=== PATIENT | female | born 1955 | race Caucasian/White ===

== ENCOUNTER 2021-01-28 14:37 | Outpatient (REF) | payer MEDICARE, MEDICAID, SELFPAY ==
--- NOTE | ~2021-01-28 | MM_ITS ---
EXAMINATION: MM SCREENING DIGITAL BREAST TOMOSYNTHESIS, BILATERAL CLINICAL INFORMATION: Screening. Asymptomatic. The lifetime risk of breast cancer based on the Tyrer-Cuzick Model is 4%. COMPARISON: Mammography: 10/20/2019, 09/02/2018, 08/24/2018, 07/07/2017 TECHNIQUE: Digital breast tomosynthesis is performed in both the craniocaudal and mediolateral oblique views along with computer-aided detection (CAD). Synthesized 2D images are generated from the tomosynthesis. FINDINGS: There are scattered areas of fibroglandular density (ACR BI-RADS breast composition Category b). There are no significant masses, abnormal calcifications, or other abnormalities. Parenchymal pattern is similar to prior studies. No developing density. No significant changes. MM/MM tomosynthesis screening BI IMPRESSION: No mammographic evidence of malignancy. ASSESSMENT: BI-RADS 1: Negative RECOMMENDATION: Routine annual mammography screening. This patient's information was entered into a reminder system with a target due date for their next mammogram.
== END 2021-01-28 14:38 | disposition home or self-care (01) ==
LOC: HO.MAMMO 14:37
PROVIDERS: Visit Provider Internal Medicine
DX: Z12.31 Encounter for screening mammogram for malignant neoplasm of breast (principal)
CPT/HCPCS: 77063; 77067

== ENCOUNTER 2021-04-30 11:24 | Outpatient (REF) | payer MEDICARE, MEDICAID, SELFPAY ==
[2021-04-30 10:55] LABS: MANUAL DIFF FLAG NO
[2021-04-30 10:59] LABS: Basophils Percent Auto 0.4 % (0-2); Eosinophils Absolute Auto 0.1 X10*3/uL (0.0-0.4); Eosinophils Percent Auto 0.9 % (0-4); Hematocrit 43.1 % (37.0-47.0); Hemoglobin 14.1 g/dl (12.0-16.0); Imm Gran Abs Auto 0.01 X10*3/uL (0.00-0.03); Imm Gran Pct Auto 0.1 % (0.0-0.4); Lymphocytes Absolute Auto 2.3 X10*3/uL (1.2-4.9); Lymphocytes Percent Auto 34.3 % (20-40); Mean Corpuscular HGB Conc 32.7 g/dl (31.0-35.0); Mean Corpuscular Hemoglobin 31.9 pg (27.0-33.0); Mean Corpuscular Volume 97.5 fL (80.0-98.0); Mean Platelet Volume 9.7 fL (9.4-12.3); Monocytes Absolute Auto 0.5 X10*3/uL (0.1-1.2); Monocytes Percent Auto 7.8 % (2-11); Neutrophils Absolute Auto 3.8 x10*3/uL (2.0-8.3); Neutrophils Percent Auto 56.5 % (45-73); Platelet Count 327 X10*3/uL (160-400); Red Blood Count 4.42 X10*6/uL (4.20-5.50); Red Cell Distribution Width 13.5 % (11.0-16.0); White Blood Count 6.7 X10*3/uL (4.8-10.8)
[2021-04-30 11:07] LABS: Estimated Average Glucose 97 mg/dL
[2021-04-30 11:24] LABS: Alanine Aminotransferase 12 U/L (0-31); Albumin Level 3.9 g/dL (3.5-5.0); Alkaline Phosphatase 58 U/L (39-117); Anion Gap 13 (12-20); Aspartate Amino Transferase 11 U/L (5-31); Bilirubin Total 0.2 mg/dL (0.0-1.0); Blood Urea Nitrogen 9 mg/dL (9-16); Calcium 9.6 mg/dL (8.4-10.2); Carbon Dioxide 30 mmol/L (22-29); Chloride 96 mmol/L (96-108); Cholesterol 210 mg/dL; Estimated Glomerular Filt Rate > 60; Glucose Random 111 mg/dL (60-115); HDL Cholesterol 45 mg/dL; LDL Cholesterol Calculated 129 mg/dl; Lipase 19 U/L (8-78); Potassium 4.1 mmol/L (3.3-5.1); Sodium 135 mmol/L (135-145); Total Protein 6.3 g/dL (6.5-8.0); Triglycerides 184 mg/dL
[2021-04-30 11:46] LABS: Free T4 (Free Thyroxine) 0.99 ng/dL (0.71-1.85); Thyroid Stimulating Hormone 1.06 uIU/mL (0.32-4.0)
[2021-04-30 11:55] LABS: Creatinine Urine 41.27 mg/dL; Microalbum/Creatinine Ratio Ur 72.6 ug/mg cr
== END 2021-04-30 11:25 | disposition home or self-care (01) ==
LOC: HO.LHD 11:24
PROVIDERS: Visit Provider Internal Medicine
DX: R10.84 Generalized abdominal pain (principal); E11.9 Type 2 diabetes mellitus without complications; R53.81 Other malaise; R53.83 Other fatigue; E78.5 Hyperlipidemia, unspecified; F32.A Depression, unspecified
CPT/HCPCS: 36415; 80053; 80061; 82043; 83036; 83690; 84439; 84443; 85025

== ENCOUNTER 2021-05-23 14:26 | Outpatient (REF) | payer MEDICARE, MEDICAID, SELFPAY ==
--- NOTE | ~2021-05-23 | CT_ITS ---
EXAMINATION: CT ABDOMEN AND PELVIS WITH CONTRAST CLINICAL INFORMATION: Abdominal pain. COMPARISON: CT abdomen/pelvis 04/12/2018 TECHNIQUE: Multidetector volumetric images were obtained from the superior aspect of the liver through the pubic symphysis following administration 85 mL of Omnipaque 350 intravenous contrast. Sagittal and coronal reformatted images were obtained on the technologist's workstation. Oral contrast: No. This CT examination was performed using dose optimization techniques as appropriate, variously including the following: *Automated exposure control *Adjustment of mA and/or kV according to patient size (this includes techniques or standardized protocols for targeted exams where dose is matched to indication/reason for exam; i.e. extremities or head) *Use of iterative reconstruction technique DLP: 372 mGy-cm FINDINGS: LUNG BASES: There is a large hiatal hernia. There is plate-like atelectasis at the left lung base. LIVER, GALLBLADDER, AND BILIARY TREE: The liver is normal in size, shape, and attenuation. No focal hepatic lesion or biliary ductal dilatation is present. The gallbladder has been surgically removed. PANCREAS: Unremarkable. SPLEEN: Unremarkable. ADRENAL GLANDS: Unremarkable. KIDNEYS AND URETERS: The kidneys are normal in size, shape, and attenuation. No hydronephrosis, hydroureter, or calculi seen. No perinephric stranding. BLADDER: There is a Mora's catheter in the bladder with no bladder wall thickening or radiopaque calculi. GASTROINTESTINAL TRACT: There is oral contrast opacifying the small bowel loops which are normal caliber. There is scattered stool seen throughout the entire colon without distention. The appendix is normal caliber. ABDOMINAL WALL: There is a large abdominal wall hernia repair with mesh in place. No recurrent herniation seen. LYMPH NODES: Normal. VASCULAR: There are atherosclerotic changes of abdominal aorta without aneurysmal dilatation. PELVIC VISCERA: There is a large thick-walled high-density lesion in the midline and to left pelvis measuring 6.8 cm in craniocaudad, 8.0 cm in AP, and 7.8 cm wide with wall thickening measuring 6 mm on axial image 62/3. There is no free fluid in the pelvis. OSSEOUS STRUCTURES: There is levoscoliosis with degenerative disc changes at every disc level. There is disc prosthesis at L3-L4 with bilateral pedicular screws at L4 and L5 vertebrae with interconnecting prateek. There is loss of disc height virtually at every disc level. There is moderate right spondylosis L1-L2 and L2-L3 disc levels. CT/CT abdomen pelvis w con IMPRESSION: Large hiatal hernia. Large solid intrapelvic mass. It is consistent with a fibroid as was noted previously with some heterogeneity with thick enhancing capsule. Previously it measured 7 cm.
[2021-05-23] MEDS: iohexoL 350 MG/ML 100 ML INFUS..BTL 85 ML IV (15:17)
== END 2021-05-23 14:27 | disposition home or self-care (01) ==
LOC: HO.CT 14:26
PROVIDERS: PCP Internal Medicine; Visit Provider Internal Medicine
DX: R10.84 Generalized abdominal pain (principal)
CPT/HCPCS: 74177; Q9967

== ENCOUNTER 2021-08-20 14:44 | Outpatient (REF) | payer MEDICARE, MEDICAID, SELFPAY ==
--- NOTE | ~2021-08-20 | CT_ITS ---
EXAMINATION: CT CHEST WITH CONTRAST CLINICAL INFORMATION: Weight loss and chronic cough. COMPARISON: None TECHNIQUE: Multidetector volumetric CT imaging of the chest was obtained after the administration of 65 mL of Omnipaque 350 intravenous contrast without immediate adverse reactions. Axial MIP volume rendering provided. Sagittal and coronal reformatted images were obtained. This CT examination was performed using dose optimization techniques as appropriate, variously including the following: *Automated exposure control *Adjustment of mA and/or kV according to patient size (this includes techniques or standardized protocols for targeted exams where dose is matched to indication/reason for exam; i.e. extremities or head) *Use of iterative reconstruction technique DLP: 79 mGy-cm FINDINGS: INCENDIARIES SUPERVISOR: The lungs are well expanded. LUNGS: There are clusters of small nodules in the left upper lobe axial image 76 through 79/9. The largest nodule measures 4 mm in left upper lobe. There are several additional nodules seen in the lingula measuring the range of 2-3 mm on axial image 27/4, 28/4, 30/4. There is plate-like atelectasis left lower lobe posterior basal segment and lingula. MEDIASTINUM: The thyroid lobes are symmetric and normal. The central trachea and the bronchi are widely patent. There are small calcified lymph nodes in the right paratracheal region. Heart size and the great vessels are normal caliber. No pericardial effusion seen. There is a moderate-sized hiatal hernia. PLEURA: There is trace left posterior pleural thickening measuring 3.4 x 1.4 cm. There is no pleural effusion. AXILLA: Small shotty lymph nodes are seen in the axilla. The chest wall is unremarkable. UPPER ABDOMEN: Visualized liver is diffusely attenuated. No focal lesion or intrahepatic ductal dilatation seen. The spleen, bilateral adrenal glands are unremarkable. OSSEOUS STRUCTURES: There is mild dextroscoliosis dorsal spine. No lytic process seen. CT/CT chest w con IMPRESSION: Multiple small nodules in the left upper lobe and the lingular region. There are focal atelectatic changes in left lower lobe with mild thickening of the left major fissure. A moderate-sized hiatal hernia is noted. There is focal left posterior pleural thickening. Diffuse fatty liver. Recommend chest CT followup in 6 months to one year. Fleischner guidelines were followed.
[2021-08-20] MEDS: iohexoL 350 MG/ML 100 ML INFUS..BTL IV (16:06)
== END 2021-08-20 14:45 | disposition home or self-care (01) ==
LOC: HO.CT 14:44
PROVIDERS: Visit Provider Internal Medicine
DX: R63.4 Abnormal weight loss (principal); R05.3 Chronic cough
CPT/HCPCS: 71260; Q9967

== ENCOUNTER 2021-08-22 10:17 | Outpatient (REF) | payer MEDICARE, MEDICAID, SELFPAY ==
[2021-08-22 10:30] LABS: Blood Urea Nitrogen 5 mg/dL (9-16); Estimated Glomerular Filt Rate > 60
== END 2021-08-22 10:18 | disposition home or self-care (01) ==
LOC: HO.LHD 10:17
PROVIDERS: Visit Provider Internal Medicine
DX: E11.9 Type 2 diabetes mellitus without complications (principal); R60.0 Localized edema
CPT/HCPCS: 36415; 82565; 84520

== ENCOUNTER 2021-12-05 15:02 | Outpatient (REF) | payer MEDICARE, MEDICAID, SELFPAY ==
--- NOTE | ~2021-12-05 | XR_ITS ---
EXAMINATION: XR CHEST CLINICAL INFORMATION: Cough. COMPARISON: 08/21/2016 chest radiograph. TECHNIQUE: Frontal view of the chest was obtained. FINDINGS: Rotated and kyphotic positioning is suboptimal. The lungs are clear. There is a moderate hiatal hernia. The heart and mediastinal structures are unremarkable. XR/XR chest 1V IMPRESSION: 1. Limited study without overt CHF or pneumonia. 2. Moderate hiatal hernia.
== END 2021-12-05 15:03 | disposition home or self-care (01) ==
LOC: HO.HMGCLDS 15:02
PROVIDERS: PCP Internal Medicine
DX: R05.9 Cough, unspecified (principal)
CPT/HCPCS: 71045

== ENCOUNTER 2021-12-10 16:51 | Inpatient (IN) | payer MEDICARE, MEDICAID, SELFPAY ==
--- NOTE | ~2021-12-10 | CT_ITS ---
EXAMINATION: CT ABDOMEN AND PELVIS WITH CONTRAST CLINICAL INFORMATION: Posterior lower back wound with question of osteomyelitis COMPARISON: CT abdomen pelvis 05/23/2021 TECHNIQUE: Multidetector volumetric images were obtained from the superior aspect of the liver through the pubic symphysis following administration 85 mL of Omnipaque 350 intravenous contrast. Sagittal and coronal reformatted images were obtained on the technologist's workstation. Oral contrast: No This CT examination was performed using dose optimization techniques as appropriate, variously including the following: *Automated exposure control *Adjustment of mA and/or kV according to patient size (this includes techniques or standardized protocols for targeted exams where dose is matched to indication/reason for exam; i.e. extremities or head) *Use of iterative reconstruction technique DLP: 445 mGy-cm FINDINGS: LUNG BASES: The left hemidiaphragm markedly elevated and there is a moderate-sized hiatal hernia with large portion of the stomach in the chest. LIVER, GALLBLADDER, AND BILIARY TREE: The liver is normal in size, shape, and attenuation. No focal hepatic lesion or biliary ductal dilatation is present. Status post cholecystectomy. PANCREAS: Unremarkable. SPLEEN: Unremarkable. ADRENAL GLANDS: Unremarkable. KIDNEYS AND URETERS: The kidneys are normal in size, shape, and attenuation. No hydronephrosis, hydroureter, or calculi seen. No perinephric stranding. BLADDER: Mora catheter is present in the bladder. GASTROINTESTINAL TRACT: There is a moderate stool burden is seen in the colon, slightly increased since prior but no evidence of obstruction. The small and large bowel are otherwise unremarkable. The appendix is unremarkable. ABDOMINAL WALL: There is been prior abdominal wall surgery with presumed hernia repair. There is some mild diastases of the rectus muscles with forward bulging. In the left buttock, there is a break in the skin (3:52) with some associated increased soft tissue density and stranding consistent with the patient's known wound. The underlying bone appears normal without destructive changes to suggest osteomyelitis. LYMPH NODES: No retroperitoneal lymphadenopathy. VASCULAR: Calcific atherosclerotic plaque without aneurysm. PELVIC VISCERA: Large uterine fibroid measuring 7.5 x 7.2 x 6.2 cm similar to prior. No free pelvic fluid is seen. OSSEOUS STRUCTURES: Marked degenerative changes are present in the spine with pedicular screws at L4 and L5 and interbody disc device at L3-L4. CT/CT abdomen pelvis w IV con IMPRESSION: 1. Left buttock wound without evidence of osteomyelitis. 2. Other incidental findings as described above including elevated left hemidiaphragm, hiatal hernia, cholecystectomy, large uterine fibroid and degenerative changes in the spine. Fleischner guidelines were followed.
[2021-12-10 17:13] VITALS: BP 130/82; BP 143/68; PULSE 68; PULSE 71; RESP 16; TEMP 37; O2SAT 96; BMI 21.0
--- NOTE | 2021-12-10 18:49 | PC.NURSE ---
allevyn life wound pad placed on sacral area and large left posterior hip wound iv access gained.
[2021-12-10 19:00] LABS: MANUAL DIFF FLAG NO
[2021-12-10 19:01] LABS: Basophils Percent Auto 0.4 % (0-2); Eosinophils Percent Auto 0.4 % (0-4); Hematocrit 39.1 % (37.0-47.0); Imm Gran Abs Auto 0.04 X10*3/uL (0.00-0.03); Imm Gran Pct Auto 0.4 % (0.0-0.4); Lymphocytes Percent Auto 17.8 % (20-40); Mean Corpuscular HGB Conc 33.2 g/dl (31.0-35.0); Mean Corpuscular Hemoglobin 31.7 pg (27.0-33.0); Mean Corpuscular Volume 95.4 fL (80.0-98.0); Mean Platelet Volume 9.4 fL (9.4-12.3); Monocytes Percent Auto 8.4 % (2-11); Neutrophils Absolute Auto 8.3 x10*3/uL (2.0-8.3); Neutrophils Percent Auto 72.6 % (45-73); Platelet Count 416 X10*3/uL (160-400); Red Cell Distribution Width 13.3 % (11.0-16.0); White Blood Count 11.4 X10*3/uL (4.8-10.8)
[2021-12-10 19:45] LABS: Lactic Acid 0.9 mmol/L (0.5-2.0)
--- NOTE | 2021-12-10 19:46 | ED_ITS ---
HPI - Wound/Laceration General Chief Complaint: Wound/Laceration Stated Complaint: BEDSORES Time Seen by Provider: 12/10/21 17:23 Source: patient and EMS Mode of arrival: EMS Limitations: no limitations History of Present Illness HPI narrative: Patient comes to the emergency room complaining of pressure ulcer to the upper buttocks on the left side. Patient states that her PCP has been taking care of it. Patient was seen by her primary care physician and suggested to come to the emergency room for further evaluation as patient may need debridement. Patient denies any fever chills. Patient complaining of localized pain. Related Data Home Medications Medication Instructions Recorded Confirmed albuterol sulfate 90 mcg/actuation 2 puff inhalation Q4H PRN wheezing 12/05/21 12/10/21 aerosol inhaler amlodipine 10 mg tablet 10 mg PO DAILY 12/05/21 12/10/21 atenolol 50 mg tablet 50 mg PO DAILY 12/05/21 12/10/21 buspirone 10 mg tablet 10 mg PO BID 12/05/21 12/10/21 clonazepam 1 mg tablet 1 mg PO TID PRN Anxiety 12/05/21 12/10/21 dicyclomine 10 mg capsule 10 mg PO TID 12/05/21 12/10/21 docusate sodium 100 mg capsule 100 mg PO BID PRN constipation 12/05/21 12/10/21 fluoxetine 40 mg capsule 80 mg PO DAILY 12/05/21 12/10/21 furosemide 40 mg tablet 40 mg PO BID 12/05/21 12/10/21 gabapentin 400 mg capsule 400 mg PO TID 12/05/21 12/10/21 ketoconazole 2 % shampoo 1 appl topical DAILY 12/05/21 12/10/21 lisinopril 40 mg tablet 40 mg PO DAILY 12/05/21 12/10/21 metformin 500 mg tablet,extended 500 mg PO BID 12/05/21 12/10/21 release 24 hr methenamine hippurate 1 gram tablet 1 g PO BID 12/05/21 12/10/21 methotrexate sodium 2.5 mg tablet 12.5 mg PO QWEEK 12/05/21 12/10/21 metoclopramide HCl 10 mg tablet 10 mg PO TID 12/05/21 12/10/21 mirabegron 25 mg tablet,extended 25 mg PO DAILY 12/05/21 12/10/21 release 24 hr (Myrbetriq) omeprazole 20 mg capsule,delayed 20 mg PO BID 12/05/21 12/10/21 release ondansetron HCl 4 mg tablet 4 mg PO TID 12/05/21 12/10/21 oxycodone-acetaminophen 10 mg-325 1 tab PO BEDTIME pain 12/05/21 12/10/21 mg tablet riboflavin (vitamin B2) 100 mg 100 mg PO BID 12/05/21 12/10/21 tablet (Vitamin B-2) trazodone 50 mg tablet 100 mg PO BEDTIME PRN Insomnia 12/05/21 12/10/21 ascorbic acid (vitamin C) 500 mg 500 mg PO DAILY 12/10/21 12/10/21 tablet (Vitamin C) aspirin 81 mg chewable tablet 81 mg PO DAILY 12/10/21 12/10/21 baclofen 20 mg tablet 1 tab PO TID 12/10/21 12/10/21 cholecalciferol (vitamin D3) 25 25 mcg PO DAILY 12/10/21 12/10/21 mcg (1,000 unit) tablet ferrous sulfate 325 mg (65 mg 325 mg PO DAILY 12/10/21 12/10/21 iron) tablet sucralfate 1 gram tablet 1 tab PO TID 12/10/21 12/10/21 tiotropium bromide 18 mcg capsule 1 cap inhalation DAILY 12/10/21 12/10/21 with inhalation device (Spiriva with HandiHaler) topiramate 25 mg sprinkle capsule 1 cap PO BEDTIME 12/10/21 12/10/21 zafirlukast 20 mg tablet 1 tab PO BID 12/10/21 12/10/21 Allergies Allergy/AdvReac Type Severity Reaction Status Date / Time morphine [Morphine] Allergy Intermediate INCREASED Verified 12/05/21 14:47 HEART RATE/HALLUCINATIONS, hallucinations Review of Systems Review of Systems: Constitutional : No Weight loss, No Fever, No Chills, No Night Sweats, No Fatigue, No Malaise ENT/Mouth : No Hearing loss, No Ear Pain, No Nasal Congestion, No Sinus Pain, No Hoarseness, No sore throat, No Rhinorrhea, No Swallowing Difficulty Eyes: No Eye Pain, No Swelling, No Redness, No Foreign Body, No Discharge, No Vision Changes Cardiovascular : No Chest Pain, No SOB, No Dyspnea on Exertion, No Orthopnea, No Edema, No Palpitations Respiratory : No Cough, No Sputum, No Wheezing, No Smoke Exposure, No Dyspnea Gastrointestinal : No Nausea, No Vomiting, No Diarrhea, No Constipation, No abdominal Pain, No Hematochezia, No Melena Genitourinary : no irregular bleeding, No Dysuria, No Urinary Frequency, No Hematuria, No Urinary Incontinence, No Urgency, No Flank Pain, No Urinary Flow Changes, No Hesitancy Musculoskeletal : No joint pain, No Myalgias, No Joint Swelling Skin : Decubitus ulcer in the left Neuro : No Weakness, No Numbness, No Paresthesias, No Loss of Consciousness, No Dizziness, No Headache Psych : No Anxiety/Panic, No Depression, No SI/HI/AH/VH, No Social Issues, Heme/Lymph: No Bruising, No Bleeding,No Lymphadenopathy Endocrine : No Polyuria, No Polydipsia, No Temperature Intolerance PMFSH Past Medical History Medical History Anemia Asthma Decubitus ulcer Social History Social History Advance Directives: Yes Advance Directives Information Provided: No Advance Directives on File: No Physical Exam Vital Signs: Vital Signs: Last Vital Signs Temp 98.6 F 12/10/21 17:13 Pulse 68 12/10/21 17:13 Resp 16 12/10/21 17:13 BP 143/68 H 12/10/21 17:13 Pulse Ox 96 12/10/21 17:13 O2 Del Method 12/10/21 17:13 BMI result Body Mass Index 21.0 Const: Other: Appearance: Alert. Oriented X3. No acute distress. Eyes: Pupils equal, round and reactive to light. ENT: Pharynx normal. Neck: Normal inspection. Neck supple. No lymph nodes noted. No crepitus CVS: Normal heart rate and rhythm. Pulses normal. Normal S1 and S2 Respiratory: No respiratory distress. Breath sounds normal. No Wheezing. No rales Abdomen: Soft and nontender. No rigidity. No distention. Skin: Skin warm and dry. Unstageable decubitus ulcer above the left buttocks, see picture below Extremities: No lower extremity edema. No Lacerations. No Rash Neuro: Oriented X 3. No motor deficit. No sensory deficit. Moving all extremities. No slurred speech. CN 2 through 12 grossly intact Psych: calm, cooperative, normal affect Course Course Course Narrative: White blood cell count slightly elevated, lactic acid within normal limits, normal blood pressure, no fever, sepsis not suspected. The patient was started on Zosyn. CT scan does not show osteomyelitis. Patient will likely need debridement. I discussed the patient with Dr. Mcconnell, pt being admitted MDM - Wound/Laceration Lab Data Result diagrams: 12/10/21 18:51 12/10/21 19:23 Labs: Lab Results 12/10/21 12/10/21 12/10/21 Range/Units 18:51 19:23 19:23 WBC 11.4 H (4.8-10.8) X10*3/uL RBC 4.10 L (4.20-5.50) X10*6/uL Hgb 13.0 (12.0-16.0) g/dl Hct 39.1 (37.0-47.0) % MCV 95.4 (80.0-98.0) fL MCH 31.7 (27.0-33.0) pg MCHC 33.2 (31.0-35.0) g/dl RDW 13.3 (11.0-16.0) % Plt Count 416 H D (160-400) X10*3/uL MPV 9.4 (9.4-12.3) fL Immature Gran % (Auto) 0.4 (0.0-0.4) % Neut % (Auto) 72.6 (45-73) % Lymph % (Auto) 17.8 L (20-40) % Frontier % (Auto) 8.4 (2-11) % Eos % (Auto) 0.4 (0-4) % Baso % (Auto) 0.4 (0-2) % Lymph # (Auto) 2.0 (1.2-4.9) X10*3/uL Frontier # (Auto) 1.0 (0.1-1.2) X10*3/uL Eos # (Auto) 0.0 (0.0-0.4) X10*3/uL Baso # (Auto) 0.0 (0.0-0.2) X10*3/uL Abs Immat Gran (auto) 0.04 H (0.00-0.03) X10*3/uL Absolute Neuts (auto) 8.3 (2.0-8.3) x10*3/uL Absolute Nucleated RBC 0.000 (0.0-0.012) X10*3/uL Nucleated RBC % (auto) 0.0 (0.0-0.2) /100WBC Sodium 139 (135-145) mmol/L Potassium 3.5 (3.3-5.1) mmol/L Chloride 98 (96-108) mmol/L Carbon Dioxide 30 H (22-29) mmol/L Anion Gap 15 (12-20) BUN 6 L (9-16) mg/dL Creatinine 0.58 (0.5-1.4) mg/dL Estim Creat Clear Calc 76.4 Estimated GFR > 60 Random Glucose 120 H (60-115) mg/dL Lactic Acid 0.9 (0.5-2.0) mmol/L Calcium 9.1 (8.4-10.2) mg/dL Total Bilirubin 0.2 (0.0-1.0) mg/dL Direct Bilirubin < 0.2 (0.0-0.5) mg/dL AST 14 (5-31) U/L ALT 12 (0-31) U/L Alkaline Phosphatase 65 (39-117) U/L Total Protein 5.7 L (6.5-8.0) g/dL Albumin 3.3 L (3.5-5.0) g/dL COVID-19 (PETE) (Negative) COVID-19 Clin Com 12/10/21 Range/Units 19:23 WBC (4.8-10.8) X10*3/uL RBC (4.20-5.50) X10*6/uL Hgb (12.0-16.0) g/dl Hct (37.0-47.0) % MCV (80.0-98.0) fL MCH (27.0-33.0) pg MCHC (31.0-35.0) g/dl RDW (11.0-16.0) % Plt Count (160-400) X10*3/uL MPV (9.4-12.3) fL Immature Gran % (Auto) (0.0-0.4) % Neut % (Auto) (45-73) % Lymph % (Auto) (20-40) % Frontier % (Auto) (2-11) % Eos % (Auto) (0-4) % Baso % (Auto) (0-2) % Lymph # (Auto) (1.2-4.9) X10*3/uL Frontier # (Auto) (0.1-1.2) X10*3/uL Eos # (Auto) (0.0-0.4) X10*3/uL Baso # (Auto) (0.0-0.2) X10*3/uL Abs Immat Gran (auto) (0.00-0.03) X10*3/uL Absolute Neuts (auto) (2.0-8.3) x10*3/uL Absolute Nucleated RBC (0.0-0.012) X10*3/uL Nucleated RBC % (auto) (0.0-0.2) /100WBC Sodium (135-145) mmol/L Potassium (3.3-5.1) mmol/L Chloride (96-108) mmol/L Carbon Dioxide (22-29) mmol/L Anion Gap (12-20) BUN (9-16) mg/dL Creatinine (0.5-1.4) mg/dL Estim Creat Clear Calc Estimated GFR Random Glucose (60-115) mg/dL Lactic Acid (0.5-2.0) mmol/L Calcium (8.4-10.2) mg/dL Total Bilirubin (0.0-1.0) mg/dL Direct Bilirubin (0.0-0.5) mg/dL AST (5-31) U/L ALT (0-31) U/L Alkaline Phosphatase (39-117) U/L Total Protein (6.5-8.0) g/dL Albumin (3.5-5.0) g/dL COVID-19 (PETE) Negative (Negative) COVID-19 Clin Com See Note Imaging Data CT scan - abdomen: Radiologist's impression: INDINGS: LUNG BASES: The left hemidiaphragm markedly elevated and there is a moderate-sized hiatal hernia with large portion of the stomach in the chest.? LIVER, GALLBLADDER, AND BILIARY TREE: The liver is normal in size, shape, and attenuation. No focal hepatic lesion or biliary ductal dilatation is present. Status post cholecystectomy. PANCREAS: Unremarkable.? SPLEEN: Unremarkable.? ADRENAL GLANDS: Unremarkable.? KIDNEYS AND URETERS: The kidneys are normal in size, shape, and attenuation. No hydronephrosis, hydroureter, or calculi seen. No perinephric stranding. ? BLADDER: Mora catheter is present in the bladder.? GASTROINTESTINAL TRACT: There is a moderate stool burden is seen in the colon, slightly increased since prior but no evidence of obstruction. The small and large bowel are otherwise unremarkable. The appendix is unremarkable.? ABDOMINAL WALL: There is been prior abdominal wall surgery with presumed hernia repair. There is some mild diastases of the rectus muscles with forward bulging. In the left buttock, there is a break in the skin (3:52) with some associated increased soft tissue density and stranding consistent with the patient's known wound. The underlying bone appears normal without destructive changes to suggest osteomyelitis. LYMPH NODES: No retroperitoneal lymphadenopathy. VASCULAR: Calcific atherosclerotic plaque without aneurysm. PELVIC VISCERA: Large uterine fibroid measuring 7.5 x 7.2 x 6.2 cm similar to prior. No free pelvic fluid is seen.? OSSEOUS STRUCTURES: Marked degenerative changes are present in the spine with pedicular screws at L4 and L5 and interbody disc device at L3-L4.? CT/CT abdomen pelvis w IV con IMPRESSION: 1.? Left buttock wound without evidence of osteomyelitis. 2.? Other incidental findings as described above including elevated left hemidiaphragm, hiatal hernia, cholecystectomy, large uterine fibroid and degenerative changes in the spine. ? Fleischner guidelines were followed. Discharge Plan Discharge Clinical Impression: Decubitus ulcer of buttock, unstageable Patient Disposition: Admitted As Inpatient Prescriptions: No Action sucralfate 1 gram tablet 1 tab PO TID baclofen 20 mg tablet 1 tab PO TID ascorbic acid (vitamin C) [Vitamin C] 500 mg Tablet 500 mg PO DAILY topiramate 25 mg capsule, sprinkle 1 cap PO BEDTIME ferrous sulfate 325 mg (65 mg iron) Tablet 325 mg PO DAILY zafirlukast 20 mg tablet 1 tab PO BID aspirin 81 mg Tablet,Chewable 81 mg PO DAILY Spiriva with HandiHaler 18 mcg capsule, w/inhalation device 1 cap inhalation DAILY cholecalciferol (vitamin D3) 25 mcg (1,000 unit) Tablet 25 mcg PO DAILY ondansetron HCl 4 mg tablet 4 mg PO TID fluoxetine 40 mg capsule 80 mg PO DAILY docusate sodium 100 mg capsule 100 mg PO BID PRN (Reason: constipation) Myrbetriq 25 mg tablet extended release 24 hr 25 mg PO DAILY methenamine hippurate 1 gram tablet 1 g PO BID furosemide 40 mg tablet 40 mg PO BID metoclopramide HCl 10 mg tablet 10 mg PO TID oxycodone-acetaminophen 10-325 mg tablet 1 tab PO BEDTIME riboflavin (vitamin B2) [Vitamin B-2] 100 mg tablet 100 mg PO BID ketoconazole 2 % shampoo 1 appl topical DAILY albuterol sulfate 90 mcg/actuation HFA aerosol inhaler 2 puff inhalation Q4H PRN (Reason: wheezing) metformin 500 mg tablet extended release 24 hr 500 mg PO BID methotrexate sodium 2.5 mg tablet 12.5 mg PO QWEEK clonazepam 1 mg tablet 1 mg PO TID PRN (Reason: Anxiety) gabapentin 400 mg capsule 400 mg PO TID lisinopril 40 mg tablet 40 mg PO DAILY dicyclomine 10 mg capsule 10 mg PO TID buspirone 10 mg tablet 10 mg PO BID trazodone 50 mg tablet 100 mg PO BEDTIME PRN (Reason: Insomnia) atenolol 50 mg tablet 50 mg PO DAILY amlodipine 10 mg tablet 10 mg PO DAILY omeprazole 20 mg capsule,delayed release(DR/EC) 20 mg PO BID
[2021-12-10 19:48] LABS: COVID-19 Test Negative (Negative)
[2021-12-10 19:50] LABS: Alanine Aminotransferase 12 U/L (0-31); Albumin Level 3.3 g/dL (3.5-5.0); Alkaline Phosphatase 65 U/L (39-117); Anion Gap 15 (12-20); Aspartate Amino Transferase 14 U/L (5-31); Bilirubin Direct < 0.2 mg/dL (0.0-0.5); Bilirubin Total 0.2 mg/dL (0.0-1.0); Blood Urea Nitrogen 6 mg/dL (9-16); Calcium 9.1 mg/dL (8.4-10.2); Carbon Dioxide 30 mmol/L (22-29); Chloride 98 mmol/L (96-108); Creatinine Clr Calc Pharmacy 76.4; Estimated Glomerular Filt Rate > 60; Glucose Random 120 mg/dL (60-115); Potassium 3.5 mmol/L (3.3-5.1); Sodium 139 mmol/L (135-145); Total Protein 5.7 g/dL (6.5-8.0)
[2021-12-10] MEDS: Piperacillin Sodium/Tazobactam 3.375 GM in 0.9 % Sodium Chloride 50 ML IV (19:50)
[2021-12-10] MEDS: iohexoL 350 MG/ML 100 ML INFUS..BTL IV (20:20)
--- NOTE | 2021-12-10 21:03 | PHA.MEDREC ---
Pharmacy Consult ? Medication Reconciliation Pharmacy has completed the medication reconciliation.
--- NOTE | 2021-12-10 22:28 | PM.IMHP ---
History of Present Illness Date of Service: 12/10/21 Chief Complaint: Sacral wound This is a 66-year-old female with pertinent history of multiple sclerosis with resultant rigidity and neuropathy, bed bound for the last 18 years and uses a wheelchair to ambulate, essential hypertension, non insulin dependent diabetes, gastroparesis with gastroesophageal reflux disease, chronic opioid use, urinary incontinence, mood disorder with insomnia who was sent to the emergency department by her PCP for evaluation of sacral decubitus ulcer. Patient states she has been bed-bound for the last 18 years. Sacral decubitus ulcer was 1st noticed about 3 months ago and is being managed by PCP. She has [employer] at home could do wound care twice daily. Patient denies fever, chills or purulent discharge from the sacral decubitus. She denies nausea, vomiting, chest discomfort, palpitations, abdominal pain, changes in urinary or bowel habits. In the emergency department, unstageable sacral decubitus ulcer was noted. General surgery was consulted who recommended admission to Medicine and who will see in a.m.. Review of Systems Review of Systems: All 13 review of systems are negative except as noted in HPI [facility] Medical History Anemia Asthma Decubitus ulcer Diabetes Gastroparesis GERD (gastroesophageal reflux disease) Hypertension Insomnia Mood disorder Multiple sclerosis Peripheral neuropathy Functional capacity: wheelchair bound Social History Advance Directives: Yes Advance Directives Information Provided: No Advance Directives on File: No Meds Allergies Allergy/AdvReac Type Severity Reaction Status Date / Time morphine [Morphine] Allergy Intermediate INCREASED Verified 12/05/21 14:47 HEART RATE/HALLUCINATIONS, hallucinations Active Medications: Current Medications Acetaminophen (Acetaminophen 325 Mg Tablet) 650 mg PO Q6H PRN PRN Reason: Pain, Mild (Pain Scale 1-3) Albuterol Sulfate (Albuterol Sulfate 90 Mcg 8 Gm Inhaler) 2 puff INHALE Q4H PRN PRN Reason: wheezing Amlodipine Besylate (Amlodipine Besylate 10 Mg Tablet) 10 mg PO DAILY [facility]; Protocol Ascorbic Acid (Ascorbic Acid 500 Mg Tablet) 500 mg PO DAILY [facility] Aspirin (Aspirin 81 Mg Tab.Chew) 81 mg PO DAILY [facility] Atenolol (Atenolol 50 Mg Tablet) 50 mg PO DAILY [facility]; Protocol Baclofen (Baclofen 20 Mg Tablet) 20 mg PO TID [facility] Buspirone HCl (Buspirone Hcl 10 Mg Tablet) 10 mg PO BID [facility] Clonazepam (Clonazepam 1 Mg Tablet) 1 mg PO TID PRN PRN Reason: Anxiety Dicyclomine HCl (Dicyclomine Hcl 10 Mg Capsule) 10 mg PO TID [facility] Docusate Sodium (Docusate Sodium 100 Mg Capsule) 100 mg PO BID PRN PRN Reason: constipation Fluoxetine HCl (Fluoxetine Hcl 20 Mg Capsule) 80 mg PO DAILY [facility] Furosemide (Furosemide 40 Mg Tablet) 40 mg PO BID [facility]; Protocol Gabapentin (Gabapentin 400 Mg Capsule) 400 mg PO TID [facility] Ketoconazole (Ketoconazole 2 % Shampoo 120 Ml Btl) 1 appl TOPICAL DAILY [facility]; Protocol Lisinopril (Lisinopril 40 Mg Tablet) 40 mg PO DAILY [facility]; Protocol Melatonin (Melatonin 3 Mg Tablet) 6 mg PO BEDTIME PRN PRN Reason: Insomnia Metformin HCl (Metformin Hcl Er 500 Mg Tab.Er.24h) 500 mg PO BID [facility] Methotrexate (Methotrexate Sodium 2.5 Mg Tablet) 12.5 mg PO QWEEK [facility] Metoclopramide HCl (Metoclopramide Hcl 10 Mg Tablet) 10 mg PO TID [facility] Mirabegron (Mirabegron 25 Mg Tab.Er.24h) 25 mg PO DAILY [facility] Non-Formulary Medication (Ferrous Sulfate) 325 mg PO DAILY [facility] Non-Formulary Medication (Methenamine Hippurate) 1 gm PO BID [facility] Non-Formulary Medication (Oxycodone-Acetaminophen) 1 tab PO BEDTIME [facility] Non-Formulary Medication (Riboflavin (Vitamin B2) [Vitamin B-2]) 100 mg PO BID [facility] Non-Formulary Medication (Zafirlukast) 1 tab PO BID [facility] Omeprazole (Omeprazole 20 Mg Capsule.Dr) 20 mg PO BID [facility] Ondansetron HCl (Ondansetron Hcl 4 Mg/2 Ml Vial) 4 mg IVPUSH Q8H PRN PRN Reason: Nausea and Vomiting Ondansetron HCl (Ondansetron Odt 4 Mg Tab.Rapdis) 4 mg TRANSLINGU TID [facility] Pharmacy Consult (Consult Rx Perform Med Rec) 1 each MISCELLANE ONCE PRN PRN Reason: Consult order Sodium Chloride (0.9 % Sodium Chloride Flush 3 Ml Syringe) 3 ml IVFLUSH QSHIFT [facility] Sucralfate (Sucralfate 1 Gm Tablet) gm PO TID [facility] Tiotropium [place] (Tiotropium [place] 18 Mcg Cap.W.Dev) puff INHALE DAILY [facility] Topiramate (Topiramate 25 Mg Tablet) 25 mg PO BEDTIME [facility] Trazodone HCl (Trazodone Hcl 100 Mg Tablet) 100 mg PO BEDTIME PRN PRN Reason: Insomnia Vitamin D (Cholecalciferol (Vitamin D3) 25 Mcg Tablet) 25 mcg PO DAILY [facility] Home Medications Medication Instructions Recorded Confirmed Last Taken Type albuterol sulfate 90 mcg/actuation 2 puff inhalation Q4H PRN wheezing 12/05/21 12/10/21 Unknown History aerosol inhaler amlodipine 10 mg tablet 10 mg PO DAILY 12/05/21 12/10/21 Unknown History atenolol 50 mg tablet 50 mg PO DAILY 12/05/21 12/10/21 Unknown History buspirone 10 mg tablet 10 mg PO BID 12/05/21 12/10/21 Unknown History clonazepam 1 mg tablet 1 mg PO TID PRN Anxiety 12/05/21 12/10/21 Unknown History dicyclomine 10 mg capsule 10 mg PO TID 12/05/21 12/10/21 Unknown History docusate sodium 100 mg capsule 100 mg PO BID PRN constipation 12/05/21 12/10/21 Unknown History fluoxetine 40 mg capsule 80 mg PO DAILY 12/05/21 12/10/21 Unknown History furosemide 40 mg tablet 40 mg PO BID 12/05/21 12/10/21 Unknown History gabapentin 400 mg capsule 400 mg PO TID 12/05/21 12/10/21 Unknown History ketoconazole 2 % shampoo 1 appl topical DAILY 12/05/21 12/10/21 Unknown History lisinopril 40 mg tablet 40 mg PO DAILY 12/05/21 12/10/21 Unknown History metformin 500 mg tablet,extended 500 mg PO BID 12/05/21 12/10/21 Unknown History release 24 hr methenamine hippurate 1 gram tablet 1 g PO BID 12/05/21 12/10/21 Unknown History methotrexate sodium 2.5 mg tablet 12.5 mg PO QWEEK 12/05/21 12/10/21 Unknown History metoclopramide HCl 10 mg tablet 10 mg PO TID 12/05/21 12/10/21 Unknown History mirabegron 25 mg tablet,extended 25 mg PO DAILY 12/05/21 12/10/21 Unknown History release 24 hr (Myrbetriq) omeprazole 20 mg capsule,delayed 20 mg PO BID 12/05/21 12/10/21 Unknown History release ondansetron HCl 4 mg tablet 4 mg PO TID 12/05/21 12/10/21 Unknown History oxycodone-acetaminophen 10 mg-325 1 tab PO BEDTIME pain 12/05/21 12/10/21 Unknown History mg tablet riboflavin (vitamin B2) 100 mg 100 mg PO BID 12/05/21 12/10/21 Unknown History tablet (Vitamin B-2) trazodone 50 mg tablet 100 mg PO BEDTIME PRN Insomnia 12/05/21 12/10/21 Unknown History ascorbic acid (vitamin C) 500 mg 500 mg PO DAILY 12/10/21 12/10/21 Unknown History tablet (Vitamin C) aspirin 81 mg chewable tablet 81 mg PO DAILY 12/10/21 12/10/21 Unknown History baclofen 20 mg tablet 1 tab PO TID 12/10/21 12/10/21 Unknown History cholecalciferol (vitamin D3) 25 25 mcg PO DAILY 12/10/21 12/10/21 Unknown History mcg (1,000 unit) tablet ferrous sulfate 325 mg (65 mg 325 mg PO DAILY 12/10/21 12/10/21 Unknown History iron) tablet sucralfate 1 gram tablet 1 tab PO TID 12/10/21 12/10/21 Unknown History tiotropium bromide 18 mcg capsule 1 cap inhalation DAILY 12/10/21 12/10/21 Unknown History with inhalation device (Spiriva with HandiHaler) topiramate 25 mg sprinkle capsule 1 cap PO BEDTIME 12/10/21 12/10/21 Unknown History zafirlukast 20 mg tablet 1 tab PO BID 12/10/21 12/10/21 Unknown History Physical Exam Vital Signs and Narrative: Vital Signs: Last Vital Signs Temp 98.6 F 12/10/21 17:13 Pulse 68 12/10/21 17:13 Resp 16 12/10/21 17:13 BP 143/68 H 12/10/21 17:13 Pulse Ox 96 12/10/21 17:13 O2 Del Method 10/25/22 17:13 BMI result Body Mass Index 21.0 Middle-aged female lying in bed in no distress Neck supple, no JVD Regular rate and rhythm, S1-S2 heard Regular breath sounds bilaterally, no wheezing or crackles appreciated Abdomen soft nontender, no guarding, no rigidity Patient is awake, alert and oriented to self, place, time and person ; extremities with rigidity and decreased strength Skin: See image below of sacral decubitus ulcer Psych: Normal mood No pedal edema Const: Other: Results Labs CBC and Chem 7: 12/10/21 18:51 12/10/21 19:23 Labs: Laboratory Results - last 24 hr 12/10/21 12/10/21 12/10/21 18:51 19:23 19:23 MCV 95.4 MCH 31.7 MCHC 33.2 RDW 13.3 Plt Count 416 H D MPV 9.4 Immature Gran % (Auto) 0.4 Neut % (Auto) 72.6 Lymph % (Auto) 17.8 L Gonzales % (Auto) 8.4 Eos % (Auto) 0.4 Baso % (Auto) 0.4 Lymph # (Auto) 2.0 Gonzales # (Auto) 1.0 Eos # (Auto) 0.0 Baso # (Auto) 0.0 Abs Immat Gran (auto) 0.04 H Absolute Neuts (auto) 8.3 Absolute Nucleated RBC 0.000 Nucleated RBC % (auto) 0.0 Anion Gap 15 Estim Creat Clear Calc 76.4 Estimated GFR > 60 Random Glucose 120 H Lactic Acid 0.9 Calcium 9.1 Total Bilirubin 0.2 Direct Bilirubin < 0.2 AST 14 ALT 12 Alkaline Phosphatase 65 Total Protein 5.7 L Albumin 3.3 L COVID-19 (PETE) COVID-19 Clin Com 12/10/21 19:23 MCV MCH MCHC RDW Plt Count MPV Immature Gran % (Auto) Neut % (Auto) Lymph % (Auto) Gonzales % (Auto) Eos % (Auto) Baso % (Auto) Lymph # (Auto) Gonzales # (Auto) Eos # (Auto) Baso # (Auto) Abs Immat Gran (auto) Absolute Neuts (auto) Absolute Nucleated RBC Nucleated RBC % (auto) Anion Gap Estim Creat Clear Calc Estimated GFR Random Glucose Lactic Acid Calcium Total Bilirubin Direct Bilirubin AST ALT Alkaline Phosphatase Total Protein Albumin COVID-19 (PETE) Negative COVID-19 Clin Com See Note Imaging Radiologist's Impressions: Impressions Abdomen/Pelvis CT 12/10/21 20:34 IMPRESSION: 1. Left buttock wound without evidence of osteomyelitis. 2. Other incidental findings as described above including elevated left hemidiaphragm, hiatal hernia, cholecystectomy, large uterine fibroid and degenerative changes in the spine. Fleischner guidelines were followed. Assessment and Plan (1) Decubitus ulcer of buttock, unstageable: Status: Acute (2) Mood disorder: Status: Acute (3) Insomnia: Status: Acute (4) Hypertension: Status: Acute (5) Diabetes: Status: Acute (6) Multiple sclerosis: Status: Acute (7) Gastroparesis: Status: Acute (8) GERD (gastroesophageal reflux disease): Status: Acute (9) Peripheral neuropathy: Status: Acute (10) Bedbound: Status: Acute Plan This is a 66-year-old female with pertinent history of multiple sclerosis with resultant rigidity and neuropathy, bed bound for the last 18 years and uses a wheelchair to ambulate, essential hypertension, non insulin dependent diabetes, gastroparesis with gastroesophageal reflux disease, chronic opioid use, urinary incontinence, mood disorder with insomnia who was sent to the emergency department by her PCP for evaluation of sacral decubitus ulcer #. Unstageable sacral decubitus ulcer -consulted Wound Care and General surgery. Will need possible debridement. No concern for secondary bacterial infection, defer antibiotics. #. Multiple sclerosis with muscle rigidity and paraparesis #. Mood disorder with insomnia #. Essential hypertension #. Iap-nvkzlnt-bbsrvufoi diabetes mellitus #. Gastroparesis with gastroesophageal reflux disease #. Urinary incontinence #. Chronic opioid use -continue home p.o. medications. DVT prophylaxis: None. Holding Lovenox until surgical evaluation Diet: Cardiac diet Full code Quality Stroke Does the patient have a stroke diagnosis?: No VTE Prior VTE?: No VTE Risk Level:: Medical - moderate - high VTE Device Contraindication: Treatment Not Indicated VTE Drug Contraindication: Treatment Not Indicated
[2021-12-10] MEDS: Topiramate 25 MG TABLET PO (22:47)
[2021-12-10] MEDS: Melatonin 3 MG TABLET 6 MG PO (22:47)
[2021-12-10] MEDS: Gabapentin 400 MG CAPSULE PO (22:47)
[2021-12-10] MEDS: Omeprazole 20 MG CAPSULE.DR PO (22:47)
[2021-12-10] MEDS: Sucralfate 1 GM TABLET PO (22:48)
[2021-12-10] MEDS: clonazePAM 1 MG TABLET PO (22:48)
[2021-12-10] MEDS: Metoclopramide HCl 10 MG TABLET PO (22:48)
[2021-12-10] MEDS: Dicyclomine HCl 10 MG CAPSULE PO (22:48)
[2021-12-10] MEDS: metFORMIN HCl ER 500 MG TAB.ER.24H PO (22:48)
[2021-12-10] MEDS: busPIRone HCl 10 MG TABLET PO (22:48)
[2021-12-10] MEDS: Baclofen 20 MG TABLET PO (22:50)
[2021-12-11] VITALS (8 sets, daily range): BP systolic 73–165; BP diastolic 45–123; PULSE 54–82; RESP 12–20; TEMP 36.3–37.1; O2SAT 91–98
[2021-12-11] MEDS: traZODone HCL 100 MG TABLET PO (03:32)
[2021-12-11 06:28] LABS: MANUAL DIFF FLAG NO
[2021-12-11 06:29] LABS: Basophils Percent Auto 0.5 % (0-2); Eosinophils Absolute Auto 0.1 X10*3/uL (0.0-0.4); Eosinophils Percent Auto 1.3 % (0-4); Hematocrit 34.7 % (37.0-47.0); Hemoglobin 11.8 g/dl (12.0-16.0); Imm Gran Abs Auto 0.01 X10*3/uL (0.00-0.03); Imm Gran Pct Auto 0.1 % (0.0-0.4); Lymphocytes Percent Auto 27.2 % (20-40); Mean Corpuscular Hemoglobin 32.9 pg (27.0-33.0); Mean Corpuscular Volume 96.7 fL (80.0-98.0); Mean Platelet Volume 9.2 fL (9.4-12.3); Monocytes Absolute Auto 0.7 X10*3/uL (0.1-1.2); Monocytes Percent Auto 9.7 % (2-11); Neutrophils Absolute Auto 4.6 x10*3/uL (2.0-8.3); Neutrophils Percent Auto 61.2 % (45-73); Platelet Count 321 X10*3/uL (160-400); Red Blood Count 3.59 X10*6/uL (4.20-5.50); Red Cell Distribution Width 13.4 % (11.0-16.0); White Blood Count 7.5 X10*3/uL (4.8-10.8)
[2021-12-11 07:03] LABS: Anion Gap 14 (12-20); Blood Urea Nitrogen 4 mg/dL (9-16); Calcium 8.8 mg/dL (8.4-10.2); Carbon Dioxide 26 mmol/L (22-29); Chloride 102 mmol/L (96-108); Creatinine Clr Calc Pharmacy 88.7; Estimated Glomerular Filt Rate > 60; Glucose Random 97 mg/dL (60-115); Potassium 3.4 mmol/L (3.3-5.1); Sodium 139 mmol/L (135-145)
--- NOTE | 2021-12-11 08:00 | PM.CNGS ---
History of Present Illness Consult details Consult date: 12/11/21 Narrative: 66-year-old female with multiple medical problems including multiple sclerosis, gastroparesis, diabetes, and hypertension, referred because of decubitus ulcer. She has been bed-bound for almost 20 years. She was noted to have a decubitus ulcer about 3 months ago and was being followed by her primary care physician for this. She was sent to the ER yesterday by her primary care physician because of worsening of this ulcer. She otherwise does not present with history of fever or chills. Review of Systems Constitutional: Constitutional: Denies chills and Denies fever(s) Cardiovascular: Cardiovascular: Denies chest pain and Denies dyspnea Respiratory: Respiratory: Denies cough and Denies dyspnea Gastrointestinal: Gastrointestinal: Denies abdominal pain and Denies diarrhea Genitourinary: Genitourinary: Denies difficulty voiding Musculoskeletal: Comments: Bed-bound Neurologic: Comments: bed-bound to multiple sclerosis [facility] Past Medical History Medical History Anemia Asthma Decubitus ulcer Diabetes Gastroparesis GERD (gastroesophageal reflux disease) Hypertension Insomnia Mood disorder Multiple sclerosis Peripheral neuropathy Functional capacity: wheelchair bound Social History Social History Household Members: Spouse Housing: House Do you presently have visiting nurse or other home services: Yes (NURSE [employer]SULT[employer] services daily) Alcohol intake: never Patient Tobacco Use Status: Never used Tobacco Substance Use Type: Marijuana Advance Directives Date on File: 12/11/21 service: No Current occupational status: disabled Meds Allergies Allergy/AdvReac Type Severity Reaction Status Date / Time morphine [Morphine] Allergy Intermediate INCREASED Verified 12/05/21 14:47 HEART RATE/HALLUCINATIONS, hallucinations Active Medications: Current Medications Acetaminophen (Acetaminophen 325 Mg Tablet) 650 mg PO Q6H PRN PRN Reason: Pain, Mild (Pain Scale 1-3) Albuterol Sulfate (Albuterol Sulfate 90 Mcg 8 Gm Inhaler) 2 puff INHALE RQ4H PRN PRN Reason: wheezing Amlodipine Besylate (Amlodipine Besylate 10 Mg Tablet) 10 mg PO DAILY [facility]; Protocol Ascorbic Acid (Ascorbic Acid 500 Mg Tablet) 500 mg PO DAILY [facility] Aspirin (Aspirin 81 Mg Tab.Chew) 81 mg PO DAILY [facility] Atenolol (Atenolol 50 Mg Tablet) 50 mg PO DAILY [facility]; Protocol Baclofen (Baclofen 20 Mg Tablet) 20 mg PO TID [facility] Last Admin: 12/10/21 22:50 Dose: 20 mg Buspirone HCl (Buspirone Hcl 10 Mg Tablet) 10 mg PO BID [facility] Last Admin: 12/10/21 22:48 Dose: 10 mg Clonazepam (Clonazepam 1 Mg Tablet) 1 mg PO TID PRN PRN Reason: Anxiety Last Admin: 12/10/21 22:48 Dose: 1 mg Dicyclomine HCl (Dicyclomine Hcl 10 Mg Capsule) 10 mg PO TID [facility] Last Admin: 12/10/21 22:48 Dose: 10 mg Docusate Sodium (Docusate Sodium 100 Mg Capsule) 100 mg PO BID PRN PRN Reason: constipation Ferrous Sulfate (Ferrous Sulfate 324 Mg Tablet.) 324 mg PO DAILY [facility] Fluoxetine HCl (Fluoxetine Hcl 20 Mg Capsule) 80 mg PO DAILY [facility] Furosemide (Furosemide 40 Mg Tablet) 40 mg PO BID [facility]; Protocol Gabapentin (Gabapentin 400 Mg Capsule) 400 mg PO TID [facility] Last Admin: 12/10/21 22:47 Dose: 400 mg Ketoconazole (Ketoconazole 2 % Shampoo 120 Ml Btl) 1 appl TOPICAL DAILY [facility]; Protocol Lisinopril (Lisinopril 40 Mg Tablet) 40 mg PO DAILY [facility]; Protocol Melatonin (Melatonin 3 Mg Tablet) 6 mg PO BEDTIME PRN PRN Reason: Insomnia Last Admin: 12/10/21 22:47 Dose: 6 mg Metformin HCl (Metformin Hcl Er 500 Mg Tab.Er.24h) 500 mg PO BID [facility] Last Admin: 12/10/21 22:48 Dose: 500 mg Methotrexate (Methotrexate Sodium 2.5 Mg Tablet) 12.5 mg PO Q7D [facility] Metoclopramide HCl (Metoclopramide Hcl 10 Mg Tablet) 10 mg PO TID [facility] Last Admin: 12/10/21 22:48 Dose: 10 mg Mirabegron (Mirabegron 25 Mg Tab.Er.24h) 25 mg PO DAILY [facility] Montelukast Sodium (Montelukast Sodium 10 Mg Tablet) 10 mg PO BEDTIME [facility] Non-Formulary Medication (Methenamine Hippurate) 1 gm PO BID [facility] Omeprazole (Omeprazole 20 Mg Capsule.) 20 mg PO BID [facility] Last Admin: 12/10/21 22:47 Dose: 20 mg Ondansetron HCl (Ondansetron Hcl 4 Mg/2 Ml Vial) 4 mg IVPUSH Q8H PRN PRN Reason: Nausea and Vomiting Ondansetron HCl (Ondansetron Odt 4 Mg Tab.Rapdis) 4 mg TRANSLINGU TID [facility] Oxycodone HCl (Oxycodone Hcl Immed Release 5 Mg Tablet) 10 mg PO BEDTIME [facility] Pharmacy Consult (Consult Rx Perform Med Rec) 1 each MISCELLANE ONCE PRN PRN Reason: Consult order Sodium Chloride (0.9 % Sodium Chloride Flush 3 Ml Syringe) 3 ml IVFLUSH QSHIFT [facility] Last Admin: 12/11/21 00:11 Dose: Not Given Sucralfate (Sucralfate 1 Gm Tablet) 1 gm PO TID [facility] Last Admin: 12/10/21 22:48 Dose: 1 gm Tiotropium Hendrix (Tiotropium Hendrix 18 Mcg Cap.W.Dev) 1 puff INHALE DAILY [facility] Last Admin: 12/11/21 07:48 Dose: Not Given Topiramate (Topiramate 25 Mg Tablet) 25 mg PO BEDTIME [facility] Last Admin: 12/10/21 22:47 Dose: 25 mg Trazodone HCl (Trazodone Hcl 100 Mg Tablet) 100 mg PO BEDTIME PRN PRN Reason: Insomnia Last Admin: 12/11/21 03:32 Dose: 100 mg Vitamin D (Cholecalciferol (Vitamin D3) 25 Mcg Tablet) 25 mcg PO DAILY [facility] Home Medications Medication Instructions Recorded Confirmed Last Taken Type albuterol sulfate 90 mcg/actuation 2 puff inhalation Q4H PRN wheezing 12/05/21 12/10/21 Unknown History aerosol inhaler amlodipine 10 mg tablet 10 mg PO DAILY 12/05/21 12/10/21 Unknown History atenolol 50 mg tablet 50 mg PO DAILY 12/05/21 12/10/21 Unknown History buspirone 10 mg tablet 10 mg PO BID 12/05/21 12/10/21 Unknown History clonazepam 1 mg tablet 1 mg PO TID PRN Anxiety 12/05/21 12/10/21 Unknown History dicyclomine 10 mg capsule 10 mg PO TID 12/05/21 12/10/21 Unknown History docusate sodium 100 mg capsule 100 mg PO BID PRN constipation 12/05/21 12/10/21 Unknown History fluoxetine 40 mg capsule 80 mg PO DAILY 12/05/21 12/10/21 Unknown History furosemide 40 mg tablet 40 mg PO BID 12/05/21 12/10/21 Unknown History gabapentin 400 mg capsule 400 mg PO TID 12/05/21 12/10/21 Unknown History ketoconazole 2 % shampoo 1 appl topical DAILY 12/05/21 12/10/21 Unknown History lisinopril 40 mg tablet 40 mg PO DAILY 12/05/21 12/10/21 Unknown History metformin 500 mg tablet,extended 500 mg PO BID 12/05/21 12/10/21 Unknown History release 24 hr methenamine hippurate 1 gram tablet 1 g PO BID 12/05/21 12/10/21 Unknown History methotrexate sodium 2.5 mg tablet 12.5 mg PO QWEEK 12/05/21 12/10/21 Unknown History metoclopramide HCl 10 mg tablet 10 mg PO TID 12/05/21 12/10/21 Unknown History mirabegron 25 mg tablet,extended 25 mg PO DAILY 12/05/21 12/10/21 Unknown History release 24 hr (Myrbetriq) omeprazole 20 mg capsule,delayed 20 mg PO BID 12/05/21 12/10/21 Unknown History release ondansetron HCl 4 mg tablet 4 mg PO TID 12/05/21 12/10/21 Unknown History oxycodone-acetaminophen 10 mg-325 1 tab PO BEDTIME pain 12/05/21 12/10/21 Unknown History mg tablet riboflavin (vitamin B2) 100 mg 100 mg PO BID 12/05/21 12/10/21 Unknown History tablet (Vitamin B-2) trazodone 50 mg tablet 100 mg PO BEDTIME PRN Insomnia 12/05/21 12/10/21 Unknown History ascorbic acid (vitamin C) 500 mg 500 mg PO DAILY 12/10/21 12/10/21 Unknown History tablet (Vitamin C) aspirin 81 mg chewable tablet 81 mg PO DAILY 12/10/21 12/10/21 Unknown History baclofen 20 mg tablet 1 tab PO TID 12/10/21 12/10/21 Unknown History cholecalciferol (vitamin D3) 25 25 mcg PO DAILY 12/10/21 12/10/21 Unknown History mcg (1,000 unit) tablet ferrous sulfate 325 mg (65 mg 325 mg PO DAILY 12/10/21 12/10/21 Unknown History iron) tablet sucralfate 1 gram tablet 1 tab PO TID 12/10/21 12/10/21 Unknown History tiotropium bromide 18 mcg capsule 1 cap inhalation DAILY 12/10/21 12/10/21 Unknown History with inhalation device (Spiriva with HandiHaler) topiramate 25 mg sprinkle capsule 1 cap PO BEDTIME 12/10/21 12/10/21 Unknown History zafirlukast 20 mg tablet 1 tab PO BID 12/10/21 12/10/21 Unknown History Physical Exam Vital Signs: Vital Signs: Last Vital Signs Temp 98.2 F 12/11/21 07:28 Pulse 54 12/11/21 07:36 Resp 12 12/11/21 07:36 BP 93/52 L 12/11/21 07:36 Pulse Ox 97 12/11/21 07:36 O2 Del Method 12/11/21 07:36 BMI result Body Mass Index 21.0 Const: Other: communicative although with some speech difficulty General: comfortable and no acute distress Resp: Effort & Inspection: normal respiratory effort Cardio: Rhythm: regular rhythm GI: Palpation (GI): Soft to palpation and nontender Back/Spine/Pelvis: Other: decubitus ulcer, left sacral area, with thick dark eschar, unstageable, about 6 by 4 cm in area, no cellulitis Neuro: Other: motor deficit due to MS Results Labs Result diagrams: 12/12/21 05:34 12/12/21 05:39 Labs: Abnormal lab results 12/10/21 12/10/21 12/11/21 Range/Units 18:51 19:23 06:19 WBC 11.4 H (4.8-10.8) X10*3/uL RBC 4.10 L 3.59 L (4.20-5.50) X10*6/uL Hgb 11.8 L (12.0-16.0) g/dl Hct 34.7 L (37.0-47.0) % Plt Count 416 H D (160-400) X10*3/uL MPV 9.2 L (9.4-12.3) fL Lymph % (Auto) 17.8 L (20-40) % Abs Immat Gran (auto) 0.04 H (0.00-0.03) X10*3/uL Carbon Dioxide 30 H (22-29) mmol/L BUN 6 L (9-16) mg/dL Random Glucose 120 H (60-115) mg/dL Total Protein 5.7 L (6.5-8.0) g/dL Albumin 3.3 L (3.5-5.0) g/dL 12/11/21 Range/Units 06:19 WBC (4.8-10.8) X10*3/uL RBC (4.20-5.50) X10*6/uL Hgb (12.0-16.0) g/dl Hct (37.0-47.0) % Plt Count (160-400) X10*3/uL MPV (9.4-12.3) fL Lymph % (Auto) (20-40) % Abs Immat Gran (auto) (0.00-0.03) X10*3/uL Carbon Dioxide (22-29) mmol/L BUN 4 L (9-16) mg/dL Random Glucose (60-115) mg/dL Total Protein (6.5-8.0) g/dL Albumin (3.5-5.0) g/dL Short CBC 12/10/21 12/11/21 Range/Units 18:51 06:19 WBC 11.4 H 7.5 (4.8-10.8) X10*3/uL Hgb 13.0 11.8 L (12.0-16.0) g/dl Hct 39.1 34.7 L (37.0-47.0) % Plt Count 416 H D 321 (160-400) X10*3/uL BMP 12/10/21 12/11/21 19:23 06:19 Sodium 139 139 Potassium 3.5 3.4 Chloride 98 102 Carbon Dioxide 30 H 26 BUN 6 L 4 L Creatinine 0.58 0.50 Calcium 9.1 8.8 Liver Function 12/10/21 Range/Units 19:23 Total Bilirubin 0.2 (0.0-1.0) mg/dL Direct Bilirubin < 0.2 (0.0-0.5) mg/dL AST 14 (5-31) U/L ALT 12 (0-31) U/L Alkaline Phosphatase 65 (39-117) U/L Albumin 3.3 L (3.5-5.0) g/dL All other labs normal. Assessment and Plan (1) Sacral decubitus ulcer: Status: Acute She has a 6 x 4 cm under with a thick eschar as described above. I explained to her the we needed to proceed with excision all debridement. I explained to her the technique of this procedure and she had given verbal consent. She was positioned in right lateral decubitus position. The area of the ulcer was prepped. I proceeded to use the scissors to excise the thick eschar. I excised the full-thickness of the skin and deep subcutaneous tissue down to appeared to be viable fat. I proceeded to then apply dressings to the area. She was propped up so as avoid pressure on this side. [id number] position changes should be for decubitus ulcer precautions. I will doing wound checks on her while she is in the hospital. Procedures Date of Service Date of Service: 12/11/21
--- NOTE | 2021-12-11 08:07 | PM.OP ---
Brief Operative Note Date of Service: 12/11/21 Pre-op diagnosis: sacral decubitus ulcer with eschar Post-op diagnosis: same ( involving full-thickness of skin and deep subcutaneous layer) Procedure: excisional debridement of the thick eschar sacral decubitus ulcer, moving full-thickness of skin and deep subcutaneous layer done at bedside excised area was 6 x 4 cm procedure described as well on consult note Surgeon: Poncho Zamora MD Anesthesia: none Was an Sales Operations Director used for this Procedure?: No Estimated blood loss (mL): 5 Pathology: none sent Condition: stable
--- NOTE | 2021-12-11 08:58 | PC.NURSE ---
patient wash and complete bed change , position on left side
--- NOTE | 2021-12-11 09:23 | PC.NURSE ---
dr. kaur at bedside, pt aware of plan of care.
[2021-12-11] MEDS: Mirabegron 25 MG TAB.ER.24H PO (10:25)
[2021-12-11] MEDS: busPIRone HCl 10 MG TABLET PO ×2 (10:26→20:20)
[2021-12-11] MEDS: Omeprazole 20 MG CAPSULE.DR PO ×2 (10:26→20:19)
[2021-12-11] MEDS: FLUoxetine HCl 20 MG CAPSULE 80 MG PO (10:26)
[2021-12-11] MEDS: Metoclopramide HCl 10 MG TABLET PO ×3 (10:26→20:18)
[2021-12-11] MEDS: Sucralfate 1 GM TABLET PO ×3 (10:27→20:19)
[2021-12-11] MEDS: atenoloL 50 MG TABLET PO (10:27)
[2021-12-11] MEDS: metFORMIN HCl ER 500 MG TAB.ER.24H PO ×2 (10:27→20:20)
[2021-12-11] MEDS: Ascorbic Acid 500 MG TABLET PO (10:27)
[2021-12-11] MEDS: Furosemide 40 MG TABLET PO ×2 (10:27→20:19)
[2021-12-11] MEDS: amLODIPine Besylate 10 MG TABLET PO (10:27)
[2021-12-11] MEDS: Dicyclomine HCl 10 MG CAPSULE PO ×3 (10:27→20:19)
[2021-12-11] MEDS: lisinopriL 40 MG TABLET PO (10:28)
[2021-12-11] MEDS: Ferrous Sulfate 324 MG TABLET.DR PO (10:28)
[2021-12-11] MEDS: Ondansetron ODT 4 MG TAB.RAPDIS TRANSLINGU ×3 (10:28→20:19)
[2021-12-11] MEDS: Aspirin 81 MG TAB.CHEW PO (10:28)
[2021-12-11] MEDS: Baclofen 20 MG TABLET PO ×3 (10:28→20:48)
[2021-12-11] MEDS: Cholecalciferol (Vitamin D3) 25 MCG TABLET PO (10:28)
[2021-12-11] MEDS: Gabapentin 400 MG CAPSULE PO ×3 (10:29→20:18)
[2021-12-11] MEDS: 0.9 % Sodium Chloride Flush 3 ML SYRINGE IVFLUSH ×2 (10:29→18:02)
--- NOTE | 2021-12-11 10:29 | MHC.CM.PN ---
Attempted to meet with patient in regards to discharge planning. Nursing care being provided. Will attempt to meet again. Continue to monitor for d/c needs.
[2021-12-11] MEDS: Docusate Sodium 100 MG CAPSULE PO (10:54)
--- NOTE | 2021-12-11 10:56 | PC.NURSE ---
pt is a/o x 4 no sob/lennox noted. lungs - r side (slight exp wheezing), l side diminished. skin pink warm dry. wound to buttocks covered with dressing by dr. grubbs earlier. no edema noted pt states no bm x 9 days. bs + x 4 quads. pt aware of plan of care.
--- NOTE | 2021-12-11 11:02 | PC.NURSE ---
pt x 1 with colace 100mg po.
--- NOTE | 2021-12-11 11:19 | PC.NURSE ---
rn to rn report given to fay, pt to be transferred to overflow unit.
[2021-12-11 12:28] LABS: Glucose, Whole Blood 101 mg/dL (60-115)
--- NOTE | 2021-12-11 13:04 | PM.EVENT ---
Event Note Date of Service: 12/11/21 Event Note: Evaluated for heavy oozing on the debridement site According to staff, she had so multiple dressings I changed her dressings again -applied thick packing into the wound surface Over the area with wide tape Continue wound care Change positions [id number]
[2021-12-11] MEDS: Albumin Human 25 % 100 ML IV ×2 (13:21→14:49)
[2021-12-11 13:32] LABS: Hematocrit 37.5 % (37.0-47.0); Hemoglobin 12.3 g/dl (12.0-16.0); Mean Corpuscular HGB Conc 32.8 g/dl (31.0-35.0); Mean Corpuscular Hemoglobin 31.3 pg (27.0-33.0); Mean Corpuscular Volume 95.4 fL (80.0-98.0); Mean Platelet Volume 9.4 fL (9.4-12.3); Platelet Count 451 X10*3/uL (160-400); Red Blood Count 3.93 X10*6/uL (4.20-5.50); Red Cell Distribution Width 13.2 % (11.0-16.0); White Blood Count 12.3 X10*3/uL (4.8-10.8)
[2021-12-11] MEDS: Lactated Ringers 500 ML 999 ML IVCONT (14:39)
--- NOTE | 2021-12-11 15:08 | PC.NURSE ---
REMAINS ON 02 OOB TO COMMODE, OOB TO CHAIR. STATES HAVING GENERALIZED PAIN. RESP TREATMENTS AND STEROIDS FOR WHEEZING. TOLERATING PO NEEDS BEING MET
--- NOTE | 2021-12-11 15:12 | PC.NURSE ---
PT ARRIVED TO OVERFLOW FROM MAIN ED PT HAD SURGICAL PROCEDURE ON HIP WOUND THIS MORNING, WHEN ARRIVED TO UNIT NOTED THAT PATIENT HAS EXCESSIVE BLEEDING FROM WOUND. NEEDED TO APPLY FIRM PRESSURE HOSPITALIST AND SURGEON MADE AWARE, PRESSURE DRESSING APPLIED.
--- NOTE | 2021-12-11 15:30 | MHC.CM.PN ---
12/11/21 15:23 - Case Mgmt Progress [id number] : 04/17/1934 Patient Age: 87 CM met with Patient and her at bedside and addressed IMM with them, providing them with the original and placing a copy on the chart. Patient lives in a house with her and she has been bedbound X 18 years r/t MS. 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 PCP is Dr. Neel Spencer and Patient has received [employer] vax x3. Initialized on 12/11/21 15:23 - END OF NOTE
--- NOTE | 2021-12-11 16:41 | PC.NURSE ---
assumed care of pt at 1500 ,vs taken pt just leave ,pt bring her [place] elisa-suey that what she had for supper ,pt was reposition with 2 asst ,pt on phone talking to gisele .
--- NOTE | 2021-12-11 16:52 | HO.PM.IMPN ---
Subjective Subjective Date of Service: 12/11/21 Interval History: Doing well status post debridement. Noted to have some bleeding after debridement dressing change by Dr. Zamora Review of Systems Denies chest pain Denies nausea vomiting diarrhea Denies shortness of breath Denies fever chills Physical Exam Vital Signs: Vital Signs: Last Vital Signs Temp 97.4 F 12/11/21 16:00 Pulse 82 12/11/21 16:00 Resp 16 12/11/21 16:00 BP 93/45 L 12/11/21 16:00 Pulse Ox 98 12/11/21 16:00 O2 Del Method 12/11/21 16:00 BMI result Body Mass Index 21.0 Const: Other: No acute issues Resp: Other: Clear to auscultation bilaterally no rales rhonchi or wheezes Cardio: Other: No S4; positive S1-S2; no S3 murmurs of gallops GI: Other: Soft nontender nondistended normoactive bowel sounds Skin: Other: Sacral decubitus as outlined by Dr. Duran [place] Extrem: Other: No edema bilaterally Objective Data Active Medications Acetaminophen (Acetaminophen 325 Mg Tablet) 650 mg PO Q6H PRN PRN Reason: Pain, Mild (Pain Scale 1-3) Albuterol Sulfate (Albuterol Sulfate 90 Mcg 8 Gm Inhaler) 2 puff INHALE RQ4H PRN PRN Reason: wheezing Amlodipine Besylate (Amlodipine Besylate 10 Mg Tablet) 10 mg PO DAILY [facility]; Protocol Last Admin: 12/11/21 10:27 Dose: 10 mg Documented By: SIDNEY Ascorbic Acid (Ascorbic Acid 500 Mg Tablet) 500 mg PO DAILY [facility] Last Admin: 12/11/21 10:27 Dose: 500 mg Documented By: SIDNEY Aspirin (Aspirin 81 Mg Tab.Chew) 81 mg PO DAILY [facility] Last Admin: 12/11/21 10:28 Dose: 81 mg Documented By: SIDNEY Atenolol (Atenolol 50 Mg Tablet) 50 mg PO DAILY [facility]; Protocol Last Admin: 12/11/21 10:27 Dose: 50 mg Documented By: SIDNEY Baclofen (Baclofen 20 Mg Tablet) 20 mg PO TID [facility] Last Admin: 12/11/21 10:28 Dose: 20 mg Documented By: SIDNEY Buspirone HCl (Buspirone Hcl 10 Mg Tablet) 10 mg PO BID [facility] Last Admin: 12/11/21 10:26 Dose: 10 mg Documented By: SIDNEY Clonazepam (Clonazepam 1 Mg Tablet) 1 mg PO TID PRN PRN Reason: Anxiety Last Admin: 12/10/21 22:48 Dose: 1 mg Documented By: YESI Dicyclomine HCl (Dicyclomine Hcl 10 Mg Capsule) 10 mg PO TID [facility] Last Admin: 12/11/21 10:27 Dose: 10 mg Documented By: TANOOC Docusate Sodium (Docusate Sodium 100 Mg Capsule) 100 mg PO BID PRN PRN Reason: constipation Last Admin: 12/11/21 10:54 Dose: 100 mg Documented By: SIDNEY Ferrous Sulfate (Ferrous Sulfate 324 Mg Tablet.Dr) 324 mg PO DAILY [facility] Last Admin: 12/11/21 10:28 Dose: 324 mg Documented By: SIDNEY Fluoxetine HCl (Fluoxetine Hcl 20 Mg Capsule) 80 mg PO DAILY [facility] Last Admin: 12/11/21 10:26 Dose: 80 mg Documented By: SIDNEY Furosemide (Furosemide 40 Mg Tablet) 40 mg PO BID [facility]; Protocol Last Admin: 12/11/21 10:27 Dose: 40 mg Documented By: SIDNEY Gabapentin (Gabapentin 400 Mg Capsule) 400 mg PO TID [facility] Last Admin: 12/11/21 10:29 Dose: 400 mg Documented By: SIDNEY Ketoconazole (Ketoconazole 2 % Shampoo 120 Ml Btl) 1 appl TOPICAL DAILY [facility]; Protocol Last Admin: 12/11/21 10:28 Dose: Not Given Documented By: SIDNEY Non-Admin Reason: Patient Refused Lisinopril (Lisinopril 40 Mg Tablet) 40 mg PO DAILY [facility]; Protocol Last Admin: 12/11/21 10:28 Dose: 40 mg Documented By: SIDNEY Melatonin (Melatonin 3 Mg Tablet) 6 mg PO BEDTIME PRN PRN Reason: Insomnia Last Admin: 12/10/21 22:47 Dose: 6 mg Documented By: YESI Metformin HCl (Metformin Hcl Er 500 Mg Tab.Er.24h) 500 mg PO BID [facility] Last Admin: 12/11/21 10:27 Dose: 500 mg Documented By: TANOOC Methotrexate (Methotrexate Sodium 2.5 Mg Tablet) 12.5 mg PO Q7D [facility] Metoclopramide HCl (Metoclopramide Hcl 10 Mg Tablet) 10 mg PO TID [facility] Last Admin: 12/11/21 10:26 Dose: 10 mg Documented By: SIDNEY Mirabegron (Mirabegron 25 Mg Tab.Er.24h) 25 mg PO DAILY [facility] Last Admin: 12/11/21 10:25 Dose: 25 mg Documented By: SIDNEY Montelukast Sodium (Montelukast Sodium 10 Mg Tablet) 10 mg PO BEDTIME [facility] Non-Formulary Medication (Methenamine Hippurate) 1 gm PO BID [facility] Omeprazole (Omeprazole 20 Mg Capsule.Dr) 20 mg PO BID [facility] Last Admin: 12/11/21 10:26 Dose: 20 mg Documented By: SIDNEY Ondansetron HCl (Ondansetron Hcl 4 Mg/2 Ml Vial) 4 mg IVPUSH Q8H PRN PRN Reason: Nausea and Vomiting Ondansetron HCl (Ondansetron Odt 4 Mg Tab.Rapdis) 4 mg TRANSLINGU TID [facility] Last Admin: 12/11/21 10:28 Dose: 4 mg Documented By: SIDNEY Oxycodone HCl (Oxycodone Hcl Immed Release 5 Mg Tablet) 10 mg PO BEDTIME [facility] Pharmacy Consult (Consult Rx Perform Med Rec) 1 each MISCELLANE ONCE PRN PRN Reason: Consult order Sodium Chloride (0.9 % Sodium Chloride Flush 3 Ml Syringe) 3 ml IVFLUSH QSHIFT [facility] Last Admin: 12/11/21 10:29 Dose: 3 ml Documented By: SINDEY Sucralfate (Sucralfate 1 Gm Tablet) 1 gm PO TID [facility] Last Admin: 12/11/21 10:27 Dose: 1 gm Documented By: SIDNEY Tiotropium [place] (Tiotropium [place] 18 Mcg Cap.W.Dev) 1 puff INHALE DAILY [facility] Last Admin: 12/11/21 07:48 Dose: Not Given Documented By: ANNALISA Non-Admin Reason: Med Not Available Topiramate (Topiramate 25 Mg Tablet) 25 mg PO BEDTIME [facility] Last Admin: 12/10/21 22:47 Dose: 25 mg Documented By: MAKENZIE-SHELB Trazodone HCl (Trazodone Hcl 100 Mg Tablet) 100 mg PO BEDTIME PRN PRN Reason: Insomnia Last Admin: 12/11/21 03:32 Dose: 100 mg Documented By: MAKENZIE-CLAUDIAB Vitamin D (Cholecalciferol (Vitamin D3) 25 Mcg Tablet) 25 mcg PO DAILY [facility] Last Admin: 12/11/21 10:28 Dose: 25 mcg Documented By: SCOC Labs CBC & Chem 7: 12/11/21 13:17 12/11/21 06:19 Labs: Laboratory Results - last 24 hr 12/10/21 12/10/21 12/10/21 18:51 19:23 19:23 MCV 95.4 MCH 31.7 MCHC 33.2 RDW 13.3 Plt Count 416 H D MPV 9.4 Immature Gran % (Auto) 0.4 Neut % (Auto) 72.6 Lymph % (Auto) 17.8 L [place] % (Auto) 8.4 Eos % (Auto) 0.4 Baso % (Auto) 0.4 Lymph # (Auto) 2.0 [place] # (Auto) 1.0 Eos # (Auto) 0.0 Baso # (Auto) 0.0 Abs Immat Gran (auto) 0.04 H Absolute Neuts (auto) 8.3 Absolute Nucleated RBC 0.000 Nucleated RBC % (auto) 0.0 Anion Gap 15 Estim Creat Clear Calc 76.4 Estimated GFR > 60 POC Glucose Random Glucose 120 H Lactic Acid 0.9 Calcium 9.1 Total Bilirubin 0.2 Direct Bilirubin < 0.2 AST 14 ALT 12 Alkaline Phosphatase 65 Total Protein 5.7 L Albumin 3.3 L COVID-19 (PETE) COVID-19 Clin Com 12/10/21 12/11/21 12/11/21 19:23 06:19 06:19 MCV 96.7 MCH 32.9 MCHC 34.0 RDW 13.4 Plt Count 321 MPV 9.2 L Immature Gran % (Auto) 0.1 Neut % (Auto) 61.2 Lymph % (Auto) 27.2 [place] % (Auto) 9.7 Eos % (Auto) 1.3 Baso % (Auto) 0.5 Lymph # (Auto) 2.0 [place] # (Auto) 0.7 Eos # (Auto) 0.1 Baso # (Auto) 0.0 Abs Immat Gran (auto) 0.01 Absolute Neuts (auto) 4.6 Absolute Nucleated RBC 0.000 Nucleated RBC % (auto) 0.0 Anion Gap 14 Estim Creat Clear Calc 88.7 Estimated GFR > 60 POC Glucose Random Glucose 97 Lactic Acid Calcium 8.8 Total Bilirubin Direct Bilirubin AST ALT Alkaline Phosphatase Total Protein Albumin COVID-19 (PETE) Negative COVID-19 Clin Com See Note 12/11/21 12/11/21 12:25 13:17 MCV 95.4 MCH 31.3 MCHC 32.8 RDW 13.2 Plt Count 451 H D MPV 9.4 Immature Gran % (Auto) Neut % (Auto) Lymph % (Auto) [place] % (Auto) Eos % (Auto) Baso % (Auto) Lymph # (Auto) [place] # (Auto) Eos # (Auto) Baso # (Auto) Abs Immat Gran (auto) Absolute Neuts (auto) Absolute Nucleated RBC 0.000 Nucleated RBC % (auto) 0.0 Anion Gap Estim Creat Clear Calc Estimated GFR POC Glucose 101 Random Glucose Lactic Acid Calcium Total Bilirubin Direct Bilirubin AST ALT Alkaline Phosphatase Total Protein Albumin COVID-19 (PETE) COVID-19 Clin Com Assessment and Plan (1) Sacral decubitus ulcer: Status: Acute (2) Multiple sclerosis: Status: Acute (3) Diabetes: Status: Acute Plan This is a 66-year-old female with pertinent history of multiple sclerosis with resultant rigidity and neuropathy, bed bound for the last 18 years and uses a wheelchair to ambulate, essential hypertension, non insulin dependent diabetes, gastroparesis with gastroesophageal reflux disease, chronic opioid use, urinary incontinence, mood disorder with insomnia who was sent to the emergency department by her PCP for evaluation of sacral decubitus ulcer 1.Sacral decubitus ulcer -debrided by Dr. 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 Essential hypertension -will hold therapies as patient relatively hypotensive -volume repletion -add back therapies as appropriate 4. [id number] diabetes mellitus -acceptable control on metformin -lispro correctional scale DVT prophylaxis: None. Holding Lovenox until surgical evaluation Full code Requires ongoing hospitalization for volume repletion to normalize blood pressure as well as ongoing surgical care for decubiti I Quality Stroke Does the patient have a stroke diagnosis?: No VTE Prior VTE?: No VTE Risk Level:: Medical - moderate - high VTE Device Contraindication: Treatment Not Indicated VTE Drug Contraindication: Treatment Not Indicated
[2021-12-11] MEDS: Lactated Ringers 1,000 ML 125 ML IVCONT (19:33)
--- NOTE | 2021-12-11 19:33 | PC.NURSE ---
nurse to nurse report called to floor RN. IVF running. patient currently eating dinner. call mckinley within reach
[2021-12-11] MEDS: oxyCODONE HCl Immed Release 5 MG TABLET 10 MG PO (20:19)
[2021-12-11] MEDS: Montelukast Sodium 10 MG TABLET PO (20:19)
[2021-12-12] VITALS (7 sets, daily range): BP systolic 117–143; BP diastolic 58–85; PULSE 69–100; RESP 16–18; TEMP 36.6–37.3; O2SAT 90–94; BMI 21.0
[2021-12-12] MEDS: clonazePAM 1 MG TABLET PO ×2 (02:38→23:44)
[2021-12-12] MEDS: traZODone HCL 100 MG TABLET PO ×2 (02:38→23:45)
[2021-12-12] MEDS: Lactated Ringers 1,000 ML 125 ML IVCONT ×3 (02:44→17:15)
[2021-12-12 07:16] LABS: MANUAL DIFF FLAG NO
[2021-12-12 07:20] LABS: Basophils Percent Auto 0.4 % (0-2); Eosinophils Absolute Auto 0.1 X10*3/uL (0.0-0.4); Eosinophils Percent Auto 1.5 % (0-4); Hematocrit 30.7 % (37.0-47.0); Hemoglobin 10.1 g/dl (12.0-16.0); Imm Gran Abs Auto 0.02 X10*3/uL (0.00-0.03); Imm Gran Pct Auto 0.2 % (0.0-0.4); Lymphocytes Absolute Auto 2.2 X10*3/uL (1.2-4.9); Lymphocytes Percent Auto 26.8 % (20-40); Mean Corpuscular HGB Conc 32.9 g/dl (31.0-35.0); Mean Corpuscular Hemoglobin 31.7 pg (27.0-33.0); Mean Corpuscular Volume 96.2 fL (80.0-98.0); Mean Platelet Volume 9.7 fL (9.4-12.3); Monocytes Absolute Auto 0.8 X10*3/uL (0.1-1.2); Monocytes Percent Auto 9.4 % (2-11); Neutrophils Absolute Auto 5.1 x10*3/uL (2.0-8.3); Neutrophils Percent Auto 61.7 % (45-73); Platelet Count 352 X10*3/uL (160-400); Red Blood Count 3.19 X10*6/uL (4.20-5.50); Red Cell Distribution Width 13.4 % (11.0-16.0); White Blood Count 8.3 X10*3/uL (4.8-10.8)
[2021-12-12 07:40] LABS: Alanine Aminotransferase < 6 U/L (0-31); Albumin Level 3.5 g/dL (3.5-5.0); Alkaline Phosphatase 47 U/L (39-117); Anion Gap 14 (12-20); Aspartate Amino Transferase 9 U/L (5-31); Bilirubin Total 0.2 mg/dL (0.0-1.0); Blood Urea Nitrogen 4 mg/dL (9-16); Calcium 9.1 mg/dL (8.4-10.2); Carbon Dioxide 31 mmol/L (22-29); Chloride 100 mmol/L (96-108); Creatinine Clr Calc Pharmacy 82.1; Estimated Glomerular Filt Rate > 60; Glucose Fasting 76 mg/dL (60-99); Potassium 3.2 mmol/L (3.3-5.1); Sodium 142 mmol/L (135-145); Total Protein 5.2 g/dL (6.5-8.0)
--- NOTE | 2021-12-12 08:17 | P.PNGS_ITS ---
Subjective Subjective Date of Service: 12/12/21 Interval history: Patient denies complaints No events reported by staff Physical Exam Vital Signs: Vital Signs: Last Vital Signs Temp 97.8 F 12/12/21 07:25 Pulse 73 12/12/21 07:25 Resp 18 12/12/21 07:25 BP 143/73 H 12/12/21 07:25 Pulse Ox 92 12/12/21 07:25 O2 Del Method 12/12/21 07:25 BMI result Body Mass Index 21.0 Const: General: comfortable and no acute distress Resp: Effort & Inspection: normal respiratory effort Cardio: Rate: regular rate Back/Spine/Pelvis: Other: Ulcer on the left sacral area with good blood, no further oozing, no pus, no gangrenous tissue Objective Data Active Medications Acetaminophen (Acetaminophen 325 Mg Tablet) 650 mg PO Q6H PRN PRN Reason: Pain, Mild (Pain Scale 1-3) Albuterol Sulfate (Albuterol Sulfate 90 Mcg 8 Gm Inhaler) 2 puff INHALE RQ4H PRN PRN Reason: wheezing Ascorbic Acid (Ascorbic Acid 500 Mg Tablet) 500 mg PO DAILY [facility] Last Admin: 12/11/21 10:27 Dose: 500 mg Documented By: SIDNEY Aspirin (Aspirin 81 Mg Tab.Chew) 81 mg PO DAILY [facility] Last Admin: 12/11/21 10:28 Dose: 81 mg Documented By: SIDNEY Baclofen (Baclofen 20 Mg Tablet) 20 mg PO TID [facility] Last Admin: 12/11/21 20:48 Dose: 20 mg Documented By: DAOY Buspirone HCl (Buspirone Hcl 10 Mg Tablet) 10 mg PO BID [facility] Last Admin: 12/11/21 20:20 Dose: 10 mg Documented By: DAYO Clonazepam (Clonazepam 1 Mg Tablet) 1 mg PO TID PRN PRN Reason: Anxiety Last Admin: 12/12/21 02:38 Dose: 1 mg Documented By: DAYO Dicyclomine HCl (Dicyclomine Hcl 10 Mg Capsule) 10 mg PO TID [facility] Last Admin: 12/11/21 20:19 Dose: 10 mg Documented By: DAYO Docusate Sodium (Docusate Sodium 100 Mg Capsule) 100 mg PO BID PRN PRN Reason: constipation Last Admin: 12/11/21 10:54 Dose: 100 mg Documented By: SIDNEY Ferrous Sulfate (Ferrous Sulfate 324 Mg Tablet.Dr) 324 mg PO DAILY [facility] Last Admin: 12/11/21 10:28 Dose: 324 mg Documented By: SIDNEY Fluoxetine HCl (Fluoxetine Hcl 20 Mg Capsule) 80 mg PO DAILY [facility] Last Admin: 12/11/21 10:26 Dose: 80 mg Documented By: SIDNEY Furosemide (Furosemide 40 Mg Tablet) 40 mg PO BID [facility]; Protocol Last Admin: 12/11/21 20:19 Dose: 40 mg Documented By: DAYO Gabapentin (Gabapentin 400 Mg Capsule) 400 mg PO TID [facility] Last Admin: 12/11/21 20:18 Dose: 400 mg Documented By: DAYO Lactated Ringer's (Lr) 1,000 mls @ 125 mls/hr IVCONT .Q8H [facility] Last Admin: 12/12/21 02:44 Dose: 125 mls/hr Documented By: DAYO Ketoconazole (Ketoconazole 2 % Shampoo 120 Ml Btl) 1 appl TOPICAL DAILY [facility]; Protocol Last Admin: 12/11/21 10:28 Dose: Not Given Documented By: SIDNEY Non-Admin Reason: Patient Refused Melatonin (Melatonin 3 Mg Tablet) 6 mg PO BEDTIME PRN PRN Reason: Insomnia Last Admin: 12/10/21 22:47 Dose: 6 mg Documented By: YESI Metformin HCl (Metformin Hcl Er 500 Mg Tab.Er.24h) 500 mg PO BID [facility] Last Admin: 12/11/21 20:20 Dose: 500 mg Documented By: DAYO Methotrexate (Methotrexate Sodium 2.5 Mg Tablet) 12.5 mg PO Q7D [facility] Metoclopramide HCl (Metoclopramide Hcl 10 Mg Tablet) 10 mg PO TID [facility] Last Admin: 12/11/21 20:18 Dose: 10 mg Documented By: DAYO Mirabegron (Mirabegron 25 Mg Tab.Er.24h) 25 mg PO DAILY [facility] Last Admin: 12/11/21 10:25 Dose: 25 mg Documented By: SIDNEY Montelukast Sodium (Montelukast Sodium 10 Mg Tablet) 10 mg PO BEDTIME [facility] Last Admin: 12/11/21 20:19 Dose: 10 mg Documented By: DAYO Non-Formulary Medication (Methenamine Hippurate) 1 gm PO BID [facility] Omeprazole (Omeprazole 20 Mg Capsule.Dr) 20 mg PO BID [facility] Last Admin: 12/11/21 20:19 Dose: 20 mg Documented By: DAYO Ondansetron HCl (Ondansetron Hcl 4 Mg/2 Ml Vial) 4 mg IVPUSH Q8H PRN PRN Reason: Nausea and Vomiting Ondansetron HCl (Ondansetron Odt 4 Mg Tab.Rapdis) 4 mg TRANSLINGU TID [facility] Last Admin: 12/11/21 20:19 Dose: 4 mg Documented By: DAYO Oxycodone HCl (Oxycodone Hcl Immed Release 5 Mg Tablet) 10 mg PO BEDTIME [facility] Last Admin: 12/11/21 20:19 Dose: 10 mg Documented By: DAYO Pharmacy Consult (Consult Rx Perform Med Rec) 1 each MISCELLANE ONCE PRN PRN Reason: Consult order Sodium Chloride (0.9 % Sodium Chloride Flush 3 Ml Syringe) 3 ml IVFLUSH QSHIFT [facility] Last Admin: 12/12/21 01:14 Dose: Not Given Documented By: DAYO Non-Admin Reason: IV Running Sucralfate (Sucralfate 1 Gm Tablet) 1 gm PO TID [facility] Last Admin: 12/11/21 20:19 Dose: 1 gm Documented By: DAYO Tiotropium [place] (Tiotropium [place] 18 Mcg Cap.W.Dev) 1 puff INHALE DAILY [facility] Last Admin: 12/12/21 07:40 Dose: Not Given Documented By: LYLE Non-Admin Reason: Med Not Available Topiramate (Topiramate 25 Mg Tablet) 25 mg PO BEDTIME [facility] Last Admin: 12/11/21 21:21 Dose: Not Given Documented By: DAYO Non-Admin Reason: Med Not Available Trazodone HCl (Trazodone Hcl 100 Mg Tablet) 100 mg PO BEDTIME PRN PRN Reason: Insomnia Last Admin: 12/12/21 02:38 Dose: 100 mg Documented By: DAYO Vitamin D (Cholecalciferol (Vitamin D3) 25 Mcg Tablet) 25 mcg PO DAILY [facility] Last Admin: 12/11/21 10:28 Dose: 25 mcg Documented By: SIDNEY Labs CBC & Chem 7: 12/12/21 05:34 12/12/21 05:39 Labs: Laboratory Results - last 24 hr 12/11/21 12/11/21 12/12/21 12:25 13:17 05:34 MCV 95.4 96.2 MCH 31.3 31.7 MCHC 32.8 32.9 RDW 13.2 13.4 Plt Count 451 H D 352 MPV 9.4 9.7 Immature Gran % (Auto) 0.2 Neut % (Auto) 61.7 Lymph % (Auto) 26.8 [place] % (Auto) 9.4 Eos % (Auto) 1.5 Baso % (Auto) 0.4 Lymph # (Auto) 2.2 [place] # (Auto) 0.8 Eos # (Auto) 0.1 Baso # (Auto) 0.0 Abs Immat Gran (auto) 0.02 Absolute Neuts (auto) 5.1 Absolute Nucleated RBC 0.000 0.000 Nucleated RBC % (auto) 0.0 0.0 Anion Gap Estim Creat Clear Calc Estimated GFR POC Glucose 101 Fasting Glucose Calcium Total Bilirubin AST ALT Alkaline Phosphatase Total Protein Albumin 12/12/21 05:39 MCV MCH MCHC RDW Plt Count MPV Immature Gran % (Auto) Neut % (Auto) Lymph % (Auto) [place] % (Auto) Eos % (Auto) Baso % (Auto) Lymph # (Auto) [place] # (Auto) Eos # (Auto) Baso # (Auto) Abs Immat Gran (auto) Absolute Neuts (auto) Absolute Nucleated RBC Nucleated RBC % (auto) Anion Gap 14 Estim Creat Clear Calc 82.1 Estimated GFR > 60 POC Glucose Fasting Glucose 76 Calcium 9.1 Total Bilirubin 0.2 AST 9 ALT < 6 Alkaline Phosphatase 47 D Total Protein 5.2 L Albumin 3.5 Microbiology Microbiology Results: Microbiology 12/10/21 19:23 Blood Culture - Preliminary Blood - Venous No growth after 24 hours. 12/10/21 18:51 Blood Culture - Preliminary Blood - Venous No growth after 24 hours. Procedures Date of Service Date of Service: 12/12/21 Progress Note: A&P Assessment and plan (1) Sacral decubitus ulcer: Status: Acute Assessment and Plan: I have changed her dressings Applied wet to dry dressings for now Plan to switch to silver alginate dressings Continue wound care Change position [id number] - patient is bed-bound Time Spent With Patient Time: Total time spent is greater than 50% in coordination of care (as documented) at patient's floor/unit and/or counseling patient: Quality Stroke Does the patient have a stroke diagnosis?: No VTE Prior VTE?: No VTE Risk Level:: Medical - moderate - high VTE Device Contraindication: Treatment Not Indicated VTE Drug Contraindication: Treatment Not Indicated
--- NOTE | 2021-12-12 08:39 | P.CDIC_ITS ---
CDI Concurrent Query Documentation Clarification: PHYSICIAN'S DOCUMENTATION REQUEST Date of Query: 12/12/21 0839 Patient Name: Breana Morfin Admit Date: 12/10/21 Dear Doctor, A review of the medical record indicates additional documentation may be indicated. Please review below and update the documentation accordingly. Clinical Indicators: Risk Factors/Clinical Indicators/Treatments Decubitus ulcer sacral region Surgery - Excisional debridement, eschar, full thickness of skin and deep subcutaneous layer. Based on the above, could you please provide, in the Progress Notes, further information regarding the ulcer/wound: * Decubitus ulcer sacral region: * Stage 1 - Skin intact, non-blanchable redness * Stage 2 - Partial thickness loss of dermis, includes intact or open blister * Stage 3 - Full thickness tissue not including bone, tendon, or muscle * Stage 4 - Full thickness tissue loss, including exposed bones, tendon, or muscle * Unstageable - Full thickness tissue loss in which the base of the ulcer is covered by slough (yellow, dorantes, reagan, green or brown) and/or eschar (dorantes, brown, or black) in the wound bed. * Suspected deep tissue injury - Purple or maroon localized area of discolored intact skin or blood-filled blister due to damage of underlying soft tissues from pressure and/or shear. The area may be preceded by tissue that is painful, firm, mushy, boggy, warmer, or cooler as compare to adjacent tissue. * Unable to determine *Source: National Pressure Ulcer Advisory Panel (NPUAP) Use of terms such as suspected, likely, concern for, or probable (associated with a specific diagnosis that is being evaluated, monitored, or treated as if it exists) are acceptable and can be coded in the inpatient setting, when documented at the time of discharge. Thank you, Bela Torre [insert CDI's credentials] Extension: [4-digit phone extension] Please use your independent medical judgment in providing your response. THIS QUERY IS PART OF THE PERMANENT MEDICAL RECORD Provider Response: Other Other Diagnosis: Unable to determine
[2021-12-12] MEDS: Furosemide 40 MG TABLET PO ×2 (08:56→21:09)
[2021-12-12] MEDS: Ascorbic Acid 500 MG TABLET PO (08:56)
[2021-12-12] MEDS: Metoclopramide HCl 10 MG TABLET PO ×3 (08:57→21:10)
[2021-12-12] MEDS: Mirabegron 25 MG TAB.ER.24H PO (08:57)
[2021-12-12] MEDS: Aspirin 81 MG TAB.CHEW PO (08:57)
[2021-12-12] MEDS: Ferrous Sulfate 324 MG TABLET.DR PO (08:58)
[2021-12-12] MEDS: Ondansetron ODT 4 MG TAB.RAPDIS TRANSLINGU ×3 (08:58→21:09)
[2021-12-12] MEDS: Cholecalciferol (Vitamin D3) 25 MCG TABLET PO (08:58)
[2021-12-12] MEDS: FLUoxetine HCl 20 MG CAPSULE 80 MG PO (08:58)
[2021-12-12] MEDS: Sucralfate 1 GM TABLET PO ×3 (08:58→21:09)
[2021-12-12] MEDS: Gabapentin 400 MG CAPSULE PO ×3 (08:58→21:09)
[2021-12-12] MEDS: Dicyclomine HCl 10 MG CAPSULE PO ×3 (08:58→21:08)
[2021-12-12] MEDS: Omeprazole 20 MG CAPSULE.DR PO ×2 (08:58→21:10)
[2021-12-12] MEDS: busPIRone HCl 10 MG TABLET PO ×2 (08:58→21:09)
[2021-12-12] MEDS: Baclofen 20 MG TABLET PO ×3 (09:02→21:10)
--- NOTE | 2021-12-12 10:03 | PC.NURSE ---
Assumed care of patient at this time.
--- NOTE | 2021-12-12 12:09 | P.PNIM_ITS ---
Subjective Subjective Date of Service: 12/12/21 Interval History: Doing well status post debridement. Complains of constipation Review of Systems Denies chest pain Denies nausea vomiting diarrhea Denies shortness of breath Denies fever chills Physical Exam Vital Signs: Vital Signs: Last Vital Signs Temp 97.8 F 12/12/21 12:00 Pulse 86 12/12/21 12:00 Resp 16 12/12/21 12:00 BP 142/85 H 12/12/21 12:00 Pulse Ox 92 12/12/21 12:00 O2 Del Method 12/12/21 12:00 BMI result Body Mass Index 21.0 Const: Other: No acute issues Resp: Other: Clear to auscultation bilaterally no rales rhonchi or wheezes Cardio: Other: No S4; positive S1-S2; no S3 murmurs of gallops GI: Other: Soft nontender nondistended normoactive bowel sounds Skin: Other: Sacral decubitus as outlined by Dr. Duran [place] Extrem: Other: No edema bilaterally Objective Data Active Medications Acetaminophen (Acetaminophen 325 Mg Tablet) 650 mg PO Q6H PRN PRN Reason: Pain, Mild (Pain Scale 1-3) Albuterol Sulfate (Albuterol Sulfate 90 Mcg 8 Gm Inhaler) 2 puff INHALE RQ4H PRN PRN Reason: wheezing Ascorbic Acid (Ascorbic Acid 500 Mg Tablet) 500 mg PO DAILY [facility] Last Admin: 12/12/21 08:56 Dose: 500 mg Documented By: DONALD Aspirin (Aspirin 81 Mg Tab.Chew) 81 mg PO DAILY [facility] Last Admin: 12/12/21 08:57 Dose: 81 mg Documented By: DONALD Baclofen (Baclofen 20 Mg Tablet) 20 mg PO TID [facility] Last Admin: 12/12/21 09:02 Dose: 20 mg Documented By: DONALD Buspirone HCl (Buspirone Hcl 10 Mg Tablet) 10 mg PO BID [facility] Last Admin: 12/12/21 08:58 Dose: 10 mg Documented By: DONALD Clonazepam (Clonazepam 1 Mg Tablet) 1 mg PO TID PRN PRN Reason: Anxiety Last Admin: 12/12/21 02:38 Dose: 1 mg Documented By: DAYO Dicyclomine HCl (Dicyclomine Hcl 10 Mg Capsule) 10 mg PO TID [facility] Last Admin: 12/12/21 08:58 Dose: 10 mg Documented By: DONALD Docusate Sodium (Docusate Sodium 100 Mg Capsule) 100 mg PO BID PRN PRN Reason: constipation Last Admin: 12/11/21 10:54 Dose: 100 mg Documented By: SIDNEY Ferrous Sulfate (Ferrous Sulfate 324 Mg Tablet.) 324 mg PO DAILY [facility] Last Admin: 12/12/21 08:58 Dose: 324 mg Documented By: DONALD Fluoxetine HCl (Fluoxetine Hcl 20 Mg Capsule) 80 mg PO DAILY [facility] Last Admin: 12/12/21 08:58 Dose: 80 mg Documented By: DONALD Furosemide (Furosemide 40 Mg Tablet) 40 mg PO BID [facility]; Protocol Last Admin: 12/12/21 08:56 Dose: 40 mg Documented By: DONALD Gabapentin (Gabapentin 400 Mg Capsule) 400 mg PO TID [facility] Last Admin: 12/12/21 08:58 Dose: 400 mg Documented By: DONALD Lactated Ringer's (Lr) 1,000 mls @ 125 mls/hr IVCONT .Q8H [facility] Last Admin: 12/12/21 11:28 Dose: 125 mls/hr Documented By: STEVEN Ketoconazole (Ketoconazole 2 % Shampoo 120 Ml Btl) 1 appl TOPICAL DAILY [facility]; Protocol Last Admin: 12/12/21 08:59 Dose: Not Given Documented By: DONALD Non-Admin Reason: Patient Refused Lactulose (Lactulose 20 Gm/30 Ml Solution) 30 gm PO Q24H [facility] Melatonin (Melatonin 3 Mg Tablet) 6 mg PO BEDTIME PRN PRN Reason: Insomnia Last Admin: 12/10/21 22:47 Dose: 6 mg Documented By: YESI Metformin HCl (Metformin Hcl Er 500 Mg Tab.Er.24h) 500 mg PO BID [facility] Last Admin: 12/12/21 08:57 Dose: Not Given Documented By: DONALD Non-Admin Reason: Patient Refused Methotrexate (Methotrexate Sodium 2.5 Mg Tablet) 12.5 mg PO Q7D [facility] Metoclopramide HCl (Metoclopramide Hcl 10 Mg Tablet) 10 mg PO TID [facility] Last Admin: 12/12/21 08:57 Dose: 10 mg Documented By: DONALD Mirabegron (Mirabegron 25 Mg Tab.Er.24h) 25 mg PO DAILY [facility] Last Admin: 12/12/21 08:57 Dose: 25 mg Documented By: DONALD Montelukast Sodium (Montelukast Sodium 10 Mg Tablet) 10 mg PO BEDTIME [facility] Last Admin: 12/11/21 20:19 Dose: 10 mg Documented By: DAYO Non-Formulary Medication (Methenamine Hippurate) 1 gm PO BID [facility] Omeprazole (Omeprazole 20 Mg Capsule.Dr) 20 mg PO BID [facility] Last Admin: 12/12/21 08:58 Dose: 20 mg Documented By: DONALD Ondansetron HCl (Ondansetron Hcl 4 Mg/2 Ml Vial) 4 mg IVPUSH Q8H PRN PRN Reason: Nausea and Vomiting Ondansetron HCl (Ondansetron Odt 4 Mg Tab.Rapdis) 4 mg TRANSLINGU TID [facility] Last Admin: 12/12/21 08:58 Dose: 4 mg Documented By: DONALD Oxycodone HCl (Oxycodone Hcl Immed Release 5 Mg Tablet) 10 mg PO BEDTIME [facility] Last Admin: 12/11/21 20:19 Dose: 10 mg Documented By: DAYO Pharmacy Consult (Consult Rx Perform Med Rec) 1 each MISCELLANE ONCE PRN PRN Reason: Consult order Polyethylene Glycol (Polyethylene Glycol 3350 17 Gm Powd.Pack) 17 gm PO DAILY [facility] Sodium Chloride (0.9 % Sodium Chloride Flush 3 Ml Syringe) 3 ml IVFLUSH QSHIFT [facility] Last Admin: 12/12/21 08:59 Dose: Not Given Documented By: DONALD Non-Admin Reason: IV Running Sucralfate (Sucralfate 1 Gm Tablet) 1 gm PO TID [facility] Last Admin: 12/12/21 08:58 Dose: 1 gm Documented By: DONALD Tiotropium [place] (Tiotropium [place] 18 Mcg Cap.W.Dev) 1 puff INHALE DAILY [facility] Last Admin: 12/12/21 07:40 Dose: Not Given Documented By: LYLE Non-Admin Reason: Med Not Available Topiramate (Topiramate 25 Mg Tablet) 25 mg PO BEDTIME [facility] Last Admin: 12/11/21 21:21 Dose: Not Given Documented By: DAYO Non-Admin Reason: Med Not Available Trazodone HCl (Trazodone Hcl 100 Mg Tablet) 100 mg PO BEDTIME PRN PRN Reason: Insomnia Last Admin: 12/12/21 02:38 Dose: 100 mg Documented By: DAYO Vitamin D (Cholecalciferol (Vitamin D3) 25 Mcg Tablet) 25 mcg PO DAILY [facility] Last Admin: 12/12/21 08:58 Dose: 25 mcg Documented By: DONALD Labs CBC & Chem 7: 12/12/21 05:34 12/12/21 05:39 Labs: Laboratory Results - last 24 hr 12/11/21 12/11/21 12/12/21 12:25 13:17 05:34 MCV 95.4 96.2 MCH 31.3 31.7 MCHC 32.8 32.9 RDW 13.2 13.4 Plt Count 451 H D 352 MPV 9.4 9.7 Immature Gran % (Auto) 0.2 Neut % (Auto) 61.7 Lymph % (Auto) 26.8 [place] % (Auto) 9.4 Eos % (Auto) 1.5 Baso % (Auto) 0.4 Lymph # (Auto) 2.2 [place] # (Auto) 0.8 Eos # (Auto) 0.1 Baso # (Auto) 0.0 Abs Immat Gran (auto) 0.02 Absolute Neuts (auto) 5.1 Absolute Nucleated RBC 0.000 0.000 Nucleated RBC % (auto) 0.0 0.0 Anion Gap Estim Creat Clear Calc Estimated GFR POC Glucose 101 Fasting Glucose Calcium Total Bilirubin AST ALT Alkaline Phosphatase Total Protein Albumin 12/12/21 05:39 MCV MCH MCHC RDW Plt Count MPV Immature Gran % (Auto) Neut % (Auto) Lymph % (Auto) [place] % (Auto) Eos % (Auto) Baso % (Auto) Lymph # (Auto) [place] # (Auto) Eos # (Auto) Baso # (Auto) Abs Immat Gran (auto) Absolute Neuts (auto) Absolute Nucleated RBC Nucleated RBC % (auto) Anion Gap 14 Estim Creat Clear Calc 82.1 Estimated GFR > 60 POC Glucose Fasting Glucose 76 Calcium 9.1 Total Bilirubin 0.2 AST 9 ALT < 6 Alkaline Phosphatase 47 D Total Protein 5.2 L Albumin 3.5 Microbiology Microbiology Results: Microbiology 12/10/21 19:23 Blood Culture - Preliminary Blood - Venous No growth after 24 hours. 12/10/21 18:51 Blood Culture - Preliminary Blood - Venous No growth after 24 hours. 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 Essential hypertension -acceptable control -add back therapies as indicated 4. [id number]-tmnkoxpbw diabetes mellitus -acceptable control on metformin -lispro correctional scale DVT prophylaxis: None. Holding Lovenox until surgical evaluation Full code Requires ongoing hospitalization for ongoing surgical care for decubiti I Quality Stroke Does the patient have a stroke diagnosis?: No VTE Prior VTE?: No VTE Risk Level:: Medical - moderate - high VTE Device Contraindication: Treatment Not Indicated VTE Drug Contraindication: Treatment Not Indicated
[2021-12-12] MEDS: Lactulose 20 GM/30 ML SOLUTION 30 GM PO (14:06)
[2021-12-12] MEDS: polyethylene glycoL 3350 17 GM POWD.PACK PO (14:06)
--- NOTE | 2021-12-12 14:49 | MHC.CLN ---
RE: CONSULT PT WITH INCREASED NUTRITION RISK R/T PRESSURE INJURY PO 50% X 3 MEALS DIET RX: 2000DM-APPROPRIATE RECOMMEND ADDING ENSURE MAX BID TO INCREASE KCALS AND PROMOTE WOUND HEALING SUPP PROVIDES 300KCALS, 60G PROTEIN MONITOR PO INTAKE CLOSELY SEE ALSO FULL CLINICAL NUTRITION ASSESSMENT
[2021-12-12] MEDS: 0.9 % Sodium Chloride Flush 3 ML SYRINGE IVFLUSH (17:16)
--- NOTE | 2021-12-12 18:45 | PC.NURSE ---
Report given to MARGO Mota assuming care of patient at this time.
[2021-12-12] MEDS: oxyCODONE HCl Immed Release 5 MG TABLET 10 MG PO (21:08)
[2021-12-12] MEDS: Montelukast Sodium 10 MG TABLET PO (21:09)
[2021-12-12] MEDS: Topiramate 25 MG TABLET PO (21:10)
[2021-12-12] MEDS: metFORMIN HCl ER 500 MG TAB.ER.24H PO (21:10)
[2021-12-12] MEDS: Albuterol Sulfate 90 MCG 8 GM INHALER 2 PUFF INHALE (21:46)
[2021-12-13] VITALS: BP 130/62; PULSE 87; RESP 16; TEMP 35.7; O2SAT 94
[2021-12-13] MEDS: Lactated Ringers 1,000 ML 125 ML IVCONT (01:16)
[2021-12-13 03:54] VITALS: BP 126/65; PULSE 73; RESP 14; TEMP 35.7; O2SAT 95
[2021-12-13 05:45] LABS: MANUAL DIFF FLAG NO
[2021-12-13 05:50] LABS: Basophils Percent Auto 0.4 % (0-2); Eosinophils Absolute Auto 0.1 X10*3/uL (0.0-0.4); Eosinophils Percent Auto 1.3 % (0-4); Hematocrit 29.2 % (37.0-47.0); Hemoglobin 9.4 g/dl (12.0-16.0); Imm Gran Abs Auto 0.03 X10*3/uL (0.00-0.03); Imm Gran Pct Auto 0.4 % (0.0-0.4); Lymphocytes Absolute Auto 2.3 X10*3/uL (1.2-4.9); Lymphocytes Percent Auto 30.3 % (20-40); Mean Corpuscular HGB Conc 32.2 g/dl (31.0-35.0); Mean Corpuscular Hemoglobin 31.5 pg (27.0-33.0); Mean Platelet Volume 9.8 fL (9.4-12.3); Monocytes Absolute Auto 0.8 X10*3/uL (0.1-1.2); Neutrophils Absolute Auto 4.5 x10*3/uL (2.0-8.3); Neutrophils Percent Auto 57.6 % (45-73); Platelet Count 302 X10*3/uL (160-400); Red Blood Count 2.98 X10*6/uL (4.20-5.50); Red Cell Distribution Width 13.4 % (11.0-16.0); White Blood Count 7.7 X10*3/uL (4.8-10.8)
[2021-12-13 06:11] LABS: Alanine Aminotransferase 6 U/L (0-31); Alkaline Phosphatase 42 U/L (39-117); Anion Gap 16 (12-20); Aspartate Amino Transferase 15 U/L (5-31); Bilirubin Total < 0.2 mg/dL (0.0-1.0); Blood Urea Nitrogen 6 mg/dL (9-16); Calcium 8.7 mg/dL (8.4-10.2); Carbon Dioxide 27 mmol/L (22-29); Chloride 103 mmol/L (96-108); Creatinine Clr Calc Pharmacy 92.4; Estimated Glomerular Filt Rate > 60; Glucose Fasting 72 mg/dL (60-99); Potassium 3.7 mmol/L (3.3-5.1); Sodium 142 mmol/L (135-145); Total Protein 4.9 g/dL (6.5-8.0)
[2021-12-13 07:33] VITALS: BP 172/81; PULSE 71; RESP 18; TEMP 36; O2SAT 93
--- NOTE | 2021-12-13 07:42 | P.PNIM_ITS ---
Subjective Subjective Date of Service: 12/13/21 Interval History: Seen in f/u for sacral decub ulcer interval hisotry: s/p debridment with no new issues Review of Systems no fever Physical Exam Vital Signs: Vital Signs: Last Vital Signs Temp 96.8 F 12/13/21 07:33 Pulse 71 12/13/21 07:33 Resp 18 12/13/21 07:33 BP 172/81 H 12/13/21 07:33 Pulse Ox 93 12/13/21 07:33 O2 Del Method 12/13/21 07:33 BMI result Body Mass Index 21.0 Const: General: comfortable and no acute distress Resp: Effort & Inspection: normal respiratory effort Cardio: Rate: regular rate Back/Spine/Pelvis: Other: Ulcer on the left sacral area with good blood, no further oozing, no pus, no gangrenous tissue Objective Data Active Medications Acetaminophen (Acetaminophen 325 Mg Tablet) 650 mg PO Q6H PRN PRN Reason: Pain, Mild (Pain Scale 1-3) Albuterol Sulfate (Albuterol Sulfate 90 Mcg 8 Gm Inhaler) 2 puff INHALE RQ4H PRN PRN Reason: wheezing Last Admin: 12/12/21 21:46 Dose: 2 puff Documented By: HANNAH Ascorbic Acid (Ascorbic Acid 500 Mg Tablet) 500 mg PO DAILY [facility] Last Admin: 12/12/21 08:56 Dose: 500 mg Documented By: DONALD Aspirin (Aspirin 81 Mg Tab.Chew) 81 mg PO DAILY [facility] [place] Last Admin: 12/12/21 08:57 Dose: 81 mg Documented By: DONALD Baclofen (Baclofen 20 Mg Tablet) 20 mg PO TID [facility] [place] Last Admin: 12/12/21 21:10 Dose: 20 mg Documented By: SUN Buspirone HCl (Buspirone Hcl 10 Mg Tablet) 10 mg PO BID [facility] [place] Last Admin: 12/12/21 21:09 Dose: 10 mg Documented By: SUN Clonazepam (Clonazepam 1 Mg Tablet) 1 mg PO TID PRN PRN Reason: Anxiety Last Admin: 12/12/21 23:44 Dose: 1 mg Documented By: SUN Dicyclomine HCl (Dicyclomine Hcl 10 Mg Capsule) 10 mg PO TID [facility] [place] Last Admin: 12/12/21 21:08 Dose: 10 mg Documented By: SUN Docusate Sodium (Docusate Sodium 100 Mg Capsule) 100 mg PO BID PRN PRN Reason: constipation Last Admin: 12/11/21 10:54 Dose: 100 mg Documented By: SIDNEY Ferrous Sulfate (Ferrous Sulfate 324 Mg Tablet.Dr) 324 mg PO DAILY [facility] [place] Last Admin: 12/12/21 08:58 Dose: 324 mg Documented By: DONALD Fluoxetine HCl (Fluoxetine Hcl 20 Mg Capsule) 80 mg PO DAILY [facility] [place] Last Admin: 12/12/21 08:58 Dose: 80 mg Documented By: DONALD Furosemide (Furosemide 40 Mg Tablet) 40 mg PO BID [facility] [place]; Protocol Last Admin: 12/12/21 21:09 Dose: 40 mg Documented By: SUN Gabapentin (Gabapentin 400 Mg Capsule) 400 mg PO TID [facility] Last Admin: 12/12/21 21:09 Dose: 400 mg Documented By: SUN Lactated Ringer's (Lr) 1,000 mls @ 125 mls/hr IVCONT .Q8H [facility] Last Admin: 12/13/21 01:16 Dose: 125 mls/hr Documented By: SUN Ketoconazole (Ketoconazole 2 % Shampoo 120 Ml Btl) 1 appl TOPICAL DAILY [facility]; Protocol Last Admin: 12/12/21 08:59 Dose: Not Given Documented By: DONALD Non-Admin Reason: Patient Refused Lactulose (Lactulose 20 Gm/30 Ml Solution) 30 gm PO Q24H [facility] Last Admin: 12/12/21 14:06 Dose: 30 gm Documented By: STEVEN Melatonin (Melatonin 3 Mg Tablet) 6 mg PO BEDTIME PRN PRN Reason: Insomnia Last Admin: 12/10/21 22:47 Dose: 6 mg Documented By: YESI Metformin HCl (Metformin Hcl Er 500 Mg Tab.Er.24h) 500 mg PO BID [facility] [place] [place] Last Admin: 12/12/21 21:10 Dose: 500 mg Documented By: SUN Methotrexate (Methotrexate Sodium 2.5 Mg Tablet) 12.5 mg PO Q7D [facility] Metoclopramide HCl (Metoclopramide Hcl 10 Mg Tablet) 10 mg PO TID [facility] [place] Last Admin: 12/12/21 21:10 Dose: 10 mg Documented By: SUN Mirabegron (Mirabegron 25 Mg Tab.Er.24h) 25 mg PO DAILY [facility] [place] Last Admin: 12/12/21 08:57 Dose: 25 mg Documented By: DONALD Montelukast Sodium (Montelukast Sodium 10 Mg Tablet) 10 mg PO BEDTIME [facility] [place] Last Admin: 12/12/21 21:09 Dose: 10 mg Documented By: SUN Non-Formulary Medication (Methenamine Hippurate) 1 gm PO BID [facility] [place] Omeprazole (Omeprazole 20 Mg Capsule.Dr) 20 mg PO BID [facility] [place] Last Admin: 12/12/21 21:10 Dose: 20 mg Documented By: SUN Ondansetron HCl (Ondansetron Hcl 4 Mg/2 Ml Vial) 4 mg IVPUSH Q8H PRN PRN Reason: Nausea and Vomiting Ondansetron HCl (Ondansetron Odt 4 Mg Tab.Rapdis) 4 mg TRANSLINGU TID [facility] [place] Last Admin: 12/12/21 21:09 Dose: 4 mg Documented By: SUN Oxycodone HCl (Oxycodone Hcl Immed Release 5 Mg Tablet) 10 mg PO BEDTIME [facility] [place] Last Admin: 12/12/21 21:08 Dose: 10 mg Documented By: SUN Pharmacy Consult (Consult Rx Perform Med Rec) 1 each MISCELLANE ONCE PRN PRN Reason: Consult order Polyethylene Glycol (Polyethylene Glycol 3350 17 Gm Powd.Pack) 17 gm PO DAILY [facility] [place] Last Admin: 12/12/21 14:06 Dose: 17 gm Documented By: N-RIVLA Sodium Chloride (0.9 % Sodium Chloride Flush 3 Ml Syringe) 3 ml IVFLUSH QSHIFT [facility] [place] Last Admin: 12/12/21 23:45 Dose: Not Given Documented By: SUN Non-Admin Reason: IV Running Sucralfate (Sucralfate 1 Gm Tablet) 1 gm PO TID [facility] [place] Last Admin: 12/12/21 21:09 Dose: 1 gm Documented By: USN Tiotropium [place] (Tiotropium [place] 18 Mcg Cap.W.Dev) 1 puff INHALE DAILY [facility] [place] Last Admin: 12/12/21 07:40 Dose: Not Given Documented By: ULRICC Non-Admin Reason: Med Not Available Topiramate (Topiramate 25 Mg Tablet) 25 mg PO BEDTIME [facility] [place] Last Admin: 12/12/21 21:10 Dose: 25 mg Documented By: SUN Trazodone HCl (Trazodone Hcl 100 Mg Tablet) 100 mg PO BEDTIME PRN PRN Reason: Insomnia Last Admin: 12/12/21 23:45 Dose: 100 mg Documented By: SUN Vitamin D (Cholecalciferol (Vitamin D3) 25 Mcg Tablet) 25 mcg PO DAILY [facility] [place] Last Admin: 12/12/21 08:58 Dose: 25 mcg Documented By: DONALD Labs CBC & Chem 7: 12/13/21 05:40 12/13/21 05:40 Labs: Laboratory Results - last 24 hr 12/13/21 12/13/21 05:40 05:40 MCV 98.0 MCH 31.5 MCHC 32.2 RDW 13.4 Plt Count 302 MPV 9.8 Immature Gran % (Auto) 0.4 Neut % (Auto) 57.6 Lymph % (Auto) 30.3 [place] % (Auto) 10.0 Eos % (Auto) 1.3 Baso % (Auto) 0.4 Lymph # (Auto) 2.3 [place] # (Auto) 0.8 Eos # (Auto) 0.1 Baso # (Auto) 0.0 Abs Immat Gran (auto) 0.03 Absolute Neuts (auto) 4.5 Absolute Nucleated RBC 0.000 Nucleated RBC % (auto) 0.0 Anion Gap 16 Estim Creat Clear Calc 92.4 Estimated GFR > 60 Fasting Glucose 72 Calcium 8.7 Total Bilirubin < 0.2 AST 15 D ALT 6 Alkaline Phosphatase 42 Total Protein 4.9 L Albumin 3.0 L Microbiology Microbiology Results: Microbiology 12/10/21 19:23 Blood Culture - Preliminary Blood - Venous No growth after 48 hours. 12/10/21 18:51 Blood Culture - Preliminary Blood - Venous No growth after 48 hours. 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, bed bound for the last 18 years and uses a wheelchair to ambulate, essential hypertension, non insulin dependent diabetes, gastroparesis with gastroesophageal reflux disease, chronic opioid use, urinary incontinence, mood disorder with insomnia who was sent to the emergency department by her PCP for evaluation of sacral decubitus ulcer 1.Sacral decubitus ulcer--doesn't appear to be acutely infected and has been debrided by surgery and local wound care with silver alginate dressing and frequent turning 2.Multiple sclerosis with muscle rigidity and paraparesis--No change in manag ement while in hospital, resume outpatient care upon discharge 3. Essential hypertension--continue home meds (lisinopril 40 daily) 4. Hzd-psovyxs-vwghebliy diabetes mellitus--continue home regimen, SSI DVT prophylaxis: heparin if remains in hospital today Requires ongoing hospitalization for ongoing surgical care for decubiti I Quality Stroke Does the patient have a stroke diagnosis?: No VTE Prior VTE?: No VTE Risk Level:: Medical - moderate - high VTE Device Contraindication: Treatment Not Indicated VTE Drug Contraindication: Treatment Not Indicated
[2021-12-13] MEDS: lisinopriL 40 MG TABLET PO (08:31)
[2021-12-13] MEDS: metFORMIN HCl ER 500 MG TAB.ER.24H PO (08:31)
[2021-12-13] MEDS: FLUoxetine HCl 20 MG CAPSULE 80 MG PO (08:31)
[2021-12-13] MEDS: Mirabegron 25 MG TAB.ER.24H PO (08:31)
[2021-12-13] MEDS: Sucralfate 1 GM TABLET PO (08:31)
[2021-12-13] MEDS: Cholecalciferol (Vitamin D3) 25 MCG TABLET PO (08:31)
[2021-12-13] MEDS: 0.9 % Sodium Chloride Flush 3 ML SYRINGE IVFLUSH (08:31)
[2021-12-13] MEDS: Metoclopramide HCl 10 MG TABLET PO (08:31)
[2021-12-13] MEDS: Aspirin 81 MG TAB.CHEW PO (08:31)
[2021-12-13] MEDS: Omeprazole 20 MG CAPSULE.DR PO (08:31)
[2021-12-13] MEDS: busPIRone HCl 10 MG TABLET PO (08:32)
[2021-12-13] MEDS: Ferrous Sulfate 324 MG TABLET.DR PO (08:32)
[2021-12-13] MEDS: Gabapentin 400 MG CAPSULE PO (08:32)
[2021-12-13] MEDS: Dicyclomine HCl 10 MG CAPSULE PO (08:32)
[2021-12-13] MEDS: Ondansetron ODT 4 MG TAB.RAPDIS TRANSLINGU (08:32)
[2021-12-13] MEDS: polyethylene glycoL 3350 17 GM POWD.PACK PO (08:33)
[2021-12-13] MEDS: Baclofen 20 MG TABLET PO (08:33)
[2021-12-13] MEDS: Furosemide 40 MG TABLET PO (08:36)
[2021-12-13] MEDS: Ascorbic Acid 500 MG TABLET PO (08:36)
--- NOTE | 2021-12-13 09:53 | P.DS_ITS ---
DS: Providers Provider Date of Service: 12/13/21 Date of admission: 12/12/21 13:10 Primary care physician: Neel Spencer MD Consults: 12/10/21 22:27 Consult to General Surgery Routine Consulting Provider: Dalton Mueller Reason for consultation: sacral wound debridement 12/10/21 22:34 Consult to Wound Care Routine Consulting Provider: [facility] [place] Wound Care Management Reason for consultation: sacral decubitus DS: Diagnosis Discharge Diagnosis (1) Sacral decubitus ulcer: Status: Acute (2) Multiple sclerosis: Status: Acute DS: Summary Hospital Course Hospital Course: admission hpi: Chief Complaint: Sacral wound This is a 66-year-old female with pertinent history of 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 Patient states she has been bed-bound for the last 18 years.? Sacral decubitus ulcer was 1st noticed about 3 months ago and is being managed by PCP.? She has [employer] at home could do wound care twice daily.? Patient denies fever, chills or purulent discharge from the sacral decubitus.? She denies nausea, vomiting, chest discomfort, palpitations, abdominal pain, changes in urinary or bowel habits. In the emergency department, unstageable sacral decubitus ulcer was noted.? General surgery was consulted who recommended admission to Medicine and who will see in a.m.. Hospital course 1.Sacral decubitus ulcer--doesn't appear to be acutely infected and has been de brided by surgery and local wound care with silver alginate dressing and frequent turning 2.Multiple sclerosis with muscle rigidity and paraparesis--No change in management while in hospital, resume outpatient care upon discharge 3. Essential hypertension--continue home meds (lisinopril 40 daily) 4. Aeb-cuagpmv-feapsrsxg diabetes mellitus--continue home regimen, SSI Time Spent with Patient Time attestation: Total time spent providing and/or coordinating discharge services: Discharge coordination time: Greater than 30 minutes Quality: Safe Use of Opioids Does Pt have an Active Cancer Diagnosis on the Problem List?: No Quality: Stroke Does the patient have a stroke diagnosis?: No Physical Exam Vital Signs: Vital Signs: Last Vital Signs Temp 96.8 F 12/13/21 07:33 Pulse 71 12/13/21 07:33 Resp 18 12/13/21 07:33 BP 172/81 H 12/13/21 07:33 Pulse Ox 93 12/13/21 07:33 O2 Del Method 12/13/21 07:33 BMI result Body Mass Index 21.0 Const: Other: See progress note from today DS: Data Data Completed and Pending Labs on day of discharge: Laboratory Results - last 24 hr 12/13/21 12/13/21 05:40 05:40 WBC 7.7 RBC 2.98 L Hgb 9.4 L Hct 29.2 L MCV 98.0 MCH 31.5 MCHC 32.2 RDW 13.4 Plt Count 302 MPV 9.8 Immature Gran % (Auto) 0.4 Neut % (Auto) 57.6 Lymph % (Auto) 30.3 [place] % (Auto) 10.0 Eos % (Auto) 1.3 Baso % (Auto) 0.4 Lymph # (Auto) 2.3 [place] # (Auto) 0.8 Eos # (Auto) 0.1 Baso # (Auto) 0.0 Abs Immat Gran (auto) 0.03 Absolute Neuts (auto) 4.5 Absolute Nucleated RBC 0.000 Nucleated RBC % (auto) 0.0 Sodium 142 Potassium 3.7 Chloride 103 Carbon Dioxide 27 Anion Gap 16 BUN 6 L Creatinine 0.48 L Estim Creat Clear Calc 92.4 Estimated GFR > 60 Fasting Glucose 72 Calcium 8.7 Total Bilirubin < 0.2 AST 15 D ALT 6 Alkaline Phosphatase 42 Total Protein 4.9 L Albumin 3.0 L Preliminary micro results at discharge 12/10/21 19:23 Blood Culture - Preliminary Blood - Venous No growth after 48 hours. 12/10/21 18:51 Blood Culture - Preliminary Blood - Venous No growth after 48 hours. Discharge Plan Discharge Anticipated Discharge Date/Time: 12/13/21 09:48 Patient Disposition: Home Health Service Discharge Diagnosis: Decubiti ulcers Referrals: Neel Spencer MD [Primary Care Provider] - 1 Week Discharge Medications: Continued sucralfate 1 gram tablet 1 tab PO TID baclofen 20 mg tablet 1 tab PO TID ascorbic acid (vitamin C) [Vitamin C] 500 mg Tablet 500 mg PO DAILY topiramate 25 mg capsule, sprinkle 1 cap PO BEDTIME ferrous sulfate 325 mg (65 mg iron) Tablet 325 mg PO DAILY zafirlukast 20 mg tablet 1 tab PO BID aspirin 81 mg Tablet,Chewable 81 mg PO DAILY Spiriva with HandiHaler 18 mcg capsule, w/inhalation device 1 cap inhalation DAILY cholecalciferol (vitamin D3) 25 mcg (1,000 unit) Tablet 25 mcg PO DAILY ondansetron HCl 4 mg tablet 4 mg PO TID fluoxetine 40 mg capsule 80 mg PO DAILY docusate sodium 100 mg capsule 100 mg PO BID PRN (Reason: constipation) Myrbetriq 25 mg tablet extended release 24 hr 25 mg PO DAILY methenamine hippurate 1 gram tablet 1 g PO BID furosemide 40 mg tablet 40 mg PO BID metoclopramide HCl 10 mg tablet 10 mg PO TID oxycodone-acetaminophen 10-325 mg tablet 1 tab PO BEDTIME riboflavin (vitamin B2) [Vitamin B-2] 100 mg tablet 100 mg PO BID ketoconazole 2 % shampoo 1 appl topical DAILY albuterol sulfate 90 mcg/actuation HFA aerosol inhaler 2 puff inhalation Q4H PRN (Reason: wheezing) metformin 500 mg tablet extended release 24 hr 500 mg PO BID methotrexate sodium 2.5 mg tablet 12.5 mg PO QWEEK clonazepam 1 mg tablet 1 mg PO TID PRN (Reason: Anxiety) gabapentin 400 mg capsule 400 mg PO TID lisinopril 40 mg tablet 40 mg PO DAILY dicyclomine 10 mg capsule 10 mg PO TID buspirone 10 mg tablet 10 mg PO BID trazodone 50 mg tablet 100 mg PO BEDTIME PRN (Reason: Insomnia) atenolol 50 mg tablet 50 mg PO DAILY amlodipine 10 mg tablet 10 mg PO DAILY omeprazole 20 mg capsule,delayed release(DR/EC) 20 mg PO BID Discharge Orders: Discharge Order (Routine); Ordered 12/13/21 Ordered By: Porfirio Saul Diet: Advance to usual diet Activity on Discharge: As tolerated Stand Alone Forms: Patient Portal Discharge page Care Plan Goals: management of decubuti ulcers Health Concerns: Decubiti ulcers, bed bound, history of MS Plan of Treatment: Local wound care with silver alginate dressings Change position [id number] - patient is bed-bound May follow up with surgery in the office Assessment: as above
[2021-12-13] MEDS: Albuterol Sulfate 90 MCG 8 GM INHALER 2 PUFF INHALE (10:02)
[2021-12-13 11:35] VITALS: BP 161/71; PULSE 90; RESP 20; TEMP 36.4; O2SAT 94
--- NOTE | 2021-12-13 11:37 | W.MHC.F2F ---
Service Date Service Date: 12/13/21 Encounter Date of encounter: 12/13/21 Reasons for Services Signs and symptoms assessed: Bedboud from multiple sclerosis, decub ulcers Reason for intermediate: wound care Homebound: Leaving the home is medically contraindicated at this time without the asist of a device and/or another person due th the listed conditions above and below. Reason homebound: bedbound/chairbound Homebound supporting statement: Bedbound from MS, complicated by Debub ulcers and needs the assistance of another person Certification: Based on the above findings, I certify that this patient is confined to the home and needs intermittent intermediate care, physical therapy and/or speech therapy, or continues to need occupational therapy. The patient is under my care, and I have initiated the establishment of the plan of care. The patient will be followed by a physician who will periodically review the plan of care.
--- NOTE | 2021-12-13 11:46 | PM.PNGS ---
Subjective Subjective Date of Service: 12/13/21 Interval history: no new complaints says she might be discharged today Physical Exam Vital Signs: Vital Signs: Last Vital Signs Temp 97.6 F 12/13/21 11:35 Pulse 90 12/13/21 11:35 Resp 20 12/13/21 11:35 BP 161/71 H 12/13/21 11:35 Pulse Ox 94 12/13/21 11:35 O2 Del Method 12/13/21 11:35 BMI result Body Mass Index 21.0 Const: Other: bedbound General: comfortable and no acute distress Resp: Effort & Inspection: normal respiratory effort Cardio: Rate: regular rate GI: Palpation (GI): Soft to palpation Back/Spine/Pelvis: Other: decub ulcer - clean, no gangrene, involves deep subcutaneous layer Objective Data Active Medications Acetaminophen (Acetaminophen 325 Mg Tablet) 650 mg PO Q6H PRN PRN Reason: Pain, Mild (Pain Scale 1-3) Albuterol Sulfate (Albuterol Sulfate 90 Mcg 8 Gm Inhaler) 2 puff INHALE RQ4H PRN PRN Reason: wheezing Last Admin: 12/13/21 10:02 Dose: 2 puff Documented By: MARVIN Ascorbic Acid (Ascorbic Acid 500 Mg Tablet) 500 mg PO DAILY [facility] Last Admin: 12/13/21 08:36 Dose: 500 mg Documented By: MARVIN Aspirin (Aspirin 81 Mg Tab.Chew) 81 mg PO DAILY [facility] Last Admin: 12/13/21 08:31 Dose: 81 mg Documented By: MARVIN Baclofen (Baclofen 20 Mg Tablet) 20 mg PO TID [facility] Last Admin: 12/13/21 08:33 Dose: 20 mg Documented By: MARVIN Buspirone HCl (Buspirone Hcl 10 Mg Tablet) 10 mg PO BID [facility] Last Admin: 12/13/21 08:32 Dose: 10 mg Documented By: MARVIN Clonazepam (Clonazepam 1 Mg Tablet) 1 mg PO TID PRN PRN Reason: Anxiety Last Admin: 12/12/21 23:44 Dose: 1 mg Documented By: SUN Dicyclomine HCl (Dicyclomine Hcl 10 Mg Capsule) 10 mg PO TID [facility] Last Admin: 12/13/21 08:32 Dose: 10 mg Documented By: MARVIN Docusate Sodium (Docusate Sodium 100 Mg Capsule) 100 mg PO BID PRN PRN Reason: constipation Last Admin: 12/11/21 10:54 Dose: 100 mg Documented By: SIDNEY Ferrous Sulfate (Ferrous Sulfate 324 Mg Tablet.) 324 mg PO DAILY [facility] Last Admin: 12/13/21 08:32 Dose: 324 mg Documented By: MARVIN Fluoxetine HCl (Fluoxetine Hcl 20 Mg Capsule) 80 mg PO DAILY [facility] Last Admin: 12/13/21 08:31 Dose: 80 mg Documented By: MARVIN Furosemide (Furosemide 40 Mg Tablet) 40 mg PO BID [facility]; Protocol Last Admin: 12/13/21 08:36 Dose: 40 mg Documented By: MARVIN Gabapentin (Gabapentin 400 Mg Capsule) 400 mg PO TID [facility] Last Admin: 12/13/21 08:32 Dose: 400 mg Documented By: MARVIN Ketoconazole (Ketoconazole 2 % Shampoo 120 Ml Btl) 1 appl TOPICAL DAILY [facility]; Protocol Last Admin: 12/13/21 08:36 Dose: Not Given Documented By: MARVIN Non-Admin Reason: will adm later Lactulose (Lactulose 20 Gm/30 Ml Solution) 30 gm PO Q24H [facility] Last Admin: 12/12/21 14:06 Dose: 30 gm Documented By: STEVEN Lisinopril (Lisinopril 40 Mg Tablet) 40 mg PO DAILY [facility]; Protocol Last Admin: 12/13/21 08:31 Dose: 40 mg Documented By: MARVIN Melatonin (Melatonin 3 Mg Tablet) 6 mg PO BEDTIME PRN PRN Reason: Insomnia Last Admin: 12/10/21 22:47 Dose: 6 mg Documented By: YESI Metformin HCl (Metformin Hcl Er 500 Mg Tab.Er.24h) 500 mg PO BID [facility] Last Admin: 12/13/21 08:31 Dose: 500 mg Documented By: MARVIN Methotrexate (Methotrexate Sodium 2.5 Mg Tablet) 12.5 mg PO Q7D [facility] Metoclopramide HCl (Metoclopramide Hcl 10 Mg Tablet) 10 mg PO TID [facility] Last Admin: 12/13/21 08:31 Dose: 10 mg Documented By: MARVIN Mirabegron (Mirabegron 25 Mg Tab.Er.24h) 25 mg PO DAILY [facility] Last Admin: 12/13/21 08:31 Dose: 25 mg Documented By: MARVIN Montelukast Sodium (Montelukast Sodium 10 Mg Tablet) 10 mg PO BEDTIME [facility] Last Admin: 12/12/21 21:09 Dose: 10 mg Documented By: SUN Non-Formulary Medication (Methenamine Hippurate) 1 gm PO BID [facility] Omeprazole (Omeprazole 20 Mg Capsule.Dr) 20 mg PO BID [facility] Last Admin: 12/13/21 08:31 Dose: 20 mg Documented By: MARVIN Ondansetron HCl (Ondansetron Hcl 4 Mg/2 Ml Vial) 4 mg IVPUSH Q8H PRN PRN Reason: Nausea and Vomiting Ondansetron HCl (Ondansetron Odt 4 Mg Tab.Rapdis) 4 mg TRANSLINGU TID [facility] Last Admin: 12/13/21 08:32 Dose: 4 mg Documented By: MARVIN Oxycodone HCl (Oxycodone Hcl Immed Release 5 Mg Tablet) 10 mg PO BEDTIME [facility] Last Admin: 12/12/21 21:08 Dose: 10 mg Documented By: SUN Pharmacy Consult (Consult Rx Perform Med Rec) 1 each MISCELLANE ONCE PRN PRN Reason: Consult order Polyethylene Glycol (Polyethylene Glycol 3350 17 Gm Powd.Pack) 17 gm PO DAILY [facility] Last Admin: 12/13/21 08:33 Dose: 17 gm Documented By: MARVIN Sodium Chloride (0.9 % Sodium Chloride Flush 3 Ml Syringe) 3 ml IVFLUSH QSHIFT [facility] Last Admin: 12/13/21 08:31 Dose: 3 ml Documented By: MARVIN Sucralfate (Sucralfate 1 Gm Tablet) 1 gm PO TID [facility] Last Admin: 12/13/21 08:31 Dose: 1 gm Documented By: MARVIN Tiotropium [place] (Tiotropium [place] 18 Mcg Cap.W.Dev) 1 puff INHALE DAILY [facility] Last Admin: 12/13/21 08:12 Dose: Not Given Documented By: EVELINE Non-Admin Reason: See Note Topiramate (Topiramate 25 Mg Tablet) 25 mg PO BEDTIME [facility] Last Admin: 12/12/21 21:10 Dose: 25 mg Documented By: SUN Trazodone HCl (Trazodone Hcl 100 Mg Tablet) 100 mg PO BEDTIME PRN PRN Reason: Insomnia Last Admin: 12/12/21 23:45 Dose: 100 mg Documented By: SUN Vitamin D (Cholecalciferol (Vitamin D3) 25 Mcg Tablet) 25 mcg PO DAILY [facility] Last Admin: 12/13/21 08:31 Dose: 25 mcg Documented By: MARVIN Labs CBC & Chem 7: 12/13/21 05:40 12/13/21 05:40 Labs: Laboratory Results - last 24 hr 12/13/21 12/13/21 05:40 05:40 MCV 98.0 MCH 31.5 MCHC 32.2 RDW 13.4 Plt Count 302 MPV 9.8 Immature Gran % (Auto) 0.4 Neut % (Auto) 57.6 Lymph % (Auto) 30.3 [place] % (Auto) 10.0 Eos % (Auto) 1.3 Baso % (Auto) 0.4 Lymph # (Auto) 2.3 [place] # (Auto) 0.8 Eos # (Auto) 0.1 Baso # (Auto) 0.0 Abs Immat Gran (auto) 0.03 Absolute Neuts (auto) 4.5 Absolute Nucleated RBC 0.000 Nucleated RBC % (auto) 0.0 Anion Gap 16 Estim Creat Clear Calc 92.4 Estimated GFR > 60 Fasting Glucose 72 Calcium 8.7 Total Bilirubin < 0.2 AST 15 D ALT 6 Alkaline Phosphatase 42 Total Protein 4.9 L Albumin 3.0 L Microbiology Microbiology Results: Microbiology 12/10/21 19:23 Blood Culture - Preliminary Blood - Venous No growth after 48 hours. 12/10/21 18:51 Blood Culture - Preliminary Blood - Venous No growth after 48 hours. Procedures Date of Service Date of Service: 12/13/21 Progress Note: A&P Assessment and plan (1) Sacral decubitus ulcer: Status: Acute Assessment and Plan: I changed her dressings applied sliver alginate dressings continue daily wound care with silver alginate turn pt side to side for bedsore precautions Time Spent With Patient Time: Total time spent is greater than 50% in coordination of care (as documented) at patient's floor/unit and/or counseling patient: Quality Stroke Does the patient have a stroke diagnosis?: No VTE Prior VTE?: No VTE Risk Level:: Medical - moderate - high VTE Device Contraindication: Treatment Not Indicated VTE Drug Contraindication: Treatment Not Indicated
== END 2021-12-13 13:51 | disposition home health service (06) | DRG 571 ==
LOC: HO.ED 21:09 → HO.EDOVER 23:20 → HO.S3 12-11 19:06
PROVIDERS: Hospitalist; Admitting Provider Student in an Organized Health Care Education/Training Program; Emergency Provider Emergency Medicine; PCP Internal Medicine; Visit Provider Internal Medicine
DX: L89.150 Pressure ulcer of sacral region, unstageable (principal); G82.20 Paraplegia, unspecified; J45.909 Unspecified asthma, uncomplicated; K21.9 Gastro-esophageal reflux disease without esophagitis; G35 Multiple sclerosis; E11.43 Type 2 diabetes mellitus with diabetic autonomic (poly)neuropathy; K31.84 Gastroparesis; E11.42 Type 2 diabetes mellitus with diabetic polyneuropathy; I10 Essential (primary) hypertension; Z20.822 Contact with and (suspected) exposure to COVID-19; Z74.01 Bed confinement status; Z88.5 Allergy status to narcotic agent; Z79.82 Long term (current) use of aspirin; Z79.84 Long term (current) use of oral hypoglycemic drugs; Z79.899 Other long term (current) drug therapy
CPT/HCPCS: 36415; 74177; 80048; 80053; 80076; 82947; 83605; 85025; 85027; 87040; 87635; 94640; 99218; 99285; J2543; P9047; Q9967

== ENCOUNTER 2022-01-06 14:11 | Outpatient (RCR) | payer MEDICARE, MEDICAID, SELFPAY | END 2022-03-13 13:00 | disposition home or self-care (01) | LOC: HO.WCC 14:11 | PROVIDERS: PCP Internal Medicine; Visit Provider Physician Assistant | DX: E11.622 Type 2 diabetes mellitus with other skin ulcer (principal); L89.324 Pressure ulcer of left buttock, stage 4; L89.319 Pressure ulcer of right buttock, unspecified stage; L89.159 Pressure ulcer of sacral region, unspecified stage; L89.229 Pressure ulcer of left hip, unspecified stage; L89.219 Pressure ulcer of right hip, unspecified stage; L89.890 Pressure ulcer of other site, unstageable; S70.22 Blister (nonthermal) of hip; S81.002D Unspecified open wound, left knee, subsequent encounter; G35 Multiple sclerosis | CPT/HCPCS: 11042; 11043; 11045; 97602; 99213; 99215 ==

== ENCOUNTER 2022-03-05 16:58 | Inpatient (IN) | payer MEDICARE, MEDICAID, SELFPAY ==
[2022-03-05] VITALS (8 sets, daily range): BP systolic 100–147; BP diastolic 56–92; PULSE 80–97; RESP 12–18; TEMP 36.6–36.9; O2SAT 86–100; BMI 20.1
--- NOTE | ~2022-03-05 | CT_ITS ---
EXAMINATION: CT BRAIN WITHOUT CONTRAST. CT ABDOMEN PELVIS WITH IV CONTRAST. CLINICAL INFORMATION: Ulcers COMPARISON: None TECHNIQUE: 5 mm thin axial and reformatted 2 mm thin sagittal and coronal images of brain were obtained without contrast. Subsequently axial 5 minutes thin and reformatted 3 mm thin sagittal coronal images of chest abdomen pelvis were obtained without contrast. DLP 1430. This CT examination was performed using dose optimization technique as appropriate, variously including the following: Automated exposure control Adjustment of MA and/or KV according to patient size(this includes techniques or standardized protocols for targeted exams where dose is matched to indication/reason for exam; extremities or head. Use of iterative reconstruction techniques. FINDINGS: Brain: There is no acute intra-axial, extra-axial bleed, masses, edema or midline shift. There is no acute infarction in evolution. The reagan to white matter difference is maintained. Diffuse periventricular hypodensity is seen in both cerebral hemispheres The lateral ventricles are symmetrical in size and configuration without enlargement. Bone windows reveal no scalp hematoma. There is no calvarial fracture. Bilateral paranasal sinuses and mastoid air cells are well-aerated. Abdomen and pelvis: The lung bases are clear. The heart size is normal. The liver is normal size, contour and density. No focal lesion or intrahepatic ductal dilatation seen. The gallbladder has been surgically removed. Visualized spleen, pancreas and bilateral adrenal glands are unremarkable. Both kidneys are normal size, shape and position. No radiopaque renal calculi or hydronephrosis seen. Abdominal aorta is normal caliber with atherosclerotic calcification. No aneurysmal dilatation seen. There is moderate scattered stool seen in colon without significant distention. The small bowel loops are normal caliber. Appendix is not seen. There is no free air or free fluid. Imaging through the pelvis reveals enlarged fundal uterus from scattered heterogeneous mass likely fibroid disease. No adnexal mass or free fluid. There is a Mora's catheter in the bladder. There is mild thickening of the rectum in the region likely stercoral colitis. No visible perianal abscess or fluid collection. There is diffuse abdominal wall edema. Right gluteal lytic decubitus ulcer is noted with soft tissue abscess or osteomyelitis of the right iliac bone. Osseous structures reveal disc prosthesis at L4 3-4 disc level for disc fusion. There is posterior hardware at L4-L5 vertebra for posterior fusion. No aggressive lytic or sclerotic process seen. There is a large L2-L3 bridging osteophyte. CT/CT abdomen pelvis w IV con IMPRESSION: No acute intracranial process seen. Age-related cerebral volume loss with chronic small vessel ischemic disease. Right gluteal decubitus ulcer without any underlying abscess. There is no periosteal thickening involving the right iliac bone to suspect any osteomyelitis. There is mild thickening of the intergluteal skin line posterior to the sacrum question induration from chronic infection.. Posterior Moderate to severe constipation without obstruction. Suspect stercoral colitis. Enlarged fundus likely fibroid disease.
--- NOTE | 2022-03-05 17:26 | ED.GENADULT ---
HPI - General Adult General Chief complaint: Wound/Laceration Stated complaint: Poss bed sores on buttocks, ?n/v/d per EMS Time Seen by Provider: 03/05/22 17:01 Source: patient and EMS Mode of arrival: EMS History of Present Illness HPI narrative: 66-year-old female with a past medical history of 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 Per EMS patient more forgetful. Patient reports mild drainage from wounds. Denies known fever, chills, CP/SOB, abdominal pain, nausea/vomiting Onset (ago): month(s) Related Data Home Medications Medication Instructions Recorded Confirmed albuterol sulfate 90 mcg/actuation 2 puff inhalation Q4H PRN wheezing 12/05/21 03/05/22 aerosol inhaler amlodipine 10 mg tablet 10 mg PO DAILY 12/05/21 03/05/22 atenolol 50 mg tablet 50 mg PO DAILY 12/05/21 03/05/22 buspirone 10 mg tablet 10 mg PO BID 12/05/21 03/05/22 clonazepam 1 mg tablet 1 mg PO TID PRN Anxiety 12/05/21 03/05/22 dicyclomine 10 mg capsule 10 mg PO TID 12/05/21 03/05/22 docusate sodium 100 mg capsule 100 mg PO BID PRN constipation 12/05/21 03/05/22 fluoxetine 40 mg capsule 80 mg PO DAILY 12/05/21 03/05/22 furosemide 40 mg tablet 40 mg PO BID 12/05/21 03/05/22 gabapentin 400 mg capsule 400 mg PO TID 12/05/21 03/05/22 lisinopril 40 mg tablet 40 mg PO DAILY 12/05/21 03/05/22 metformin 500 mg tablet,extended 1,000 mg PO BEDTIME 12/05/21 03/05/22 release 24 hr methenamine hippurate 1 gram tablet 1 g PO BID 12/05/21 03/05/22 metoclopramide HCl 10 mg tablet 10 mg PO TID 12/05/21 03/05/22 mirabegron 25 mg tablet,extended 25 mg PO DAILY 12/05/21 03/05/22 release 24 hr (Myrbetriq) omeprazole 20 mg capsule,delayed 20 mg PO BID@0630,1630 12/05/21 03/05/22 release ondansetron HCl 4 mg tablet 4 mg PO TID 12/05/21 03/05/22 oxycodone-acetaminophen 10 mg-325 1 tab PO BEDTIME pain 12/05/21 03/05/22 mg tablet riboflavin (vitamin B2) 100 mg 100 mg PO BID 12/05/21 03/05/22 tablet (Vitamin B-2) trazodone 50 mg tablet 100 mg PO BEDTIME PRN Insomnia 12/05/21 03/05/22 ascorbic acid (vitamin C) 500 mg 500 mg PO DAILY 12/10/21 03/05/22 tablet (Vitamin C) aspirin 81 mg chewable tablet 81 mg PO DAILY 12/10/21 03/05/22 baclofen 20 mg tablet 1 tab PO TID 12/10/21 03/05/22 cholecalciferol (vitamin D3) 25 25 mcg PO DAILY 12/10/21 03/05/22 mcg (1,000 unit) tablet sucralfate 1 gram tablet 1 tab PO TID 12/10/21 03/05/22 tiotropium bromide 18 mcg capsule 1 cap inhalation DAILY 12/10/21 03/05/22 with inhalation device (Spiriva with HandiHaler) zafirlukast 20 mg tablet 1 tab PO BID 12/10/21 03/05/22 albuterol sulfate 2.5 mg/3 mL 3 ml inhalation Q4H PRN wheezing 03/05/22 03/05/22 (0.083 %) solution for nebulization lactulose 10 gram/15 mL oral 15 ml PO DAILY PRN Constipation 03/05/22 03/05/22 solution melatonin 5 mg tablet 5 mg PO BEDTIME PRN Sleep 03/05/22 03/05/22 multivitamin 1 tab PO DAILY 03/05/22 03/05/22 sennosides 8.6 mg tablet (senna) 1 tab PO BID 03/05/22 03/05/22 Allergies Allergy/AdvReac Type Severity Reaction Status Date / Time morphine [Morphine] Allergy Intermediate INCREASED Verified 03/05/22 17:07 HEART RATE/HALLUCINATIONS, hallucinations Review of Systems Review of Systems: Constitutional: No Fever, No Chills, No Fatigue, No Malaise Cardiovascular: No Chest Pain, No SOB Respiratory: No Cough, No Sputum, No Dyspnea Gastrointestinal: No Nausea, No Vomiting, No Diarrhea, No Constipation, No Abdominal pain Genitourinary: No Dysuria, No Urinary Frequency, No Urinary Incontinence/retention Musculoskeletal: No joint pain, No Myalgias Skin: +Skin Lesions, No rash Neuro: No Weakness Yes all other systems are reviewed and are negative Constitutional: Constitutional: Reports as per [facility] [place] Past Medical History Attestation statement: The following information was validated with the patient. Medical History Anemia Asthma Bedbound Decubitus ulcer Decubitus ulcer of buttock, unstageable Diabetes Gastroparesis GERD (gastroesophageal reflux disease) Hypertension Insomnia Mood disorder Multiple sclerosis Peripheral neuropathy Sacral decubitus ulcer Social History Social History Household Members: Spouse Housing: House Do you presently have visiting nurse or other home services: Yes ([employer] services daily) Alcohol intake: never Patient Tobacco Use Status: Never used Tobacco Substance Use Type: Marijuana Advance Directives: Yes Advance Directives on File: Yes Advance Directives Date on File: 12/11/21 service: No Current occupational status: disabled Physical Exam ED Vital Signs: Vital Signs - 24 hr 03/05/22 17:13 03/05/22 18:13 03/05/22 18:56 Temperature 98.2 F Pulse Rate 96 96 96 Respiratory Rate 16 16 12 Blood Pressure 124/70 124/70 Pulse Oximetry 86 L 96 100 Oxygen Delivery Method Room Air Nasal Cannula Nasal Cannula Oxygen Flow Rate 4 2 03/05/22 19:18 03/05/22 19:03 Temperature Pulse Rate 96 97 Respiratory Rate 15 18 Blood Pressure 141/57 H 120/92 H Pulse Oximetry 96 100 Oxygen Delivery Method Room Air Room Air Oxygen Flow Rate BMI result Body Mass Index 20.1 Const General: cooperative and no acute distress Orientation/consciousness: patient oriented x3 Limitations: no limitations HENMT Head: Yes normal to inspection and Yes atraumatic Ears: hearing grossly normal bilaterally General nose exam: Normal external nose present Face and sinus: Yes normal facial exam Eyes General: appearance normal, both eyes and all related structures EOM: EOMs intact bilaterally Neck Neck: Yes normal visual inspection and Yes no meningeal signs Resp Effort & Inspection: normal respiratory effort and no respiratory distress Cardio Rate: regular rate Heart sounds: S1 normal heart sound present and S2 normal heart sound present GI Inspection: Yes normal to inspection Palpation (GI): Soft to palpation, nontender, no guarding and not rigid Skin Other: Please refer to images above of in multiple pressure ulcers/sores with malodor, no active drainage. No appreciable fluctuance/induration Rashes: no rashes Neuro General: patient oriented x3, tone normal and no meningeal signs Extrem General: Yes normal to inspection Course Course Course Narrative: -1856-- leukocytosis of 18.2. H&H stable. Lactic acid of 2.4 - ESR elevated to 89, CRP 9.47 - UA infected 2052--CT head/brain wo IV con/CT abdomen pelvis w IV con IMPRESSION: No acute intracranial process seen. Age-related cerebral volume loss with chronic small vessel ischemic disease. ? Right gluteal decubitus ulcer without any underlying abscess. There is no periosteal thickening involving the right iliac bone to suspect any osteomyelitis. There is mild thickening of the intergluteal skin line posterior to the sacrum question induration from chronic infection.. ? Posterior Moderate to severe constipation without obstruction. Suspect stercoral colitis. ? Enlarged fundus likely fibroid disease. >> plan to admit patient for further management Medications Administered Discontinued Medications Generic Name Dose Route Start Last Admin Trade Name Freq PRN Reason Stop Dose Admin Piperacillin Sod/Tazobactam 100 mls @ 200 mls/hr 03/05/22 17:30 03/05/22 19:02 Sod 4.5 gm/ Sodium Chloride IV 03/05/22 17:59 Infused ONCE ONE Infusion Vancomycin HCl 1,250 mg/ 250 mls @ 166.667 mls/hr 03/05/22 17:31 03/05/22 19:17 Sodium Chloride IV 03/05/22 19:00 166.67 mls/hr ONCE ONE Administration Sodium Chloride 500 mls @ 999 mls/hr 03/05/22 18:00 03/05/22 19:02 Ns IV 03/05/22 18:30 Infused .Q31M HARIS Infusion Iohexol 100 ml 03/05/22 20:14 03/05/22 20:14 Iohexol 350 Mg/Ml 100 Ml Infus..Btl IV 03/05/22 20:15 85 ml ONCE ONE Administration Medical Decision Making Medical Decision Making [facility] Narrative: 66-year-old female with a past medical history of 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 On exam hypoxic however cannot get good pleth, lungs CTA, multiple pressure ulcers noted as above. Concern for necrosis vs cellulitis vs UTI or PNA. No evidence of Solange's gangrene. R/o osteomyelitis. Low suspicion for PE Plan: EKG, labs, UA, CXR, head CT, CTA abdomen/pelvis, lactic/blood cultures, IV Zosyn/Vancomycin. Low suspicion for severe sepsis at this time Please refer to course for remaining clinical decision making, interpretation of labs/imaging results, and discussions with consultants and/or family members. Differential Diagnosis Differential Diagnoses: The differential diagnosis associated with the presentation includes As above Admission/Observation Consideration of admission/observation: Escalation of care including admission/observation considered Consult Healthcare Provider Management of the patient was discussed with: Hospitalist Lab Data [facility] Lab Attestation statement: I reviewed the patient's lab results. 03/05/22 18:16 03/05/22 18:16 Labs: Lab Results 03/05/22 03/05/22 03/05/22 Range/Units 18:16 18:16 18:16 WBC 18.2 H (4.8-10.8) X10*3/uL RBC 3.73 L D (4.20-5.50) X10*6/uL Hgb 10.6 L (12.0-16.0) g/dl Hct 33.8 L (37.0-47.0) % MCV 90.6 (80.0-98.0) fL MCH 28.4 (27.0-33.0) pg MCHC 31.4 (31.0-35.0) g/dl RDW 15.6 (11.0-16.0) % Plt Count 818 H D (160-400) X10*3/uL MPV 8.1 L (9.4-12.3) fL Immature Gran % (Auto) 0.5 H (0.0-0.4) % Neut % (Auto) 82.4 H (45-73) % Lymph % (Auto) 9.3 L (20-40) % [place] % (Auto) 7.5 (2-11) % Eos % (Auto) 0.1 (0-4) % Baso % (Auto) 0.2 (0-2) % Lymph # (Auto) 1.7 (1.2-4.9) X10*3/uL [place] # (Auto) 1.4 H (0.1-1.2) X10*3/uL Eos # (Auto) 0.0 (0.0-0.4) X10*3/uL Baso # (Auto) 0.0 (0.0-0.2) X10*3/uL Abs Immat Gran (auto) 0.09 H (0.00-0.03) X10*3/uL Absolute Neuts (auto) 15.0 H (2.0-8.3) x10*3/uL Absolute Nucleated RBC 0.000 (0.0-0.012) X10*3/uL Nucleated RBC % (auto) 0.0 (0.0-0.2) /100WBC ESR 89 H (0-20) MM/HR PT 13.3 H (10.0-13.1) SEC INR 1.2 H (0.9-1.1) Sodium (135-145) mmol/L Potassium (3.3-5.1) mmol/L Chloride (96-108) mmol/L Carbon Dioxide (22-29) mmol/L Anion Gap (12-20) BUN (9-16) mg/dL Creatinine (0.5-1.4) mg/dL Estim Creat Clear Calc Estimated GFR Random Glucose (60-115) mg/dL Lactic Acid (0.5-2.0) mmol/L Calcium (8.4-10.2) mg/dL Magnesium (1.6-2.6) mg/dL Total Bilirubin (0.0-1.0) mg/dL Direct Bilirubin (0.0-0.5) mg/dL AST (5-31) U/L ALT (0-31) U/L Alkaline Phosphatase (39-117) U/L Ammonia (13-55) umol/L Total Creatine Kinase (26-140) U/L C-Reactive Protein (< or = 0.50) mg/dL B-Natriuretic Peptide (<100) pg/mL Total Protein (6.5-8.0) g/dL Albumin (3.5-5.0) g/dL Lipase (8-78) U/L Urine Color Urine Appearance Urine pH (5.0-9.0) Ur Specific [place] (1.005-1.025) Urine Protein (Neg-Trace) mg/dL Urine Glucose (UA) (Negative) mg/dL Urine Ketones (Negative) mg/dL Urine Blood (Negative) Urine Nitrite (Negative) Ur Leukocyte Esterase (Negative) Urine RBC (0-2) /HPF Urine WBC (0-5) /HPF Ur Squamous Epith Cells (0-2) /HPF Urine Bacteria (None Seen) Hyaline Casts (0-2) /LPF Influenza Type A (PCR) (Negative) Influenza Type B (PCR) (Negative) RSV RNA Qual (PCR) (Negative) SARS-CoV-2 RNA (RT-PCR) (Negative) 03/05/22 03/05/22 03/05/22 Range/Units 18:16 18:16 18:16 WBC (4.8-10.8) X10*3/uL RBC (4.20-5.50) X10*6/uL Hgb (12.0-16.0) g/dl Hct (37.0-47.0) % MCV (80.0-98.0) fL MCH (27.0-33.0) pg MCHC (31.0-35.0) g/dl RDW (11.0-16.0) % Plt Count (160-400) X10*3/uL MPV (9.4-12.3) fL Immature Gran % (Auto) (0.0-0.4) % Neut % (Auto) (45-73) % Lymph % (Auto) (20-40) % [place] % (Auto) (2-11) % Eos % (Auto) (0-4) % Baso % (Auto) (0-2) % Lymph # (Auto) (1.2-4.9) X10*3/uL [place] # (Auto) (0.1-1.2) X10*3/uL Eos # (Auto) (0.0-0.4) X10*3/uL Baso # (Auto) (0.0-0.2) X10*3/uL Abs Immat Gran (auto) (0.00-0.03) X10*3/uL Absolute Neuts (auto) (2.0-8.3) x10*3/uL Absolute Nucleated RBC (0.0-0.012) X10*3/uL Nucleated RBC % (auto) (0.0-0.2) /100WBC ESR (0-20) MM/HR PT (10.0-13.1) SEC INR (0.9-1.1) Sodium (135-145) mmol/L Potassium (3.3-5.1) mmol/L Chloride (96-108) mmol/L Carbon Dioxide (22-29) mmol/L Anion Gap (12-20) BUN (9-16) mg/dL Creatinine (0.5-1.4) mg/dL Estim Creat Clear Calc Estimated GFR Random Glucose (60-115) mg/dL Lactic Acid 2.4 H* (0.5-2.0) mmol/L Calcium (8.4-10.2) mg/dL Magnesium (1.6-2.6) mg/dL Total Bilirubin (0.0-1.0) mg/dL Direct Bilirubin (0.0-0.5) mg/dL AST (5-31) U/L ALT (0-31) U/L Alkaline Phosphatase (39-117) U/L Ammonia (13-55) umol/L Total Creatine Kinase (26-140) U/L C-Reactive Protein (< or = 0.50) mg/dL B-Natriuretic Peptide 58 (<100) pg/mL Total Protein (6.5-8.0) g/dL Albumin (3.5-5.0) g/dL Lipase (8-78) U/L Urine Color Urine Appearance Urine pH (5.0-9.0) Ur Specific [place] (1.005-1.025) Urine Protein (Neg-Trace) mg/dL Urine Glucose (UA) (Negative) mg/dL Urine Ketones (Negative) mg/dL Urine Blood (Negative) Urine Nitrite (Negative) Ur Leukocyte Esterase (Negative) Urine RBC (0-2) /HPF Urine WBC (0-5) /HPF Ur Squamous Epith Cells (0-2) /HPF Urine Bacteria (None Seen) Hyaline Casts (0-2) /LPF Influenza Type A (PCR) NEGATIVE (Negative) Influenza Type B (PCR) NEGATIVE (Negative) RSV RNA Qual (PCR) NEGATIVE (Negative) SARS-CoV-2 RNA (RT-PCR) NEGATIVE (Negative) 03/05/22 03/05/22 03/05/22 Range/Units 18:16 18:50 19:14 WBC (4.8-10.8) X10*3/uL RBC (4.20-5.50) X10*6/uL Hgb (12.0-16.0) g/dl Hct (37.0-47.0) % MCV (80.0-98.0) fL MCH (27.0-33.0) pg MCHC (31.0-35.0) g/dl RDW (11.0-16.0) % Plt Count (160-400) X10*3/uL MPV (9.4-12.3) fL Immature Gran % (Auto) (0.0-0.4) % Neut % (Auto) (45-73) % Lymph % (Auto) (20-40) % [place] % (Auto) (2-11) % Eos % (Auto) (0-4) % Baso % (Auto) (0-2) % Lymph # (Auto) (1.2-4.9) X10*3/uL [place] # (Auto) (0.1-1.2) X10*3/uL Eos # (Auto) (0.0-0.4) X10*3/uL Baso # (Auto) (0.0-0.2) X10*3/uL Abs Immat Gran (auto) (0.00-0.03) X10*3/uL Absolute Neuts (auto) (2.0-8.3) x10*3/uL Absolute Nucleated RBC (0.0-0.012) X10*3/uL Nucleated RBC % (auto) (0.0-0.2) /100WBC ESR (0-20) MM/HR PT (10.0-13.1) SEC INR (0.9-1.1) Sodium 134 L (135-145) mmol/L Potassium 4.2 (3.3-5.1) mmol/L Chloride 98 (96-108) mmol/L Carbon Dioxide 25 (22-29) mmol/L Anion Gap 15 (12-20) BUN 16 (9-16) mg/dL Creatinine 0.55 (0.5-1.4) mg/dL Estim Creat Clear Calc 80.2 Estimated GFR > 60 Random Glucose 128 H (60-115) mg/dL Lactic Acid (0.5-2.0) mmol/L Calcium 8.6 (8.4-10.2) mg/dL Magnesium 1.6 (1.6-2.6) mg/dL Total Bilirubin 0.2 (0.0-1.0) mg/dL Direct Bilirubin < 0.2 (0.0-0.5) mg/dL AST 15 (5-31) U/L ALT 12 (0-31) U/L Alkaline Phosphatase 62 (39-117) U/L Ammonia 40 (13-55) umol/L Total Creatine Kinase 171 H (26-140) U/L C-Reactive Protein 9.47 H (< or = 0.50) mg/dL B-Natriuretic Peptide (<100) pg/mL Total Protein 5.7 L (6.5-8.0) g/dL Albumin 2.5 L (3.5-5.0) g/dL Lipase 27 (8-78) U/L Urine Color Dark Yellow Urine Appearance Cloudy Urine pH 5.5 (5.0-9.0) Ur Specific [place] 1.020 (1.005-1.025) Urine Protein Trace (Neg-Trace) mg/dL Urine Glucose (UA) Negative (Negative) mg/dL Urine Ketones Negative (Negative) mg/dL Urine Blood Negative (Negative) Urine Nitrite Negative (Negative) Ur Leukocyte Esterase Moderate (2+) H (Negative) Urine RBC 6-10 H (0-2) /HPF Urine WBC 21-50 H (0-5) /HPF Ur Squamous Epith Cells 3-5 (0-2) /HPF Urine Bacteria None Seen (None Seen) Hyaline Casts 0-2 (0-2) /LPF Influenza Type A (PCR) (Negative) Influenza Type B (PCR) (Negative) RSV RNA Qual (PCR) (Negative) SARS-CoV-2 RNA (RT-PCR) (Negative) Independent Interpretation I performed an independent interpretation of an: EKG Radiology Impression Discussion of test interpretation with radiology: I have reviewed the radiologist's reading. External Record Review External record reviewed: Inpatient record, Outpatient record and Prior outpatient labs Prescription Management I considered prescription management with: Pain Medication Chronic Conditions Patient?s care impacted by: Diabetes and Other (MS) Critical Care Time Critical Care Time Critical Care Time: Yes Total Critical Care Time: 50 Attestation: I have personally provided critical care time exclusive of time spent on separately billable procedures. Time includes review of lab data, radiology results, discussion with consultants, and monitoring for potential decompensation. Intervention performed as documented. Discharge Plan Discharge Clinical Impression: Pressure ulcers of skin of multiple topographic sites Patient Disposition: Admitted As Inpatient
--- NOTE | 2022-03-05 17:28 | ECG_ITS ---
Test Reason : CLEARANCE Blood Pressure : / mmHG Vent. Rate : 094 BPM Atrial Rate : 094 BPM P-R Int : 130 ms QRS Dur : 106 ms QT Int : 388 ms P-R-T Axes : 077 078 068 degrees QTc Int : 485 ms Normal sinus rhythm Low voltage QRS Incomplete right bundle branch block Cannot rule out Anterior infarct , age undetermined Abnormal ECG When compared with ECG of 12-APR-2018 17:53, Minimal criteria for Anterior infarct are now Present T wave inversion more evident in Anterior leads Referred By: Suyapa Becerra Electronically Signed By:NAV STACK MD
[2022-03-05 18:25] LABS: MANUAL DIFF FLAG NO
[2022-03-05 18:28] LABS: Basophils Percent Auto 0.2 % (0-2); Eosinophils Percent Auto 0.1 % (0-4); Hematocrit 33.8 % (37.0-47.0); Hemoglobin 10.6 g/dl (12.0-16.0); Imm Gran Abs Auto 0.09 X10*3/uL (0.00-0.03); Imm Gran Pct Auto 0.5 % (0.0-0.4); Lymphocytes Absolute Auto 1.7 X10*3/uL (1.2-4.9); Lymphocytes Percent Auto 9.3 % (20-40); Mean Corpuscular HGB Conc 31.4 g/dl (31.0-35.0); Mean Corpuscular Hemoglobin 28.4 pg (27.0-33.0); Mean Corpuscular Volume 90.6 fL (80.0-98.0); Mean Platelet Volume 8.1 fL (9.4-12.3); Monocytes Absolute Auto 1.4 X10*3/uL (0.1-1.2); Monocytes Percent Auto 7.5 % (2-11); Neutrophils Percent Auto 82.4 % (45-73); Red Blood Count 3.73 X10*6/uL (4.20-5.50); Red Cell Distribution Width 15.6 % (11.0-16.0); White Blood Count 18.2 X10*3/uL (4.8-10.8)
[2022-03-05] MEDS: 0.9 % Sodium Chloride 500 ML 999 ML IV (18:31)
[2022-03-05] MEDS: Piperacillin Sodium/Tazobactam 4.5 GM in 0.9 % Sodium Chloride 100 ML IV ×2 (18:31→23:36)
[2022-03-05 18:35] LABS: Platelet Count 818 X10*3/uL (160-400)
[2022-03-05 18:37] LABS: INTERNATIONAL NORM RATIO 1.2 (0.9-1.1); Prothrombin Time 13.3 SEC (10.0-13.1)
--- NOTE | 2022-03-05 18:43 | PC.NURSE ---
pt has multiple pressure wounds on body, please see [facility] ED report for images of wounds. Wounds have been re-dressed. There are two larger wounds on sacrum, two smaller 1.5 inch wounds on left sacrum and back. Pt has quarter size wounds on both heels and on the inner side of the right knee. Pts catheter bag has been replaced from her leg bag to regular bag on the side of the bed to prevent further skin breakdown
[2022-03-05 18:47] LABS: Ammonia 40 umol/L (13-55)
[2022-03-05 18:53] LABS: B Type Natriuretic Peptide 58 pg/mL (<100)
--- NOTE | 2022-03-05 18:53 | PHA.MEDREC ---
Pharmacy Consult ? Medication Reconciliation Pharmacy has completed the medication reconciliation. Spoke to patient's CLERK OPERATOR Danae ([phone]) who went over med list with me
[2022-03-05 18:56] LABS: Lactic Acid 2.4 mmol/L (0.5-2.0)
[2022-03-05 18:59] LABS: Appearance Urine Cloudy; Color Urine Dark Yellow; Glucose Urine UA Negative (Negative); Leukocyte Esterase Urine Moderate (2+) (Negative); Nitrite Urine Negative (Negative); PH 5.5 (5.0-9.0); UMIC TRIGGER UACC YES; Urine Blood Negative (Negative); Urine Ketones Negative (Negative); Urine Protein Trace mg/dL (Neg-Trace)
[2022-03-05 19:06] LABS: Erythrocyte Sedimentation Rate 89 MM/HR (0-20)
[2022-03-05 19:07] LABS: Bacteria Urine None Seen (None Seen); Hyaline Casts Urine 0-2 /LPF (0-2); UACC Culture Trigger YES; WBC Urine 21-50 /HPF (0-5)
[2022-03-05] MEDS: vancomycin HCL 1,250 MG in 0.9 % Sodium Chloride 250 ML 166.67 MG IV (19:17)
[2022-03-05 19:23] LABS: Influenza A PCR NEGATIVE (Negative); Influenza B PCR NEGATIVE (Negative); Resp Syncy Virus RNA Qual PCR NEGATIVE (Negative); SARS COV2 PCR INHOUSE NEGATIVE (Negative)
--- NOTE | 2022-03-05 19:26 | PC.NURSE ---
pt oxygen saturation is unable to be obtained via finger probe, forehead probe placed on and pt has 99% on room air at this time
[2022-03-05 19:38] LABS: Alanine Aminotransferase 12 U/L (0-31); Albumin Level 2.5 g/dL (3.5-5.0); Alkaline Phosphatase 62 U/L (39-117); Anion Gap 15 (12-20); Aspartate Amino Transferase 15 U/L (5-31); Bilirubin Direct < 0.2 mg/dL (0.0-0.5); Bilirubin Total 0.2 mg/dL (0.0-1.0); Blood Urea Nitrogen 16 mg/dL (9-16); C Reactive Protein 9.47 mg/dL (< or = 0.50); Calcium 8.6 mg/dL (8.4-10.2); Carbon Dioxide 25 mmol/L (22-29); Chloride 98 mmol/L (96-108); Creatinine Clr Calc Pharmacy 80.2; Estimated Glomerular Filt Rate > 60; Glucose Random 128 mg/dL (60-115); Lipase 27 U/L (8-78); Magnesium 1.6 mg/dL (1.6-2.6); Potassium 4.2 mmol/L (3.3-5.1); Sodium 134 mmol/L (135-145); Total Protein 5.7 g/dL (6.5-8.0)
[2022-03-05] MEDS: iohexoL 350 MG/ML 100 ML INFUS..BTL IV (20:14)
[2022-03-05 20:24] LABS: Reflex Lactate? Lactic Acid Added
--- NOTE | 2022-03-05 21:01 | P.HPHOSP_ITS ---
History of Present Illness Date of Service: 03/05/22 Chief Complaint: Pressure ulcer [facility] Medical History Anemia Asthma Bedbound Decubitus ulcer Decubitus ulcer of buttock, unstageable Diabetes Gastroparesis GERD (gastroesophageal reflux disease) Hypertension Insomnia Mood disorder Multiple sclerosis Peripheral neuropathy Sacral decubitus ulcer Social History Household Members: Spouse Housing: House Do you presently have visiting nurse or other home services: Yes ([employer] services daily) Alcohol intake: never Patient Tobacco Use Status: Never used Tobacco Substance Use Type: Marijuana Advance Directives: Yes Advance Directives on File: Yes Advance Directives Date on File: 12/11/21 service: No Current occupational status: disabled Meds Allergies Allergy/AdvReac Type Severity Reaction Status Date / Time morphine [Morphine] Allergy Intermediate INCREASED Verified 03/05/22 17:07 HEART RATE/HALLUCINATIONS, hallucinations Active Medications: Current Medications Acetaminophen (Acetaminophen 325 Mg Tablet) 650 mg PO Q6H PRN PRN Reason: Pain, Mild (Pain Scale 1-3) Melatonin (Melatonin 3 Mg Tablet) 6 mg PO BEDTIME PRN PRN Reason: Insomnia Ondansetron HCl (Ondansetron Hcl 4 Mg/2 Ml Vial) 4 mg IVPUSH Q8H PRN PRN Reason: Nausea and Vomiting Sodium Chloride (0.9 % Sodium Chloride Flush 3 Ml Syringe) 3 ml IVFLUSH [facility] Home Medications Medication Instructions Recorded Confirmed Last Taken Type albuterol sulfate 90 mcg/actuation 2 puff inhalation Q4H PRN wheezing 12/05/21 03/05/22 Unknown History aerosol inhaler amlodipine 10 mg tablet 10 mg PO DAILY 12/05/21 03/05/22 Unknown History atenolol 50 mg tablet 50 mg PO DAILY 12/05/21 03/05/22 Unknown History buspirone 10 mg tablet 10 mg PO BID 12/05/21 03/05/22 Unknown History clonazepam 1 mg tablet 1 mg PO TID PRN Anxiety 12/05/21 03/05/22 Unknown History dicyclomine 10 mg capsule 10 mg PO TID 12/05/21 03/05/22 Unknown History docusate sodium 100 mg capsule 100 mg PO BID PRN constipation 12/05/21 03/05/22 Unknown History fluoxetine 40 mg capsule 80 mg PO DAILY 12/05/21 03/05/22 Unknown History furosemide 40 mg tablet 40 mg PO BID 12/05/21 03/05/22 Unknown History gabapentin 400 mg capsule 400 mg PO TID 12/05/21 03/05/22 Unknown History lisinopril 40 mg tablet 40 mg PO DAILY 12/05/21 03/05/22 Unknown History metformin 500 mg tablet,extended 1,000 mg PO BEDTIME 12/05/21 03/05/22 Unknown History release 24 hr methenamine hippurate 1 gram tablet 1 g PO BID 12/05/21 03/05/22 Unknown History metoclopramide HCl 10 mg tablet 10 mg PO TID 12/05/21 03/05/22 Unknown History mirabegron 25 mg tablet,extended 25 mg PO DAILY 12/05/21 03/05/22 Unknown History release 24 hr (Myrbetriq) omeprazole 20 mg capsule,delayed 20 mg PO BID@0630,1630 12/05/21 03/05/22 Unknown History release ondansetron HCl 4 mg tablet 4 mg PO TID 12/05/21 03/05/22 Unknown History oxycodone-acetaminophen 10 mg-325 1 tab PO BEDTIME pain 12/05/21 03/05/22 Unknown History mg tablet riboflavin (vitamin B2) 100 mg 100 mg PO BID 12/05/21 03/05/22 Unknown History tablet (Vitamin B-2) trazodone 50 mg tablet 100 mg PO BEDTIME PRN Insomnia 12/05/21 03/05/22 Unknown History ascorbic acid (vitamin C) 500 mg 500 mg PO DAILY 12/10/21 03/05/22 Unknown History tablet (Vitamin C) aspirin 81 mg chewable tablet 81 mg PO DAILY 12/10/21 03/05/22 Unknown History baclofen 20 mg tablet 1 tab PO TID 12/10/21 03/05/22 Unknown History cholecalciferol (vitamin D3) 25 25 mcg PO DAILY 12/10/21 03/05/22 Unknown History mcg (1,000 unit) tablet sucralfate 1 gram tablet 1 tab PO TID 12/10/21 03/05/22 Unknown History tiotropium bromide 18 mcg capsule 1 cap inhalation DAILY 12/10/21 03/05/22 Unknown History with inhalation device (Spiriva with HandiHaler) zafirlukast 20 mg tablet 1 tab PO BID 12/10/21 03/05/22 Unknown History albuterol sulfate 2.5 mg/3 mL 3 ml inhalation Q4H PRN wheezing 03/05/22 03/05/22 Unknown History (0.083 %) solution for nebulization lactulose 10 gram/15 mL oral 15 ml PO DAILY PRN Constipation 03/05/22 03/05/22 Unknown History solution melatonin 5 mg tablet 5 mg PO BEDTIME PRN Sleep 03/05/22 03/05/22 Unknown History multivitamin 1 tab PO DAILY 03/05/22 03/05/22 Unknown History sennosides 8.6 mg tablet (senna) 1 tab PO BID 03/05/22 03/05/22 Unknown History Physical Exam Vital Signs and Narrative: Vital Signs: Last Vital Signs Temp 98.2 F 03/05/22 17:13 Pulse 96 03/05/22 19:18 Resp 15 03/05/22 19:18 BP 141/57 H 03/05/22 19:18 Pulse Ox 96 03/05/22 19:18 O2 Del Method 03/05/22 19:18 O2 Flow Rate 2 03/05/22 18:56 BMI result Body Mass Index 20.1 Middle-aged female lying in bed in no distress Neck supple, no JVD Regular rate and rhythm, S1-S2 heard Regular breath sounds bilaterally, no wheezing or crackles appreciated Abdomen soft nontender, no guarding, no rigidity Patient is awake, alert and oriented to self, place, time and person ; no focal motor deficit Psych: Normal mood No pedal edema Skin: Other: Please refer to images above of in multiple pressure ulcers/sores with malodor, no active drainage. No appreciable fluctuance/induration Rashes: no rashes Results Labs 03/05/22 18:16 03/05/22 19:14 Labs: Laboratory Results - last 24 hr 03/05/22 03/05/22 03/05/22 18:16 18:16 18:16 MCV 90.6 MCH 28.4 MCHC 31.4 RDW 15.6 Plt Count 818 H D MPV 8.1 L Immature Gran % (Auto) 0.5 H Neut % (Auto) 82.4 H Lymph % (Auto) 9.3 L [place] % (Auto) 7.5 Eos % (Auto) 0.1 Baso % (Auto) 0.2 Lymph # (Auto) 1.7 [place] # (Auto) 1.4 H Eos # (Auto) 0.0 Baso # (Auto) 0.0 Abs Immat Gran (auto) 0.09 H Absolute Neuts (auto) 15.0 H Absolute Nucleated RBC 0.000 Nucleated RBC % (auto) 0.0 ESR 89 H PT 13.3 H INR 1.2 H Anion Gap Estim Creat Clear Calc Estimated GFR Random Glucose Lactic Acid Calcium Magnesium Total Bilirubin Direct Bilirubin AST ALT Alkaline Phosphatase Ammonia Total Creatine Kinase C-Reactive Protein B-Natriuretic Peptide Total Protein Albumin Lipase Urine Color Urine Appearance Urine pH Ur Specific [place] Urine Protein Urine Glucose (UA) Urine Ketones Urine Blood Urine Nitrite Ur Leukocyte Esterase Urine RBC Urine WBC Ur Squamous Epith Cells Urine Bacteria Hyaline Casts Influenza Type A (PCR) Influenza Type B (PCR) RSV RNA Qual (PCR) SARS-CoV-2 RNA (RT-PCR) 03/05/22 03/05/22 03/05/22 18:16 18:16 18:16 MCV MCH MCHC RDW Plt Count MPV Immature Gran % (Auto) Neut % (Auto) Lymph % (Auto) [place] % (Auto) Eos % (Auto) Baso % (Auto) Lymph # (Auto) [place] # (Auto) Eos # (Auto) Baso # (Auto) Abs Immat Gran (auto) Absolute Neuts (auto) Absolute Nucleated RBC Nucleated RBC % (auto) ESR PT INR Anion Gap Estim Creat Clear Calc Estimated GFR Random Glucose Lactic Acid 2.4 H* Calcium Magnesium Total Bilirubin Direct Bilirubin AST ALT Alkaline Phosphatase Ammonia Total Creatine Kinase C-Reactive Protein B-Natriuretic Peptide 58 Total Protein Albumin Lipase Urine Color Urine Appearance Urine pH Ur Specific [place] Urine Protein Urine Glucose (UA) Urine Ketones Urine Blood Urine Nitrite Ur Leukocyte Esterase Urine RBC Urine WBC Ur Squamous Epith Cells Urine Bacteria Hyaline Casts Influenza Type A (PCR) NEGATIVE Influenza Type B (PCR) NEGATIVE RSV RNA Qual (PCR) NEGATIVE SARS-CoV-2 RNA (RT-PCR) NEGATIVE 03/05/22 03/05/22 03/05/22 18:16 18:50 19:14 MCV MCH MCHC RDW Plt Count MPV Immature Gran % (Auto) Neut % (Auto) Lymph % (Auto) [place] % (Auto) Eos % (Auto) Baso % (Auto) Lymph # (Auto) [place] # (Auto) Eos # (Auto) Baso # (Auto) Abs Immat Gran (auto) Absolute Neuts (auto) Absolute Nucleated RBC Nucleated RBC % (auto) ESR PT INR Anion Gap 15 Estim Creat Clear Calc 80.2 Estimated GFR > 60 Random Glucose 128 H Lactic Acid Calcium 8.6 Magnesium 1.6 Total Bilirubin 0.2 Direct Bilirubin < 0.2 AST 15 ALT 12 Alkaline Phosphatase 62 Ammonia 40 Total Creatine Kinase 171 H C-Reactive Protein 9.47 H B-Natriuretic Peptide Total Protein 5.7 L Albumin 2.5 L Lipase 27 Urine Color Dark Yellow Urine Appearance Cloudy Urine pH 5.5 Ur Specific [place] 1.020 Urine Protein Trace Urine Glucose (UA) Negative Urine Ketones Negative Urine Blood Negative Urine Nitrite Negative Ur Leukocyte Esterase Moderate (2+) H Urine RBC 6-10 H Urine WBC 21-50 H Ur Squamous Epith Cells 3-5 Urine Bacteria None Seen Hyaline Casts 0-2 Influenza Type A (PCR) Influenza Type B (PCR) RSV RNA Qual (PCR) SARS-CoV-2 RNA (RT-PCR) Imaging Radiologist's Impressions: Impressions Abdomen/Pelvis CT 03/05/22 20:21 IMPRESSION: No acute intracranial process seen. Age-related cerebral volume loss with chronic small vessel ischemic disease. Right gluteal decubitus ulcer without any underlying abscess. There is no periosteal thickening involving the right iliac bone to suspect any osteomyelitis. There is mild thickening of the intergluteal skin line posterior to the sacrum question induration from chronic infection.. Posterior Moderate to severe constipation without obstruction. Suspect stercoral colitis. Enlarged fundus likely fibroid disease. Head CT 03/05/22 20:21 IMPRESSION: No acute intracranial process seen. Age-related cerebral volume loss with chronic small vessel ischemic disease. Right gluteal decubitus ulcer without any underlying abscess. There is no periosteal thickening involving the right iliac bone to suspect any osteomyelitis. There is mild thickening of the intergluteal skin line posterior to the sacrum question induration from chronic infection.. Posterior Moderate to severe constipation without obstruction. Suspect stercoral colitis. Enlarged fundus likely fibroid disease. Assessment and Plan Time Spent With Patient Time: Total time managing care of this patient today ____ minutes. Quality VTE VTE Risk Level:: Medical - moderate - high VTE Device Contraindication: Treatment Not Indicated VTE Drug Contraindication: Treatment Not Indicated
--- NOTE | 2022-03-05 21:18 | P.HPHOSP_ITS ---
History of Present Illness Date of Service: 03/05/22 Chief Complaint: Sacral decubitus ulcer This is a 66-year-old female with pertinent history of multiple sclerosis with resultant rigidity and neuropathy, bed bound and uses a wheelchair to ambulate, essential hypertension, non insulin dependent diabetes, gastroparesis with gastroesophageal reflux disease, chronic opioid use, urinary incontinence, mood disorder with insomnia who was sent to the emergency department for evaluation of sacral decubitus ulcer.? Patient states she has been bed-bound for the last 19 years. She has PCI at home who noticed that the ulcer had been worsening. It was associated with purulent foul-smelling drainage and hence she was told to come to the ER. She endorses poor appetite but denies fever, chills, chest discomfort, palpitations, shortness of breath, abdominal pain or changes in urinary or bowel habits. In the emergency department, foul-smelling unstageable sacral decubiti noted Review of Systems Constitutional: Constitutional: Reports no additional constitutional complaints Cardiovascular: Cardiovascular: Reports no additional cardiovascular complaints Respiratory: Respiratory: Reports no additional respiratory complaints Gastrointestinal: Gastrointestinal: Reports no additional gastrointestinal complaints Genitourinary: Genitourinary: Reports no additional female genitourinary complaints [facility] Medical History Anemia Asthma Bedbound Decubitus ulcer Decubitus ulcer of buttock, unstageable Diabetes Gastroparesis GERD (gastroesophageal reflux disease) Hypertension Insomnia Mood disorder Multiple sclerosis Peripheral neuropathy Sacral decubitus ulcer Social History Household Members: Spouse Housing: House Do you presently have visiting nurse or other home services: Yes ([employer] services daily) Alcohol intake: current Alcohol intake frequency: holidays/special occasions only Patient Tobacco Use Status: Never used Tobacco Smoked in Last 30 Days: No Use of substances other than those prescribed or required for medical reasons: Yes Substance Use Type: Marijuana Substance Use Frequency: Monthly Last Used Substance: Days (ago) Any prior treatment program specific to substance use: No Advance Directives: Yes Advance Directives on File: Yes Advance Directives Date on File: 12/11/21 Nutrition Risks: Diabetes new onset/Uncontrolled service: No Current occupational status: disabled Meds Allergies Allergy/AdvReac Type Severity Reaction Status Date / Time morphine [Morphine] Allergy Intermediate INCREASED Verified 03/05/22 17:07 HEART RATE/HALLUCINATIONS, hallucinations Active Medications: Current Medications Acetaminophen (Acetaminophen 325 Mg Tablet) 650 mg PO Q6H PRN PRN Reason: Pain, Mild (Pain Scale 1-3) Sodium Chloride (Ns) 1,000 mls @ 999 mls/hr IV .Q1H1M ONE Stop: 03/05/22 22:07 Piperacillin Sod/Tazobactam (Sod 4.5 gm/ Sodium Chloride) 100 mls @ 200 mls/hr IV Q6H HARIS Vancomycin HCl 1,000 mg/ (Sodium Chloride) 270 mls @ 270 mls/hr IV Q24H HARIS Melatonin (Melatonin 3 Mg Tablet) 6 mg PO BEDTIME PRN PRN Reason: Insomnia Ondansetron HCl (Ondansetron Hcl 4 Mg/2 Ml Vial) 4 mg IVPUSH Q8H PRN PRN Reason: Nausea and Vomiting Pharmacy Consult (Consult Rx Vancomycin Dosing) 1 each MISCELLANE DAILY PRN PRN Reason: Consult order Sodium Chloride (0.9 % Sodium Chloride Flush 3 Ml Syringe) 3 ml IVFLUSH QSHIFT [facility] Home Medications Medication Instructions Recorded Confirmed Last Taken Type albuterol sulfate 90 mcg/actuation 2 puff inhalation Q4H PRN wheezing 12/05/21 03/05/22 Unknown History aerosol inhaler amlodipine 10 mg tablet 10 mg PO DAILY 12/05/21 03/05/22 Unknown History atenolol 50 mg tablet 50 mg PO DAILY 12/05/21 03/05/22 Unknown History buspirone 10 mg tablet 10 mg PO BID 12/05/21 03/05/22 Unknown History clonazepam 1 mg tablet 1 mg PO TID PRN Anxiety 12/05/21 03/05/22 Unknown History dicyclomine 10 mg capsule 10 mg PO TID 12/05/21 03/05/22 Unknown History docusate sodium 100 mg capsule 100 mg PO BID PRN constipation 12/05/21 03/05/22 Unknown History fluoxetine 40 mg capsule 80 mg PO DAILY 12/05/21 03/05/22 Unknown History furosemide 40 mg tablet 40 mg PO BID 12/05/21 03/05/22 Unknown History gabapentin 400 mg capsule 400 mg PO TID 12/05/21 03/05/22 Unknown History lisinopril 40 mg tablet 40 mg PO DAILY 12/05/21 03/05/22 Unknown History metformin 500 mg tablet,extended 1,000 mg PO BEDTIME 12/05/21 03/05/22 Unknown History release 24 hr methenamine hippurate 1 gram tablet 1 g PO BID 12/05/21 03/05/22 Unknown History metoclopramide HCl 10 mg tablet 10 mg PO TID 12/05/21 03/05/22 Unknown History mirabegron 25 mg tablet,extended 25 mg PO DAILY 12/05/21 03/05/22 Unknown History release 24 hr (Myrbetriq) omeprazole 20 mg capsule,delayed 20 mg PO BID@0630,1630 12/05/21 03/05/22 Un known History release ondansetron HCl 4 mg tablet 4 mg PO TID 12/05/21 03/05/22 Unknown History oxycodone-acetaminophen 10 mg-325 1 tab PO BEDTIME pain 12/05/21 03/05/22 Unknown History mg tablet riboflavin (vitamin B2) 100 mg 100 mg PO BID 12/05/21 03/05/22 Unknown History tablet (Vitamin B-2) trazodone 50 mg tablet 100 mg PO BEDTIME PRN Insomnia 12/05/21 03/05/22 Unknown History ascorbic acid (vitamin C) 500 mg 500 mg PO DAILY 12/10/21 03/05/22 Unknown History tablet (Vitamin C) aspirin 81 mg chewable tablet 81 mg PO DAILY 12/10/21 03/05/22 Unknown History baclofen 20 mg tablet 1 tab PO TID 12/10/21 03/05/22 Unknown History cholecalciferol (vitamin D3) 25 25 mcg PO DAILY 12/10/21 03/05/22 Unknown History mcg (1,000 unit) tablet sucralfate 1 gram tablet 1 tab PO TID 12/10/21 03/05/22 Unknown History tiotropium bromide 18 mcg capsule 1 cap inhalation DAILY 12/10/21 03/05/22 Unknown History with inhalation device (Spiriva with HandiHaler) zafirlukast 20 mg tablet 1 tab PO BID 12/10/21 03/05/22 Unknown History albuterol sulfate 2.5 mg/3 mL 3 ml inhalation Q4H PRN wheezing 03/05/22 03/05/22 Unknown History (0.083 %) solution for nebulization lactulose 10 gram/15 mL oral 15 ml PO DAILY PRN Constipation 03/05/22 03/05/22 Unknown History solution melatonin 5 mg tablet 5 mg PO BEDTIME PRN Sleep 03/05/22 03/05/22 Unknown History multivitamin 1 tab PO DAILY 03/05/22 03/05/22 Unknown History sennosides 8.6 mg tablet (senna) 1 tab PO BID 03/05/22 03/05/22 Unknown History Physical Exam Vital Signs and Narrative: Vital Signs: Last Vital Signs Temp 98.4 F 03/05/22 21:04 Pulse 90 03/05/22 21:04 Resp 16 03/05/22 21:04 BP 147/89 H 03/05/22 21:04 Pulse Ox 98 03/05/22 21:04 O2 Del Method 03/05/22 21:04 O2 Flow Rate 2 03/05/22 18:56 BMI result Body Mass Index 20.1 Middle-aged female lying in bed in no distress Neck supple, no JVD Regular rate and rhythm, S1-S2 heard Regular breath sounds bilaterally, no wheezing or crackles appreciated Abdomen soft nontender, no guarding, no rigidity Patient is awake, alert and oriented to self, place, time and person ; extremities with rigidity and decreased strength Psych: Normal mood No pedal edema Multiple foul smelling sacral decubiti ; no fluctuance Bilateral heel ulcer Results Labs 03/05/22 18:16 03/05/22 19:14 Labs: Laboratory Results - last 24 hr 03/05/22 03/05/22 03/05/22 18:16 18:16 18:16 MCV 90.6 MCH 28.4 MCHC 31.4 RDW 15.6 Plt Count 818 H D MPV 8.1 L Immature Gran % (Auto) 0.5 H Neut % (Auto) 82.4 H Lymph % (Auto) 9.3 L [place] % (Auto) 7.5 Eos % (Auto) 0.1 Baso % (Auto) 0.2 Lymph # (Auto) 1.7 [place] # (Auto) 1.4 H Eos # (Auto) 0.0 Baso # (Auto) 0.0 Abs Immat Gran (auto) 0.09 H Absolute Neuts (auto) 15.0 H Absolute Nucleated RBC 0.000 Nucleated RBC % (auto) 0.0 ESR 89 H PT 13.3 H INR 1.2 H Anion Gap Estim Creat Clear Calc Estimated GFR Random Glucose Lactic Acid Calcium Magnesium Total Bilirubin Direct Bilirubin AST ALT Alkaline Phosphatase Ammonia Total Creatine Kinase C-Reactive Protein B-Natriuretic Peptide Total Protein Albumin Lipase Urine Color Urine Appearance Urine pH Ur Specific [place] Urine Protein Urine Glucose (UA) Urine Ketones Urine Blood Urine Nitrite Ur Leukocyte Esterase Urine RBC Urine WBC Ur Squamous Epith Cells Urine Bacteria Hyaline Casts Influenza Type A (PCR) Influenza Type B (PCR) RSV RNA Qual (PCR) SARS-CoV-2 RNA (RT-PCR) 03/05/22 03/05/22 03/05/22 18:16 18:16 18:16 MCV MCH MCHC RDW Plt Count MPV Immature Gran % (Auto) Neut % (Auto) Lymph % (Auto) [place] % (Auto) Eos % (Auto) Baso % (Auto) Lymph # (Auto) [place] # (Auto) Eos # (Auto) Baso # (Auto) Abs Immat Gran (auto) Absolute Neuts (auto) Absolute Nucleated RBC Nucleated RBC % (auto) ESR PT INR Anion Gap Estim Creat Clear Calc Estimated GFR Random Glucose Lactic Acid 2.4 H* Calcium Magnesium Total Bilirubin Direct Bilirubin AST ALT Alkaline Phosphatase Ammonia Total Creatine Kinase C-Reactive Protein B-Natriuretic Peptide 58 Total Protein Albumin Lipase Urine Color Urine Appearance Urine pH Ur Specific [place] Urine Protein Urine Glucose (UA) Urine Ketones Urine Blood Urine Nitrite Ur Leukocyte Esterase Urine RBC Urine WBC Ur Squamous Epith Cells Urine Bacteria Hyaline Casts Influenza Type A (PCR) NEGATIVE Influenza Type B (PCR) NEGATIVE RSV RNA Qual (PCR) NEGATIVE SARS-CoV-2 RNA (RT-PCR) NEGATIVE 03/05/22 03/05/22 03/05/22 18:16 18:50 19:14 MCV MCH MCHC RDW Plt Count MPV Immature Gran % (Auto) Neut % (Auto) Lymph % (Auto) [place] % (Auto) Eos % (Auto) Baso % (Auto) Lymph # (Auto) [place] # (Auto) Eos # (Auto) Baso # (Auto) Abs Immat Gran (auto) Absolute Neuts (auto) Absolute Nucleated RBC Nucleated RBC % (auto) ESR PT INR Anion Gap 15 Estim Creat Clear Calc 80.2 Estimated GFR > 60 Random Glucose 128 H Lactic Acid Calcium 8.6 Magnesium 1.6 Total Bilirubin 0.2 Direct Bilirubin < 0.2 AST 15 ALT 12 Alkaline Phosphatase 62 Ammonia 40 Total Creatine Kinase 171 H C-Reactive Protein 9.47 H B-Natriuretic Peptide Total Protein 5.7 L Albumin 2.5 L Lipase 27 Urine Color Dark Yellow Urine Appearance Cloudy Urine pH 5.5 Ur Specific [place] 1.020 Urine Protein Trace Urine Glucose (UA) Negative Urine Ketones Negative Urine Blood Negative Urine Nitrite Negative Ur Leukocyte Esterase Moderate (2+) H Urine RBC 6-10 H Urine WBC 21-50 H Ur Squamous Epith Cells 3-5 Urine Bacteria None Seen Hyaline Casts 0-2 Influenza Type A (PCR) Influenza Type B (PCR) RSV RNA Qual (PCR) SARS-CoV-2 RNA (RT-PCR) Imaging Radiologist's Impressions: Impressions Abdomen/Pelvis CT 03/05/22 20:21 IMPRESSION: No acute intracranial process seen. Age-related cerebral volume loss with chronic small vessel ischemic disease. Right gluteal decubitus ulcer without any underlying abscess. There is no periosteal thickening involving the right iliac bone to suspect any osteomyelitis. There is mild thickening of the intergluteal skin line posterior to the sacrum question induration from chronic infection.. Posterior Moderate to severe constipation without obstruction. Suspect stercoral colitis. Enlarged fundus likely fibroid disease. Head CT 03/05/22 20:21 IMPRESSION: No acute intracranial process seen. Age-related cerebral volume loss with chronic small vessel ischemic disease. Right gluteal decubitus ulcer without any underlying abscess. There is no periosteal thickening involving the right iliac bone to suspect any osteomyelitis. There is mild thickening of the intergluteal skin line posterior to the sacrum question induration from chronic infection.. Posterior Moderate to severe constipation without obstruction. Suspect stercoral colitis. Enlarged fundus likely fibroid disease. Assessment and Plan (1) Pressure ulcers of skin of multiple topographic sites: Status: Acute Plan This is a 66-year-old female with pertinent history of multiple sclerosis with resultant rigidity and neuropathy, bed bound and uses a wheelchair to ambulate, essential hypertension, non insulin dependent diabetes, gastroparesis with gastroesophageal reflux disease, chronic opioid use, urinary incontinence with indwelling Bermudez, mood disorder with insomnia who was sent to the emergency [facility] for evaluation of sacral decubitus ulcer.? #. Sepsis due to infected sacral decubitus ulcer: Will admit and treat with IV antibiotics. Lactic acid and blood culture obtained. Resuscitated with IV crystalloids in the ER. Consulted General surgery for possible debridement #. Type A lactic acidosis: Resuscitated with IV crystalloids #. Multiple sclerosis with muscle rigidity and paraparesis: Continue outpatient therapy #. Essential hypertension: On atenolol, lisinopril and amlodipine. Hold in the setting of sepsis, resume as appropriate #. [id number] diabetes mellitus: Hold home anti hyperglycemics. Initiate Accu-Cheks with sliding scale insulin #. Mood disorder with insomnia: Continue home mood stabilizers #. Urinary incontinence with indwelling Bermudez: Patient likely with chronic pyuria due to chronic bermudez. Doubt UTI #. Chronic opioid use: Continue oxycodone home dosage #. Gastroparesis with gastroesophageal reflux disease: On reglan DVT prophylaxis: Hold Lovenox until surgical evaluation Full code Cardiac diet Admit as inpatient and will require two night minimum hospital stay for IV antibiotics and possible surgical debridement. Time Spent With Patient Time: Total time managing care of this patient today ____ minutes. Quality Stroke Does the patient have a stroke diagnosis?: No VTE Prior VTE?: No VTE Risk Level:: Medical - moderate - high VTE Device Contraindication: Treatment Not Indicated VTE Drug Contraindication: Treatment Not Indicated
[2022-03-05] MEDS: fentaNYL citrate/PF 100 MCG/2 ML VIAL 25 MCG IVPUSH (21:42)
[2022-03-05] MEDS: 0.9 % Sodium Chloride 1,000 ML 999 ML IV (21:44)
--- NOTE | 2022-03-05 21:48 | PC.NURSE ---
pt repositioned in bed, pillows placed under both hips to alleviate pressure on sacrum, pillow placed under feet to alleviate pressure on heels. Pt cleaned as well. Medications administered per MAR, awaiting pharmacy verification of all night meds
--- NOTE | 2022-03-05 21:57 | PC.NURSE ---
nighttime oxycodone ordered however, pt just received IV Fentanyl. This RN called pharmacy and spoke with pharmacist regarding not giving first dose of oxycodone. Pharmacist and this RN agreed that it would be too much for the pt to have both Fentanyl and Oxycodone at the same time. MD Mcconnell aware and on board
[2022-03-05 22:00] LABS: ~Lactic Acid-LAB USE ONLY 1.2 mmol/L (0.5-2.0)
[2022-03-05] MEDS: Gabapentin 400 MG CAPSULE PO (22:15)
[2022-03-05] MEDS: Metoclopramide HCl 10 MG TABLET PO (22:15)
[2022-03-05] MEDS: Dicyclomine HCl 10 MG CAPSULE PO (22:15)
[2022-03-05] MEDS: Baclofen 20 MG TABLET PO (22:15)
[2022-03-05] MEDS: Montelukast Sodium 10 MG TABLET PO (22:16)
[2022-03-05] MEDS: Ondansetron ODT 4 MG TAB.RAPDIS TRANSLINGU (22:16)
[2022-03-05] MEDS: Acetaminophen 325 MG TABLET PO (22:16)
[2022-03-05] MEDS: busPIRone HCl 10 MG TABLET PO (22:16)
[2022-03-05] MEDS: 0.9 % Sodium Chloride Flush 3 ML SYRINGE IVFLUSH (23:35)
[2022-03-05] MEDS: Melatonin 3 MG TABLET 6 MG PO (23:38)
[2022-03-05] MEDS: clonazePAM 1 MG TABLET PO (23:38)
[2022-03-05] MEDS: traZODone HCL 100 MG TABLET PO (23:39)
[2022-03-06] MEDS: oxyCODONE HCl Immed Release 5 MG TABLET 10 MG PO ×2 (00:58→20:47)
[2022-03-06 05:57] VITALS: BP 131/69; PULSE 95; RESP 18; TEMP 36.7; O2SAT 94
[2022-03-06] MEDS: Piperacillin Sodium/Tazobactam 4.5 GM in 0.9 % Sodium Chloride 100 ML IV ×4 (06:08→23:21)
[2022-03-06] MEDS: Omeprazole 20 MG CAPSULE.DR PO ×2 (06:08→15:29)
--- NOTE | 2022-03-06 06:19 | PC.NURSE ---
around 0045 pt c/o 8/10 pain in buttocks and asking for oxycodone. pt had a bedtime 2100 10 mg oxycodone order that was not given in the ED. Dr. Mcconnell gave permission to give unscheduled. administered 2100 10 mg oxycodone at 0058 unscheduled with good effect.
[2022-03-06 06:29] LABS: MANUAL DIFF FLAG NO
[2022-03-06 06:35] LABS: Basophils Percent Auto 0.5 % (0-2); Eosinophils Absolute Auto 0.4 X10*3/uL (0.0-0.4); Eosinophils Percent Auto 4.3 % (0-4); Hematocrit 23.2 % (37.0-47.0); Hemoglobin 7.3 g/dl (12.0-16.0); Imm Gran Abs Auto 0.05 X10*3/uL (0.00-0.03); Imm Gran Pct Auto 0.6 % (0.0-0.4); Lymphocytes Absolute Auto 1.9 X10*3/uL (1.2-4.9); Lymphocytes Percent Auto 22.2 % (20-40); Mean Corpuscular HGB Conc 31.5 g/dl (31.0-35.0); Mean Corpuscular Volume 92.1 fL (80.0-98.0); Mean Platelet Volume 8.5 fL (9.4-12.3); Monocytes Percent Auto 11.4 % (2-11); Neutrophils Absolute Auto 5.3 x10*3/uL (2.0-8.3); Platelet Count 599 X10*3/uL (160-400); Red Blood Count 2.52 X10*6/uL (4.20-5.50); Red Cell Distribution Width 15.5 % (11.0-16.0); White Blood Count 8.6 X10*3/uL (4.8-10.8)
[2022-03-06 06:50] LABS: Anion Gap 13 (12-20); Blood Urea Nitrogen 11 mg/dL (9-16); Calcium 8.3 mg/dL (8.4-10.2); Carbon Dioxide 25 mmol/L (22-29); Chloride 101 mmol/L (96-108); Creatinine Clr Calc Pharmacy 98.1; Estimated Glomerular Filt Rate > 60; Glucose Random 69 mg/dL (60-115); Potassium 4.3 mmol/L (3.3-5.1); Sodium 135 mmol/L (135-145)
[2022-03-06 07:33] VITALS: BP 115/56; PULSE 89; RESP 16; TEMP 36.8; O2SAT 97
[2022-03-06 07:48] LABS: Glucose, Whole Blood 83 mg/dL (60-115)
[2022-03-06] MEDS: Metoclopramide HCl 10 MG TABLET PO ×3 (08:17→20:47)
[2022-03-06] MEDS: Multivitamin TABLET 1 TAB PO (08:17)
[2022-03-06] MEDS: Sucralfate 1 GM TABLET PO ×3 (08:17→15:29)
[2022-03-06] MEDS: Cholecalciferol (Vitamin D3) 25 MCG TABLET PO (08:17)
[2022-03-06] MEDS: Mirabegron 25 MG TAB.ER.24H PO (08:17)
[2022-03-06] MEDS: Baclofen 20 MG TABLET PO ×3 (08:17→20:47)
[2022-03-06] MEDS: Sennosides 8.6 MG TABLET PO ×2 (08:17→20:48)
[2022-03-06] MEDS: Ascorbic Acid 500 MG TABLET PO (08:18)
[2022-03-06] MEDS: 0.9 % Sodium Chloride Flush 3 ML SYRINGE IVFLUSH ×3 (08:18→20:49)
[2022-03-06] MEDS: Aspirin 81 MG TAB.CHEW PO (08:18)
[2022-03-06] MEDS: FLUoxetine HCl 20 MG CAPSULE 80 MG PO (08:18)
[2022-03-06] MEDS: Gabapentin 400 MG CAPSULE PO ×3 (08:18→20:48)
[2022-03-06] MEDS: Ondansetron ODT 4 MG TAB.RAPDIS TRANSLINGU ×3 (08:18→20:48)
[2022-03-06] MEDS: busPIRone HCl 10 MG TABLET PO ×2 (08:18→20:48)
[2022-03-06] MEDS: Dicyclomine HCl 10 MG CAPSULE PO ×3 (08:18→20:48)
--- NOTE | 2022-03-06 08:40 | PM.CNGS ---
History of Present Illness Consult details Consult date: 03/06/22 Narrative: 66-year-old female referred to me for decubitus ulcers. She is actually familiar to me. She has a long history of multiple sclerosis and has been bed-bound for almost 20 years. Over time, she has developed decubitus ulcers, and I had actually done debridement of a sacral decubitus ulcer because of a thick eschar the while she was in the hospital last November 2021. She lives at home with her and has a BIOLOGICAL SCIENTIST who take care of her. She has no mobility at all and is in bed for the most part all day. Her BIOLOGICAL SCIENTIST had sent her to the ER yesterday because of foul-smelling discharge from her multiple decubitus ulcers. She answers questions but does not really provide much details regards to her current state. Review of Systems Constitutional: Constitutional: Denies chills and Denies fever(s) Cardiovascular: Cardiovascular: Denies chest pain Respiratory: Respiratory: Denies cough Gastrointestinal: Gastrointestinal: Denies abdominal pain Neurologic: Comments: Bed-bound, with rigidity, motor functions on the lower extremities PMFSH Past Medical History Medical History Anemia Asthma Bedbound Decubitus ulcer Decubitus ulcer of buttock, unstageable Diabetes Gastroparesis GERD (gastroesophageal reflux disease) Hypertension Insomnia Mood disorder Multiple sclerosis Peripheral neuropathy Sacral decubitus ulcer Stage IV decubitus ulcer Social History Social History Household Members: Spouse Housing: House Do you presently have visiting nurse or other home services: Yes Alcohol intake: current Alcohol intake frequency: holidays/special occasions only Patient Tobacco Use Status: Never used Tobacco Substance Use Type: Marijuana Advance Directives Date on File: 12/11/21 service: No Current occupational status: disabled Meds Allergies Allergy/AdvReac Type Severity Reaction Status Date / Time morphine [Morphine] Allergy Intermediate INCREASED Verified 03/05/22 17:07 HEART RATE/HALLUCINATIONS, hallucinations Active Medications: Current Medications Acetaminophen (Acetaminophen 325 Mg Tablet) 650 mg PO Q6H PRN PRN Reason: Pain, Mild (Pain Scale 1-3) Acetaminophen (Acetaminophen 325 Mg Tablet) 325 mg PO BEDTIME [facility]IS Last Admin: 03/05/22 22:16 Dose: 325 mg Albuterol Sulfate (Albuterol Sulfate (0.083%) 2.5 Mg/3 Ml Vial.Neb) 2.5 mg INHALE Q4H PRN PRN Reason: wheezing Albuterol Sulfate (Albuterol Sulfate 90 Mcg 8 Gm Inhaler) 2 puff INHALE Q4H PRN PRN Reason: wheezing Ascorbic Acid (Ascorbic Acid 500 Mg Tablet) 500 mg PO DAILY [facility] Last Admin: 03/06/22 08:18 Dose: 500 mg Aspirin (Aspirin 81 Mg Tab.Chew) 81 mg PO DAILY [facility] Last Admin: 03/06/22 08:18 Dose: 81 mg Baclofen (Baclofen 20 Mg Tablet) 20 mg PO TID [facility] Last Admin: 03/06/22 08:17 Dose: 20 mg Buspirone HCl (Buspirone Hcl 10 Mg Tablet) 10 mg PO BID [facility] Last Admin: 03/06/22 08:18 Dose: 10 mg Clonazepam (Clonazepam 1 Mg Tablet) 1 mg PO TID PRN PRN Reason: Anxiety Last Admin: 03/05/22 23:38 Dose: 1 mg Dextrose (Dextrose 50 % 25 Gm/50 Ml Syringe) 25 gm IVPUSH Q15M PRN; Protocol PRN Reason: per Hypoglycemia Standing Ord. Dicyclomine HCl (Dicyclomine Hcl 10 Mg Capsule) 10 mg PO TID [facility] Last Admin: 03/06/22 08:18 Dose: 10 mg Docusate Sodium (Docusate Sodium 100 Mg Capsule) 100 mg PO BID PRN PRN Reason: constipation Fluoxetine HCl (Fluoxetine Hcl 20 Mg Capsule) 80 mg PO DAILY [facility] Last Admin: 03/06/22 08:18 Dose: 80 mg Gabapentin (Gabapentin 400 Mg Capsule) 400 mg PO TID [facility] Last Admin: 03/06/22 08:18 Dose: 400 mg Glucose (Glucose Gel 15 Gm Gel..Gram.) 15 gm PO Q15M PRN; Protocol PRN Reason: per Hypoglycemia Standing Ord. Piperacillin Sod/Tazobactam (Sod 4.5 gm/ Sodium Chloride) 100 mls @ 200 mls/hr IV Q6H [facility] Last Infusion: 03/06/22 06:51 Dose: Infused Vancomycin HCl 1,000 mg/ (Sodium Chloride) 270 mls @ 270 mls/hr IV Q24H [facility] Insulin Human Lispro (Insulin Lispro 100 Unit/Ml 3 Ml Vial) 0 unit SUBCUT QIDACHS [facility]; Protocol Last Admin: 03/06/22 08:07 Dose: Not Given Lactulose (Lactulose 20 Gm/30 Ml Solution) 10 gm PO DAILY PRN PRN Reason: Constipation Melatonin (Melatonin 3 Mg Tablet) 6 mg PO BEDTIME PRN PRN Reason: Insomnia Last Admin: 03/05/22 23:38 Dose: 6 mg Melatonin (Melatonin 3 Mg Tablet) 6 mg PO BEDTIME PRN PRN Reason: Sleep Metoclopramide HCl (Metoclopramide Hcl 10 Mg Tablet) 10 mg PO TID [facility] Last Admin: 03/06/22 08:17 Dose: 10 mg Mirabegron (Mirabegron 25 Mg Tab.Er.24h) 25 mg PO DAILY [facility] Last Admin: 03/06/22 08:17 Dose: 25 mg Montelukast Sodium (Montelukast Sodium 10 Mg Tablet) 10 mg PO BEDTIME [facility] Last Admin: 03/05/22 22:16 Dose: 10 mg Multivitamins/Vitamin C (Multivitamin Tablet) 1 tab PO DAILY [facility] Last Admin: 03/06/22 08:17 Dose: 1 tab Non-Formulary Medication (Methenamine Hippurate) 1 gm PO BID [facility] Non-Formulary Medication (Riboflavin (Vitamin B2) [Vitamin B-2]) 100 mg PO BID [facility] Omeprazole (Omeprazole 20 Mg Capsule.Dr) 20 mg PO BID@0630,1630 [facility] Last Admin: 03/06/22 06:08 Dose: 20 mg Ondansetron HCl (Ondansetron Hcl 4 Mg/2 Ml Vial) 4 mg IVPUSH Q8H PRN PRN Reason: Nausea and Vomiting Ondansetron HCl (Ondansetron Odt 4 Mg Tab.Rapdis) 4 mg TRANSLINGU TID [facility] Last Admin: 03/06/22 08:18 Dose: 4 mg Oxycodone HCl (Oxycodone Hcl Immed Release 5 Mg Tablet) 10 mg PO BEDTIME [facility] Last Admin: 03/06/22 00:58 Dose: 10 mg Pharmacy Consult (Consult Rx Vancomycin Dosing) 1 each MISCELLANE DAILY PRN PRN Reason: Consult order Senna (Sennosides 8.6 Mg Tablet) 8.6 mg PO BID [facility] Last Admin: 03/06/22 08:17 Dose: 8.6 mg Sodium Chloride (0.9 % Sodium Chloride Flush 3 Ml Syringe) 3 ml IVFLUSH QSHIFT [facility] Last Admin: 03/06/22 08:18 Dose: 3 ml Sucralfate (Sucralfate 1 Gm Tablet) 1 gm PO TIDAC [facility] Last Admin: 03/06/22 08:17 Dose: 1 gm Tiotropium Stowe (Tiotropium Stowe 18 Mcg Cap.W.Dev) 1 puff INHALE RDAILY [facility] Last Admin: 03/06/22 07:44 Dose: Not Given Trazodone HCl (Trazodone Hcl 100 Mg Tablet) 100 mg PO BEDTIME PRN PRN Reason: Insomnia Last Admin: 03/05/22 23:39 Dose: 100 mg Vitamin D (Cholecalciferol (Vitamin D3) 25 Mcg Tablet) 25 mcg PO DAILY [facility] Last Admin: 03/06/22 08:17 Dose: 25 mcg Home Medications Medication Instructions Recorded Confirmed Last Taken Type albuterol sulfate 90 mcg/actuation 2 puff inhalation Q4H PRN wheezing 12/05/21 03/05/22 Unknown History aerosol inhaler amlodipine 10 mg tablet 10 mg PO DAILY 12/05/21 03/05/22 Unknown History atenolol 50 mg tablet 50 mg PO DAILY 12/05/21 03/05/22 Unknown History buspirone 10 mg tablet 10 mg PO BID 12/05/21 03/05/22 Unknown History clonazepam 1 mg tablet 1 mg PO TID PRN Anxiety 12/05/21 03/05/22 Unknown History dicyclomine 10 mg capsule 10 mg PO TID 12/05/21 03/05/22 Unknown History docusate sodium 100 mg capsule 100 mg PO BID PRN constipation 12/05/21 03/05/22 Unknown History fluoxetine 40 mg capsule 80 mg PO DAILY 12/05/21 03/05/22 Unknown History furosemide 40 mg tablet 40 mg PO BID 12/05/21 03/05/22 Unknown History gabapentin 400 mg capsule 400 mg PO TID 12/05/21 03/05/22 Unknown History lisinopril 40 mg tablet 40 mg PO DAILY 12/05/21 03/05/22 Unknown History metformin 500 mg tablet,extended 1,000 mg PO BEDTIME 12/05/21 03/05/22 Unknown History release 24 hr methenamine hippurate 1 gram tablet 1 g PO BID 12/05/21 03/05/22 Unknown History metoclopramide HCl 10 mg tablet 10 mg PO TID 12/05/21 03/05/22 Unknown History mirabegron 25 mg tablet,extended 25 mg PO DAILY 12/05/21 03/05/22 Unknown History release 24 hr (Myrbetriq) omeprazole 20 mg capsule,delayed 20 mg PO BID@0630,1630 12/05/21 03/05/22 Unknown History release ondansetron HCl 4 mg tablet 4 mg PO TID 12/05/21 03/05/22 Unknown History oxycodone-acetaminophen 10 mg-325 1 tab PO BEDTIME pain 12/05/21 03/05/22 Unknown History mg tablet riboflavin (vitamin B2) 100 mg 100 mg PO BID 12/05/21 03/05/22 Unknown History tablet (Vitamin B-2) trazodone 50 mg tablet 100 mg PO BEDTIME PRN Insomnia 12/05/21 03/05/22 Unknown History ascorbic acid (vitamin C) 500 mg 500 mg PO DAILY 12/10/21 03/05/22 Unknown History tablet (Vitamin C) aspirin 81 mg chewable tablet 81 mg PO DAILY 12/10/21 03/05/22 Unknown History baclofen 20 mg tablet 1 tab PO TID 12/10/21 03/05/22 Unknown History cholecalciferol (vitamin D3) 25 25 mcg PO DAILY 12/10/21 03/05/22 Unknown History mcg (1,000 unit) tablet sucralfate 1 gram tablet 1 tab PO TID 12/10/21 03/05/22 Unknown History tiotropium bromide 18 mcg capsule 1 cap inhalation DAILY 12/10/21 03/05/22 Unknown History with inhalation device (Spiriva with HandiHaler) zafirlukast 20 mg tablet 1 tab PO BID 12/10/21 03/05/22 Unknown History albuterol sulfate 2.5 mg/3 mL 3 ml inhalation Q4H PRN wheezing 03/05/22 03/05/22 Unknown History (0.083 %) solution for nebulization lactulose 10 gram/15 mL oral 15 ml PO DAILY PRN Constipation 03/05/22 03/05/22 Unknown History solution melatonin 5 mg tablet 5 mg PO BEDTIME PRN Sleep 03/05/22 03/05/22 Unknown History multivitamin 1 tab PO DAILY 03/05/22 03/05/22 Unknown History sennosides 8.6 mg tablet (senna) 1 tab PO BID 03/05/22 03/05/22 Unknown History Physical Exam Vital Signs: Vital Signs: Last Vital Signs Temp 98.3 F 03/06/22 07:33 Pulse 89 03/06/22 07:33 Resp 16 03/06/22 07:33 BP 115/56 L 03/06/22 07:33 Pulse Ox 97 03/06/22 07:33 O2 Del Method 03/06/22 07:33 O2 Flow Rate 2 03/05/22 18:56 BMI result Body Mass Index 20.1 Const: General: comfortable and no acute distress Resp: Effort & Inspection: normal respiratory effort Cardio: Rate: regular rate GI: Palpation (GI): Soft to palpation and not firm Back/Spine/Pelvis: Other: large decubitus ulcer, about 10 by 9 cm on the lumbosacral area, with a thick eschar, purulent drainage, appears to be a stage 3-4 large decubitus ulcer about 10 x 11 cm on the right hip at the greater trochanter, with thick eschar, bone exposed, consistent with a stage 4 ulcer, with purulent drainage decubitus ulcer, stage III, right sacrococcygeal area, about 3 x 4 cm Extrem: Other: left knee with decubitus ulcer, about 2 x 3 cm, stage 2 Results Labs 03/06/22 05:46 03/06/22 05:46 Labs: Abnormal lab results 03/05/22 03/05/22 03/05/22 Range/Units 18:16 18:16 18:16 WBC 18.2 H (4.8-10.8) X10*3/uL RBC 3.73 L D (4.20-5.50) X10*6/uL Hgb 10.6 L (12.0-16.0) g/dl Hct 33.8 L (37.0-47.0) % Plt Count 818 H D (160-400) X10*3/uL MPV 8.1 L (9.4-12.3) fL Immature Gran % (Auto) 0.5 H (0.0-0.4) % Neut % (Auto) 82.4 H (45-73) % Lymph % (Auto) 9.3 L (20-40) % [place] % (Auto) (2-11) % Eos % (Auto) (0-4) % [place] # (Auto) 1.4 H (0.1-1.2) X10*3/uL Abs Immat Gran (auto) 0.09 H (0.00-0.03) X10*3/uL Absolute Neuts (auto) 15.0 H (2.0-8.3) x10*3/uL ESR 89 H (0-20) MM/HR PT 13.3 H (10.0-13.1) SEC INR 1.2 H (0.9-1.1) Sodium (135-145) mmol/L Creatinine (0.5-1.4) mg/dL Random Glucose (60-115) mg/dL Lactic Acid (0.5-2.0) mmol/L Calcium (8.4-10.2) mg/dL Total Creatine Kinase (26-140) U/L C-Reactive Protein (< or = 0.50) mg/dL Total Protein (6.5-8.0) g/dL Albumin (3.5-5.0) g/dL Ur Leukocyte Esterase (Negative) Urine RBC (0-2) /HPF Urine WBC (0-5) /HPF 03/05/22 03/05/22 03/05/22 Range/Units 18:16 18:50 19:14 WBC (4.8-10.8) X10*3/uL RBC (4.20-5.50) X10*6/uL Hgb (12.0-16.0) g/dl Hct (37.0-47.0) % Plt Count (160-400) X10*3/uL MPV (9.4-12.3) fL Immature Gran % (Auto) (0.0-0.4) % Neut % (Auto) (45-73) % Lymph % (Auto) (20-40) % [place] % (Auto) (2-11) % Eos % (Auto) (0-4) % [place] # (Auto) (0.1-1.2) X10*3/uL Abs Immat Gran (auto) (0.00-0.03) X10*3/uL Absolute Neuts (auto) (2.0-8.3) x10*3/uL ESR (0-20) MM/HR PT (10.0-13.1) SEC INR (0.9-1.1) Sodium 134 L (135-145) mmol/L Creatinine (0.5-1.4) mg/dL Random Glucose 128 H (60-115) mg/dL Lactic Acid 2.4 H* (0.5-2.0) mmol/L Calcium (8.4-10.2) mg/dL Total Creatine Kinase 171 H (26-140) U/L C-Reactive Protein 9.47 H (< or = 0.50) mg/dL Total Protein 5.7 L (6.5-8.0) g/dL Albumin 2.5 L (3.5-5.0) g/dL Ur Leukocyte Esterase Moderate (2+) H (Negative) Urine RBC 6-10 H (0-2) /HPF Urine WBC 21-50 H (0-5) /HPF 03/06/22 03/06/22 Range/Units 05:46 05:46 WBC (4.8-10.8) X10*3/uL RBC 2.52 L D (4.20-5.50) X10*6/uL Hgb 7.3 L D (12.0-16.0) g/dl Hct 23.2 L D (37.0-47.0) % Plt Count 599 H D (160-400) X10*3/uL MPV 8.5 L (9.4-12.3) fL Immature Gran % (Auto) 0.6 H (0.0-0.4) % Neut % (Auto) (45-73) % Lymph % (Auto) (20-40) % [place] % (Auto) 11.4 H (2-11) % Eos % (Auto) 4.3 H (0-4) % [place] # (Auto) (0.1-1.2) X10*3/uL Abs Immat Gran (auto) 0.05 H (0.00-0.03) X10*3/uL Absolute Neuts (auto) (2.0-8.3) x10*3/uL ESR (0-20) MM/HR PT (10.0-13.1) SEC INR (0.9-1.1) Sodium (135-145) mmol/L Creatinine 0.45 L (0.5-1.4) mg/dL Random Glucose (60-115) mg/dL Lactic Acid (0.5-2.0) mmol/L Calcium 8.3 L (8.4-10.2) mg/dL Total Creatine Kinase (26-140) U/L C-Reactive Protein (< or = 0.50) mg/dL Total Protein (6.5-8.0) g/dL Albumin (3.5-5.0) g/dL Ur Leukocyte Esterase (Negative) Urine RBC (0-2) /HPF Urine WBC (0-5) /HPF Short CBC 03/05/22 03/06/22 Range/Units 18:16 05:46 WBC 18.2 H 8.6 (4.8-10.8) X10*3/uL Hgb 10.6 L 7.3 L D (12.0-16.0) g/dl Hct 33.8 L 23.2 L D (37.0-47.0) % Plt Count 818 H D 599 H D (160-400) X10*3/uL BMP 03/05/22 03/06/22 19:14 05:46 Sodium 134 L 135 Potassium 4.2 4.3 Chloride 98 101 Carbon Dioxide 25 25 BUN 16 11 Creatinine 0.55 0.45 L Calcium 8.6 8.3 L Cardiac Enzymes 03/05/22 Range/Units 19:14 Total Creatine Kinase 171 H (26-140) U/L Liver Function 03/05/22 Range/Units 19:14 Total Bilirubin 0.2 (0.0-1.0) mg/dL Direct Bilirubin < 0.2 (0.0-0.5) mg/dL AST 15 (5-31) U/L ALT 12 (0-31) U/L Alkaline Phosphatase 62 (39-117) U/L Albumin 2.5 L (3.5-5.0) g/dL Urine 03/05/22 Range/Units 18:50 Urine Color Dark Yellow Urine Appearance Cloudy Urine pH 5.5 (5.0-9.0) Ur Specific [place] 1.020 (1.005-1.025) Urine Protein Trace (Neg-Trace) mg/dL Urine Glucose (UA) Negative (Negative) mg/dL All other labs normal. Assessment and Plan (1) Pressure ulcers of skin of multiple topographic sites: Status: Acute (2) Decubitus ulcer: Status: Acute She has multiple decubitus ulcers as described above. She has a stage 3-4 ulcer on the lumbosacral area with thick eschar and some purulent drainage. Therefore had to do sharp excisional debridement of this area using scissors to excise full-thickness skin and deep subcutaneous tissue. This area was about 10 x 9 cm A 2nd ulcer, stage IV, with a thick eschar was also debrided sharply using scissors. This was about a 10 x 11 cm area on the right greater trochanterl region. There was note of exposed bone. I excised full-thickness of the skin and thick subcutaneous tissue using fine scissors as well. Wet to dry dressings were applied both areas. The other decubitus ulcers on the knee and the sacrococcygeal area may just need dressing changes with the foam dressings. In view of her immobility, and rigidity, she is at risk for progression of these ulcers and formation of additional or progression of her ulcers down the line. She will need good care. She should be moved side to side every 2 hours. We will follow along while she is in the hospital. Time Spent With Patient Time: Total time managing care of this patient today ____ minutes. Procedures Date of Service Date of Service: 03/06/22
--- NOTE | 2022-03-06 09:05 | HO.PM.IMPN ---
Subjective Subjective Date of Service: 03/06/22 Interval History: Seen in f/u for infected decub ulcer has no specific complaint, seems comfortable at the present time Physical Exam Vital Signs: Vital Signs: Last Vital Signs Temp 98.3 F 03/06/22 07:33 Pulse 89 03/06/22 07:33 Resp 16 03/06/22 07:33 BP 115/56 L 03/06/22 07:33 Pulse Ox 97 03/06/22 07:33 O2 Del Method 03/06/22 07:33 O2 Flow Rate 2 03/05/22 18:56 BMI result Body Mass Index 20.1 Const: Other: General: AO X 3, no acute distress Resp: CTA bilateral CVS: S1,S2,RRR GI: +BS, NT, no distention Skin: very extensive multiple decub pressure ulcer--see picture for better description Neuro: motor grossly intact Psych: appropriate affect Objective Data Active Medications Acetaminophen (Acetaminophen 325 Mg Tablet) 650 mg PO Q6H PRN PRN Reason: Pain, Mild (Pain Scale 1-3) Acetaminophen (Acetaminophen 325 Mg Tablet) 325 mg PO BEDTIME [facility] Last Admin: 03/05/22 22:16 Dose: 325 mg Documented By: YASMIN Albuterol Sulfate (Albuterol Sulfate (0.083%) 2.5 Mg/3 Ml Vial.Neb) 2.5 mg INHALE Q4H PRN PRN Reason: wheezing Albuterol Sulfate (Albuterol Sulfate 90 Mcg 8 Gm Inhaler) 2 puff INHALE Q4H PRN PRN Reason: wheezing Ascorbic Acid (Ascorbic Acid 500 Mg Tablet) 500 mg PO DAILY [facility] Last Admin: 03/06/22 08:18 Dose: 500 mg Documented By: JIN Aspirin (Aspirin 81 Mg Tab.Chew) 81 mg PO DAILY [facility] Last Admin: 03/06/22 08:18 Dose: 81 mg Documented By: JIN Baclofen (Baclofen 20 Mg Tablet) 20 mg PO TID [facility] Last Admin: 03/06/22 08:17 Dose: 20 mg Documented By: JIN Buspirone HCl (Buspirone Hcl 10 Mg Tablet) 10 mg PO BID [facility] Last Admin: 03/06/22 08:18 Dose: 10 mg Documented By: JIN Clonazepam (Clonazepam 1 Mg Tablet) 1 mg PO TID PRN PRN Reason: Anxiety Last Admin: 03/05/22 23:38 Dose: 1 mg Documented By: LEO Dextrose (Dextrose 50 % 25 Gm/50 Ml Syringe) 25 gm IVPUSH Q15M PRN; Protocol PRN Reason: per Hypoglycemia Standing Ord. Dicyclomine HCl (Dicyclomine Hcl 10 Mg Capsule) 10 mg PO TID [facility] Last Admin: 03/06/22 08:18 Dose: 10 mg Documented By: JIN Docusate Sodium (Docusate Sodium 100 Mg Capsule) 100 mg PO BID PRN PRN Reason: constipation Fluoxetine HCl (Fluoxetine Hcl 20 Mg Capsule) 80 mg PO DAILY [facility] Last Admin: 03/06/22 08:18 Dose: 80 mg Documented By: JIN Gabapentin (Gabapentin 400 Mg Capsule) 400 mg PO TID [facility] Last Admin: 03/06/22 08:18 Dose: 400 mg Documented By: JIN Glucose (Glucose Gel 15 Gm Gel..Gram.) 15 gm PO Q15M PRN; Protocol PRN Reason: per Hypoglycemia Standing Ord. Piperacillin Sod/Tazobactam (Sod 4.5 gm/ Sodium Chloride) 100 mls @ 200 mls/hr IV Q6H [facility] Last Infusion: 03/06/22 06:51 Dose: 0 mls/hr Documented By: LEO Vancomycin HCl 1,000 mg/ (Sodium Chloride) 270 mls @ 270 mls/hr IV Q24H [facility] Insulin Human Lispro (Insulin Lispro 100 Unit/Ml 3 Ml Vial) 0 unit SUBCUT QIDACHS [facility]; Protocol Last Admin: 03/06/22 08:07 Dose: Not Given Documented By: JIN Non-Admin Reason: No Insulin Coverage Lactulose (Lactulose 20 Gm/30 Ml Solution) 10 gm PO DAILY PRN PRN Reason: Constipation Melatonin (Melatonin 3 Mg Tablet) 6 mg PO BEDTIME PRN PRN Reason: Insomnia Last Admin: 03/05/22 23:38 Dose: 6 mg Documented By: LEO Melatonin (Melatonin 3 Mg Tablet) 6 mg PO BEDTIME PRN PRN Reason: Sleep Metoclopramide HCl (Metoclopramide Hcl 10 Mg Tablet) 10 mg PO TID [facility] Last Admin: 03/06/22 08:17 Dose: 10 mg Documented By: JIN Mirabegron (Mirabegron 25 Mg Tab.Er.24h) 25 mg PO DAILY [facility] Last Admin: 03/06/22 08:17 Dose: 25 mg Documented By: JIN Montelukast Sodium (Montelukast Sodium 10 Mg Tablet) 10 mg PO BEDTIME [facility] Last Admin: 03/05/22 22:16 Dose: 10 mg Documented By: YASMIN Multivitamins/Vitamin C (Multivitamin Tablet) 1 tab PO DAILY [facility] Last Admin: 03/06/22 08:17 Dose: 1 tab Documented By: JIN Non-Formulary Medication (Methenamine Hippurate) 1 gm PO BID [facility] Non-Formulary Medication (Riboflavin (Vitamin B2) [Vitamin B-2]) 100 mg PO BID [facility] Omeprazole (Omeprazole 20 Mg Capsule.Dr) 20 mg PO BID@0630,1630 [facility] Last Admin: 03/06/22 06:08 Dose: 20 mg Documented By: LEO Ondansetron HCl (Ondansetron Hcl 4 Mg/2 Ml Vial) 4 mg IVPUSH Q8H PRN PRN Reason: Nausea and Vomiting Ondansetron HCl (Ondansetron Odt 4 Mg Tab.Rapdis) 4 mg TRANSLINGU TID [facility] Last Admin: 03/06/22 08:18 Dose: 4 mg Documented By: JIN Oxycodone HCl (Oxycodone Hcl Immed Release 5 Mg Tablet) 10 mg PO BEDTIME [facility] Last Admin: 03/06/22 00:58 Dose: 10 mg Documented By: LEO Comments: Dr. Mcconnell OK'd to give now Pharmacy Consult (Consult Rx Vancomycin Dosing) 1 each MISCELLANE DAILY PRN PRN Reason: Consult order Senna (Sennosides 8.6 Mg Tablet) 8.6 mg PO BID [facility] Last Admin: 03/06/22 08:17 Dose: 8.6 mg Documented By: JIN Sodium Chloride (0.9 % Sodium Chloride Flush 3 Ml Syringe) 3 ml IVFLUSH QSHIFT [facility] Last Admin: 03/06/22 08:18 Dose: 3 ml Documented By: JIN Sucralfate (Sucralfate 1 Gm Tablet) 1 gm PO TIDAC [facility] Last Admin: 03/06/22 08:17 Dose: 1 gm Documented By: JIN Tiotropium Bennett (Tiotropium Bennett 18 Mcg Cap.W.Dev) 1 puff INHALE RDAILY [facility] Last Admin: 03/06/22 07:44 Dose: Not Given Documented By: DEBRA Non-Admin Reason: Med Not Available Trazodone HCl (Trazodone Hcl 100 Mg Tablet) 100 mg PO BEDTIME PRN PRN Reason: Insomnia Last Admin: 03/05/22 23:39 Dose: 100 mg Documented By: LEO Vitamin D (Cholecalciferol (Vitamin D3) 25 Mcg Tablet) 25 mcg PO DAILY [facility] Last Admin: 03/06/22 08:17 Dose: 25 mcg Documented By: JIN Labs 03/06/22 05:46 03/06/22 05:46 Labs: Laboratory Results - last 24 hr 03/05/22 03/05/22 03/05/22 18:16 18:16 18:16 MCV 90.6 MCH 28.4 MCHC 31.4 RDW 15.6 Plt Count 818 H D MPV 8.1 L Immature Gran % (Auto) 0.5 H Neut % (Auto) 82.4 H Lymph % (Auto) 9.3 L Karnes % (Auto) 7.5 Eos % (Auto) 0.1 Baso % (Auto) 0.2 Lymph # (Auto) 1.7 Karnes # (Auto) 1.4 H Eos # (Auto) 0.0 Baso # (Auto) 0.0 Abs Immat Gran (auto) 0.09 H Absolute Neuts (auto) 15.0 H Absolute Nucleated RBC 0.000 Nucleated RBC % (auto) 0.0 ESR 89 H PT 13.3 H INR 1.2 H Anion Gap Estim Creat Clear Calc Estimated GFR POC Glucose Random Glucose Lactic Acid Lactic Acid F/U @ 2Hr Calcium Magnesium Total Bilirubin Direct Bilirubin AST ALT Alkaline Phosphatase Ammonia Total Creatine Kinase C-Reactive Protein B-Natriuretic Peptide Total Protein Albumin Lipase Urine Color Urine Appearance Urine pH Ur Specific [place] Urine Protein Urine Glucose (UA) Urine Ketones Urine Blood Urine Nitrite Ur Leukocyte Esterase Urine RBC Urine WBC Ur Squamous Epith Cells Urine Bacteria Hyaline Casts Influenza Type A (PCR) Influenza Type B (PCR) RSV RNA Qual (PCR) SARS-CoV-2 RNA (RT-PCR) 03/05/22 03/05/22 03/05/22 18:16 18:16 18:16 MCV MCH MCHC RDW Plt Count MPV Immature Gran % (Auto) Neut % (Auto) Lymph % (Auto) Karnes % (Auto) Eos % (Auto) Baso % (Auto) Lymph # (Auto) Karnes # (Auto) Eos # (Auto) Baso # (Auto) Abs Immat Gran (auto) Absolute Neuts (auto) Absolute Nucleated RBC Nucleated RBC % (auto) ESR PT INR Anion Gap Estim Creat Clear Calc Estimated GFR POC Glucose Random Glucose Lactic Acid 2.4 H* Lactic Acid F/U @ 2Hr Calcium Magnesium Total Bilirubin Direct Bilirubin AST ALT Alkaline Phosphatase Ammonia Total Creatine Kinase C-Reactive Protein B-Natriuretic Peptide 58 Total Protein Albumin Lipase Urine Color Urine Appearance Urine pH Ur Specific [place] Urine Protein Urine Glucose (UA) Urine Ketones Urine Blood Urine Nitrite Ur Leukocyte Esterase Urine RBC Urine WBC Ur Squamous Epith Cells Urine Bacteria Hyaline Casts Influenza Type A (PCR) NEGATIVE Influenza Type B (PCR) NEGATIVE RSV RNA Qual (PCR) NEGATIVE SARS-CoV-2 RNA (RT-PCR) NEGATIVE 03/05/22 03/05/22 03/05/22 18:16 18:50 19:14 MCV MCH MCHC RDW Plt Count MPV Immature Gran % (Auto) Neut % (Auto) Lymph % (Auto) Karnes % (Auto) Eos % (Auto) Baso % (Auto) Lymph # (Auto) Karnes # (Auto) Eos # (Auto) Baso # (Auto) Abs Immat Gran (auto) Absolute Neuts (auto) Absolute Nucleated RBC Nucleated RBC % (auto) ESR PT INR Anion Gap 15 Estim Creat Clear Calc 80.2 Estimated GFR > 60 POC Glucose Random Glucose 128 H Lactic Acid Lactic Acid F/U @ 2Hr Calcium 8.6 Magnesium 1.6 Total Bilirubin 0.2 Direct Bilirubin < 0.2 AST 15 ALT 12 Alkaline Phosphatase 62 Ammonia 40 Total Creatine Kinase 171 H C-Reactive Protein 9.47 H B-Natriuretic Peptide Total Protein 5.7 L Albumin 2.5 L Lipase 27 Urine Color Dark Yellow Urine Appearance Cloudy Urine pH 5.5 Ur Specific [place] 1.020 Urine Protein Trace Urine Glucose (UA) Negative Urine Ketones Negative Urine Blood Negative Urine Nitrite Negative Ur Leukocyte Esterase Moderate (2+) H Urine RBC 6-10 H Urine WBC 21-50 H Ur Squamous Epith Cells 3-5 Urine Bacteria None Seen Hyaline Casts 0-2 Influenza Type A (PCR) Influenza Type B (PCR) RSV RNA Qual (PCR) SARS-CoV-2 RNA (RT-PCR) 03/05/22 03/06/22 03/06/22 21:39 05:46 05:46 MCV 92.1 MCH 29.0 MCHC 31.5 RDW 15.5 Plt Count 599 H D MPV 8.5 L Immature Gran % (Auto) 0.6 H Neut % (Auto) 61.0 Lymph % (Auto) 22.2 Karnes % (Auto) 11.4 H Eos % (Auto) 4.3 H Baso % (Auto) 0.5 Lymph # (Auto) 1.9 Karnes # (Auto) 1.0 Eos # (Auto) 0.4 Baso # (Auto) 0.0 Abs Immat Gran (auto) 0.05 H Absolute Neuts (auto) 5.3 Absolute Nucleated RBC 0.000 Nucleated RBC % (auto) 0.0 ESR PT INR Anion Gap 13 Estim Creat Clear Calc 98.1 Estimated GFR > 60 POC Glucose Random Glucose 69 Lactic Acid Lactic Acid F/U @ 2Hr 1.2 Calcium 8.3 L Magnesium Total Bilirubin Direct Bilirubin AST ALT Alkaline Phosphatase Ammonia Total Creatine Kinase C-Reactive Protein B-Natriuretic Peptide Total Protein Albumin Lipase Urine Color Urine Appearance Urine pH Ur Specific [place] Urine Protein Urine Glucose (UA) Urine Ketones Urine Blood Urine Nitrite Ur Leukocyte Esterase Urine RBC Urine WBC Ur Squamous Epith Cells Urine Bacteria Hyaline Casts Influenza Type A (PCR) Influenza Type B (PCR) RSV RNA Qual (PCR) SARS-CoV-2 RNA (RT-PCR) 03/06/22 07:01 MCV MCH MCHC RDW Plt Count MPV Immature Gran % (Auto) Neut % (Auto) Lymph % (Auto) Karnes % (Auto) Eos % (Auto) Baso % (Auto) Lymph # (Auto) Karnes # (Auto) Eos # (Auto) Baso # (Auto) Abs Immat Gran (auto) Absolute Neuts (auto) Absolute Nucleated RBC Nucleated RBC % (auto) ESR PT INR Anion Gap Estim Creat Clear Calc Estimated GFR POC Glucose 83 Random Glucose Lactic Acid Lactic Acid F/U @ 2Hr Calcium Magnesium Total Bilirubin Direct Bilirubin AST ALT Alkaline Phosphatase Ammonia Total Creatine Kinase C-Reactive Protein B-Natriuretic Peptide Total Protein Albumin Lipase Urine Color Urine Appearance Urine pH Ur Specific [place] Urine Protein Urine Glucose (UA) Urine Ketones Urine Blood Urine Nitrite Ur Leukocyte Esterase Urine RBC Urine WBC Ur Squamous Epith Cells Urine Bacteria Hyaline Casts Influenza Type A (PCR) Influenza Type B (PCR) RSV RNA Qual (PCR) SARS-CoV-2 RNA (RT-PCR) Assessment and Plan (1) Pressure ulcers of skin of multiple topographic sites: Status: Acute (2) Decubitus ulcer: Status: Acute Plan ?66-year-old female with pertinent history of 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 #.? Sepsis due to infected sacral decubitus ulcer -Cutlures pending -continue IV Abx (Zosyn+Vanco) D2 - Seen by Dr. Zamora with the following description and recomendation She has multiple decubitus ulcers as described above.? She has a stage 3-4 ulcer on the lumbosacral area with thick eschar and some? purulent drainage.? Therefore had to do sharp excisional debridement of this area using scissors to excise full-thickness skin and deep subcutaneous tissue. This area was about 10 x 9 cm A 2nd? ulcer, stage IV, with a thick eschar was also debrided sharply using scissors.? This was about a 10 x 11 cm area on the right? greater trochanterl region.? There was note of exposed bone.? I excised full-thickness of the skin? and thick subcutaneous tissue using fine scissors as well.? Wet to dry dressings were applied both areas.? The other decubitus ulcers? on the knee and the sacrococcygeal area may just need dressing changes with the foam dressings. In view of her immobility, and rigidity, she is at risk for progression of these ulcers and formation of additional or progression of her ulcers down the line. ?She will need good care.? She should be moved side to side every 2 hours. #.? Type A lactic acidosis: Resuscitated with IV crystalloids #.? 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 Essential hypertension:? On atenolol, lisinopril and amlodipine.? Hold in the setting of sepsis, resume as appropriate #.? [id number] diabetes mellitus:? Hold home anti hyperglycemics.? Initiate Accu-Cheks with sliding scale insulin #.? Mood disorder with insomnia: Continue home mood stabilizers #.? Urinary incontinence with indwelling Bermudez:? Patient likely with chronic pyuria due to chronic bermudez.? if UTI, should be adquately covered with zosyn #.? Chronic opioid use: Continue oxycodone home dosage #.? Gastroparesis with gastroesophageal reflux disease: On reglan # Anemia- hematocrit droped from 33 to 23, no description of acute blood loss? error, hemodilution.. repeat with type and screen if truly low consider transfuseion DVT prophylaxis: hold heparin d/t anemia above, compression device if H/H stable, then start heparin Time Spent With Patient Time: Total time managing care of this patient today ____ minutes. Quality Stroke Does the patient have a stroke diagnosis?: No VTE Prior VTE?: No VTE Risk Level:: Medical - moderate - high VTE Device Contraindication: Treatment Not Indicated VTE Drug Contraindication: Treatment Not Indicated
[2022-03-06 09:42] LABS: Hematocrit 24.2 % (37.0-47.0); Hemoglobin 7.7 g/dl (12.0-16.0); Mean Corpuscular HGB Conc 31.8 g/dl (31.0-35.0); Mean Corpuscular Hemoglobin 28.9 pg (27.0-33.0); Mean Platelet Volume 8.2 fL (9.4-12.3); Platelet Count 556 X10*3/uL (160-400); Red Blood Count 2.66 X10*6/uL (4.20-5.50); Red Cell Distribution Width 15.3 % (11.0-16.0); White Blood Count 10.1 X10*3/uL (4.8-10.8)
[2022-03-06 10:05] VITALS: BMI 20.1
--- NOTE | 2022-03-06 10:10 | MHC.CLN ---
RE: CONSULT PT WITH INCREASED NUTRITION RISK R/T MULTIPLE PRESSURE INJURIES PT REPORTED [employer]ACH[employer] DIET RX: CARDIAC-RECOMMEND 1800DM DIET IN ADDITION, RECOMMEND ADDING ENSURE MAX TID TO INCREASE PO PROTEIN AND PROMOTE WOUND HEALING SUPP TO PROVIDE 450KCALS, 90G PROTEIN WITH 100% ACCEPTANCE MONITOR PO INTAKE CLOSELY SEE ALSO FULL CLINICAL NUTRITION ASSESSMENT
--- NOTE | 2022-03-06 10:46 | MHC.CM.PN ---
CM NOTIFIED BY [employer] DIRECTOR OF PT'S CONDITION/WOUNDS, CM ALSO RECEIVED MESSAGE FROM [employer] THAT PT WAS UNDER THEIR CARE, CM CONTACTED LIAISON AT [employer] AND RECEIVED A CALL BACK FROM [employer] [facility] [employer] WHO REPORTED THEY SEE PT 2-3 TIMES PER WEEK DEPENDING ON IF SHE GOES TO WOUND CLINIC ([facility] [place]), DESIREE REPORTS THAT PT IS NONCOMPLIANT W/CARE PLAN, REFUSES SUPPLEMENT SHAKES, SITS IN WC AND SMOKES ALL DAY AND THAT WOUND CLINIC WAS RECOMMENDING HOSPICE HOWEVER WHEN TOPIC WAS DISCUSSED W/PT SHE SAID SHE DIDN'T KNOW ANYTHING ABOUT THAT. CM ATTEMPTED TO CONTACT [facility] [place] [facility] NURSE AT APPROX 10:40AM, NO ANSWER AND DETAILED MESSAGE LEFT ON NURSE LINE, CM AWAITING A CALL BACK.
--- NOTE | 2022-03-06 10:55 | PC.NURSE ---
MD at bedside to debris ulcers on buttovcks and hips. Airloss mattress on , repositioning wedges used .
[2022-03-06 11:39] LABS: Glucose, Whole Blood 105 mg/dL (60-115)
[2022-03-06 15:44] VITALS: BP 156/84; PULSE 101; RESP 17; TEMP 36.4; O2SAT 95
--- NOTE | 2022-03-06 15:51 | MHC.CM.PN ---
IMM 03/06/22, EMR REVIEWED, CM MET W/PT AT BEDSIDE, PT REPORTS SHE LIVES W/, PT REPORTS SHE FEELS SAFE AT HOME AND THAT HER RIV[employer] MACHINE OPERATOR'S TAKE GOOD CARE OF HER, PT REPORTS SHE IS IN A W/C DURING THE DAY AND IS UNABLE TO STAND AND HER RIVET HOLE MACHINE OPERATOR'S PHYSICALLY LIFT HER FOR TRANSFERS AND THERE IS NO LIFT USED, PT'S UNABLE TO LIFT PT W/HIS BAD BACK AND HEALTH ISSUES, PT REPORTS RIVET HOLE MACHINE OPERATOR HRS ARE 9:30AM-5:30PM AND THEN A RIVET HOLE MACHINE OPERATOR COMES BACK AROUND 9:30PM TO PUT HER TO BED. PT DOES SAY SHE GOES DOWN FOR NAPS DURING THE DAY HOWEVER UNLIKELY THAT IS TRUE CONSIDERING THE STATE OF HER WOUNDS. PT VERIFIES PCP IS ANGELA BEASLEY, DEA VACC X3 AND HCP IS LEEANNE AND ON FILE FROM PREVIOUS ADMIT. PER SURGICAL PLAN FOR ADDITIONAL DEBRIDEMENT TOMORROW 03/06, PSYCH EVAL FOR COMPETENCY AND ELDER AT RISK TO BE FILED.
[2022-03-06 16:29] LABS: Glucose, Whole Blood 156 mg/dL (60-115)
[2022-03-06] MEDS: Insulin Lispro 100 UNIT/ML 3 ML VIAL SUBCUT (17:05)
[2022-03-06] MEDS: vancomycin HCL 1,000 MG in 0.9 % Sodium Chloride 250 ML 270 MG IV (18:21)
[2022-03-06 19:41] VITALS: BP 128/75; PULSE 92; RESP 18; TEMP 37.3; O2SAT 93
[2022-03-06 20:45] LABS: Glucose, Whole Blood 83 mg/dL (60-115)
[2022-03-06] MEDS: Montelukast Sodium 10 MG TABLET PO (20:46)
[2022-03-06] MEDS: Acetaminophen 325 MG TABLET PO (20:47)
[2022-03-06] MEDS: clonazePAM 1 MG TABLET PO (20:53)
[2022-03-06] MEDS: traZODone HCL 100 MG TABLET PO (21:38)
[2022-03-06] MEDS: Melatonin 3 MG TABLET 6 MG PO (21:39)
[2022-03-07 03:17] VITALS: BP 153/73; PULSE 71; RESP 18; TEMP 36.4; O2SAT 98
[2022-03-07] MEDS: Piperacillin Sodium/Tazobactam 4.5 GM in 0.9 % Sodium Chloride 100 ML IV ×4 (06:06→23:23)
[2022-03-07] MEDS: Omeprazole 20 MG CAPSULE.DR PO ×2 (06:06→15:08)
[2022-03-07] MEDS: Acetaminophen 325 MG TABLET 650 MG PO ×2 (06:10→13:17)
[2022-03-07 07:53] VITALS: BP 127/60; PULSE 85; RESP 18; TEMP 36.6; O2SAT 94
[2022-03-07 08:04] LABS: Glucose, Whole Blood 84 mg/dL (60-115)
[2022-03-07 08:05] LABS: Creatinine Clr Calc Pharmacy 105.1; Estimated Glomerular Filt Rate > 60
[2022-03-07] MEDS: FLUoxetine HCl 20 MG CAPSULE 80 MG PO (08:45)
[2022-03-07] MEDS: Dicyclomine HCl 10 MG CAPSULE PO ×3 (08:46→20:34)
[2022-03-07] MEDS: Mirabegron 25 MG TAB.ER.24H PO (08:46)
[2022-03-07] MEDS: Ondansetron ODT 4 MG TAB.RAPDIS TRANSLINGU ×3 (08:46→21:20)
[2022-03-07] MEDS: Cholecalciferol (Vitamin D3) 25 MCG TABLET PO (08:46)
[2022-03-07] MEDS: Aspirin 81 MG TAB.CHEW PO (08:46)
[2022-03-07] MEDS: Metoclopramide HCl 10 MG TABLET PO ×3 (08:46→20:34)
[2022-03-07] MEDS: Gabapentin 400 MG CAPSULE PO ×3 (08:46→20:34)
[2022-03-07] MEDS: Sucralfate 1 GM TABLET PO ×3 (08:46→15:09)
[2022-03-07] MEDS: Multivitamin TABLET 1 TAB PO (08:46)
--- NOTE | 2022-03-07 08:46 | P.PNGS_ITS ---
Subjective Subjective Date of Service: 03/11/22 Interval history: denies new complaints no events reported overnight Physical Exam Vital Signs: Vital Signs: Last Vital Signs Temp 97.9 F 03/07/22 07:53 Pulse 85 03/07/22 07:53 Resp 18 03/07/22 07:53 BP 127/60 03/07/22 07:53 Pulse Ox 94 03/07/22 07:53 O2 Del Method 03/07/22 07:53 O2 Flow Rate 2 03/05/22 18:56 BMI result Body Mass Index 20.1 Const: General: comfortable and no acute distress Resp: Effort & Inspection: normal respiratory effort Cardio: Rate: regular rate GI: Palpation (GI): Soft to palpation Back/Spine/Pelvis: Other: large stage IV decubitus ulcer on the right greater trochanter, with some residual nonviable tissue large stage 3-4 decubitus ulcer on the sacrococcygeal area so with some residual nonviable tissue smaller feeds 3 decubitus ulcer on the coccygeal area to the left of the midline, clean with good granulation Objective Data Active Medications Acetaminophen (Acetaminophen 325 Mg Tablet) 650 mg PO Q6H PRN PRN Reason: Pain, Mild (Pain Scale 1-3) Last Admin: 03/07/22 06:10 Dose: 650 mg Documented By: LEO Acetaminophen (Acetaminophen 325 Mg Tablet) 325 mg PO BEDTIME [facility] Last Admin: 03/06/22 20:47 Dose: 325 mg Documented By: LEO Albuterol Sulfate (Albuterol Sulfate (0.083%) 2.5 Mg/3 Ml Vial.Neb) 2.5 mg INHALE Q4H PRN PRN Reason: wheezing Albuterol Sulfate (Albuterol Sulfate 90 Mcg 8 Gm Inhaler) 2 puff INHALE Q4H PRN PRN Reason: wheezing Ascorbic Acid (Ascorbic Acid 500 Mg Tablet) 500 mg PO DAILY [facility] Last Admin: 03/06/22 08:18 Dose: 500 mg Documented By: DABShari Aspirin (Aspirin 81 Mg Tab.Chew) 81 mg PO DAILY [facility] Last Admin: 03/06/22 08:18 Dose: 81 mg Documented By: JIN Baclofen (Baclofen 20 Mg Tablet) 20 mg PO TID [facility] Last Admin: 03/06/22 20:47 Dose: 20 mg Documented By: LEO Buspirone HCl (Buspirone Hcl 10 Mg Tablet) 10 mg PO BID [facility] Last Admin: 03/06/22 20:48 Dose: 10 mg Documented By: LEO Clonazepam (Clonazepam 1 Mg Tablet) 1 mg PO TID PRN PRN Reason: Anxiety Last Admin: 03/06/22 20:53 Dose: 1 mg Documented By: LEO Dextrose (Dextrose 50 % 25 Gm/50 Ml Syringe) 25 gm IVPUSH Q15M PRN; Protocol PRN Reason: per Hypoglycemia Standing Ord. Dicyclomine HCl (Dicyclomine Hcl 10 Mg Capsule) 10 mg PO TID [facility] Last Admin: 03/06/22 20:48 Dose: 10 mg Documented By: LEO Docusate Sodium (Docusate Sodium 100 Mg Capsule) 100 mg PO BID PRN PRN Reason: constipation Fluoxetine HCl (Fluoxetine Hcl 20 Mg Capsule) 80 mg PO DAILY [facility] Last Admin: 03/06/22 08:18 Dose: 80 mg Documented By: JIN Gabapentin (Gabapentin 400 Mg Capsule) 400 mg PO TID [facility] Last Admin: 03/06/22 20:48 Dose: 400 mg Documented By: LEO Glucose (Glucose Gel 15 Gm Gel..Gram.) 15 gm PO Q15M PRN; Protocol PRN Reason: per Hypoglycemia Standing Ord. Piperacillin Sod/Tazobactam (Sod 4.5 gm/ Sodium Chloride) 100 mls @ 200 mls/hr IV Q6H [facility] Last Infusion: 03/07/22 06:46 Dose: 0 mls/hr Documented By: LEO Vancomycin HCl 1,000 mg/ (Sodium Chloride) 270 mls @ 270 mls/hr IV Q24H [facility] Last Infusion: 03/06/22 19:26 Dose: 0 mls/hr Documented By: LEO Insulin Human Lispro (Insulin Lispro 100 Unit/Ml 3 Ml Vial) 0 unit SUBCUT QIDACHS [facility]; Protocol Last Admin: 03/07/22 08:07 Dose: Not Given Documented By: REDD Non-Admin Reason: No Insulin Coverage Lactulose (Lactulose 20 Gm/30 Ml Solution) 10 gm PO DAILY PRN PRN Reason: Constipation Melatonin (Melatonin 3 Mg Tablet) 6 mg PO BEDTIME PRN PRN Reason: Insomnia Last Admin: 03/06/22 21:39 Dose: 6 mg Documented By: LEO Melatonin (Melatonin 3 Mg Tablet) 6 mg PO BEDTIME PRN PRN Reason: Sleep Metoclopramide HCl (Metoclopramide Hcl 10 Mg Tablet) 10 mg PO TID [facility] Last Admin: 03/06/22 20:47 Dose: 10 mg Documented By: LEO Mirabegron (Mirabegron 25 Mg Tab.Er.24h) 25 mg PO DAILY [facility] Last Admin: 03/06/22 08:17 Dose: 25 mg Documented By: JIN Montelukast Sodium (Montelukast Sodium 10 Mg Tablet) 10 mg PO BEDTIME [facility] Last Admin: 03/06/22 20:46 Dose: 10 mg Documented By: LEO Multivitamins/Vitamin C (Multivitamin Tablet) 1 tab PO DAILY [facility] Last Admin: 03/06/22 08:17 Dose: 1 tab Documented By: JIN Non-Formulary Medication (Methenamine Hippurate) 1 gm PO BID [facility] Non-Formulary Medication (Riboflavin (Vitamin B2) [Vitamin B-2]) 100 mg PO BID [facility] Omeprazole (Omeprazole 20 Mg Capsule.Dr) 20 mg PO BID@0630,1630 [facility] Last Admin: 03/07/22 06:06 Dose: 20 mg Documented By: LEO Ondansetron HCl (Ondansetron Hcl 4 Mg/2 Ml Vial) 4 mg IVPUSH Q8H PRN PRN Reason: Nausea and Vomiting Ondansetron HCl (Ondansetron Odt 4 Mg Tab.Rapdis) 4 mg TRANSLINGU TID [facility] Last Admin: 03/06/22 20:48 Dose: 4 mg Documented By: LEO Oxycodone HCl (Oxycodone Hcl Immed Release 5 Mg Tablet) 10 mg PO BEDTIME [facility] Last Admin: 03/06/22 20:47 Dose: 10 mg Documented By: LEO Pharmacy Consult (Consult Rx Vancomycin Dosing) 1 each MISCELLANE DAILY PRN PRN Reason: Consult order Senna (Sennosides 8.6 Mg Tablet) 8.6 mg PO BID [facility] Last Admin: 03/06/22 20:48 Dose: 8.6 mg Documented By: LEO Sodium Chloride (0.9 % Sodium Chloride Flush 3 Ml Syringe) 3 ml IVFLUSH QSHIFT [facility] Last Admin: 03/06/22 20:49 Dose: 3 ml Documented By: LEO Sucralfate (Sucralfate 1 Gm Tablet) 1 gm PO TIDAC [facility] Last Admin: 03/06/22 15:29 Dose: 1 gm Documented By: JIN Tiotropium Provo (Tiotropium [place] 18 Mcg Cap.W.Dev) 1 puff INHALE RDAILY [facility] Last Admin: 03/07/22 07:28 Dose: Not Given Documented By: DEBRA Non-Admin Reason: Med Not Available Trazodone HCl (Trazodone Hcl 100 Mg Tablet) 100 mg PO BEDTIME PRN PRN Reason: Insomnia Last Admin: 03/06/22 21:38 Dose: 100 mg Documented By: LEO Vitamin D (Cholecalciferol (Vitamin D3) 25 Mcg Tablet) 25 mcg PO DAILY [facility] Last Admin: 03/06/22 08:17 Dose: 25 mcg Documented By: JIN Labs 03/06/22 09:31 03/07/22 07:35 Labs: Laboratory Results - last 24 hr 03/06/22 03/06/22 03/06/22 09:31 09:31 11:36 MCV 91.0 MCH 28.9 MCHC 31.8 RDW 15.3 Plt Count 556 H MPV 8.2 L Absolute Nucleated RBC 0.000 Nucleated RBC % (auto) 0.0 Estim Creat Clear Calc Estimated GFR POC Glucose 105 Blood Type O Positive Antibody Screen NEGATIVE 03/06/22 03/06/22 03/07/22 16:25 20:35 07:04 MCV MCH MCHC RDW Plt Count MPV Absolute Nucleated RBC Nucleated RBC % (auto) Estim Creat Clear Calc Estimated GFR POC Glucose 156 H 83 84 Blood Type Antibody Screen 03/07/22 07:35 MCV MCH MCHC RDW Plt Count MPV Absolute Nucleated RBC Nucleated RBC % (auto) Estim Creat Clear Calc 105.1 Estimated GFR > 60 POC Glucose Blood Type Antibody Screen Microbiology Microbiology Results: Microbiology 03/05/22 18:16 Blood Culture - Preliminary Blood - Venous No growth after 24 hours. 03/05/22 18:16 Blood Culture - Preliminary Blood - Venous No growth after 24 hours. 03/05/22 19:00 Urine Culture - Preliminary Urine clean catch - Urine reagan top No growth to date. Procedures Date of Service Date of Service: 03/07/22 Progress Note: A&P Assessment and plan (1) Stage IV decubitus ulcer: Status: Acute Assessment and Plan: She has multiple decubitus ulcers as described above on her backside. Further excisional debridement residual nonviable tissue especially on the of the ulcers done this morning wet to dry reapplied continue wet to dry dressings daily change positions side to side every 2 hours Time Spent With Patient Time: Total time managing care of this patient today ____ minutes. Quality Stroke Does the patient have a stroke diagnosis?: No VTE Prior VTE?: No VTE Risk Level:: Medical - moderate - high VTE Device Contraindication: Treatment Not Indicated VTE Drug Contraindication: Treatment Not Indicated
[2022-03-07] MEDS: busPIRone HCl 10 MG TABLET PO ×2 (08:47→20:34)
[2022-03-07] MEDS: Baclofen 20 MG TABLET PO ×3 (08:47→20:33)
[2022-03-07] MEDS: Sennosides 8.6 MG TABLET PO ×2 (08:47→20:34)
[2022-03-07] MEDS: Ascorbic Acid 500 MG TABLET PO (08:47)
[2022-03-07] MEDS: 0.9 % Sodium Chloride Flush 3 ML SYRINGE IVFLUSH ×3 (08:48→23:23)
--- NOTE | 2022-03-07 09:32 | HO.PM.IMPN ---
Subjective Subjective Date of Service: 03/07/22 Interval History: Seen in f/u for infected decub ulcer has some soreness at ulcer site 06/25 Physical Exam Vital Signs: Vital Signs: Last Vital Signs Temp 97.9 F 03/07/22 07:53 Pulse 85 03/07/22 07:53 Resp 18 03/07/22 07:53 BP 127/60 03/07/22 07:53 Pulse Ox 94 03/07/22 07:53 O2 Del Method 03/07/22 07:53 O2 Flow Rate 2 03/05/22 18:56 BMI result Body Mass Index 20.1 Const: Other: General: AO X 3, no acute distress Resp: CTA bilateral CVS: S1,S2,RRR GI: +BS, NT, no distention Skin: very extensive multiple decub pressure ulcer--see picture for better description Neuro: motor grossly intact Psych: appropriate affect Objective Data Active Medications Acetaminophen (Acetaminophen 325 Mg Tablet) 650 mg PO Q6H PRN PRN Reason: Pain, Mild (Pain Scale 1-3) Last Admin: 03/07/22 06:10 Dose: 650 mg Documented By: LEO Acetaminophen (Acetaminophen 325 Mg Tablet) 325 mg PO BEDTIME [facility] Last Admin: 03/06/22 20:47 Dose: 325 mg Documented By: LEO Albuterol Sulfate (Albuterol Sulfate (0.083%) 2.5 Mg/3 Ml Vial.Neb) 2.5 mg INHALE Q4H PRN PRN Reason: wheezing Albuterol Sulfate (Albuterol Sulfate 90 Mcg 8 Gm Inhaler) 2 puff INHALE Q4H PRN PRN Reason: wheezing Ascorbic Acid (Ascorbic Acid 500 Mg Tablet) 500 mg PO DAILY [facility] Last Admin: 03/07/22 08:47 Dose: 500 mg Documented By: REDD Aspirin (Aspirin 81 Mg Tab.Chew) 81 mg PO DAILY [facility] Last Admin: 03/07/22 08:46 Dose: 81 mg Documented By: REDD Baclofen (Baclofen 20 Mg Tablet) 20 mg PO TID [facility] Last Admin: 03/07/22 08:47 Dose: 20 mg Documented By: REDD Buspirone HCl (Buspirone Hcl 10 Mg Tablet) 10 mg PO BID [facility] Last Admin: 03/07/22 08:47 Dose: 10 mg Documented By: REDD Clonazepam (Clonazepam 1 Mg Tablet) 1 mg PO TID PRN PRN Reason: Anxiety Last Admin: 03/06/22 20:53 Dose: 1 mg Documented By: LEO Dextrose (Dextrose 50 % 25 Gm/50 Ml Syringe) 25 gm IVPUSH Q15M PRN; Protocol PRN Reason: per Hypoglycemia Standing Ord. Dicyclomine HCl (Dicyclomine Hcl 10 Mg Capsule) 10 mg PO TID [facility] Last Admin: 03/07/22 08:46 Dose: 10 mg Documented By: REDD Docusate Sodium (Docusate Sodium 100 Mg Capsule) 100 mg PO BID PRN PRN Reason: constipation Fluoxetine HCl (Fluoxetine Hcl 20 Mg Capsule) 80 mg PO DAILY [facility] Last Admin: 03/07/22 08:45 Dose: 80 mg Documented By: REDD Gabapentin (Gabapentin 400 Mg Capsule) 400 mg PO TID [facility] Last Admin: 03/07/22 08:46 Dose: 400 mg Documented By: REDD Glucose (Glucose Gel 15 Gm Gel..Gram.) 15 gm PO Q15M PRN; Protocol PRN Reason: per Hypoglycemia Standing Ord. Piperacillin Sod/Tazobactam (Sod 4.5 gm/ Sodium Chloride) 100 mls @ 200 mls/hr IV Q6H [facility] Last Infusion: 03/07/22 06:46 Dose: 0 mls/hr Documented By: LEO Vancomycin HCl 1,000 mg/ (Sodium Chloride) 270 mls @ 270 mls/hr IV Q24H [facility] Last Infusion: 03/06/22 19:26 Dose: 0 mls/hr Documented By: LEO Insulin Human Lispro (Insulin Lispro 100 Unit/Ml 3 Ml Vial) 0 unit SUBCUT QIDACHS [facility]; Protocol Last Admin: 03/07/22 08:07 Dose: Not Given Documented By: REDD Non-Admin Reason: No Insulin Coverage Lactulose (Lactulose 20 Gm/30 Ml Solution) 10 gm PO DAILY PRN PRN Reason: Constipation Melatonin (Melatonin 3 Mg Tablet) 6 mg PO BEDTIME PRN PRN Reason: Insomnia Last Admin: 03/06/22 21:39 Dose: 6 mg Documented By: LEO Melatonin (Melatonin 3 Mg Tablet) 6 mg PO BEDTIME PRN PRN Reason: Sleep Metoclopramide HCl (Metoclopramide Hcl 10 Mg Tablet) 10 mg PO TID [facility] Last Admin: 03/07/22 08:46 Dose: 10 mg Documented By: REDD Mirabegron (Mirabegron 25 Mg Tab.Er.24h) 25 mg PO DAILY [facility] Last Admin: 03/07/22 08:46 Dose: 25 mg Documented By: REDD Montelukast Sodium (Montelukast Sodium 10 Mg Tablet) 10 mg PO BEDTIME [facility] Last Admin: 03/06/22 20:46 Dose: 10 mg Documented By: LEO Multivitamins/Vitamin C (Multivitamin Tablet) 1 tab PO DAILY [facility] Last Admin: 03/07/22 08:46 Dose: 1 tab Documented By: REDD Non-Formulary Medication (Methenamine Hippurate) 1 gm PO BID [facility] Non-Formulary Medication (Riboflavin (Vitamin B2) [Vitamin B-2]) 100 mg PO BID [facility] Omeprazole (Omeprazole 20 Mg Capsule.Dr) 20 mg PO BID@0630,1630 [facility] Last Admin: 03/07/22 06:06 Dose: 20 mg Documented By: LEO Ondansetron HCl (Ondansetron Hcl 4 Mg/2 Ml Vial) 4 mg IVPUSH Q8H PRN PRN Reason: Nausea and Vomiting Ondansetron HCl (Ondansetron Odt 4 Mg Tab.Rapdis) 4 mg TRANSLINGU TID [facility] Last Admin: 03/07/22 08:46 Dose: 4 mg Documented By: REDD Oxycodone HCl (Oxycodone Hcl Immed Release 5 Mg Tablet) 10 mg PO BEDTIME [facility] Last Admin: 03/06/22 20:47 Dose: 10 mg Documented By: LOE Pharmacy Consult (Consult Rx Vancomycin Dosing) 1 each MISCELLANE DAILY PRN PRN Reason: Consult order Senna (Sennosides 8.6 Mg Tablet) 8.6 mg PO BID [facility] Last Admin: 03/07/22 08:47 Dose: 8.6 mg Documented By: REDD Sodium Chloride (0.9 % Sodium Chloride Flush 3 Ml Syringe) 3 ml IVFLUSH QSHIFT [facility] Last Admin: 03/07/22 08:48 Dose: 3 ml Documented By: REDD Sucralfate (Sucralfate 1 Gm Tablet) 1 gm PO TIDAC [facility] Last Admin: 03/07/22 08:46 Dose: 1 gm Documented By: REDD Tiotropium Minerva (Tiotropium Minerva 18 Mcg Cap.W.Dev) 1 puff INHALE RDAILY [facility] Last Admin: 03/07/22 07:28 Dose: Not Given Documented By: DEBRA Non-Admin Reason: Med Not Available Trazodone HCl (Trazodone Hcl 100 Mg Tablet) 100 mg PO BEDTIME PRN PRN Reason: Insomnia Last Admin: 03/06/22 21:38 Dose: 100 mg Documented By: LEO Vitamin D (Cholecalciferol (Vitamin D3) 25 Mcg Tablet) 25 mcg PO DAILY [facility] Last Admin: 03/07/22 08:46 Dose: 25 mcg Documented By: REDD Labs 03/06/22 09:31 03/07/22 07:35 Labs: Laboratory Results - last 24 hr 03/06/22 03/06/22 03/06/22 09:31 09:31 11:36 MCV 91.0 MCH 28.9 MCHC 31.8 RDW 15.3 Plt Count 556 H MPV 8.2 L Absolute Nucleated RBC 0.000 Nucleated RBC % (auto) 0.0 Estim Creat Clear Calc Estimated GFR POC Glucose 105 Blood Type O Positive Antibody Screen NEGATIVE 03/06/22 03/06/22 03/07/22 16:25 20:35 07:04 MCV MCH MCHC RDW Plt Count MPV Absolute Nucleated RBC Nucleated RBC % (auto) Estim Creat Clear Calc Estimated GFR POC Glucose 156 H 83 84 Blood Type Antibody Screen 03/07/22 07:35 MCV MCH MCHC RDW Plt Count MPV Absolute Nucleated RBC Nucleated RBC % (auto) Estim Creat Clear Calc 105.1 Estimated GFR > 60 POC Glucose Blood Type Antibody Screen Microbiology Microbiology Results: Microbiology 03/05/22 19:00 Urine Culture - Final Urine clean catch - Urine reagan top 03/05/22 18:16 Blood Culture - Preliminary Blood - Venous No growth after 24 hours. 03/05/22 18:16 Blood Culture - Preliminary Blood - Venous No growth after 24 hours. Assessment and Plan (1) Pressure ulcers of skin of multiple topographic sites: Status: Acute (2) Decubitus ulcer: Status: Acute Plan ? 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 #.? Sepsis due to infected sacral decubitus ulcer -Cutlures pending -continue IV Abx (Zosyn+Vanco) D2 - Seen by Dr. Zamora with the following description and recomendation She has multiple decubitus ulcers as described above.? She has a stage 3-4 ulcer on the lumbosacral area with thick eschar and some? purulent drainage.? Therefore had to do sharp excisional debridement of this area using scissors to excise full-thickness skin and deep subcutaneous tissue. This area was about 10 x 9 cm A 2nd? ulcer, stage IV, with a thick eschar was also debrided sharply using scissors.? This was about a 10 x 11 cm area on the right? greater trochanterl region.? There was note of exposed bone.? I excised full-thickness of the skin? and thick subcutaneous tissue using fine scissors as well.? Wet to dry dressings were applied both areas.? The other decubitus ulcers? on the knee and the sacrococcygeal area may just need dressing changes with the foam dressings. In view of her immobility, and rigidity, she is at risk for progression of these ulcers and formation of additional or progression of her ulcers down the line. ?She will need good care.? She should be moved side to side every 2 hours. #.? Type A lactic acidosis: Resuscitated with IV crystalloids #.? 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 Essential hypertension:? On atenolol, lisinopril and amlodipine.? Hold in the setting of sepsis, resume as appropriate #.? Oju-dpsysgh-servhablh diabetes mellitus:? Hold home anti hyperglycemics.? Initiate Accu-Cheks with sliding scale insulin #.? Mood disorder with insomnia: Continue home mood stabilizers #.? Urinary incontinence with indwelling Bermuedz:? Patient likely with chronic pyuria due to chronic bermudez.? if UTI, should be adquately covered with zosyn #.? Chronic opioid use: Continue oxycodone home dosage #.? Gastroparesis with gastroesophageal reflux disease: On reglan # Anemia- hematocrit droped from 33 to 23, no description of acute blood loss? error, repeat hematocrit 24 so real, initial high probably hemocentration, montiror #Pscych consult for compentency DVT prophylaxis: hold heparin d/t anemia above, compression device if H/H stable, then start heparin needd for inpatient: infected decub ulcers requiring iv Abx Time Spent With Patient Time: Total time managing care of this patient today ____ minutes. Quality Stroke Does the patient have a stroke diagnosis?: No VTE Prior VTE?: No VTE Risk Level:: Medical - moderate - high VTE Device Contraindication: Treatment Not Indicated VTE Drug Contraindication: Treatment Not Indicated
--- NOTE | 2022-03-07 09:47 | P.CDIC_ITS ---
CDI Concurrent Query Documentation Clarification: PHYSICIAN'S DOCUMENTATION REQUEST Date of Query: 03/07/22 0948 Patient Name: Breana Morfin Admit Date: 03/05/22 Dear Doctor, A review of the medical record indicates additional documentation may be indicated. Please review below and update the documentation accordingly. Clinical Indicators: Risk Factors/Clinical Indicators/Treatments Wound care notes 03/06 - Pressure injury right lateral ankle, Stage II. Foam dressing. Based on the above, could you please provide, in the Progress Notes, further information regarding the ulcer/wound: * If a pressure ulcer, please also include the stage* of the ulcer: * Stage 1 - Skin intact, non-blanchable redness * Stage 2 - Partial thickness loss of dermis, includes intact or open blister * Other * Unable to determine *Source: National Pressure Ulcer Advisory Panel (NPUAP) Use of terms such as suspected, likely, concern for, or probable (associated with a specific diagnosis that is being evaluated, monitored, or treated as if it exists) are acceptable and can be coded in the inpatient setting, when documented at the time of discharge. Thank you, Bela Torre [facility], CDIS Extension: [phone] Please use your independent medical judgment in providing your response. THIS QUERY IS PART OF THE PERMANENT MEDICAL RECORD Provider Response: Other Other Diagnosis: pressure ulcer stage 2 and stage 4
--- NOTE | 2022-03-07 10:49 | MHC.CM.PN ---
EMR REVIEWED, PER SURGICAL DEBRIDEMENT DONE THIS MORNING, WET TO DRY DRESSINGS AND REPOSITION Q2HRS FROM SIDE TO SIDE. PER HOSPITALIST HE SPOKE W/PCP WHO WAS ALSO RECOMMENDING HOSPICE, PSYCH EVAL FOR COMPETENCY TO BE ORDERED AND PT IS NOT YET READY FOR D/C. CURRENTLY DISPO IS PENDING PSYCH EVAL. CM WILL CONT TO FOLLOW DC NEEDS.
--- NOTE | 2022-03-07 11:10 | P.CDIC_ITS ---
CDI Concurrent Query Documentation Clarification: PHYSICIAN'S DOCUMENTATION REQUEST Date of Query: 03/07/22 1111 Patient Name: Breana Morfin Admit Date: 03/05/22 Dear Doctor, A review of the medical record indicates additional documentation may be indicated. Please review below and update the documentation accordingly. Clinical Indicators: Risk Factors/Clinical Indicators/Treatments Wound care notes 03/06 - Pressure injury Stage II left heel. Foam dressing. Based on the above, could you please provide, in the Progress Notes, further information regarding the ulcer/wound: Site and stage: * If a pressure ulcer, please also include the stage* of the ulcer: * Stage 1 - Skin intact, non-blanchable redness * Stage 2 - Partial thickness loss of dermis, includes intact or open blister * Other * Unable to determine *Source: National Pressure Ulcer Advisory Panel (NPUAP) Use of terms such as suspected, likely, concern for, or probable (associated with a specific diagnosis that is being evaluated, monitored, or treated as if it exists) are acceptable and can be coded in the inpatient setting, when documented at the time of discharge. Thank you, Bela Torre [facility], CDIS Extension: [phone] Please use your independent medical judgment in providing your response. THIS QUERY IS PART OF THE PERMANENT MEDICAL RECORD Provider Response: Other Other Diagnosis: Pressure injury Stage II left heel
[2022-03-07 11:30] LABS: Glucose, Whole Blood 111 mg/dL (60-115)
--- NOTE | 2022-03-07 11:37 | MHC.CLN ---
F/U PO INTAKE POOR DIET RX: 1800DM DIET-APPROPRIATE PT RECEIVING ENSURE MAX TID TO INCREASE PO PROTEIN AND PROMOTE WOUND HEALING SUPP TO PROVIDE 450KCALS, 90G PROTEIN WITH 100% ACCEPTANCE MONITOR PO INTAKE AND SUPPLEMENT ACCEPTANCE
[2022-03-07 15:15] VITALS: BP 133/66; PULSE 85; RESP 19; TEMP 36.8; O2SAT 94
[2022-03-07 16:13] LABS: Glucose, Whole Blood 112 mg/dL (60-115)
[2022-03-07 17:20] LABS: Vancomycin Random 4.6 mcg/mL (15-20)
--- NOTE | 2022-03-07 17:34 | HE.PHANOTE ---
RE: methadone Trough on 03/07 came back at 4.6, changed dose to 750mg Q12H with predicted AUC 528mg/L, trough of 16.2. Next level to be drawn 03/08 @1700
[2022-03-07] MEDS: polyethylene glycoL 3350 17 GM POWD.PACK PO (18:32)
[2022-03-07] MEDS: vancomycin HCL 750 MG in 0.9 % Sodium Chloride 250 ML 265 MG IV (18:32)
[2022-03-07 20:00] VITALS: BP 115/57; PULSE 88; RESP 18; TEMP 37; O2SAT 94
[2022-03-07 20:06] LABS: Glucose, Whole Blood 127 mg/dL (60-115)
[2022-03-07] MEDS: Milk of Magnesia 30 ML ORAL.SUSP PO (20:32)
[2022-03-07] MEDS: Docusate Sodium 100 MG CAPSULE PO (20:34)
[2022-03-07] MEDS: Montelukast Sodium 10 MG TABLET PO (20:34)
[2022-03-07] MEDS: Acetaminophen 325 MG TABLET PO (20:34)
[2022-03-07] MEDS: Lactulose 20 GM/30 ML SOLUTION 10 GM PO (20:36)
[2022-03-07] MEDS: oxyCODONE HCl Immed Release 5 MG TABLET 10 MG PO (21:19)
[2022-03-07] MEDS: Melatonin 3 MG TABLET 6 MG PO (21:42)
[2022-03-07] MEDS: clonazePAM 1 MG TABLET PO (21:42)
[2022-03-07] MEDS: traZODone HCL 100 MG TABLET PO (21:42)
[2022-03-08 03:34] VITALS: BP 105/55; PULSE 82; RESP 18; TEMP 36.3; O2SAT 97
[2022-03-08] MEDS: Piperacillin Sodium/Tazobactam 4.5 GM in 0.9 % Sodium Chloride 100 ML IV ×4 (05:34→23:36)
[2022-03-08] MEDS: Omeprazole 20 MG CAPSULE.DR PO ×2 (05:34→15:24)
[2022-03-08] MEDS: vancomycin HCL 750 MG in 0.9 % Sodium Chloride 250 ML 265 MG IV (06:04)
[2022-03-08 06:37] LABS: Creatinine Clr Calc Pharmacy 102.7; Estimated Glomerular Filt Rate > 60
[2022-03-08 07:20] VITALS: BP 117/58; PULSE 86; RESP 18; TEMP 36; O2SAT 91
--- NOTE | 2022-03-08 07:25 | P.PNIM_ITS ---
Subjective Subjective Date of Service: 03/08/22 Interval History: Seen in f/u for infected decub ulcer no new issues, no pain Physical Exam Vital Signs: Vital Signs: Last Vital Signs Temp 96.8 F 03/08/22 07:20 Pulse 86 03/08/22 07:20 Resp 18 03/08/22 07:20 BP 117/58 L 03/08/22 07:20 Pulse Ox 91 L 03/08/22 07:20 O2 Del Method 03/08/22 07:20 O2 Flow Rate 2 03/05/22 18:56 BMI result Body Mass Index 20.1 Const: Other: General: AO X 3, no acute distress Resp: CTA bilateral CVS: S1,S2,RRR GI: +BS, NT, no distention Skin: very extensive multiple decub pressure ulcer--see picture for better description Neuro: motor grossly intact Psych: appropriate affect Objective Data Active Medications Acetaminophen (Acetaminophen 325 Mg Tablet) 650 mg PO Q6H PRN PRN Reason: Pain, Mild (Pain Scale 1-3) Last Admin: 03/07/22 13:17 Dose: 650 mg Documented By: REDD Acetaminophen (Acetaminophen 325 Mg Tablet) 325 mg PO BEDTIME [facility] Last Admin: 03/07/22 20:34 Dose: 325 mg Documented By: VALERIY Albuterol Sulfate (Albuterol Sulfate (0.083%) 2.5 Mg/3 Ml Vial.Neb) 2.5 mg INHALE Q4H PRN PRN Reason: wheezing Albuterol Sulfate (Albuterol Sulfate 90 Mcg 8 Gm Inhaler) 2 puff INHALE Q4H PRN PRN Reason: wheezing Ascorbic Acid (Ascorbic Acid 500 Mg Tablet) 500 mg PO DAILY [facility] Last Admin: 03/07/22 08:47 Dose: 500 mg Documented By: REDD Aspirin (Aspirin 81 Mg Tab.Chew) 81 mg PO DAILY [facility] Last Admin: 03/07/22 08:46 Dose: 81 mg Documented By: REDD Baclofen (Baclofen 20 Mg Tablet) 20 mg PO TID [facility] Last Admin: 03/07/22 20:33 Dose: 20 mg Documented By: VALERIY Buspirone HCl (Buspirone Hcl 10 Mg Tablet) 10 mg PO BID [facility] Last Admin: 03/07/22 20:34 Dose: 10 mg Documented By: VALERIY Clonazepam (Clonazepam 1 Mg Tablet) 1 mg PO TID PRN PRN Reason: Anxiety Last Admin: 03/07/22 21:42 Dose: 1 mg Documented By: VALERIY Dextrose (Dextrose 50 % 25 Gm/50 Ml Syringe) 25 gm IVPUSH Q15M PRN; Protocol PRN Reason: per Hypoglycemia Standing Ord. Dicyclomine HCl (Dicyclomine Hcl 10 Mg Capsule) 10 mg PO TID [facility] Last Admin: 03/07/22 20:34 Dose: 10 mg Documented By: VALERIY Docusate Sodium (Docusate Sodium 100 Mg Capsule) 100 mg PO BID PRN PRN Reason: constipation Last Admin: 03/07/22 20:34 Dose: 100 mg Documented By: VALERIY Fluoxetine HCl (Fluoxetine Hcl 20 Mg Capsule) 80 mg PO DAILY [facility] Last Admin: 03/07/22 08:45 Dose: 80 mg Documented By: REDD Gabapentin (Gabapentin 400 Mg Capsule) 400 mg PO TID [facility] Last Admin: 03/07/22 20:34 Dose: 400 mg Documented By: VALERIY Glucose (Glucose Gel 15 Gm Gel..Gram.) 15 gm PO Q15M PRN; Protocol PRN Reason: per Hypoglycemia Standing Ord. Piperacillin Sod/Tazobactam (Sod 4.5 gm/ Sodium Chloride) 100 mls @ 200 mls/hr IV Q6H [facility] Last Infusion: 03/08/22 06:04 Dose: 0 mls/hr Documented By: VALERIY Vancomycin HCl 750 mg/ Sodium (Chloride) 265 mls @ 265 mls/hr IV Q12H [facility] Last Infusion: 03/08/22 07:23 Dose: 0 mls/hr Documented By: REDD Insulin Human Lispro (Insulin Lispro 100 Unit/Ml 3 Ml Vial) 0 unit SUBCUT QIDACHS [facility]; Protocol Last Admin: 03/07/22 20:46 Dose: Not Given Documented By: VALERIY Non-Admin Reason: No Insulin Coverage Lactulose (Lactulose 20 Gm/30 Ml Solution) 10 gm PO DAILY PRN PRN Reason: Constipation Last Admin: 03/07/22 20:36 Dose: 10 gm Documented By: VALERIY Magnesium Hydroxide (Milk Of Magnesia 30 Ml Oral.Susp) 30 ml PO DAILY PRN PRN Reason: Constipation Last Admin: 03/07/22 20:32 Dose: 30 ml Documented By: VALERIY Melatonin (Melatonin 3 Mg Tablet) 6 mg PO BEDTIME PRN PRN Reason: Insomnia Last Admin: 03/07/22 21:42 Dose: 6 mg Documented By: VALERIY Melatonin (Melatonin 3 Mg Tablet) 6 mg PO BEDTIME PRN PRN Reason: Sleep Metoclopramide HCl (Metoclopramide Hcl 10 Mg Tablet) 10 mg PO TID [facility] Last Admin: 03/07/22 20:34 Dose: 10 mg Documented By: VALERIY Mirabegron (Mirabegron 25 Mg Tab.Er.24h) 25 mg PO DAILY [facility] Last Admin: 03/07/22 08:46 Dose: 25 mg Documented By: REDD Montelukast Sodium (Montelukast Sodium 10 Mg Tablet) 10 mg PO BEDTIME [facility] Last Admin: 03/07/22 20:34 Dose: 10 mg Documented By: VALERIY Multivitamins/Vitamin C (Multivitamin Tablet) 1 tab PO DAILY [facility] Last Admin: 03/07/22 08:46 Dose: 1 tab Documented By: REDD Non-Formulary Medication (Methenamine Hippurate) 1 gm PO BID [facility] Non-Formulary Medication (Riboflavin (Vitamin B2) [Vitamin B-2]) 100 mg PO BID [facility] Omeprazole (Omeprazole 20 Mg Capsule.Dr) 20 mg PO BID@0630,1630 [facility] Last Admin: 03/08/22 05:34 Dose: 20 mg Documented By: VALERIY Ondansetron HCl (Ondansetron Hcl 4 Mg/2 Ml Vial) 4 mg IVPUSH Q8H PRN PRN Reason: Nausea and Vomiting Ondansetron HCl (Ondansetron Odt 4 Mg Tab.Rapdis) 4 mg TRANSLINGU TID [facility] Last Admin: 03/07/22 21:20 Dose: 4 mg Documented By: VALERIY Oxycodone HCl (Oxycodone Hcl Immed Release 5 Mg Tablet) 10 mg PO BEDTIME [facility] Last Admin: 03/07/22 21:19 Dose: 10 mg Documented By: VALERIY Pharmacy Consult (Consult Rx Vancomycin Dosing) 1 each MISCELLANE DAILY PRN PRN Reason: Consult order Polyethylene Glycol (Polyethylene Glycol 3350 17 Gm Powd.Pack) 17 gm PO DAILY PRN PRN Reason: Constipation Last Admin: 03/07/22 18:32 Dose: 17 gm Documented By: REDD Senna (Sennosides 8.6 Mg Tablet) 8.6 mg PO BID [facility] Last Admin: 03/07/22 20:34 Dose: 8.6 mg Documented By: VALERIY Sodium Chloride (0.9 % Sodium Chloride Flush 3 Ml Syringe) 3 ml IVFLUSH QSHIFT [facility] Last Admin: 03/07/22 23:23 Dose: 3 ml Documented By: VALERIY Sucralfate (Sucralfate 1 Gm Tablet) 1 gm PO TIDAC [facility] Last Admin: 03/07/22 15:09 Dose: 1 gm Documented By: REDD Tiotropium [place] (Tiotropium [place] 18 Mcg Cap.W.Dev) 1 puff INHALE RDAILY [facility] Last Admin: 03/07/22 07:28 Dose: Not Given Documented By: DEBRA Non-Admin Reason: Med Not Available Trazodone HCl (Trazodone Hcl 100 Mg Tablet) 100 mg PO BEDTIME PRN PRN Reason: Insomnia Last Admin: 03/07/22 21:42 Dose: 100 mg Documented By: VALERIY Vitamin D (Cholecalciferol (Vitamin D3) 25 Mcg Tablet) 25 mcg PO DAILY [facility] Last Admin: 03/07/22 08:46 Dose: 25 mcg Documented By: REDD Labs 03/06/22 09:31 03/08/22 06:05 Labs: Laboratory Results - last 24 hr 03/07/22 03/07/22 03/07/22 07:04 07:35 11:24 Estim Creat Clear Calc 105.1 Estimated GFR > 60 POC Glucose 84 111 Random Vancomycin 03/07/22 03/07/22 03/07/22 16:06 16:53 19:53 Estim Creat Clear Calc Estimated GFR POC Glucose 112 127 H Random Vancomycin 4.6 L 03/08/22 06:05 Estim Creat Clear Calc 102.7 Estimated GFR > 60 POC Glucose Random Vancomycin Microbiology Microbiology Results: Microbiology 03/05/22 18:16 Blood Culture - Preliminary Blood - Venous No growth after 48 hours. 03/05/22 18:16 Blood Culture - Preliminary Blood - Venous No growth after 48 hours. 03/05/22 19:00 Urine Culture - Final Urine clean catch - Urine reagan top Assessment and Plan (1) Pressure ulcers of skin of multiple topographic sites: Status: Acute (2) Decubitus ulcer: Status: Acute Plan ? 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 #.? Sepsis due to infected sacral decubitus ulcer -Cutlures pending -continue IV Abx (Zosyn+Vanco) D4 - Seen by Dr. Zamora with the following description and recomendation She has multiple decubitus ulcers as described above.? She has a stage 3-4 ulcer on the lumbosacral area with thick eschar and some? purulent drainage.? Therefore had to do sharp excisional debridement of this area using scissors to excise full-thickness skin and deep subcutaneous tissue. This area was about 10 x 9 cm A 2nd? ulcer, stage IV, with a thick eschar was also debrided sharply using scissors.? This was about a 10 x 11 cm area on the right? greater trochanterl region.? There was note of exposed bone.? I excised full-thickness of the skin? and thick subcutaneous tissue using fine scissors as well.? Wet to dry dressings were applied both areas.? The other decubitus ulcers? on the knee and the sacrococcygeal area may just need dressing changes with the foam dressings. In view of her immobility, and rigidity, she is at risk for progression of these ulcers and formation of additional or progression of her ulcers down the line. ?She will need good care.? She should be moved side to side every 2 hours. #.? Type A lactic acidosis: Resuscitated with IV crystalloids #.? 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 Essential hypertension:? On atenolol, lisinopril and amlodipine.? Hold in the setting of sepsis, resume as appropriate #.? [id number] diabetes mellitus:? Hold home anti hyperglycemics.? Initiate Accu-Cheks with sliding scale insulin #.? Mood disorder with insomnia: Continue home mood stabilizers #.? Urinary incontinence with indwelling Bermudez:? Patient likely with chronic pyuria due to chronic bermudez.? if UTI, should be adquately covered with zosyn #.? Chronic opioid use: Continue oxycodone home dosage #.? Gastroparesis with gastroesophageal reflux disease: On reglan # Anemia- hematocrit droped from 33 to 23, no description of acute blood loss? error, repeat hematocrit 24 so real, initial high probably hemocentration, montiror #Pscych consult for compentency DVT prophylaxis: hold heparin d/t anemia above, compression device if H/H stable, then start heparin needd for inpatient: infected decub ulcers requiring iv Abx Time Spent With Patient Time: Total time managing care of this patient today ____ minutes. Quality Stroke Does the patient have a stroke diagnosis?: No VTE Prior VTE?: No VTE Risk Level:: Medical - moderate - high VTE Device Contraindication: Treatment Not Indicated VTE Drug Contraindication: Treatment Not Indicated
[2022-03-08 07:30] LABS: Glucose, Whole Blood 87 mg/dL (60-115)
[2022-03-08] MEDS: FLUoxetine HCl 20 MG CAPSULE 80 MG PO (07:38)
[2022-03-08] MEDS: Dicyclomine HCl 10 MG CAPSULE PO ×3 (07:38→20:29)
[2022-03-08] MEDS: Gabapentin 400 MG CAPSULE PO ×3 (07:38→20:29)
[2022-03-08] MEDS: Cholecalciferol (Vitamin D3) 25 MCG TABLET PO (07:39)
[2022-03-08] MEDS: Mirabegron 25 MG TAB.ER.24H PO (07:39)
[2022-03-08] MEDS: Ondansetron ODT 4 MG TAB.RAPDIS TRANSLINGU ×3 (07:39→20:29)
[2022-03-08] MEDS: Aspirin 81 MG TAB.CHEW PO (07:39)
[2022-03-08] MEDS: busPIRone HCl 10 MG TABLET PO ×2 (07:40→20:29)
[2022-03-08] MEDS: Baclofen 20 MG TABLET PO ×3 (07:40→20:29)
[2022-03-08] MEDS: Sennosides 8.6 MG TABLET PO ×2 (07:40→20:29)
[2022-03-08] MEDS: Metoclopramide HCl 10 MG TABLET PO ×3 (07:40→20:29)
[2022-03-08] MEDS: Sucralfate 1 GM TABLET PO ×3 (07:41→15:24)
[2022-03-08] MEDS: Ascorbic Acid 500 MG TABLET PO (07:41)
[2022-03-08] MEDS: 0.9 % Sodium Chloride Flush 3 ML SYRINGE IVFLUSH ×3 (07:42→23:36)
[2022-03-08] MEDS: Multivitamin TABLET 1 TAB PO (07:43)
[2022-03-08 09:46] LABS: Anion Gap 12 (12-20); Carbon Dioxide 25 mmol/L (22-29); Chloride 107 mmol/L (96-108); Potassium 4.2 mmol/L (3.3-5.1); Sodium 140 mmol/L (135-145)
[2022-03-08 12:08] VITALS: PULSE 87; RESP 20; O2SAT 93
[2022-03-08 12:28] LABS: Glucose, Whole Blood 94 mg/dL (60-115)
--- NOTE | 2022-03-08 12:50 | PM.PSYCN ---
History of Present Illness Date of Service: 03/08/22 Chief Complaint: Pressure Ulcer Requesting physician: Porfirio Saul Discussed with referring provider: Yes (Discussed over the phone) Sources of Information: patient interviewed and chart reviewed HPI Narrative: Breana is a 66-year-old white, woman who has been hospitalized for multiple decubitus ulcers and multiple medical problems. Records were reviewed. A competency evaluation was requested around her reluctance to go to a prison home and wishing to be discharged home. I had a long discussion with her around seriousness of the issue and the difficulty of taking care of her wounds at home. She was able to comprehend the implications and the risk involved. She is open to going to a prison home but would like to know the choices available. Past psychiatric history: None Medical history: Multiple. Records were reviewed. Social history Breana lives with her at home. She is not 2 mobile because of her multiple sclerosis. They do have 1 adult child. She has [employer] for her care at home Review of Systems Constitutional: Denies chills and Denies fever(s) Cardiovascular: Denies chest pain Respiratory: Denies cough Gastrointestinal: Denies abdominal pain Comments: Bed-bound, with rigidity, motor functions on the lower extremities [facility] Medical History Anemia Asthma Bedbound Decubitus ulcer Decubitus ulcer of buttock, unstageable Diabetes Gastroparesis GERD (gastroesophageal reflux disease) Hypertension Insomnia Mood disorder Multiple sclerosis Peripheral neuropathy Sacral decubitus ulcer Stage IV decubitus ulcer Social History: Social history Breana lives with her at home. She is not 2 mobile because of her multiple sclerosis. They do have 1 adult child. She has NON PROF[employer] TIT[employer] for her care at home Substance History: None Diagnostics Vital Signs (24Hr): Vital Signs - 24 hr 03/07/22 15:15 03/07/22 20:00 03/08/22 03:34 Temperature 98.2 F 98.6 F 97.4 F Pulse Rate 85 88 82 Respiratory Rate 19 18 18 Blood Pressure 133/66 115/57 L 105/55 L Pulse Oximetry 94 94 97 Oxygen Delivery Method Room Air Room Air Room Air 03/08/22 07:20 03/08/22 12:08 Temperature 96.8 F Pulse Rate 86 87 Respiratory Rate 18 20 Blood Pressure 117/58 L Pulse Oximetry 91 L Oxygen Delivery Method Room Air BMI result Body Mass Index 20.1 Labs 03/06/22 09:31 03/08/22 06:05 Labs: Laboratory Results - last 48 hr 03/06/22 03/06/22 03/07/22 16:25 20:35 07:04 Sodium Potassium Chloride Carbon Dioxide Anion Gap Creatinine Estim Creat Clear Calc Estimated GFR POC Glucose 156 H 83 84 Random Vancomycin 03/07/22 03/07/22 03/07/22 07:35 11:24 16:06 Sodium Potassium Chloride Carbon Dioxide Anion Gap Creatinine 0.42 L Estim Creat Clear Calc 105.1 Estimated GFR > 60 POC Glucose 111 112 Random Vancomycin 03/07/22 03/07/22 03/08/22 16:53 19:53 06:05 Sodium 140 Potassium 4.2 Chloride 107 Carbon Dioxide 25 Anion Gap 12 Creatinine 0.43 L Estim Creat Clear Calc 102.7 Estimated GFR > 60 POC Glucose 127 H Random Vancomycin 4.6 L 03/08/22 03/08/22 07:18 11:30 Sodium Potassium Chloride Carbon Dioxide Anion Gap Creatinine Estim Creat Clear Calc Estimated GFR POC Glucose 87 94 Random Vancomycin Imaging Radiology Impressions: ITS Impressions Abdomen/Pelvis CT 03/05/22 20:21 IMPRESSION: No acute intracranial process seen. Age-related cerebral volume loss with chronic small vessel ischemic disease. Right gluteal decubitus ulcer without any underlying abscess. There is no periosteal thickening involving the right iliac bone to suspect any osteomyelitis. There is mild thickening of the intergluteal skin line posterior to the sacrum question induration from chronic infection.. Posterior Moderate to severe constipation without obstruction. Suspect stercoral colitis. Enlarged fundus likely fibroid disease. Head CT 03/05/22 20:21 IMPRESSION: No acute intracranial process seen. Age-related cerebral volume loss with chronic small vessel ischemic disease. Right gluteal decubitus ulcer without any underlying abscess. There is no periosteal thickening involving the right iliac bone to suspect any osteomyelitis. There is mild thickening of the intergluteal skin line posterior to the sacrum question induration from chronic infection.. Posterior Moderate to severe constipation without obstruction. Suspect stercoral colitis. Enlarged fundus likely fibroid disease. Mental Status Exam Mental Status Exam Narrative: Breana was seen today in her room, lying on her bed, eating. She is alert, oriented to person, place, month and the year. Speech is slightly impaired. Good eye contact. Affect is appropriate and constricted. No signs of psychosis. No suicidal ideations. Cognitively she has slow thought processes but is able to be goal directed. She is able to respond to questions appropriately. She is able to answer questions in examining her competency appropriately. Judgment is mostly intact Medications Medications Current Medications Acetaminophen (Acetaminophen 325 Mg Tablet) 650 mg PO Q6H PRN PRN Reason: Pain, Mild (Pain Scale 1-3) Last Admin: 03/07/22 13:17 Dose: 650 mg Acetaminophen (Acetaminophen 325 Mg Tablet) 325 mg PO BEDTIME [facility] Last Admin: 03/07/22 20:34 Dose: 325 mg Albuterol Sulfate (Albuterol Sulfate (0.083%) 2.5 Mg/3 Ml Vial.Neb) 2.5 mg INHALE Q4H PRN PRN Reason: wheezing Albuterol Sulfate (Albuterol Sulfate 90 Mcg 8 Gm Inhaler) 2 puff INHALE Q4H PRN PRN Reason: wheezing Ascorbic Acid (Ascorbic Acid 500 Mg Tablet) 500 mg PO DAILY [facility] Last Admin: 03/08/22 07:41 Dose: 500 mg Aspirin (Aspirin 81 Mg Tab.Chew) 81 mg PO DAILY [facility] Last Admin: 03/08/22 07:39 Dose: 81 mg Baclofen (Baclofen 20 Mg Tablet) 20 mg PO TID [facility] Last Admin: 03/08/22 07:40 Dose: 20 mg Buspirone HCl (Buspirone Hcl 10 Mg Tablet) 10 mg PO BID [facility] Last Admin: 03/08/22 07:40 Dose: 10 mg Clonazepam (Clonazepam 1 Mg Tablet) 1 mg PO TID PRN PRN Reason: Anxiety Last Admin: 03/07/22 21:42 Dose: 1 mg Dextrose (Dextrose 50 % 25 Gm/50 Ml Syringe) 25 gm IVPUSH Q15M PRN; Protocol PRN Reason: per Hypoglycemia Standing Ord. Dicyclomine HCl (Dicyclomine Hcl 10 Mg Capsule) 10 mg PO TID [facility] Last Admin: 03/08/22 07:38 Dose: 10 mg Docusate Sodium (Docusate Sodium 100 Mg Capsule) 100 mg PO BID PRN PRN Reason: constipation Last Admin: 03/07/22 20:34 Dose: 100 mg Fluoxetine HCl (Fluoxetine Hcl 20 Mg Capsule) 80 mg PO DAILY [facility] Last Admin: 03/08/22 07:38 Dose: 80 mg Gabapentin (Gabapentin 400 Mg Capsule) 400 mg PO TID [facility] Last Admin: 03/08/22 07:38 Dose: 400 mg Glucose (Glucose Gel 15 Gm Gel..Gram.) 15 gm PO Q15M PRN; Protocol PRN Reason: per Hypoglycemia Standing Ord. Piperacillin Sod/Tazobactam (Sod 4.5 gm/ Sodium Chloride) 100 mls @ 200 mls/hr IV Q6H [facility] Last Admin: 03/08/22 11:57 Dose: 200 mls/hr Vancomycin HCl 750 mg/ Sodium (Chloride) 265 mls @ 265 mls/hr IV Q12H [facility] Last Infusion: 03/08/22 07:23 Dose: Infused Insulin Human Lispro (Insulin Lispro 100 Unit/Ml 3 Ml Vial) 0 unit SUBCUT QIDACHS [facility]; Protocol Last Admin: 03/08/22 11:37 Dose: Not Given Lactulose (Lactulose 20 Gm/30 Ml Solution) 10 gm PO DAILY PRN PRN Reason: Constipation Last Admin: 03/07/22 20:36 Dose: 10 gm Magnesium Hydroxide (Milk Of Magnesia 30 Ml Oral.Susp) 30 ml PO DAILY PRN PRN Reason: Constipation Last Admin: 03/07/22 20:32 Dose: 30 ml Melatonin (Melatonin 3 Mg Tablet) 6 mg PO BEDTIME PRN PRN Reason: Insomnia Last Admin: 03/07/22 21:42 Dose: 6 mg Melatonin (Melatonin 3 Mg Tablet) 6 mg PO BEDTIME PRN PRN Reason: Sleep Metoclopramide HCl (Metoclopramide Hcl 10 Mg Tablet) 10 mg PO TID [facility] Last Admin: 03/08/22 07:40 Dose: 10 mg Mirabegron (Mirabegron 25 Mg Tab.Er.24h) 25 mg PO DAILY [facility] Last Admin: 03/08/22 07:39 Dose: 25 mg Montelukast Sodium (Montelukast Sodium 10 Mg Tablet) 10 mg PO BEDTIME [facility] Last Admin: 03/07/22 20:34 Dose: 10 mg Multivitamins/Vitamin C (Multivitamin Tablet) 1 tab PO DAILY [facility] Last Admin: 03/08/22 07:43 Dose: 1 tab Non-Formulary Medication (Methenamine Hippurate) 1 gm PO BID [facility] Non-Formulary Medication (Riboflavin (Vitamin B2) [Vitamin B-2]) 100 mg PO BID [facility] Omeprazole (Omeprazole 20 Mg Capsule.Dr) 20 mg PO BID@0630,1630 [facility] Last Admin: 03/08/22 05:34 Dose: 20 mg Ondansetron HCl (Ondansetron Hcl 4 Mg/2 Ml Vial) 4 mg IVPUSH Q8H PRN PRN Reason: Nausea and Vomiting Ondansetron HCl (Ondansetron Odt 4 Mg Tab.Rapdis) 4 mg TRANSLINGU TID [facility] Last Admin: 03/08/22 07:39 Dose: 4 mg Oxycodone HCl (Oxycodone Hcl Immed Release 5 Mg Tablet) 10 mg PO BEDTIME [facility] Last Admin: 03/07/22 21:19 Dose: 10 mg Pharmacy Consult (Consult Rx Vancomycin Dosing) 1 each MISCELLANE DAILY PRN PRN Reason: Consult order Polyethylene Glycol (Polyethylene Glycol 3350 17 Gm Powd.Pack) 17 gm PO DAILY PRN PRN Reason: Constipation Last Admin: 03/07/22 18:32 Dose: 17 gm Senna (Sennosides 8.6 Mg Tablet) 8.6 mg PO BID [facility] Last Admin: 03/08/22 07:40 Dose: 8.6 mg Sodium Chloride (0.9 % Sodium Chloride Flush 3 Ml Syringe) 3 ml IVFLUSH QSHIFT [facility] Last Admin: 03/08/22 07:42 Dose: 3 ml Sucralfate (Sucralfate 1 Gm Tablet) 1 gm PO TIDAC [facility] Last Admin: 03/08/22 11:57 Dose: 1 gm Tiotropium [place] (Tiotropium [place] 18 Mcg Cap.W.Dev) 1 puff INHALE RDAILY [facility] Last Admin: 03/08/22 12:02 Dose: 1 puff Trazodone HCl (Trazodone Hcl 100 Mg Tablet) 100 mg PO BEDTIME PRN PRN Reason: Insomnia Last Admin: 03/07/22 21:42 Dose: 100 mg Vitamin D (Cholecalciferol (Vitamin D3) 25 Mcg Tablet) 25 mcg PO DAILY [facility] Last Admin: 03/08/22 07:39 Dose: 25 mcg Allergies Allergies Allergy/AdvReac Type Severity Reaction Status Date / Time morphine [Morphine] Allergy Intermediate INCREASED Verified 03/05/22 17:07 HEART RATE/HALLUCINATIONS, hallucinations Assessment & Plan Assessment & Plan (1) Stage IV decubitus ulcer: Status: Acute Code(s): L89.94 - Pressure ulcer of unspecified site, stage 4 Plan In conclusion paste my examination today I find Breana to be competent to make informed decisions pertaining to her care. She needs to be informed very carefully about the seriousness of her situation and the implications of poor care. Total time managing care of this patient today ____ minutes.
[2022-03-08] MEDS: Lactulose 20 GM/30 ML SOLUTION 10 GM PO (15:37)
[2022-03-08 16:00] VITALS: BP 135/91; PULSE 99; RESP 20; TEMP 36.9; O2SAT 98
[2022-03-08 16:19] LABS: Glucose, Whole Blood 131 mg/dL (60-115)
[2022-03-08 17:38] LABS: Vancomycin Trough 7.4 mcg/mL (10.0-20.0)
--- NOTE | 2022-03-08 17:46 | HE.PHANOTE ---
Vancomycin Dosing Addendum Patients level came back this evening at 7.4 mg/L, will increase dose. Patients indication is sepsis, aggressive dosing is necessary. increased dose to 1000 mg Q12H. Predicted AUC 589 mg/L/hr. Pharmacy will monitor renal function daily. Next draw is 03/09 @1700
[2022-03-08] MEDS: vancomycin HCL 1,000 MG in 0.9 % Sodium Chloride 250 ML 270 MG IV (18:35)
[2022-03-08 19:37] VITALS: BP 111/66; PULSE 105; RESP 18; TEMP 37.1; O2SAT 95
[2022-03-08 20:28] LABS: Glucose, Whole Blood 103 mg/dL (60-115)
[2022-03-08] MEDS: Montelukast Sodium 10 MG TABLET PO (20:29)
[2022-03-08] MEDS: Acetaminophen 325 MG TABLET PO (20:29)
[2022-03-08] MEDS: oxyCODONE HCl Immed Release 5 MG TABLET 10 MG PO (20:30)
[2022-03-08] MEDS: clonazePAM 1 MG TABLET PO (21:26)
[2022-03-08] MEDS: traZODone HCL 100 MG TABLET PO (21:26)
[2022-03-08] MEDS: Melatonin 3 MG TABLET 6 MG PO (21:27)
[2022-03-09 03:51] VITALS: BP 113/60; PULSE 76; RESP 18; TEMP 36.4; O2SAT 96
[2022-03-09] MEDS: Piperacillin Sodium/Tazobactam 4.5 GM in 0.9 % Sodium Chloride 100 ML IV ×4 (05:26→23:29)
[2022-03-09] MEDS: Omeprazole 20 MG CAPSULE.DR PO ×2 (05:29→15:28)
[2022-03-09] MEDS: vancomycin HCL 1,000 MG in 0.9 % Sodium Chloride 250 ML 270 MG IV ×2 (06:03→18:27)
[2022-03-09 06:41] LABS: Creatinine Clr Calc Pharmacy 107.7; Estimated Glomerular Filt Rate > 60
[2022-03-09 07:22] LABS: Glucose, Whole Blood 79 mg/dL (60-115)
[2022-03-09 07:31] VITALS: BP 126/60; PULSE 85; RESP 18; TEMP 37.2; O2SAT 96
[2022-03-09] MEDS: Baclofen 20 MG TABLET PO ×3 (07:35→21:11)
[2022-03-09] MEDS: Ascorbic Acid 500 MG TABLET PO (07:35)
[2022-03-09] MEDS: Metoclopramide HCl 10 MG TABLET PO ×3 (07:35→21:11)
[2022-03-09] MEDS: busPIRone HCl 10 MG TABLET PO ×2 (07:36→21:11)
[2022-03-09] MEDS: Multivitamin TABLET 1 TAB PO (07:36)
[2022-03-09] MEDS: Dicyclomine HCl 10 MG CAPSULE PO ×3 (07:36→21:11)
[2022-03-09] MEDS: Ondansetron ODT 4 MG TAB.RAPDIS TRANSLINGU ×3 (07:36→21:11)
[2022-03-09] MEDS: FLUoxetine HCl 20 MG CAPSULE 80 MG PO (07:36)
[2022-03-09] MEDS: Sennosides 8.6 MG TABLET PO ×2 (07:36→21:11)
[2022-03-09] MEDS: Sucralfate 1 GM TABLET PO ×3 (07:36→15:28)
[2022-03-09] MEDS: Mirabegron 25 MG TAB.ER.24H PO (07:36)
[2022-03-09] MEDS: Gabapentin 400 MG CAPSULE PO ×3 (07:36→21:11)
[2022-03-09] MEDS: Aspirin 81 MG TAB.CHEW PO (07:37)
[2022-03-09] MEDS: 0.9 % Sodium Chloride Flush 3 ML SYRINGE IVFLUSH ×3 (07:37→19:34)
[2022-03-09] MEDS: Cholecalciferol (Vitamin D3) 25 MCG TABLET PO (07:37)
[2022-03-09 07:47] VITALS: PULSE 87; RESP 20; O2SAT 94
--- NOTE | 2022-03-09 08:23 | HO.PM.IMPN ---
Subjective Subjective Date of Service: 03/09/22 Interval History: Seen in f/u for infected decub ulcer no new issues, has soreness at the [facility] Review of Systems no fever, mild pain at the buttocks Physical Exam Vital Signs: Vital Signs: Last Vital Signs Temp 98.9 F 03/09/22 07:31 Pulse 87 03/09/22 07:47 Resp 20 03/09/22 07:47 BP 126/60 03/09/22 07:31 Pulse Ox 96 03/09/22 07:31 O2 Del Method 03/09/22 07:31 O2 Flow Rate 2 03/05/22 18:56 BMI result Body Mass Index 20.1 Const: Other: General: AO X 3, no acute distress Resp: CTA bilateral CVS: S1,S2,RRR GI: +BS, NT, no distention Skin: very extensive multiple decub pressure ulcer--see picture for better description Neuro: motor grossly intact Psych: appropriate affect Objective Data Active Medications Acetaminophen (Acetaminophen 325 Mg Tablet) 650 mg PO Q6H PRN PRN Reason: Pain, Mild (Pain Scale 1-3) Last Admin: 03/07/22 13:17 Dose: 650 mg Documented By: REDD Acetaminophen (Acetaminophen 325 Mg Tablet) 325 mg PO BEDTIME [facility] Last Admin: 03/08/22 20:29 Dose: 325 mg Documented By: REDD Albuterol Sulfate (Albuterol Sulfate (0.083%) 2.5 Mg/3 Ml Vial.Neb) 2.5 mg INHALE Q4H PRN PRN Reason: wheezing Albuterol Sulfate (Albuterol Sulfate 90 Mcg 8 Gm Inhaler) 2 puff INHALE Q4H PRN PRN Reason: wheezing Ascorbic Acid (Ascorbic Acid 500 Mg Tablet) 500 mg PO DAILY [facility] Last Admin: 03/09/22 07:35 Dose: 500 mg Documented By: REDD Aspirin (Aspirin 81 Mg Tab.Chew) 81 mg PO DAILY [facility] Last Admin: 03/09/22 07:37 Dose: 81 mg Documented By: REDD Baclofen (Baclofen 20 Mg Tablet) 20 mg PO TID [facility] Last Admin: 03/09/22 07:35 Dose: 20 mg Documented By: REDD Buspirone HCl (Buspirone Hcl 10 Mg Tablet) 10 mg PO BID [facility] Last Admin: 03/09/22 07:36 Dose: 10 mg Documented By: REDD Clonazepam (Clonazepam 1 Mg Tablet) 1 mg PO TID PRN PRN Reason: Anxiety Last Admin: 03/08/22 21:26 Dose: 1 mg Documented By: REDD Dextrose (Dextrose 50 % 25 Gm/50 Ml Syringe) 25 gm IVPUSH Q15M PRN; Protocol PRN Reason: per Hypoglycemia Standing Ord. Dicyclomine HCl (Dicyclomine Hcl 10 Mg Capsule) 10 mg PO TID [facility] Last Admin: 03/09/22 07:36 Dose: 10 mg Documented By: REDD Docusate Sodium (Docusate Sodium 100 Mg Capsule) 100 mg PO BID PRN PRN Reason: constipation Last Admin: 03/07/22 20:34 Dose: 100 mg Documented By: VALERIY Fluoxetine HCl (Fluoxetine Hcl 20 Mg Capsule) 80 mg PO DAILY [facility] Last Admin: 03/09/22 07:36 Dose: 80 mg Documented By: REDD Gabapentin (Gabapentin 400 Mg Capsule) 400 mg PO TID [facility] Last Admin: 03/09/22 07:36 Dose: 400 mg Documented By: REDD Glucose (Glucose Gel 15 Gm Gel..Gram.) 15 gm PO Q15M PRN; Protocol PRN Reason: per Hypoglycemia Standing Ord. Piperacillin Sod/Tazobactam (Sod 4.5 gm/ Sodium Chloride) 100 mls @ 200 mls/hr IV Q6H [facility] Last Infusion: 03/09/22 05:58 Dose: 0 mls/hr Documented By: VALERIY Vancomycin HCl 1,000 mg/ (Sodium Chloride) 270 mls @ 270 mls/hr IV Q12H [facility] Last Infusion: 03/09/22 07:28 Dose: 0 mls/hr Documented By: REDD Insulin Human Lispro (Insulin Lispro 100 Unit/Ml 3 Ml Vial) 0 unit SUBCUT QIDACHS [facility]; Protocol Last Admin: 03/09/22 07:37 Dose: Not Given Documented By: REDD Non-Admin Reason: No Insulin Coverage Lactulose (Lactulose 20 Gm/30 Ml Solution) 10 gm PO DAILY PRN PRN Reason: Constipation Last Admin: 03/08/22 15:37 Dose: 10 gm Documented By: REDD Magnesium Hydroxide (Milk Of Magnesia 30 Ml Oral.Susp) 30 ml PO DAILY PRN PRN Reason: Constipation Last Admin: 03/07/22 20:32 Dose: 30 ml Documented By: VALERIY Melatonin (Melatonin 3 Mg Tablet) 6 mg PO BEDTIME PRN PRN Reason: Insomnia Last Admin: 03/07/22 21:42 Dose: 6 mg Documented By: VALERIY Melatonin (Melatonin 3 Mg Tablet) 6 mg PO BEDTIME PRN PRN Reason: Sleep Last Admin: 03/08/22 21:27 Dose: 6 mg Documented By: REDD Metoclopramide HCl (Metoclopramide Hcl 10 Mg Tablet) 10 mg PO TID [facility] Last Admin: 03/09/22 07:35 Dose: 10 mg Documented By: REDD Mirabegron (Mirabegron 25 Mg Tab.Er.24h) 25 mg PO DAILY [facility] Last Admin: 03/09/22 07:36 Dose: 25 mg Documented By: REDD Montelukast Sodium (Montelukast Sodium 10 Mg Tablet) 10 mg PO BEDTIME [facility] Last Admin: 03/08/22 20:29 Dose: 10 mg Documented By: REDD Multivitamins/Vitamin C (Multivitamin Tablet) 1 tab PO DAILY [facility] Last Admin: 03/09/22 07:36 Dose: 1 tab Documented By: REDD Riboflavin (Vitamin (B2) 100 Mg Tablet) 100 mg PO BID [facility] Last Admin: 03/09/22 07:46 Dose: 100 mg Documented By: REDD Patient Own ( Methenamine Hippurate 1 Gram Tablet) 1 gm PO BID [facility] Last Admin: 03/09/22 07:46 Dose: 1 gm Documented By: REDD Omeprazole (Omeprazole 20 Mg Capsule.Dr) 20 mg PO BID@0630,1630 [facility] Last Admin: 03/09/22 05:29 Dose: 20 mg Documented By: VALERIY Ondansetron HCl (Ondansetron Hcl 4 Mg/2 Ml Vial) 4 mg IVPUSH Q8H PRN PRN Reason: Nausea and Vomiting Ondansetron HCl (Ondansetron Odt 4 Mg Tab.Rapdis) 4 mg TRANSLINGU TID [facility] Last Admin: 03/09/22 07:36 Dose: 4 mg Documented By: REDD Oxycodone HCl (Oxycodone Hcl Immed Release 5 Mg Tablet) 10 mg PO BEDTIME [facility] Last Admin: 03/08/22 20:30 Dose: 10 mg Documented By: REDD Pharmacy Consult (Consult Rx Vancomycin Dosing) 1 each MISCELLANE DAILY PRN PRN Reason: Consult order Polyethylene Glycol (Polyethylene Glycol 3350 17 Gm Powd.Pack) 17 gm PO DAILY PRN PRN Reason: Constipation Last Admin: 03/07/22 18:32 Dose: 17 gm Documented By: REDD Senna (Sennosides 8.6 Mg Tablet) 8.6 mg PO BID [facility] Last Admin: 03/09/22 07:36 Dose: 8.6 mg Documented By: REDD Sodium Chloride (0.9 % Sodium Chloride Flush 3 Ml Syringe) 3 ml IVFLUSH QSHIFT [facility] Last Admin: 03/09/22 07:37 Dose: 3 ml Documented By: REDD Sucralfate (Sucralfate 1 Gm Tablet) 1 gm PO TIDAC [facility] Last Admin: 03/09/22 07:36 Dose: 1 gm Documented By: REDD Tiotropium [place] (Tiotropium [place] 18 Mcg Cap.W.Dev) 1 puff INHALE RDAILY [facility] Last Admin: 03/09/22 07:45 Dose: 1 puff Documented By: BREANN Trazodone HCl (Trazodone Hcl 100 Mg Tablet) 100 mg PO BEDTIME PRN PRN Reason: Insomnia Last Admin: 03/08/22 21:26 Dose: 100 mg Documented By: REDD Vitamin D (Cholecalciferol (Vitamin D3) 25 Mcg Tablet) 25 mcg PO DAILY [facility] Last Admin: 03/09/22 07:37 Dose: 25 mcg Documented By: REDD Labs 03/06/22 09:31 03/09/22 05:09 Labs: Laboratory Results - last 24 hr 03/08/22 03/08/22 03/08/22 06:05 11:30 16:14 Anion Gap 12 Estim Creat Clear Calc Estimated GFR POC Glucose 94 131 H Vancomycin Trough 03/08/22 03/08/22 03/09/22 16:58 20:24 05:09 Anion Gap Estim Creat Clear Calc 107.7 Estimated GFR > 60 POC Glucose 103 Vancomycin Trough 7.4 L 03/09/22 07:18 Anion Gap Estim Creat Clear Calc Estimated GFR POC Glucose 79 Vancomycin Trough Assessment and Plan (1) Pressure ulcers of skin of multiple topographic sites: Status: Acute (2) Decubitus ulcer: Status: Acute Plan ? 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 #.? Sepsis due to infected sacral decubitus ulcer -Cutlures pending -continue IV Abx (Zosyn+Vanco) D4, culture thus negative and - Seen by Dr. Zamora with the following description and recomendation She has multiple decubitus ulcers as described above.? She has a stage 3-4 ulcer on the lumbosacral area with thick eschar and some? purulent drainage.? Therefore had to do sharp excisional debridement of this area using scissors to excise full-thickness skin and deep subcutaneous tissue. This area was about 10 x 9 cm A 2nd? ulcer, stage IV, with a thick eschar was also debrided sharply using scissors.? This was about a 10 x 11 cm area on the right? greater trochanterl region.? There was note of exposed bone.? I excised full-thickness of the skin? and thick subcutaneous tissue using fine scissors as well.? Wet to dry dressings were applied both areas.? The other decubitus ulcers? on the knee and the sacrococcygeal area may just need dressing changes with the foam dressings. In view of her immobility, and rigidity, she is at risk for progression of these ulcers and formation of additional or progression of her ulcers down the line. ?She will need good care.? She should be moved side to side every 2 hours. #.? Type A lactic acidosis: Resuscitated with IV crystalloids #.? 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 Essential hypertension:? On atenolol, lisinopril and amlodipine.? Hold in the setting of sepsis, resume as appropriate #.? Arr-zbfceeg-dzmgwieks diabetes mellitus:? Hold home anti hyperglycemics.? Initiate Accu-Cheks with sliding scale insulin #.? Mood disorder with insomnia: Continue home mood stabilizers #.? Urinary incontinence with indwelling Bermudez:? Patient likely with chronic pyuria due to chronic bermudez.? if UTI, should be adquately covered with zosyn #.? Chronic opioid use: Continue oxycodone home dosage #.? Gastroparesis with gastroesophageal reflux disease: On reglan # Anemia- hematocrit droped from 33 to 23, no description of acute blood loss? error, repeat hematocrit 24 so real, initial high probably hemocentration, montiror #Pscych deem pt competent and I concur DVT prophylaxis: hold heparin d/t anemia above, compression device if H/H stable, then start heparin needd for inpatient: infected decub ulcers requiring iv Abx Time Spent With Patient Time: Total time managing care of this patient today ____ minutes. Quality Stroke Does the patient have a stroke diagnosis?: No VTE Prior VTE?: No VTE Risk Level:: Medical - moderate - high VTE Device Contraindication: Treatment Not Indicated VTE Drug Contraindication: Treatment Not Indicated
[2022-03-09 11:53] LABS: Glucose, Whole Blood 95 mg/dL (60-115)
[2022-03-09 15:47] VITALS: BP 152/76; PULSE 93; RESP 18; TEMP 37.2; O2SAT 98
[2022-03-09 15:49] LABS: Glucose, Whole Blood 120 mg/dL (60-115)
[2022-03-09 17:16] LABS: Vancomycin Random 11.6 mcg/mL (15-20)
--- NOTE | 2022-03-09 17:28 | HE.PHANOTE ---
Vancomycin Dosing Addendum Patients level came back this evening at 11.6 mg/L. Patient has severe cellulitis that has caused sepsis. Predicted AUC with 1000 mg Q12H dosing is 546 mg/L/hr. Will continue this dose as its on the higher side of the AUC range. Patients renal function has remained stable. Will obtain another level tomorrow 03/10 @1700.
[2022-03-09 20:00] VITALS: BP 114/62; PULSE 68; RESP 18; TEMP 36.2; O2SAT 98
[2022-03-09 20:39] LABS: Glucose, Whole Blood 141 mg/dL (60-115)
[2022-03-09] MEDS: oxyCODONE HCl Immed Release 5 MG TABLET 10 MG PO (21:10)
[2022-03-09] MEDS: Acetaminophen 325 MG TABLET PO (21:11)
[2022-03-09] MEDS: Montelukast Sodium 10 MG TABLET PO (21:11)
[2022-03-09] MEDS: traZODone HCL 100 MG TABLET PO (22:09)
[2022-03-09] MEDS: clonazePAM 1 MG TABLET PO (22:09)
[2022-03-09] MEDS: Melatonin 3 MG TABLET 6 MG PO (22:09)
[2022-03-10 03:13] VITALS: BP 137/64; PULSE 78; RESP 18; TEMP 36; O2SAT 95
[2022-03-10] MEDS: oxyCODONE HCl Immed Release 5 MG TABLET 10 MG PO ×2 (05:00→20:56)
[2022-03-10] MEDS: Omeprazole 20 MG CAPSULE.DR PO ×2 (05:00→17:40)
[2022-03-10] MEDS: Piperacillin Sodium/Tazobactam 4.5 GM in 0.9 % Sodium Chloride 100 ML IV (05:01)
[2022-03-10] MEDS: vancomycin HCL 1,000 MG in 0.9 % Sodium Chloride 250 ML 270 MG IV (06:03)
[2022-03-10 06:34] LABS: Creatinine Clr Calc Pharmacy 100.4; Estimated Glomerular Filt Rate > 60
[2022-03-10 07:20] LABS: Glucose, Whole Blood 79 mg/dL (60-115)
--- NOTE | 2022-03-10 07:25 | HO.PM.IMPN ---
Subjective Subjective Date of Service: 03/10/22 Interval History: Seen in f/u for infected decub ulcer no new issues, has soreness at buttock Review of Systems no fever, mild pain at the buttocks Physical Exam Vital Signs: Vital Signs: Last Vital Signs Temp 96.8 F 03/10/22 03:13 Pulse 78 03/10/22 03:13 Resp 18 03/10/22 03:13 BP 137/64 03/10/22 03:13 Pulse Ox 95 03/10/22 03:13 O2 Del Method 03/10/22 03:13 O2 Flow Rate 2 03/05/22 18:56 BMI result Body Mass Index 20.1 Const: Other: General: AO X 3, no acute distress Resp: CTA bilateral CVS: S1,S2,RRR GI: +BS, NT, no distention Skin: very extensive multiple decub pressure ulcer--see picture for better description Neuro: motor grossly intact Psych: appropriate affect Objective Data Active Medications Acetaminophen (Acetaminophen 325 Mg Tablet) 650 mg PO Q6H PRN PRN Reason: Pain, Mild (Pain Scale 1-3) Last Admin: 03/07/22 13:17 Dose: 650 mg Documented By: REDD Acetaminophen (Acetaminophen 325 Mg Tablet) 325 mg PO BEDTIME [facility] Last Admin: 03/09/22 21:11 Dose: 325 mg Documented By: VALERIY Albuterol Sulfate (Albuterol Sulfate (0.083%) 2.5 Mg/3 Ml Vial.Neb) 2.5 mg INHALE Q4H PRN PRN Reason: wheezing Albuterol Sulfate (Albuterol Sulfate 90 Mcg 8 Gm Inhaler) 2 puff INHALE Q4H PRN PRN Reason: wheezing Ascorbic Acid (Ascorbic Acid 500 Mg Tablet) 500 mg PO DAILY [facility] Last Admin: 03/09/22 07:35 Dose: 500 mg Documented By: REDD Aspirin (Aspirin 81 Mg Tab.Chew) 81 mg PO DAILY [facility] Last Admin: 03/09/22 07:37 Dose: 81 mg Documented By: REDD Baclofen (Baclofen 20 Mg Tablet) 20 mg PO TID [facility] Last Admin: 03/09/22 21:11 Dose: 20 mg Documented By: VALERIY Buspirone HCl (Buspirone Hcl 10 Mg Tablet) 10 mg PO BID [facility] Last Admin: 03/09/22 21:11 Dose: 10 mg Documented By: VALERIY Clonazepam (Clonazepam 1 Mg Tablet) 1 mg PO TID PRN PRN Reason: Anxiety Last Admin: 03/09/22 22:09 Dose: 1 mg Documented By: VALERIY Dextrose (Dextrose 50 % 25 Gm/50 Ml Syringe) 25 gm IVPUSH Q15M PRN; Protocol PRN Reason: per Hypoglycemia Standing Ord. Dicyclomine HCl (Dicyclomine Hcl 10 Mg Capsule) 10 mg PO TID [facility] Last Admin: 03/09/22 21:11 Dose: 10 mg Documented By: VALERIY Docusate Sodium (Docusate Sodium 100 Mg Capsule) 100 mg PO BID PRN PRN Reason: constipation Last Admin: 03/07/22 20:34 Dose: 100 mg Documented By: VALERIY Fluoxetine HCl (Fluoxetine Hcl 20 Mg Capsule) 80 mg PO DAILY [facility] Last Admin: 03/09/22 07:36 Dose: 80 mg Documented By: REDD Gabapentin (Gabapentin 400 Mg Capsule) 400 mg PO TID [facility] Last Admin: 03/09/22 21:11 Dose: 400 mg Documented By: VALERIY Glucose (Glucose Gel 15 Gm Gel..Gram.) 15 gm PO Q15M PRN; Protocol PRN Reason: per Hypoglycemia Standing Ord. Piperacillin Sod/Tazobactam (Sod 4.5 gm/ Sodium Chloride) 100 mls @ 200 mls/hr IV Q6H [facility] Last Infusion: 03/10/22 05:36 Dose: 200 mls/hr Documented By: ADALID Vancomycin HCl 1,000 mg/ (Sodium Chloride) 270 mls @ 270 mls/hr IV Q12H [facility] Last Admin: 03/10/22 06:03 Dose: 270 mls/hr Documented By: ADALID Insulin Human Lispro (Insulin Lispro 100 Unit/Ml 3 Ml Vial) 0 unit SUBCUT QIDACHS [facility]; Protocol Last Admin: 03/09/22 20:44 Dose: Not Given Documented By: VALERIY Non-Admin Reason: No Insulin Coverage Lactulose (Lactulose 20 Gm/30 Ml Solution) 10 gm PO DAILY PRN PRN Reason: Constipation Last Admin: 03/08/22 15:37 Dose: 10 gm Documented By: REDD Magnesium Hydroxide (Milk Of Magnesia 30 Ml Oral.Susp) 30 ml PO DAILY PRN PRN Reason: Constipation Last Admin: 03/07/22 20:32 Dose: 30 ml Documented By: VALERIY Melatonin (Melatonin 3 Mg Tablet) 6 mg PO BEDTIME PRN PRN Reason: Insomnia Last Admin: 03/09/22 22:09 Dose: 6 mg Documented By: VALERIY Melatonin (Melatonin 3 Mg Tablet) 6 mg PO BEDTIME PRN PRN Reason: Sleep Last Admin: 03/08/22 21:27 Dose: 6 mg Documented By: REDD Metoclopramide HCl (Metoclopramide Hcl 10 Mg Tablet) 10 mg PO TID [facility] Last Admin: 03/09/22 21:11 Dose: 10 mg Documented By: VALERIY Mirabegron (Mirabegron 25 Mg Tab.Er.24h) 25 mg PO DAILY [facility] Last Admin: 03/09/22 07:36 Dose: 25 mg Documented By: REDD Montelukast Sodium (Montelukast Sodium 10 Mg Tablet) 10 mg PO BEDTIME [facility] Last Admin: 03/09/22 21:11 Dose: 10 mg Documented By: VALERIY Multivitamins/Vitamin C (Multivitamin Tablet) 1 tab PO DAILY [facility] Last Admin: 03/09/22 07:36 Dose: 1 tab Documented By: REDD Riboflavin (Vitamin (B2) 100 Mg Tablet) 100 mg PO BID [facility] Last Admin: 03/09/22 22:10 Dose: 100 mg Documented By: VALERIY Patient Own ( Methenamine Hippurate 1 Gram Tablet) 1 gm PO BID [facility] Last Admin: 03/09/22 22:10 Dose: 1 gm Documented By: VALERIY Omeprazole (Omeprazole 20 Mg Capsule.Dr) 20 mg PO BID@0630,1630 [facility] Last Admin: 03/10/22 05:00 Dose: 20 mg Documented By: ADALID Ondansetron HCl (Ondansetron Hcl 4 Mg/2 Ml Vial) 4 mg IVPUSH Q8H PRN PRN Reason: Nausea and Vomiting Ondansetron HCl (Ondansetron Odt 4 Mg Tab.Rapdis) 4 mg TRANSLINGU TID [facility] Last Admin: 03/09/22 21:11 Dose: 4 mg Documented By: VALERIY Oxycodone HCl (Oxycodone Hcl Immed Release 5 Mg Tablet) 10 mg PO BEDTIME [facility] Last Admin: 03/09/22 21:10 Dose: 10 mg Documented By: VALERIY Pharmacy Consult (Consult Rx Vancomycin Dosing) 1 each MISCELLANE DAILY PRN PRN Reason: Consult order Polyethylene Glycol (Polyethylene Glycol 3350 17 Gm Powd.Pack) 17 gm PO DAILY PRN PRN Reason: Constipation Last Admin: 03/07/22 18:32 Dose: 17 gm Documented By: REDD Senna (Sennosides 8.6 Mg Tablet) 8.6 mg PO BID [facility] Last Admin: 03/09/22 21:11 Dose: 8.6 mg Documented By: VALERIY Sodium Chloride (0.9 % Sodium Chloride Flush 3 Ml Syringe) 3 ml IVFLUSH QSHIFT [facility] Last Admin: 03/09/22 19:34 Dose: 3 ml Documented By: VALERIY Sucralfate (Sucralfate 1 Gm Tablet) 1 gm PO TIDAC [facility] Last Admin: 03/09/22 15:28 Dose: 1 gm Documented By: REDD Tiotropium [place] (Tiotropium [place] 18 Mcg Cap.W.Dev) 1 puff INHALE RDAILY [facility] Last Admin: 03/09/22 07:45 Dose: 1 puff Documented By: BREANN Trazodone HCl (Trazodone Hcl 100 Mg Tablet) 100 mg PO BEDTIME PRN PRN Reason: Insomnia Last Admin: 03/09/22 22:09 Dose: 100 mg Documented By: VALERIY Vitamin D (Cholecalciferol (Vitamin D3) 25 Mcg Tablet) 25 mcg PO DAILY [facility] Last Admin: 03/09/22 07:37 Dose: 25 mcg Documented By: REDD Labs 03/06/22 09:31 03/10/22 05:20 Labs: Laboratory Results - last 24 hr 03/09/22 03/09/22 03/09/22 11:39 15:43 16:55 Estim Creat Clear Calc Estimated GFR POC Glucose 95 120 H Random Vancomycin 11.6 L 03/09/22 03/10/22 03/10/22 20:03 05:20 07:17 Estim Creat Clear Calc 100.4 Estimated GFR > 60 POC Glucose 141 H 79 Random Vancomycin Assessment and Plan (1) Pressure ulcers of skin of multiple topographic sites: Status: Acute (2) Decubitus ulcer: Status: Acute Plan ? 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 #.? Sepsis due to infected sacral decubitus ulcer -Cutlures negative thus far -continue IV Abx (Zosyn+Vanco) D5, change to PO Doxy and Augmentin - Seen by Dr. Zamora with the following description and recomended the following: She has multiple decubitus ulcers as described above.? She has a stage 3-4 ulcer on the lumbosacral area with thick eschar and some? purulent drainage.? Therefore had to do sharp excisional debridement of this area using scissors to excise full-thickness skin and deep subcutaneous tissue. This area was about 10 x 9 cm A 2nd? ulcer, stage IV, with a thick eschar was also debrided sharply using scissors.? This was about a 10 x 11 cm area on the right? greater trochanterl region.? There was note of exposed bone.? I excised full-thickness of the skin? and thick subcutaneous tissue using fine scissors as well.? Wet to dry dressings were applied both areas.? The other decubitus ulcers? on the knee and the sacrococcygeal area may just need dressing changes with the foam dressings. In view of her immobility, and rigidity, she is at risk for progression of these ulcers and formation of additional or progression of her ulcers down the line. ?She will need good care.? She should be moved side to side every 2 hours. #.? Type A lactic acidosis: Resuscitated with IV crystalloids #.? 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 Essential hypertension:? On atenolol, lisinopril and amlodipine.? Hold in the setting of sepsis, resume as appropriate #.? Lbn-hpqqoqz-ulhstwurj diabetes mellitus:? Hold home anti hyperglycemics.? Initiate Accu-Cheks with sliding scale insulin #.? Mood disorder with insomnia: Continue home mood stabilizers #.? Urinary incontinence with indwelling Bermudez:? Patient likely with chronic pyuria due to chronic bermudez.? if UTI, should be adquately covered with zosyn #.? Chronic opioid use: Continue oxycodone home dosage #.? Gastroparesis with gastroesophageal reflux disease: On reglan # Anemia- hematocrit droped from 33 to 23, no description of acute blood loss? error, repeat hematocrit 24 so real, initial high probably hemocentration, montiror #Pscych deem pt competent and I concur, pt is more interested in going home than rehab DVT prophylaxis: hold heparin d/t anemia above, compression device if H/H stable, then start heparin needd for inpatient: infected decub ulcers requiring iv Abx and Placement Time Spent With Patient Time: Total time managing care of this patient today ____ minutes. Quality Stroke Does the patient have a stroke diagnosis?: No VTE Prior VTE?: No VTE Risk Level:: Medical - moderate - high VTE Device Contraindication: Treatment Not Indicated VTE Drug Contraindication: Treatment Not Indicated
[2022-03-10] MEDS: 0.9 % Sodium Chloride Flush 3 ML SYRINGE IVFLUSH ×3 (07:44→20:54)
[2022-03-10] MEDS: FLUoxetine HCl 20 MG CAPSULE 80 MG PO (07:45)
[2022-03-10] MEDS: Aspirin 81 MG TAB.CHEW PO (07:45)
[2022-03-10] MEDS: busPIRone HCl 10 MG TABLET PO ×2 (07:46→20:58)
[2022-03-10] MEDS: Multivitamin TABLET 1 TAB PO (07:46)
[2022-03-10] MEDS: Amoxicillin/Potassium Clav 875 MG TABLET PO ×2 (07:46→20:55)
[2022-03-10] MEDS: Ascorbic Acid 500 MG TABLET PO (07:46)
[2022-03-10] MEDS: Ondansetron ODT 4 MG TAB.RAPDIS TRANSLINGU ×3 (07:46→20:57)
[2022-03-10] MEDS: Baclofen 20 MG TABLET PO ×3 (07:46→20:57)
[2022-03-10] MEDS: Mirabegron 25 MG TAB.ER.24H PO (07:47)
[2022-03-10] MEDS: Sennosides 8.6 MG TABLET PO ×2 (07:47→20:58)
[2022-03-10] MEDS: Sucralfate 1 GM TABLET PO ×3 (07:47→17:40)
[2022-03-10] MEDS: Metoclopramide HCl 10 MG TABLET PO ×3 (07:47→20:55)
[2022-03-10 07:48] VITALS: PULSE 86; RESP 18; O2SAT 93
[2022-03-10] MEDS: Gabapentin 400 MG CAPSULE PO ×3 (07:48→20:58)
[2022-03-10] MEDS: Doxycycline Monohydrate 100 MG CAPSULE PO ×2 (07:48→20:57)
[2022-03-10] MEDS: Dicyclomine HCl 10 MG CAPSULE PO ×3 (07:49→20:58)
[2022-03-10] MEDS: Cholecalciferol (Vitamin D3) 25 MCG TABLET PO (07:50)
[2022-03-10 08:00] VITALS: BP 136/65; PULSE 79; RESP 20; TEMP 36.2; O2SAT 96
--- NOTE | 2022-03-10 10:40 | MHC.CM.PN ---
EMR REVIEWED, PER PSYCH CONSULT PT WILLING TO D/C TO SNF, REFERRALS TO LOCAL SNFS TO BE PLACED SO PT'S CAN VISIT, PER HOSPITALIST HE WILL REVISIT HOSPICE W/PT, CM WILL CONT TO FOLLOW D/C NEEDS.
[2022-03-10 11:39] LABS: Glucose, Whole Blood 93 mg/dL (60-115)
--- NOTE | 2022-03-10 13:35 | MHC.CLN ---
F/U DIET RX: 1800DM DIET-APPROPRIATE. PT RECEIVING ENSURE MAX TID TO INCREASE PO PROTEIN AND PROMOTE WOUND HEALING. SUPPLEMENT PROVIDES 450 KCALS, 90 G PROTEIN. INTAKE USUALLY 50-100%. CONTINUE TO MONITOR PO INTAKE AND SUPPLEMENT ACCEPTANCE.
[2022-03-10 15:18] VITALS: BP 135/70; PULSE 87; RESP 16; TEMP 36.7; O2SAT 95
[2022-03-10 16:36] LABS: Glucose, Whole Blood 164 mg/dL (60-115)
[2022-03-10] MEDS: Insulin Lispro 100 UNIT/ML 3 ML VIAL SUBCUT (17:18)
[2022-03-10 18:18] LABS: Vancomycin Random 10.2 mcg/mL (15-20)
[2022-03-10 20:00] VITALS: BP 147/73; PULSE 91; RESP 16; TEMP 37.4; O2SAT 95
[2022-03-10 20:30] LABS: Glucose, Whole Blood 85 mg/dL (60-115)
[2022-03-10] MEDS: traZODone HCL 100 MG TABLET PO (20:57)
[2022-03-10] MEDS: Montelukast Sodium 10 MG TABLET PO (20:58)
[2022-03-10] MEDS: Acetaminophen 325 MG TABLET PO (20:59)
[2022-03-11 03:21] VITALS: BP 161/72; PULSE 84; RESP 16; TEMP 36.5; O2SAT 97
[2022-03-11] MEDS: Omeprazole 20 MG CAPSULE.DR PO ×2 (05:58→16:13)
[2022-03-11 07:15] VITALS: BP 159/81; PULSE 102; RESP 20; TEMP 36.2; O2SAT 95
[2022-03-11 07:33] LABS: Glucose, Whole Blood 91 mg/dL (60-115)
[2022-03-11 07:58] VITALS: PULSE 81; RESP 18; O2SAT 94
[2022-03-11] MEDS: 0.9 % Sodium Chloride Flush 3 ML SYRINGE IVFLUSH ×2 (09:44→20:12)
[2022-03-11] MEDS: Dicyclomine HCl 10 MG CAPSULE PO ×3 (09:45→20:12)
[2022-03-11] MEDS: FLUoxetine HCl 20 MG CAPSULE 80 MG PO (09:45)
[2022-03-11] MEDS: Ondansetron ODT 4 MG TAB.RAPDIS TRANSLINGU ×3 (09:45→20:12)
[2022-03-11] MEDS: Ascorbic Acid 500 MG TABLET PO (09:45)
[2022-03-11] MEDS: busPIRone HCl 10 MG TABLET PO ×2 (09:45→20:12)
[2022-03-11] MEDS: Aspirin 81 MG TAB.CHEW PO (09:45)
[2022-03-11] MEDS: Baclofen 20 MG TABLET PO ×3 (09:46→20:12)
[2022-03-11] MEDS: Metoclopramide HCl 10 MG TABLET PO ×3 (09:46→20:12)
[2022-03-11] MEDS: Doxycycline Monohydrate 100 MG CAPSULE PO ×2 (09:46→20:13)
[2022-03-11] MEDS: Gabapentin 400 MG CAPSULE PO ×3 (09:46→20:12)
[2022-03-11] MEDS: Amoxicillin/Potassium Clav 875 MG TABLET PO ×2 (09:46→20:12)
[2022-03-11] MEDS: Cholecalciferol (Vitamin D3) 25 MCG TABLET PO (09:46)
[2022-03-11] MEDS: Mirabegron 25 MG TAB.ER.24H PO (09:46)
[2022-03-11] MEDS: Sennosides 8.6 MG TABLET PO ×2 (09:46→20:12)
[2022-03-11] MEDS: Multivitamin TABLET 1 TAB PO (09:46)
[2022-03-11] MEDS: Sucralfate 1 GM TABLET PO ×3 (09:46→16:13)
[2022-03-11 11:25] LABS: Glucose, Whole Blood 110 mg/dL (60-115)
--- NOTE | 2022-03-11 12:08 | P.PNIM_ITS ---
Subjective Subjective Date of Service: 03/12/22 Interval History: Seen in f/u for infected decub ulcer no new issues, has soreness at buttock Review of Systems no fever, mild pain at the buttocks Physical Exam Vital Signs: Vital Signs: Last Vital Signs Temp 97.1 F 03/11/22 07:15 Pulse 81 03/11/22 07:58 Resp 18 03/11/22 07:58 BP 159/81 H 03/11/22 07:15 Pulse Ox 95 03/11/22 07:15 O2 Del Method 03/11/22 07:15 O2 Flow Rate 2 03/05/22 18:56 BMI result Body Mass Index 20.1 General: AO X 3, no acute distress Resp:? CTA bilateral CVS: S1,S2,RRR GI: +BS, NT, no distention Skin: very extensive multiple decub pressure ulcer--see picture for better description Neuro:? motor grossly intact Psych: appropriate affect Objective Data Active Medications Acetaminophen (Acetaminophen 325 Mg Tablet) 650 mg PO Q6H PRN PRN Reason: Pain, Mild (Pain Scale 1-3) Last Admin: 03/07/22 13:17 Dose: 650 mg Documented By: REDD Albuterol Sulfate (Albuterol Sulfate (0.083%) 2.5 Mg/3 Ml Vial.Neb) 2.5 mg INHALE Q4H PRN PRN Reason: wheezing Albuterol Sulfate (Albuterol Sulfate 90 Mcg 8 Gm Inhaler) 2 puff INHALE Q4H PRN PRN Reason: wheezing Amoxicillin/Clavulanate Potassium (Amoxicillin/Potassium Clav 875 Mg Tablet) 875 mg PO BID [facility] Last Admin: 03/11/22 09:46 Dose: 875 mg Documented By: FREDERIC Ascorbic Acid (Ascorbic Acid 500 Mg Tablet) 500 mg PO DAILY [facility] Last Admin: 03/11/22 09:45 Dose: 500 mg Documented By: FREDERIC Aspirin (Aspirin 81 Mg Tab.Chew) 81 mg PO DAILY [facility] Last Admin: 03/11/22 09:45 Dose: 81 mg Documented By: FREDERIC Baclofen (Baclofen 20 Mg Tablet) 20 mg PO TID [facility] Last Admin: 03/11/22 09:46 Dose: 20 mg Documented By: FREDERIC Buspirone HCl (Buspirone Hcl 10 Mg Tablet) 10 mg PO BID [facility] Last Admin: 03/11/22 09:45 Dose: 10 mg Documented By: FREDERIC Dextrose (Dextrose 50 % 25 Gm/50 Ml Syringe) 25 gm IVPUSH Q15M PRN; Protocol PRN Reason: per Hypoglycemia Standing Ord. Dicyclomine HCl (Dicyclomine Hcl 10 Mg Capsule) 10 mg PO TID [facility] Last Admin: 03/11/22 09:45 Dose: 10 mg Documented By: FREDERIC Docusate Sodium (Docusate Sodium 100 Mg Capsule) 100 mg PO BID PRN PRN Reason: constipation Last Admin: 03/07/22 20:34 Dose: 100 mg Documented By: VALERIY Doxycycline Monohydrate (Doxycycline Monohydrate 100 Mg Capsule) 100 mg PO BID [facility] Last Admin: 03/11/22 09:46 Dose: 100 mg Documented By: FREDERIC Fluoxetine HCl (Fluoxetine Hcl 20 Mg Capsule) 80 mg PO DAILY [facility] Last Admin: 03/11/22 09:45 Dose: 80 mg Documented By: FREDERIC Gabapentin (Gabapentin 400 Mg Capsule) 400 mg PO TID [facility] Last Admin: 03/11/22 09:46 Dose: 400 mg Documented By: FREDERIC Glucose (Glucose Gel 15 Gm Gel..Gram.) 15 gm PO Q15M PRN; Protocol PRN Reason: per Hypoglycemia Standing Ord. Insulin Human Lispro (Insulin Lispro 100 Unit/Ml 3 Ml Vial) 0 unit SUBCUT QIDAS [facility]; Protocol Last Admin: 03/11/22 08:28 Dose: Not Given Documented By: FREDERIC Non-Admin Reason: No Insulin Coverage Lactulose (Lactulose 20 Gm/30 Ml Solution) 10 gm PO DAILY PRN PRN Reason: Constipation Last Admin: 03/08/22 15:37 Dose: 10 gm Documented By: REDD Magnesium Hydroxide (Milk Of Magnesia 30 Ml Oral.Susp) 30 ml PO DAILY PRN PRN Reason: Constipation Last Admin: 03/07/22 20:32 Dose: 30 ml Documented By: VALERIY Melatonin (Melatonin 3 Mg Tablet) 6 mg PO BEDTIME PRN PRN Reason: Insomnia Last Admin: 03/09/22 22:09 Dose: 6 mg Documented By: VALERIY Melatonin (Melatonin 3 Mg Tablet) 6 mg PO BEDTIME PRN PRN Reason: Sleep Last Admin: 03/08/22 21:27 Dose: 6 mg Documented By: REDD Metoclopramide HCl (Metoclopramide Hcl 10 Mg Tablet) 10 mg PO TID [facility] Last Admin: 03/11/22 09:46 Dose: 10 mg Documented By: FREDERIC Mirabegron (Mirabegron 25 Mg Tab.Er.24h) 25 mg PO DAILY [facility] Last Admin: 03/11/22 09:46 Dose: 25 mg Documented By: FREDERIC Montelukast Sodium (Montelukast Sodium 10 Mg Tablet) 10 mg PO BEDTIME [facility] Last Admin: 03/10/22 20:58 Dose: 10 mg Documented By: MARY Multivitamins/Vitamin C (Multivitamin Tablet) 1 tab PO DAILY [facility] Last Admin: 03/11/22 09:46 Dose: 1 tab Documented By: FREDERIC Riboflavin (Vitamin (B2) 100 Mg Tablet) 100 mg PO BID [facility] Last Admin: 03/11/22 09:44 Dose: 100 mg Documented By: FREDERIC Patient Own ( Methenamine Hippurate 1 Gram Tablet) 1 gm PO BID [facility] Last Admin: 03/11/22 09:44 Dose: 1 gm Documented By: FREDERIC Omeprazole (Omeprazole 20 Mg Capsule.Dr) 20 mg PO BID@0630,1630 [facility] Last Admin: 03/11/22 05:58 Dose: 20 mg Documented By: MARY Ondansetron HCl (Ondansetron Hcl 4 Mg/2 Ml Vial) 4 mg IVPUSH Q8H PRN PRN Reason: Nausea and Vomiting Ondansetron HCl (Ondansetron Odt 4 Mg Tab.Rapdis) 4 mg TRANSLINGU TID [facility] Last Admin: 03/11/22 09:45 Dose: 4 mg Documented By: FREDERIC Polyethylene Glycol (Polyethylene Glycol 3350 17 Gm Powd.Pack) 17 gm PO DAILY PRN PRN Reason: Constipation Last Admin: 03/07/22 18:32 Dose: 17 gm Documented By: REDD Senna (Sennosides 8.6 Mg Tablet) 8.6 mg PO BID [facility] Last Admin: 03/11/22 09:46 Dose: 8.6 mg Documented By: FREDERIC Sodium Chloride (0.9 % Sodium Chloride Flush 3 Ml Syringe) 3 ml IVFLUSH QSHIFT [facility] Last Admin: 03/11/22 09:44 Dose: 3 ml Documented By: FREDERIC Sucralfate (Sucralfate 1 Gm Tablet) 1 gm PO TIDAC [facility] Last Admin: 03/11/22 09:46 Dose: 1 gm Documented By: FREDERIC Tiotropium [place] (Tiotropium [place] 18 Mcg Cap.W.Dev) 1 puff INHALE RDAILY [facility] Last Admin: 03/11/22 07:57 Dose: 1 puff Documented By: DEBRA Trazodone HCl (Trazodone Hcl 100 Mg Tablet) 100 mg PO BEDTIME PRN PRN Reason: Insomnia Last Admin: 03/10/22 20:57 Dose: 100 mg Documented By: MARY Vitamin D (Cholecalciferol (Vitamin D3) 25 Mcg Tablet) 25 mcg PO DAILY [facility] Last Admin: 03/11/22 09:46 Dose: 25 mcg Documented By: FREDERIC Labs 03/06/22 09:31 03/10/22 05:20 Labs: Laboratory Results - last 24 hr 03/10/22 03/10/22 03/10/22 16:25 17:39 20:21 POC Glucose 164 H 85 Random Vancomycin 10.2 L 03/11/22 03/11/22 07:17 11:21 POC Glucose 91 110 Random Vancomycin Microbiology Microbiology Results: Microbiology 03/05/22 18:16 Blood Culture - Final Blood - Venous No growth after 5 days. 03/05/22 18:16 Blood Culture - Final Blood - Venous No growth after 5 days. 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 #.? Sepsis due to infected sacral decubitus ulcer -Cutlures negative thus far -continue IV Abx (Zosyn+Vanco) D5, change to PO Doxy and Augmentin - Seen by Dr. Zamora with the following description and recomended the following: She has multiple decubitus ulcers as described above.? She has a stage 3-4 ulcer on the lumbosacral area with thick eschar and some? purulent drainage.? Therefore had to do sharp excisional debridement of this area using scissors to excise full-thickness skin and deep subcutaneous tissue. This area was about 10 x 9 cm A 2nd? ulcer, stage IV, with a thick eschar was also debrided sharply using scissors.? This was about a 10 x 11 cm area on the right? greater trochanterl region.? There was note of exposed bone.? I excised full-thickness of the skin? and thick subcutaneous tissue using fine scissors as well.? Wet to dry dressings were applied both areas.? The other decubitus ulcers? on the knee and the sacrococcygeal area may just need dressing changes with the foam dressings. ?In view of her immobility, and rigidity, she is at risk for progression of these ulcers and formation of additional or progression of her ulcers down the line. ?She will need good care.? She should be moved side to side every 2 hours. patient refused inpast outpatient alternate feeding options -including tpan/peg tube. #.? acute Type A lactic acidosis: Resuscitated an improved with IV crystalloids #.? 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 Essential hypertension:? On atenolol, lisinopril and amlodipine.? Hold in the setting of sepsis, resume as appropriate #.? Dsq-[id number]-[id number] diabetes mellitus:? Hold home anti hyperglycemics.? Initiate Accu-Cheks with sliding scale insulin #.? Mood disorder with insomnia: Continue home mood stabilizers #.? Urinary incontinence with indwelling Bermudez:? Patient likely with chronic pyuria due to chronic bermudez.? if UTI, should be adquately covered with zosyn #.? Chronic opioid use: Continue oxycodone home dosage #.? Gastroparesis with gastroesophageal reflux disease: On reglan # Anemia- h/h:9.2/29.8 seems stable hypoalbumienmia sec to low po inatke : encouraged for po intake /continue diet supplements. #Pscych deem pt competent , pt is more interested in going home than rehab DVT prophylaxis: hold heparin d/t anemia above, compression device if H/H stable, then start heparin needd for inpatient: awaitin Placement Time Spent With Patient Time: Total time managing care of this patient today ____ minutes. Quality Stroke Does the patient have a stroke diagnosis?: No VTE Prior VTE?: No VTE Risk Level:: Medical - moderate - high VTE Device Contraindication: Treatment Not Indicated VTE Drug Contraindication: Treatment Not Indicated
--- NOTE | 2022-03-11 12:11 | HO.WOUNDCONS ---
History of Present Illness Data of Consult Service Date: 03/11/22 Requesting physician: Froy Gao Primary Care Provider: Neel Spencer MD HPI Reason for consult: leg/back wound Severely debilitated 66-year-old female with multiple sclerosis, nonambulatory beyond the point of contracture management (?) who is bed-bound at home. When I spoke to her primary care physician, Dr. Spencer about a month ago, there was some discussion about trying to get a offloading mattress in her home. Problem with this is that it the remaining ability she had to transfer would likely be destroyed. She comes in with sacral infection. She received IV antibiotics. There was a surgical debridement which looks like involve the greater troch. Allevyn dressings are being use with wet to dry. I personally have talked to this patient prior to this hospitalization about end of life choices. She has adamantly declined tube feedings. Her albumin is 2.5. She will be unable to heal or granulate tissue with this profound hypoalbuminemia. This is further confounded by her inability to change positions independently. There is also some speculation that she is not not understanding the gravity of her wounds. Review of Systems Review of Systems: Denies fever, chest pain and shortness of breath. Has pain at wound sites, not sure if hip or rib or sacrum is most painful. Adentitious. Continues to smoke at home despite receommendations to quit. [facility] Medical History Anemia Asthma Bedbound Decubitus ulcer Decubitus ulcer of buttock, unstageable Diabetes Gastroparesis GERD (gastroesophageal reflux disease) Hypertension Insomnia Mood disorder Multiple sclerosis Peripheral neuropathy Sacral decubitus ulcer Stage IV decubitus ulcer Social History Household Members: Spouse Housing: House Do you presently have visiting nurse or other home services: Yes Alcohol intake: current Alcohol intake frequency: holidays/special occasions only Patient Tobacco Use Status: Never used Tobacco Substance Use Type: Marijuana Advance Directives Date on File: 12/11/21 service: No Current occupational status: disabled Meds Allergies Allergy/AdvReac Type Severity Reaction Status Date / Time morphine [Morphine] Allergy Intermediate INCREASED Verified 03/05/22 17:07 HEART RATE/HALLUCINATIONS, hallucinations Active Medications: Current Medications Acetaminophen (Acetaminophen 325 Mg Tablet) 650 mg PO Q6H PRN PRN Reason: Pain, Mild (Pain Scale 1-3) Last Admin: 03/07/22 13:17 Dose: 650 mg Albuterol Sulfate (Albuterol Sulfate (0.083%) 2.5 Mg/3 Ml Vial.Neb) 2.5 mg INHALE Q4H PRN PRN Reason: wheezing Albuterol Sulfate (Albuterol Sulfate 90 Mcg 8 Gm Inhaler) 2 puff INHALE Q4H PRN PRN Reason: wheezing Amoxicillin/Clavulanate Potassium (Amoxicillin/Potassium Clav 875 Mg Tablet) 875 mg PO BID [facility] Last Admin: 03/11/22 09:46 Dose: 875 mg Ascorbic Acid (Ascorbic Acid 500 Mg Tablet) 500 mg PO DAILY [facility] Last Admin: 03/11/22 09:45 Dose: 500 mg Aspirin (Aspirin 81 Mg Tab.Chew) 81 mg PO DAILY [facility] Last Admin: 03/11/22 09:45 Dose: 81 mg Baclofen (Baclofen 20 Mg Tablet) 20 mg PO TID [facility] Last Admin: 03/11/22 09:46 Dose: 20 mg Buspirone HCl (Buspirone Hcl 10 Mg Tablet) 10 mg PO BID [facility] Last Admin: 03/11/22 09:45 Dose: 10 mg Dextrose (Dextrose 50 % 25 Gm/50 Ml Syringe) 25 gm IVPUSH Q15M PRN; Protocol PRN Reason: per Hypoglycemia Standing Ord. Dicyclomine HCl (Dicyclomine Hcl 10 Mg Capsule) 10 mg PO TID [facility] Last Admin: 03/11/22 09:45 Dose: 10 mg Docusate Sodium (Docusate Sodium 100 Mg Capsule) 100 mg PO BID PRN PRN Reason: constipation Last Admin: 03/07/22 20:34 Dose: 100 mg Doxycycline Monohydrate (Doxycycline Monohydrate 100 Mg Capsule) 100 mg PO BID [facility] Last Admin: 03/11/22 09:46 Dose: 100 mg Fluoxetine HCl (Fluoxetine Hcl 20 Mg Capsule) 80 mg PO DAILY [facility] Last Admin: 03/11/22 09:45 Dose: 80 mg Gabapentin (Gabapentin 400 Mg Capsule) 400 mg PO TID [facility] Last Admin: 03/11/22 09:46 Dose: 400 mg Glucose (Glucose Gel 15 Gm Gel..Gram.) 15 gm PO Q15M PRN; Protocol PRN Reason: per Hypoglycemia Standing Ord. Insulin Human Lispro (Insulin Lispro 100 Unit/Ml 3 Ml Vial) 0 unit SUBCUT QIDACHS [facility]; Protocol Last Admin: 03/11/22 08:28 Dose: Not Given Lactulose (Lactulose 20 Gm/30 Ml Solution) 10 gm PO DAILY PRN PRN Reason: Constipation Last Admin: 03/08/22 15:37 Dose: 10 gm Magnesium Hydroxide (Milk Of Magnesia 30 Ml Oral.Susp) 30 ml PO DAILY PRN PRN Reason: Constipation Last Admin: 03/07/22 20:32 Dose: 30 ml Melatonin (Melatonin 3 Mg Tablet) 6 mg PO BEDTIME PRN PRN Reason: Insomnia Last Admin: 03/09/22 22:09 Dose: 6 mg Melatonin (Melatonin 3 Mg Tablet) 6 mg PO BEDTIME PRN PRN Reason: Sleep Last Admin: 03/08/22 21:27 Dose: 6 mg Metoclopramide HCl (Metoclopramide Hcl 10 Mg Tablet) 10 mg PO TID [facility] Last Admin: 03/11/22 09:46 Dose: 10 mg Mirabegron (Mirabegron 25 Mg Tab.Er.24h) 25 mg PO DAILY [facility] Last Admin: 03/11/22 09:46 Dose: 25 mg Montelukast Sodium (Montelukast Sodium 10 Mg Tablet) 10 mg PO BEDTIME [facility] Last Admin: 03/10/22 20:58 Dose: 10 mg Multivitamins/Vitamin C (Multivitamin Tablet) 1 tab PO DAILY [facility] Last Admin: 03/11/22 09:46 Dose: 1 tab Riboflavin (Vitamin (B2) 100 Mg Tablet) 100 mg PO BID [facility] Last Admin: 03/11/22 09:44 Dose: 100 mg Patient Own ( Methenamine Hippurate 1 Gram Tablet) 1 gm PO BID [facility] Last Admin: 03/11/22 09:44 Dose: 1 gm Omeprazole (Omeprazole 20 Mg Capsule.Dr) 20 mg PO BID@0630,1630 [facility] Last Admin: 03/11/22 05:58 Dose: 20 mg Ondansetron HCl (Ondansetron Hcl 4 Mg/2 Ml Vial) 4 mg IVPUSH Q8H PRN PRN Reason: Nausea and Vomiting Ondansetron HCl (Ondansetron Odt 4 Mg Tab.Rapdis) 4 mg TRANSLINGU TID [facility] Last Admin: 03/11/22 09:45 Dose: 4 mg Polyethylene Glycol (Polyethylene Glycol 3350 17 Gm Powd.Pack) 17 gm PO DAILY PRN PRN Reason: Constipation Last Admin: 03/07/22 18:32 Dose: 17 gm Senna (Sennosides 8.6 Mg Tablet) 8.6 mg PO BID [facility] Last Admin: 03/11/22 09:46 Dose: 8.6 mg Sodium Chloride (0.9 % Sodium Chloride Flush 3 Ml Syringe) 3 ml IVFLUSH QSHIFT [facility] Last Admin: 03/11/22 09:44 Dose: 3 ml Sucralfate (Sucralfate 1 Gm Tablet) 1 gm PO TIDAC [facility] Last Admin: 03/11/22 09:46 Dose: 1 gm Tiotropium [place] (Tiotropium [place] 18 Mcg Cap.W.Dev) 1 puff INHALE RDAILY [facility] Last Admin: 03/11/22 07:57 Dose: 1 puff Trazodone HCl (Trazodone Hcl 100 Mg Tablet) 100 mg PO BEDTIME PRN PRN Reason: Insomnia Last Admin: 03/10/22 20:57 Dose: 100 mg Vitamin D (Cholecalciferol (Vitamin D3) 25 Mcg Tablet) 25 mcg PO DAILY [facility] Last Admin: 03/11/22 09:46 Dose: 25 mcg Home Medications Medication Instructions Recorded Confirmed Last Taken Type albuterol sulfate 90 mcg/actuation 2 puff inhalation Q4H PRN wheezing 12/05/21 03/05/22 Unknown History aerosol inhaler amlodipine 10 mg tablet 10 mg PO DAILY 12/05/21 03/05/22 Unknown History atenolol 50 mg tablet 50 mg PO DAILY 12/05/21 03/05/22 Unknown History buspirone 10 mg tablet 10 mg PO BID 12/05/21 03/05/22 Unknown History clonazepam 1 mg tablet 1 mg PO TID PRN Anxiety 12/05/21 03/05/22 Unknown History dicyclomine 10 mg capsule 10 mg PO TID 12/05/21 03/05/22 Unknown History docusate sodium 100 mg capsule 100 mg PO BID PRN constipation 12/05/21 03/05/22 Unknown History fluoxetine 40 mg capsule 80 mg PO DAILY 12/05/21 03/05/22 Unknown History furosemide 40 mg tablet 40 mg PO BID 12/05/21 03/05/22 Unknown History gabapentin 400 mg capsule 400 mg PO TID 12/05/21 03/05/22 Unknown History lisinopril 40 mg tablet 40 mg PO DAILY 12/05/21 03/05/22 Unknown History metformin 500 mg tablet,extended 1,000 mg PO BEDTIME 12/05/21 03/05/22 Unknown History release 24 hr methenamine hippurate 1 gram tablet 1 g PO BID 12/05/21 03/05/22 Unknown History metoclopramide HCl 10 mg tablet 10 mg PO TID 12/05/21 03/05/22 Unknown History mirabegron 25 mg tablet,extended 25 mg PO DAILY 12/05/21 03/05/22 Unknown History release 24 hr (Myrbetriq) omeprazole 20 mg capsule,delayed 20 mg PO BID@0630,1630 12/05/21 03/05/22 Unknown History release ondansetron HCl 4 mg tablet 4 mg PO TID 12/05/21 03/05/22 Unknown History oxycodone-acetaminophen 10 mg-325 1 tab PO BEDTIME pain 12/05/21 03/05/22 Unknown History mg tablet riboflavin (vitamin B2) 100 mg 100 mg PO BID 12/05/21 03/05/22 Unknown History tablet (Vitamin B-2) trazodone 50 mg tablet 100 mg PO BEDTIME PRN Insomnia 12/05/21 03/05/22 Unknown History ascorbic acid (vitamin C) 500 mg 500 mg PO DAILY 12/10/21 03/05/22 Unknown History tablet (Vitamin C) aspirin 81 mg chewable tablet 81 mg PO DAILY 12/10/21 03/05/22 Unknown History baclofen 20 mg tablet 1 tab PO TID 12/10/21 03/05/22 Unknown History cholecalciferol (vitamin D3) 25 25 mcg PO DAILY 12/10/21 03/05/22 Unknown History mcg (1,000 unit) tablet sucralfate 1 gram tablet 1 tab PO TID 12/10/21 03/05/22 Unknown History tiotropium bromide 18 mcg capsule 1 cap inhalation DAILY 12/10/21 03/05/22 Unknown History with inhalation device (Spiriva with HandiHaler) zafirlukast 20 mg tablet 1 tab PO BID 12/10/21 03/05/22 Unknown History albuterol sulfate 2.5 mg/3 mL 3 ml inhalation Q4H PRN wheezing 03/05/22 03/05/22 Unknown History (0.083 %) solution for nebulization lactulose 10 gram/15 mL oral 15 ml PO DAILY PRN Constipation 03/05/22 03/05/22 Unknown History solution melatonin 5 mg tablet 5 mg PO BEDTIME PRN Sleep 03/05/22 03/05/22 Unknown History multivitamin 1 tab PO DAILY 03/05/22 03/05/22 Unknown History sennosides 8.6 mg tablet (senna) 1 tab PO BID 03/05/22 03/05/22 Unknown History Physical Exam Vital Signs and Narrative: Vital Signs: Last Vital Signs Temp 97.1 F 03/11/22 07:15 Pulse 81 03/11/22 07:58 Resp 18 03/11/22 07:58 BP 159/81 H 03/11/22 07:15 Pulse Ox 95 03/11/22 07:15 O2 Del Method 03/11/22 07:15 O2 Flow Rate 2 03/05/22 18:56 BMI result Body Mass Index 20.1 I did not view the left medial knee. I did not view the right medial ankle. These are covered with Allevyn. The surgical area on the right greater troch looks to have healthy tissue, it is down to muscle. Wet to dry dressing is observed in the wound bed. The left posterior rib wound is nearly down to bone without convincing improvement by way of granulation. Because of her impaired mobility, I was not able to get a good look at her sacrum but this is been at the stage 3 prior to this hospitalization. Results Labs 03/06/22 09:31 03/10/22 05:20 Labs: Laboratory Results - last 24 hr 03/10/22 03/10/22 03/10/22 16:25 17:39 20:21 POC Glucose 164 H 85 Random Vancomycin 10.2 L 03/11/22 03/11/22 07:17 11:21 POC Glucose 91 110 Random Vancomycin Assessment and Plan (1) Stage IV decubitus ulcer: Status: Acute Plan Debilitated 66-year-old patient with multiple sclerosis and severely impaired mobility with associated pressure ulcers from malnutrition and immobility. I think her prognosis is poor. I have talked to her personally about end of life choices and she continues to discuss this with option with her . On the flip side, she looks brighter than usual today. Would seriously consider either TPN or tube feeding which she has declined in the past. The ensure on her bedside table is half gone, she has not been able to overcome this nutritional deficit orally at home. She does not take significant enough protein calorie nutrition in the outpatient setting as evidenced by her low albumin. Consider a calorie count. Consider aggressive nutritional support after RD calculates I&Os. She will need 24 hour care for bed mobility to help her with offloading. Change position q 2 hours while awake. She refused residential care when offered in the outpatient setting. Without these interventions, her prognosis for wound healing is grim. Consider physical medicine rehabilitation consultation if available for Botox, given severe spasticity, this may not even be helpful. Additionally, if her spasticity is better managed, it is unlikely that she will be able to bear weight without max assist because of weakness. PT eval may help justify rehab needs if she agrees to go to a facility. I suspect she would be inclined to go home based on her desires expressed both today and in the past. Choice of topical dressing is deferred to surgery, futile because new tissue cannot granulate in the setting of longstanding pressure injury, debility and severe protein calorie nutrition. Palliative and hospice care was considered prior to this hospitalization but not initiated (to the best of my knowledge). Time Spent With Patient Time: Total time managing care of this patient today ____ minutes.
[2022-03-11 12:36] LABS: Hematocrit 29.8 % (37.0-47.0); Hemoglobin 9.2 g/dl (12.0-16.0)
[2022-03-11] MEDS: Acetaminophen 325 MG TABLET 650 MG PO (13:10)
[2022-03-11] MEDS: traZODone HCL 25 MG HALFTAB PO (13:11)
--- NOTE | 2022-03-11 14:04 | MHC.CM.PN ---
EMR REVIEWED, CM MET W/HOSPITALIST AND THEN W/PT AT BEDSIDE W/HER LEEANNE ON PHONE, DISPO DISCUSSED AND PT IS ADAMANT ABOUT NOT HAVING A GTUBE PLACED AND CM REINFORCED MULTIPLE TIMES THAT PT'S WOUNDS WILL NOT GET BETTER WITHOUT PER WOUND CONSULT HOWEVER THERE ARE NO GUARANTEES, PT'S REPORTS HE WILL COME OVER FOR VISIT AND DISCUSS PLAN W/PT HOWEVER LEEANNE DOES NOT SEEM TO UNDERSTAND THAT PT'S WOUNDS WILL NOT IMPROVE ALTHOUGH HE IS AGREEABLE TO PT RETURNING HOME ON HOSPICE. CM WILL SEND REFERRAL FOR HOSPICE W/BEACON PT IS ACTIVE W/AMEDYSIS AND FOLLOW-UP W/PT'S IN AM.
[2022-03-11 14:47] LABS: Albumin Level 2.1 g/dL (3.5-5.0)
[2022-03-11 15:24] LABS: Glucose, Whole Blood 177 mg/dL (60-115)
[2022-03-11 15:39] VITALS: BP 144/72; PULSE 108; RESP 18; TEMP 35.8; O2SAT 95
[2022-03-11 15:55] VITALS: TEMP 36.1
[2022-03-11] MEDS: Insulin Lispro 100 UNIT/ML 3 ML VIAL SUBCUT (16:14)
--- NOTE | 2022-03-11 16:17 | MHC.CM.PN ---
HOSPICE REFERRAL SENT TO [facility] AND PER [facility], THEY WILL SET UP INFORMATIONAL MEETING WITH PATIENT AND . CM WILL CONTINUE TO FOLLOW.
[2022-03-11] MEDS: polyethylene glycoL 3350 17 GM POWD.PACK PO (16:21)
[2022-03-11 19:46] VITALS: BP 136/76; PULSE 80; RESP 17; TEMP 37.4; O2SAT 96
[2022-03-11 20:05] LABS: Glucose, Whole Blood 67 mg/dL (60-115)
[2022-03-11] MEDS: traZODone HCL 100 MG TABLET PO (20:12)
[2022-03-11] MEDS: Montelukast Sodium 10 MG TABLET PO (20:12)
[2022-03-12 03:54] VITALS: BP 131/59; PULSE 90; RESP 16; TEMP 36.6; O2SAT 96
[2022-03-12] MEDS: Omeprazole 20 MG CAPSULE.DR PO ×2 (05:42→16:59)
[2022-03-12 07:42] VITALS: BP 140/63; PULSE 89; RESP 17; TEMP 37.3; O2SAT 95
[2022-03-12 07:50] LABS: Glucose, Whole Blood 89 mg/dL (60-115)
[2022-03-12] MEDS: Ondansetron ODT 4 MG TAB.RAPDIS TRANSLINGU ×3 (08:00→20:35)
[2022-03-12] MEDS: Mirabegron 25 MG TAB.ER.24H PO (08:00)
[2022-03-12] MEDS: Doxycycline Monohydrate 100 MG CAPSULE PO ×2 (08:01→20:35)
[2022-03-12] MEDS: Baclofen 20 MG TABLET PO ×3 (08:01→20:35)
[2022-03-12] MEDS: Sennosides 8.6 MG TABLET PO ×2 (08:01→20:34)
[2022-03-12] MEDS: Sucralfate 1 GM TABLET PO ×3 (08:01→16:59)
[2022-03-12] MEDS: Dicyclomine HCl 10 MG CAPSULE PO ×3 (08:01→20:34)
[2022-03-12] MEDS: Cholecalciferol (Vitamin D3) 25 MCG TABLET PO (08:01)
[2022-03-12] MEDS: FLUoxetine HCl 20 MG CAPSULE 80 MG PO (08:01)
[2022-03-12] MEDS: Multivitamin TABLET 1 TAB PO (08:01)
[2022-03-12] MEDS: Gabapentin 400 MG CAPSULE PO ×3 (08:01→20:34)
[2022-03-12] MEDS: Ascorbic Acid 500 MG TABLET PO (08:01)
[2022-03-12] MEDS: Metoclopramide HCl 10 MG TABLET PO ×3 (08:02→20:34)
[2022-03-12] MEDS: busPIRone HCl 10 MG TABLET PO ×2 (08:02→20:35)
[2022-03-12] MEDS: Aspirin 81 MG TAB.CHEW PO (08:02)
[2022-03-12] MEDS: Amoxicillin/Potassium Clav 875 MG TABLET PO ×2 (08:02→20:35)
[2022-03-12] MEDS: 0.9 % Sodium Chloride Flush 3 ML SYRINGE IVFLUSH ×2 (08:02→16:13)
--- NOTE | 2022-03-12 08:04 | P.CDIC_ITS ---
CDI Concurrent Query Documentation Clarification: PHYSICIAN'S DOCUMENTATION REQUEST Date of Query: 03/12/22 0804 Patient Name: Breana Morfin Admit Date: 03/05/22 Dear Doctor, A review of the medical record indicates additional documentation may be needed. Please review below and update the documentation accordingly. Clinical Indicators: Is there a diagnosis that correlates with these lab findings: Risk Factors/Clinical Indicators/Treatments LABS: albumin 2.1 L Patient does not take enough protein calorie nutrition in outpatient setting. Based on the above, could you clarify in the Progress Notes the appropriate diagnosis, if significant, that supports the above abnormalities and additional evaluation, monitoring, and/or treatment rendered: * Hypoalbuminemia or other etiology of lab findings * Labs indicate a diagnosis of (please specify) * Other (please specify) * Unable to determine Use of terms such as suspected, likely, concern for, or probable (associated with a specific diagnosis that is being evaluated, monitored, or treated as if it exists) are acceptable and can be coded in the inpatient setting, when documented at the time of discharge. Thank you, Bela Torre [facility], CDIS Extension: [phone] Please use your independent medical judgment in providing your response. THIS QUERY IS PART OF THE PERMANENT MEDICAL RECORD Provider Response: Other Other Diagnosis: Hypoalbuminemia secondary to low oral intake, also has multiple pressure ulcers
--- NOTE | 2022-03-12 08:07 | MHC.CDI.CONC ---
CDI Concurrent Query Documentation Clarification: cdiPHYSICIAN'S DOCUMENTATION REQUEST Date of Query: 03/12/22 0808 Patient Name: Breana Morfin Admit Date: 03/05/22 Dear Doctor, A review of the medical record indicates additional documentation may be needed. Please review below and update the documentation accordingly. Clinical Indicators: Acuity: Risk Factors/Clinical Indicators/Treatments PN 03/11 - Assessment/plan: Type A lactic acidosis Resuscitated with IV crystalloids. Based on the above, could you clarify in the Progress Notes the appropriate diagnosis, if significant, that supports the above abnormalities and additional evaluation, monitoring, and/or treatment rendered: Acute lactic acidosis Acute type A lactic acidosis Type A lactic acidosis Labs indicate a diagnosis of (please specify) Other (please specify) Unable to determine Use of terms such as suspected, likely, concern for, or probable (associated with a specific diagnosis that is being evaluated, monitored, or treated as if it exists) are acceptable and can be coded in the inpatient setting, when documented at the time of discharge. Thank you, Bela Torre [facility] [place], CDIS Extension: [phone] Please use your independent medical judgment in providing your response. THIS QUERY IS PART OF THE PERMANENT MEDICAL RECORD Provider Response: Other Other Diagnosis: Acute type a lactic acidosis
--- NOTE | 2022-03-12 10:38 | MHC.CLN ---
F/U DIET RX: 1800DM DIET-APPROPRIATE. PT RECEIVING ENSURE MAX TID TO INCREASE PO PROTEIN AND PROMOTE WOUND HEALING. SUPPLEMENT PROVIDES 450 KCALS, 90 G PROTEIN. INTAKE USUALLY 50-100%. PATIENT WITH MULTIPLE WOUNDS. SEE WOUND ASSESSMENT. CONTINUE TO MONITOR PO INTAKE AND SUPPLEMENT ACCEPTANCE.
[2022-03-12 11:24] LABS: Glucose, Whole Blood 106 mg/dL (60-115)
[2022-03-12] MEDS: oxyCODONE HCl Immed Release 5 MG TABLET 10 MG PO (12:10)
--- NOTE | 2022-03-12 13:21 | MHC.CM.PN ---
EMR REVIEWED, PER [facility] THEY HAD DIFFICULTY GETTING IN TOUCH WITH YESTERDAY HOWEVER THEY WERE ABLE TO GET IN TOUCH TODAY AND HOSPICE INFORMATIONAL WILL BE DONE AT 2PM TODAY, CM WILL FOLLOW UP W/[facility] ONCE INFORMATIONALLY IS COMPLETE.
--- NOTE | 2022-03-12 14:31 | HO.PM.IMPN ---
Subjective Subjective Date of Service: 03/12/22 Interval History: Seen in f/u for infected decub ulcer no new issues, has soreness at buttock Review of Systems no fever, mild pain at the buttocks no fever no new overnight events . Physical Exam Vital Signs: Vital Signs: Last Vital Signs Temp 99.1 F 03/12/22 07:42 Pulse 89 03/12/22 07:42 Resp 17 03/12/22 07:42 BP 140/63 H 03/12/22 07:42 Pulse Ox 95 03/12/22 07:42 O2 Del Method 03/12/22 07:42 O2 Flow Rate 2 03/05/22 18:56 BMI result Body Mass Index 20.1 General: AO X 3, no acute distress Resp:? CTA bilateral CVS: S1,S2,RRR GI: +BS, NT, no distention Skin: very extensive multiple decub pressure ulcer--see picture for better description Neuro:? motor grossly intact Psych: appropriate affect Objective Data Active Medications Acetaminophen (Acetaminophen 325 Mg Tablet) 650 mg PO Q6H PRN PRN Reason: Pain, Mild (Pain Scale 1-3) Last Admin: 03/11/22 13:10 Dose: 650 mg Documented By: FREDERIC Albuterol Sulfate (Albuterol Sulfate (0.083%) 2.5 Mg/3 Ml Vial.Neb) 2.5 mg INHALE Q4H PRN PRN Reason: wheezing Albuterol Sulfate (Albuterol Sulfate 90 Mcg 8 Gm Inhaler) 2 puff INHALE Q4H PRN PRN Reason: wheezing Amoxicillin/Clavulanate Potassium (Amoxicillin/Potassium Clav 875 Mg Tablet) 875 mg PO BID [facility] Last Admin: 03/12/22 08:02 Dose: 875 mg Documented By: FREDERIC Ascorbic Acid (Ascorbic Acid 500 Mg Tablet) 500 mg PO DAILY [facility] Last Admin: 03/12/22 08:01 Dose: 500 mg Documented By: FREDERIC Aspirin (Aspirin 81 Mg Tab.Chew) 81 mg PO DAILY [facility] Last Admin: 03/12/22 08:02 Dose: 81 mg Documented By: FREDERIC Baclofen (Baclofen 20 Mg Tablet) 20 mg PO TID [facility] Last Admin: 03/12/22 08:01 Dose: 20 mg Documented By: FREDERIC Buspirone HCl (Buspirone Hcl 10 Mg Tablet) 10 mg PO BID [facility] Last Admin: 03/12/22 08:02 Dose: 10 mg Documented By: FREDERIC Dextrose (Dextrose 50 % 25 Gm/50 Ml Syringe) 25 gm IVPUSH Q15M PRN; Protocol PRN Reason: per Hypoglycemia Standing Ord. Dicyclomine HCl (Dicyclomine Hcl 10 Mg Capsule) 10 mg PO TID [facility] Last Admin: 03/12/22 08:01 Dose: 10 mg Documented By: FREDERIC Docusate Sodium (Docusate Sodium 100 Mg Capsule) 100 mg PO BID PRN PRN Reason: constipation Last Admin: 03/07/22 20:34 Dose: 100 mg Documented By: VALERIY Doxycycline Monohydrate (Doxycycline Monohydrate 100 Mg Capsule) 100 mg PO BID [facility] Last Admin: 03/12/22 08:01 Dose: 100 mg Documented By: FREDERIC Fluoxetine HCl (Fluoxetine Hcl 20 Mg Capsule) 80 mg PO DAILY [facility] Last Admin: 03/12/22 08:01 Dose: 80 mg Documented By: FREDERIC Gabapentin (Gabapentin 400 Mg Capsule) 400 mg PO TID [facility] Last Admin: 03/12/22 08:01 Dose: 400 mg Documented By: FREDERIC Glucose (Glucose Gel 15 Gm Gel..Gram.) 15 gm PO Q15M PRN; Protocol PRN Reason: per Hypoglycemia Standing Ord. Insulin Human Lispro (Insulin Lispro 100 Unit/Ml 3 Ml Vial) 0 unit SUBCUT QIDACHS [facility]; Protocol Last Admin: 03/12/22 11:32 Dose: Not Given Documented By: FREDERIC Non-Admin Reason: No Insulin Coverage Lactulose (Lactulose 20 Gm/30 Ml Solution) 10 gm PO DAILY PRN PRN Reason: Constipation Last Admin: 03/08/22 15:37 Dose: 10 gm Documented By: REDD Magnesium Hydroxide (Milk Of Magnesia 30 Ml Oral.Susp) 30 ml PO DAILY PRN PRN Reason: Constipation Last Admin: 03/07/22 20:32 Dose: 30 ml Documented By: VALERIY Melatonin (Melatonin 3 Mg Tablet) 6 mg PO BEDTIME PRN PRN Reason: Insomnia Last Admin: 03/09/22 22:09 Dose: 6 mg Documented By: VALERIY Melatonin (Melatonin 3 Mg Tablet) 6 mg PO BEDTIME PRN PRN Reason: Sleep Last Admin: 03/08/22 21:27 Dose: 6 mg Documented By: REDD Metoclopramide HCl (Metoclopramide Hcl 10 Mg Tablet) 10 mg PO TID [facility] Last Admin: 03/12/22 08:02 Dose: 10 mg Documented By: FREDERIC Mirabegron (Mirabegron 25 Mg Tab.Er.24h) 25 mg PO DAILY [facility] Last Admin: 03/12/22 08:00 Dose: 25 mg Documented By: FREDERIC Montelukast Sodium (Montelukast Sodium 10 Mg Tablet) 10 mg PO BEDTIME [facility] Last Admin: 03/11/22 20:12 Dose: 10 mg Documented By: VALERIY Multivitamins/Vitamin C (Multivitamin Tablet) 1 tab PO DAILY [facility] Last Admin: 03/12/22 08:01 Dose: 1 tab Documented By: FREDERIC Riboflavin (Vitamin (B2) 100 Mg Tablet) 100 mg PO BID [facility] Last Admin: 03/12/22 08:02 Dose: 100 mg Documented By: FREDERIC Patient Own ( Methenamine Hippurate 1 Gram Tablet) 1 gm PO BID [facility] Last Admin: 03/12/22 08:02 Dose: 1 gm Documented By: FREDERIC Omeprazole (Omeprazole 20 Mg Capsule.Dr) 20 mg PO BID@0630,1630 [facility] Last Admin: 03/12/22 05:42 Dose: 20 mg Documented By: VALERIY Ondansetron HCl (Ondansetron Hcl 4 Mg/2 Ml Vial) 4 mg IVPUSH Q8H PRN PRN Reason: Nausea and Vomiting Ondansetron HCl (Ondansetron Odt 4 Mg Tab.Rapdis) 4 mg TRANSLINGU TID [facility] Last Admin: 03/12/22 08:00 Dose: 4 mg Documented By: FREDERIC Oxycodone HCl (Oxycodone Hcl Immed Release 5 Mg Tablet) 10 mg PO Q6H PRN PRN Reason: Pain, Mild (Pain Scale 1-3) Last Admin: 03/12/22 12:10 Dose: 10 mg Documented By: ADALID Polyethylene Glycol (Polyethylene Glycol 3350 17 Gm Powd.Pack) 17 gm PO DAILY PRN PRN Reason: Constipation Last Admin: 03/11/22 16:21 Dose: 17 gm Documented By: MAKENZIE-SOFFA Senna (Sennosides 8.6 Mg Tablet) 8.6 mg PO BID [facility] Last Admin: 03/12/22 08:01 Dose: 8.6 mg Documented By: FREDERIC Sodium Chloride (0.9 % Sodium Chloride Flush 3 Ml Syringe) 3 ml IVFLUSH QSHIFT [facility] Last Admin: 03/12/22 08:02 Dose: 3 ml Documented By: FREDERIC Sucralfate (Sucralfate 1 Gm Tablet) 1 gm PO TIDAC [facility] Last Admin: 03/12/22 12:10 Dose: 1 gm Documented By: ADALID Tiotropium Hamilton (Tiotropium Hamilton 18 Mcg Cap.W.Dev) 1 puff INHALE RDAILY [facility] Last Admin: 03/12/22 07:50 Dose: Not Given Documented By: DEBRA Non-Admin Reason: Patient Refused Trazodone HCl (Trazodone Hcl 100 Mg Tablet) 100 mg PO BEDTIME PRN PRN Reason: Insomnia Last Admin: 03/11/22 20:12 Dose: 100 mg Documented By: VALERIY Vitamin D (Cholecalciferol (Vitamin D3) 25 Mcg Tablet) 25 mcg PO DAILY [facility] Last Admin: 03/12/22 08:01 Dose: 25 mcg Documented By: FREDERIC Labs 03/11/22 12:19 03/10/22 05:20 Labs: Laboratory Results - last 24 hr 03/10/22 03/11/22 03/11/22 05:20 15:20 20:01 POC Glucose 177 H 67 Albumin 2.1 L Prealbumin 12.0 L 03/12/22 03/12/22 07:26 11:18 POC Glucose 89 106 Albumin Prealbumin Assessment and Plan (1) Hypoalbuminemia: Status: Acute (2) Stage IV decubitus ulcer: Status: Acute Plan 66-year-old female with pertinent history of 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 #.? Sepsis due to infected sacral decubitus ulcer -Cutlures negative thus far -continue IV Abx (Zosyn+Vanco) D5, change to PO Doxy and Augmentin - Seen by Dr. Zamora with the following description and recomended the following: She has multiple decubitus ulcers as described above.? She has a stage 3-4 ulcer on the lumbosacral area with thick eschar and some? purulent drainage.? Therefore had to do sharp excisional debridement of this area using scissors to excise full-thickness skin and deep subcutaneous tissue. This area was about 10 x 9 cm A 2nd? ulcer, stage IV, with a thick eschar was also debrided sharply using scissors.? This was about a 10 x 11 cm area on the right? greater trochanterl region.? There was note of exposed bone.? I excised full-thickness of the skin? and thick subcutaneous tissue using fine scissors as well.? Wet to dry dressings were applied both areas.? The other decubitus ulcers? on the knee and the sacrococcygeal area may just need dressing changes with the foam dressings. ?In view of her immobility, and rigidity, she is at risk for progression of these ulcers and formation of additional or progression of her ulcers down the line. ?She will need good care.? She should be moved side to side every 2 hours. #.? acute Type A lactic acidosis: Resuscitated an improved with IV crystalloids #.? 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 Essential hypertension:? On atenolol, lisinopril and amlodipine.? Hold in the setting of sepsis, resume as appropriate #.? Wpr-aoseyfz-mqkyhkkff diabetes mellitus:? Hold home anti hyperglycemics.? Initiate Accu-Cheks with sliding scale insulin #.? Mood disorder with insomnia: Continue home mood stabilizers #.? Urinary incontinence with indwelling Bermudez:? Patient likely with chronic pyuria due to chronic bermudez.? if UTI, should be adquately covered with zosyn #.? Chronic opioid use: Continue oxycodone home dosage #.? Gastroparesis with gastroesophageal reflux disease: On reglan # Anemia- h/h:9.2/29.8 seems stable hypoalbumienmia sec to low po inatke,also has multiple pressure ulcers : encouraged for po intake /continue diet supplements. patient refused inpast outpatient alternate feeding options -including tpn/peg tube outpatient and currently. #Pscych deem pt competent , pt is more interested in going home than rehab DVT prophylaxis: hold heparin d/t anemia above, compression device if H/H stable, then start heparin Time Spent With Patient Time: Total time managing care of this patient today ____ minutes. Quality Stroke Does the patient have a stroke diagnosis?: No VTE Prior VTE?: No VTE Risk Level:: Medical - moderate - high VTE Device Contraindication: Treatment Not Indicated VTE Drug Contraindication: Treatment Not Indicated
--- NOTE | 2022-03-12 15:18 | PC.NURSE ---
All 12 pressure wound dressings changed. all cleaned with ns then packed with ns soaked gauze anchored with foam dsg. no sign of healing. all wounds measured and document in computer yesterday.
[2022-03-12 15:25] VITALS: BP 124/84; PULSE 99; RESP 18; TEMP 36.7; O2SAT 97
--- NOTE | 2022-03-12 15:53 | MHC.CM.PN ---
CM MET W/PT, PT'S , PT'S RD MANAGER WHO LIVES NEXT DOOR AND [facility] PROCESS OPERATOR FOR INFORMATIONAL WHICH LASTED APPROX JUST OVER AN HOUR, HOSPICE SERVICES EXPLAINED NURSE ANSWERED SEVERAL QUESTION THAT BOTH PT AND HAD AND PT WOULD LIKE HER DCP TO BE HOME W/HOSPICE AND WILL COMPLETE A MOLST IN AM. PER HOSPICE NURSE BED WILL BE DELIVERED BETWEEN 11AM-3PM W/HOSPICE INTAKE TOMORROW AFTERNOON. HOSPITALIST AWARE.
[2022-03-12 16:48] LABS: Glucose, Whole Blood 142 mg/dL (60-115)
[2022-03-12 19:15] VITALS: BP 156/72; PULSE 89; RESP 18; TEMP 37.1; O2SAT 96
[2022-03-12 20:12] LABS: Glucose, Whole Blood 126 mg/dL (60-115)
[2022-03-12] MEDS: Montelukast Sodium 10 MG TABLET PO (20:34)
[2022-03-12] MEDS: traZODone HCL 100 MG TABLET PO (20:35)
[2022-03-13] MEDS: 0.9 % Sodium Chloride Flush 3 ML SYRINGE IVFLUSH ×2 (01:02→10:18)
[2022-03-13 03:31] VITALS: BP 144/70; PULSE 85; RESP 17; TEMP 36.1; O2SAT 95
--- NOTE | 2022-03-13 04:32 | PC.NURSE ---
PATIENT REPOSITIONED EVERY 2 HOURS AND PRN, NO COMPLAINTS OF PAIN,, LUNG IRWIN DIM, 95-96% ROOM AIR, AIR LOSS MATTRESS IN USE, BLANCO CATHETER DRAINING YELLOW URINE, ALL FOAM DRESSINGS TO PRESSURE ULCERS (12) C-D-I. LEG EDEMA +1-2, POSITIONED WITH PILLOWS FOR COMFORT AND SKIN INTEGRITY.
[2022-03-13] MEDS: Omeprazole 20 MG CAPSULE.DR PO (05:57)
[2022-03-13 07:17] LABS: Glucose, Whole Blood 100 mg/dL (60-115)
[2022-03-13 08:00] VITALS: BP 159/65; PULSE 89; RESP 18; TEMP 37.4; O2SAT 95
--- NOTE | 2022-03-13 08:57 | P.CDIC_ITS ---
CDI Concurrent Query Documentation Clarification: PHYSICIAN'S DOCUMENTATION REQUEST Date of Query: 03/13/22 0858 Patient Name: Breana Morfin Admit Date: 03/05/22 Dear Doctor, A review of the medical record indicates additional documentation may be needed. Please review below and update the documentation accordingly. Clinical Indicators: Risk Factors/Clinical Indicators/Treatments Progress note 03/11 - Assessment/plan: Urinary incontinence with indwelling bermudez, likely chronic pyuria due to chronic bermudez. If UTI, should be covered with Zosyn. Please clarify the following: Urinary tract infection: * [Diagnosis] was present on admission and is now resolved * [Diagnosis] was present on admission and is still being monitored, evaluated, or treated * [Diagnosis] was ruled out * [Diagnosis] is still a likely, suspected, probable diagnosis * Other (please specify) * Unable to determine Use of terms such as suspected, likely, concern for, or probable (associated with a specific diagnosis that is being evaluated, monitored, or treated as if it exists) are acceptable and can be coded in the inpatient setting, when documented at the time of discharge. Thank you, Bela Torre [facility], CDIS Extension: [phone] Please use your independent medical judgment in providing your response. THIS QUERY IS PART OF THE PERMANENT MEDICAL RECORD Provider Response: Other Other Diagnosis: unlikely uti
--- NOTE | 2022-03-13 09:43 | MHC.CM.PN ---
CM CONTACTED PT'S LEEANNE AT 9:35AM AT NUMBER ON FILE, LEEANNE AWAKE AND CM CLARIFIED SIZE OF SHEETS NEEDED FOR HOSPITAL BED AND REINFORCED THE SEVERITY OF PT'S WOUNDS AND ROLE OF HOSPICE, LEEANNE VERBALIZED UNDERSTANDING AND REPORTS PT'S HOSPITALIST ALSO MADE HIM AWARE. LEEANNE REPORTS PT'S ROTOR BALANCER/NEIGHBOR VAISHALI WILL BE OVER THIS MORNING TO ORGANIZE BEDROOM/ LIVING ROOM PRIOR TO BED DELIVERY, LEEANNE GIVEN CM CONTACT INFO AND WILL CALL CM ONCE BED IS DELIVERED.
[2022-03-13] MEDS: FLUoxetine HCl 20 MG CAPSULE 80 MG PO (10:15)
[2022-03-13] MEDS: Dicyclomine HCl 10 MG CAPSULE PO ×2 (10:15→15:30)
[2022-03-13] MEDS: Amoxicillin/Potassium Clav 875 MG TABLET PO (10:15)
[2022-03-13] MEDS: Baclofen 20 MG TABLET PO ×2 (10:15→15:30)
[2022-03-13] MEDS: Ondansetron ODT 4 MG TAB.RAPDIS TRANSLINGU ×2 (10:15→15:30)
[2022-03-13] MEDS: Sennosides 8.6 MG TABLET PO (10:15)
[2022-03-13] MEDS: Doxycycline Monohydrate 100 MG CAPSULE PO (10:15)
[2022-03-13] MEDS: Metoclopramide HCl 10 MG TABLET PO ×2 (10:15→15:29)
[2022-03-13] MEDS: Aspirin 81 MG TAB.CHEW PO (10:16)
[2022-03-13] MEDS: Ascorbic Acid 500 MG TABLET PO (10:16)
[2022-03-13] MEDS: Gabapentin 400 MG CAPSULE PO ×2 (10:16→15:29)
[2022-03-13] MEDS: Mirabegron 25 MG TAB.ER.24H PO (10:16)
[2022-03-13] MEDS: Multivitamin TABLET 1 TAB PO (10:16)
[2022-03-13] MEDS: busPIRone HCl 10 MG TABLET PO (10:16)
[2022-03-13] MEDS: Cholecalciferol (Vitamin D3) 25 MCG TABLET PO (10:16)
--- NOTE | 2022-03-13 11:25 | MHC.CM.PN ---
PT MEDICALLY CLEARED FOR D/C HOME ON HOSPICE W/[facility] FOR BLS TRANSPORT. PER ELECTRONICS DEPARTMENT MANAGER A PRESSURE MATTRESS HAS BEEN ORDERED FOR PT AND PLAN IS FOR A 3:30PM D/C.
[2022-03-13 11:55] LABS: Glucose, Whole Blood 100 mg/dL (60-115)
[2022-03-13] MEDS: Sucralfate 1 GM TABLET PO (11:56)
--- NOTE | 2022-03-13 12:55 | P.DS_ITS ---
DS: Providers Provider Date of Service: 03/13/22 Date of admission: 03/05/22 20:57 Primary care physician: Neel Spencer MD Consults: 03/05/22 21:00 Consult to General Surgery Routine Consulting Provider: Poncho Zamora Reason for consultation: sacral decubitus 03/08/22 08:45 Consult to Psychiatry Routine Consulting Provider: Psych Covering Reason for consultation: assess compentency Has provider been notified: No 03/11/22 09:33 Consult to Wound Care Routine Consulting Provider: 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 Patient states she has been bed-bound for the last 19 years.? She has PCI at home who noticed that the ulcer had been worsening.? It was associated with purulent foul-smelling drainage and hence she was told to come to the ER.? She endorses poor appetite but denies fever, chills, chest discomfort, palpitations, shortness of breath, abdominal pain or changes in urinary or bowel habits. In the emergency department, foul-smelling unstageable sacral decubiti noted. Hospital course: Patient admitted-for multiple sacral ulcers, intially met sepsis criteria: Started on IV antibiotics also patient had debridement during this admission: Blood culture negative, wounds does not seem infected, p.o. antibiotic started for possible superficial infection,plan to continue for 1 week. 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 d/w patient and her -decided for hospice. acute Type A lactic acidosis: Resuscitated an improved with IV crystalloids. Anemia- h/h:9.2/29.8 seems stable Patient is also having these discussions out patiently with PCP and Wound Care- plan was to consider hospice, patient will be going home with hospice and dressing change daily(currently). Patient has chronic pyuria, no symptoms, unlikely UTI. Further management deferred to outpatient hospice. Time Spent with Patient Time attestation: Total time managing care of this patient today ____ minutes. Discharge coordination time: Greater than 30 minutes Quality: Safe Use of Opioids Does Pt have an Active Cancer Diagnosis on the Problem List?: No Quality: Stroke Does the patient have a stroke diagnosis?: No Physical Exam Vital Signs: Vital Signs: Last Vital Signs Temp 99.4 F 03/13/22 08:00 Pulse 89 03/13/22 08:00 Resp 18 03/13/22 08:00 BP 159/65 H 03/13/22 08:00 Pulse Ox 95 03/13/22 08:00 O2 Del Method 03/13/22 08:00 O2 Flow Rate 2 03/05/22 18:56 BMI result Body Mass Index 20.1 General: AO X 3, no acute distress Resp:? CTA bilateral CVS: S1,S2,RRR GI: +BS, NT, no distention Skin: very extensive multiple decub pressure ulcer-( just to mention few big ones ,please see ) large stage IV decubitus ulcer on the right greater trochanter, with some residual nonviable tissue ?large stage 3-4 decubitus ulcer on the sacrococcygeal area so with some residual nonviable tissue ?smaller feeds 3 decubitus ulcer on the coccygeal area to the left of the midline, clean with good granulation Neuro:? motor grossly intact Psych: appropriate affect DS: Data Data Completed and Pending Completed studies during hospitalization [Text1]: Procedures Excision of Back Subcutaneous Tissue and Fascia, Open Approach (12/12/21) Labs on day of discharge: Laboratory Results - last 24 hr 03/12/22 03/12/22 03/13/22 16:09 19:56 07:04 POC Glucose 142 H 126 H 100 03/13/22 11:48 POC Glucose 100 Imaging Chest x-ray: Radiologist's impression: ITS Impressions Abdomen/Pelvis CT 03/05/22 20:21 IMPRESSION: No acute intracranial process seen. Age-related cerebral volume loss with chronic small vessel ischemic disease. Right gluteal decubitus ulcer without any underlying abscess. There is no periosteal thickening involving the right iliac bone to suspect any osteomyelitis. There is mild thickening of the intergluteal skin line posterior to the sacrum question induration from chronic infection.. Posterior Moderate to severe constipation without obstruction. Suspect stercoral colitis. Enlarged fundus likely fibroid disease. Head CT 03/05/22 20:21 IMPRESSION: No acute intracranial process seen. Age-related cerebral volume loss with chronic small vessel ischemic disease. Right gluteal decubitus ulcer without any underlying abscess. There is no periosteal thickening involving the right iliac bone to suspect any osteomyelitis. There is mild thickening of the intergluteal skin line posterior to the sacrum question induration from chronic infection.. Posterior Moderate to severe constipation without obstruction. Suspect stercoral colitis. Enlarged fundus likely fibroid disease. Discharge Plan Discharge Anticipated Discharge Date/Time: 03/13/22 12:13 Patient Disposition: Hospice - Home Discharge Diagnosis: History of MS, multiple decubitus ulcers , hypoalbuminemia Referrals: Neel Spencer MD [Primary Care Provider] - 1 Week Discharge Medications: New oxycodone 5 mg tablet 5 mg PO Q8H PRN (Reason: pain) Qty: 10 0RF Rx Instructions: Partial Fill upon patient request. lorazepam [Lorazepam Intensol] 2 mg/mL concentrate 0.25 mg PO BID PRN (Reason: agitation) Qty: 10 0RF amoxicillin-pot clavulanate 875-125 mg Tablet 875 mg PO BID Qty: 14 0RF doxycycline monohydrate 100 mg Capsule 100 mg PO BID Qty: 14 0RF Continued sucralfate 1 gram tablet 1 tab PO TID baclofen 20 mg tablet 1 tab PO TID ascorbic acid (vitamin C) [Vitamin C] 500 mg Tablet 500 mg PO DAILY zafirlukast 20 mg tablet 1 tab PO BID aspirin 81 mg Tablet,Chewable 81 mg PO DAILY Spiriva with HandiHaler 18 mcg capsule, w/inhalation device 1 cap inhalation DAILY cholecalciferol (vitamin D3) 25 mcg (1,000 unit) Tablet 25 mcg PO DAILY sennosides [senna] 8.6 mg tablet 1 tab PO BID albuterol sulfate 2.5 mg /3 mL (0.083 %) solution for nebulization 3 ml inhalation Q4H PRN (Reason: wheezing) lactulose 10 gram/15 mL solution 15 ml PO DAILY PRN (Reason: Constipation) multivitamin Tablet 1 tab PO DAILY melatonin 5 mg Tablet 5 mg PO BEDTIME PRN (Reason: Sleep) ondansetron HCl 4 mg tablet 4 mg PO TID fluoxetine 40 mg capsule 80 mg PO DAILY docusate sodium 100 mg capsule 100 mg PO BID PRN (Reason: constipation) Myrbetriq 25 mg tablet extended release 24 hr 25 mg PO DAILY methenamine hippurate 1 gram tablet 1 g PO BID furosemide 40 mg tablet 40 mg PO BID metoclopramide HCl 10 mg tablet 10 mg PO TID oxycodone-acetaminophen 10-325 mg tablet 1 tab PO BEDTIME riboflavin (vitamin B2) [Vitamin B-2] 100 mg tablet 100 mg PO BID albuterol sulfate 90 mcg/actuation HFA aerosol inhaler 2 puff inhalation Q4H PRN (Reason: wheezing) metformin 500 mg tablet extended release 24 hr 1,000 mg PO BEDTIME clonazepam 1 mg tablet 1 mg PO TID PRN (Reason: Anxiety) gabapentin 400 mg capsule 400 mg PO TID lisinopril 40 mg tablet 40 mg PO DAILY dicyclomine 10 mg capsule 10 mg PO TID buspirone 10 mg tablet 10 mg PO BID trazodone 50 mg tablet 100 mg PO BEDTIME PRN (Reason: Insomnia) atenolol 50 mg tablet 50 mg PO DAILY amlodipine 10 mg tablet 10 mg PO DAILY omeprazole 20 mg capsule,delayed release(DR/EC) 20 mg PO BID@0630,1630 Discharge Orders: Discharge Order (Routine); Ordered 03/13/22 Ordered By: Froy Gao Diet: Advance to usual diet Activity on Discharge: As tolerated Stand Alone Forms: Patient Portal Discharge page Care Plan Goals: Patient admitted-for multiple sacral ulcers, intially met sepsis criteria: Started on IV antibiotics also patient had debridement during this admission: Blood culture negative, wounds does not seem infected, p.o. antibiotic started for possible superficial infection,plan to continue for 1 week. 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 Patient is also having these discussions out patiently with PCP and Wound Care- plan was to consider hospice, patient will be going home with hospice and dressing change daily(currently). d/w patient and her -decided for hospice. Patient has chronic pyuria, no symptoms, unlikely UTI. Further management deferred to outpatient hospice. Health Concerns: As above. Plan of Treatment: As above. Assessment: As above.
[2022-03-13 15:57] VITALS: BP 165/79; PULSE 107; RESP 18; TEMP 36.3; O2SAT 98
--- NOTE | 2022-03-14 09:33 | MHC.CM.PN ---
POST DISCHARGE NOTE, CM RECEIVED A MESSAGE FROM [facility] THIS MORNING WHO REPORTED PT DID NOT SIGN ON TO HOSPICE LAST NIGHT, CM SPOKE TO [facility] WHO REPORT THE HOUSE WAS CHAOTIC PT'S MOTHER WAS THERE W/DEMENTIA AND WOULD NOT LEAVE THE ROOM, PT'S LEEANNE WAS NOT AGREEABLE TO MOLST PT HAD COMPLETED PRIOR TO D/C HOWEVER PER PSYCH CONSULT PT CAN MAKE HER OWN DECISIONS. [facility] REPORTS THEY WILL REVISIT W/PT AND HASBUND IN 1-2 DAYS AND CM WILL FOLLOW UP W/[facility] REGARDING ELDER AT RISK PREVIOUSLY FILED.
--- NOTE | 2022-03-14 09:54 | MHC.CM.PN ---
CM ATTEMPTED TO CONTACT [facility] REGARDING ELDER AT RISK FILED AT 6:45AM [phone], NO ANSWER AND DETAILED MESSAGE LEFT W/C CONTACT NUMBER.
--- NOTE | 2022-03-14 10:31 | MHC.CM.PN ---
CM RECEIVED ANOTHER MESSAGE FROM [facility] REPORTING PT WILL SIGN ON W/HOSPICE THOSE ARE HER WISHES, CM WILL UPDATE [facility] WHEN THEY RETURN CM'S CALL.
--- NOTE | 2022-03-15 13:09 | MHC.CM.PN ---
MD approached CM: Requested this CM communicate to the admitting hospice company ([facility]) that he just found out that patient already had 10mg oxycodone/tylenol at home (prior to him issuing his script for her), and he wanted to make them aware of it. This RNCM documented the requested message in [employer] for [facility] to review per MD request.
== END 2022-03-13 16:09 | disposition home or self-care (01) | DRG 853 ==
LOC: HO.ED 20:56 → HO.EDOVER 21:17 → HO.S3 22:32
PROVIDERS: Internal Medicine; Physician Assistant; Admitting Provider Student in an Organized Health Care Education/Training Program; Emergency Provider Emergency Medicine Emergency Medical Services; PCP Internal Medicine; Visit Provider Internal Medicine
DX: A41.9 Sepsis, unspecified organism (principal); E43 Unspecified severe protein-calorie malnutrition; L89.153 Pressure ulcer of sacral region, stage 3; L89.154 Pressure ulcer of sacral region, stage 4; L89.214 Pressure ulcer of right hip, stage 4; G82.20 Paraplegia, unspecified; E87.21 Acute metabolic acidosis; G35 Multiple sclerosis; E11.43 Type 2 diabetes mellitus with diabetic autonomic (poly)neuropathy; K31.84 Gastroparesis; Z96.0 Presence of urogenital implants; I10 Essential (primary) hypertension; F39 Unspecified mood [affective] disorder; G47.00 Insomnia, unspecified; L89.522 Pressure ulcer of left ankle, stage 2; D64.9 Anemia, unspecified; R32 Unspecified urinary incontinence; E88.09 Other disorders of plasma-protein metabolism, not elsewhere classified; Z51.5 Encounter for palliative care; Z68.20 Body mass index [BMI] 20.0-20.9, adult; Z20.822 Contact with and (suspected) exposure to COVID-19; Z74.01 Bed confinement status; Z88.5 Allergy status to narcotic agent; Z79.82 Long term (current) use of aspirin; Z79.84 Long term (current) use of oral hypoglycemic drugs; Z79.891 Long term (current) use of opiate analgesic; Z79.899 Other long term (current) drug therapy
CPT/HCPCS: 0241U; 36415; 70450; 74177; 80048; 80051; 80076; 80202; 81001; 81003; 82040; 82140; 82550; 82565; 82947; 83605; 83690; 83735; 83880; 84134; 85014; 85018; 85025; 85027; 85610; 85652; 86140; 86850; 86900; 86901; 87040; 87086; 93005; 94640; 97163; 97167; 99285; C1758; J2543; J3010; J3370; J3371; Q9967

== ENCOUNTER 2023-01-05 11:39 | Inpatient (IN) | payer MEDICARE, MEDICAID, SELFPAY ==
--- NOTE | ~2023-01-05 | XR_ITS ---
EXAMINATION: XR ELBOW, LEFT CLINICAL INFORMATION: Reason for Exam pain COMPARISON: None. TECHNIQUE: AP, lateral, and oblique views of the elbow FINDINGS: Displacement of the anterior fat-pad of the elbow which can be seen in the setting of joint effusion. A discrete fracture line is not identified. No dislocation.. Patchy osteopenia. Triceps tendon enthesopathy. Joint spaces are maintained. XR/XR elbow LT 2V IMPRESSION: 1. Displacement of the anterior fat-pad of the elbow which can be seen in the setting of joint effusion, therefore a radiographically occult fracture cannot be excluded though no discrete fracture line is identified with certainty. 2. Patchy osteopenia. 3. Triceps tendon enthesopathy.
--- NOTE | ~2023-01-05 | XR_ITS ---
EXAMINATION: XR CHEST CLINICAL INFORMATION: Reason for Exam productive cough COMPARISON: Chest radiograph 12/05/2021, CT chest 08/20/2021 TECHNIQUE: One view of the chest FINDINGS: Lines and tubes: None. Left retrocardiac consolidation which appears to predominantly correspond to a large paraesophageal hernia with an air-fluid level noted in the stomach similar to priors, though a component of superimposed infection or aspiration would be difficult to entirely excluded, consider correlation with PA and lateral radiographs.. No pleural effusion. No pneumothorax. Unchanged cardiomediastinal silhouette. XR/XR chest 1V IMPRESSION: 1. Left retrocardiac consolidation which appears to predominantly correspond to a large paraesophageal hernia with an air-fluid level noted in the stomach similar to priors, though a component of superimposed infection or aspiration would be difficult to entirely excluded, consider correlation with PA and lateral radiographs.
[2023-01-05 11:54] VITALS: BP 108/70; BP 132/52; PULSE 71; PULSE 86; RESP 14; TEMP 36.6; O2SAT 94; O2SAT 96; BMI 19.6
[2023-01-05 12:04] VITALS: BP 117/60; PULSE 72; RESP 18; O2SAT 95
--- NOTE | 2023-01-05 12:05 | PC.NURSE ---
pt KEN from home where she is on hospice care. at home she has a visiting nurse and her typically cares for her. in the recent weeks her has been becoming more ill, has taken more falls and has overall been unable to further care for the pt at home safely. pt is sent to the hospital today with the plan for her to go to a respite/LTC facility on hospice care. pt has multiple pressure injuries to her legs and coccyx. awaiting provider to visualize pts wounds. she recently finished a course of ABX for pressure injury infection. pt is alert and oriented, reports generalized 8/10 pain, leg bag u/a intact and draining clear yellow urine. pt afebrile, VSS.
--- NOTE | 2023-01-05 12:19 | ED_ITS ---
HPI - General Adult General Chief complaint: General Medical Stated complaint: PRESSURE SORES,ON HOSPICE,NEEDS SNF PLACEMENT Time Seen by Provider: 01/05/23 12:06 Source: EMS Mode of arrival: EMS History of Present Illness HPI narrative: this is unfortunate 67 years old patient with history of end-stage MS, who has bed bound for about 18 years, with multiple decubital ulcer, was DNR DNI do not hospitalize sent here by the hospice nurse for placement in a long-term facility because cannot take care of the patient any longer. Patient is in hospice care Onset (ago): day(s) (1) Radiation: non-radiation Pain Consistency: constant Relieving factors: none Exacerbating factors: none Related Data Home Medications Medication Instructions Recorded Confirmed albuterol sulfate 90 mcg/actuation 2 puff inhalation Q4H PRN wheezing 12/05/21 01/05/23 aerosol inhaler amlodipine 10 mg tablet 10 mg PO DAILY 12/05/21 01/05/23 atenolol 50 mg tablet 50 mg PO DAILY 12/05/21 01/05/23 buspirone 10 mg tablet 10 mg PO BID 12/05/21 01/05/23 clonazepam 1 mg tablet 1 mg PO TID PRN Anxiety 12/05/21 01/05/23 dicyclomine 10 mg capsule 20 mg PO BID 12/05/21 01/05/23 docusate sodium 100 mg capsule 100 mg PO BID constipation 12/05/21 01/05/23 fluoxetine 40 mg capsule 80 mg PO DAILY 12/05/21 01/05/23 furosemide 40 mg tablet 80 mg PO DAILY 12/05/21 01/05/23 gabapentin 400 mg capsule 400 mg PO TID 12/05/21 01/05/23 lisinopril 40 mg tablet 40 mg PO DAILY 12/05/21 01/05/23 metformin 500 mg tablet,extended 500 mg PO BEDTIME 12/05/21 01/05/23 release 24 hr metoclopramide HCl 10 mg tablet 10 mg PO TID 12/05/21 01/05/23 mirabegron 25 mg tablet,extended 25 mg PO DAILY 12/05/21 01/05/23 release 24 hr (Myrbetriq) omeprazole 20 mg capsule,delayed 20 mg PO BID@0630,1630 12/05/21 01/05/23 release ondansetron HCl 4 mg tablet 4 mg PO DAILY 12/05/21 01/05/23 riboflavin (vitamin B2) 100 mg 100 mg PO BID 12/05/21 01/05/23 tablet (Vitamin B-2) trazodone 50 mg tablet 50 mg PO BEDTIME Insomnia 12/05/21 01/05/23 aspirin 81 mg chewable tablet 81 mg PO DAILY 12/10/21 01/05/23 baclofen 20 mg tablet 1 tab PO TID 12/10/21 01/05/23 cholecalciferol (vitamin D3) 25 25 mcg PO DAILY 12/10/21 01/05/23 mcg (1,000 unit) tablet sucralfate 1 gram tablet 1 tab PO TID 12/10/21 01/05/23 tiotropium bromide 18 mcg capsule 1 cap inhalation DAILY 12/10/21 01/05/23 with inhalation device (Spiriva with HandiHaler) zafirlukast 20 mg tablet 1 tab PO BID 12/10/21 01/05/23 lactulose 10 gram/15 mL oral 15 ml PO DAILY PRN Constipation 03/05/22 01/05/23 solution multivitamin 1 tab PO DAILY 03/05/22 01/05/23 sennosides 8.6 mg tablet (senna) 1 tab PO BID 03/05/22 01/05/23 melatonin 10 mg tablet 20 mg PO BEDTIME 01/05/23 01/05/23 oxycodone 10 mg tablet 10 mg PO Q4H PRN pain 01/05/23 01/05/23 Allergies Allergy/AdvReac Type Severity Reaction Status Date / Time morphine [Morphine] Allergy Intermediate INCREASED Verified 03/05/22 17:07 HEART RATE/HALLUCINATIONS, hallucinations Review of Systems 2 Constitutional: Constitutional: Denies fever(s) Cardiovascular: Cardiovascular: Denies dyspnea Respiratory: Respiratory: Denies dyspnea PMFSH Past Medical History Medical History Stage IV decubitus ulcer Bedbound Sacral decubitus ulcer Mood disorder Insomnia Hypertension Diabetes Peripheral neuropathy GERD (gastroesophageal reflux disease) Gastroparesis Multiple sclerosis Decubitus ulcer of buttock, unstageable Anemia Decubitus ulcer Asthma Social History Social History Household Members: Spouse Housing: House Do you presently have visiting nurse or other home services: Yes Alcohol intake: current Alcohol intake frequency: holidays/special occasions only Patient Tobacco Use Status: Never used Tobacco Smoked in Last 30 Days: No Use of substances other than those prescribed or required for medical reasons: No Substance Use Type: Marijuana Advance Directives: Yes Advance Directives on File: Yes Advance Directives Date on File: 12/11/21 service: No Current occupational status: disabled Physical Exam ED Vital Signs: Vital Signs - 24 hr 01/05/23 11:54 01/05/23 12:04 Temperature 98 F Pulse Rate 71 72 Respiratory Rate 14 18 Blood Pressure 132/52 L 117/60 Pulse Oximetry 96 95 Oxygen Delivery Method Room Air Room Air BMI result Body Mass Index 19.6 Const General: cooperative and ill appearing Nutritional Appearance: malnourished HENMT Head: Yes normal to inspection Face and sinus: Yes normal facial exam Neck Neck: Yes normal visual inspection Resp Effort & Inspection: normal respiratory effort Auscultation: clear to auscultation bilaterally Cardio Jugular venous distension: no JVD Rate: regular rate Rhythm: regular rhythm GI Palpation (GI): Soft to palpation, not firm and nontender Back/Spine/Pelvis Other: Skin Other: Multiple decubital ulcer in the lower back deep and heel Neuro Other: She is awake and alert she is unable to move the extremity she is able to squeeze my hand with the left upper extremity only Course Reevaluation(s) Reevaluation #1: CAse was discussed with the counseling case manager and case was discussed with the director of diversity and inclusion and Dr Zavala consensus was the patient will be admitted to the hospital pending placement in hospice facility. cannot take care of the patient home any longer Time: 14:23 Reevaluation #2: 4 PM revoking hospice will administer IV AB she has elevated WBC and infected decubiti (see pictures) Time: 16:13 Medications Administered Generic Name Dose Route Start Last Admin Trade Name Freq PRN Reason Stop Dose Admin Oxycodone HCl 10 mg 01/05/23 12:40 01/05/23 12:45 Oxycodone Hcl Immed Release 5 Mg Tablet PO 10 mg Q6H HARIS Administration Medical Decision Making Medical Decision Making MDM Narrative: This is end-stage MS patient bed ridden with multiple decubiti. truck leasing manager was consulted, I had discussion with the director of diversity and inclusion patient to be admitted for respite @4 PM revoking hospice now Hospitalist informed, wants AB treatment she does have a couple of decubiti infected see picture in the chart,she does have elevated WBC will admit for IV AB Differential Diagnosis osteomyelitis/sepsis Admission/Observation Consideration of admission/observation: Escalation of care including admission/observation considered Consult Healthcare Provider Management of the patient was discussed with: Hospitalist Lab Data MDM Lab Attestation statement: I reviewed the patient's lab results. 01/05/23 15:21 01/05/23 15:21 Labs: Lab Results 01/05/23 Range/Units 15:21 WBC 15.3 H (4.8-10.8) X10*3/uL RBC 4.21 D (4.20-5.50) X10*6/uL Hgb 11.5 L D (12.0-16.0) g/dl Hct 36.4 L D (37.0-47.0) % MCV 86.5 (80.0-98.0) fL MCH 27.3 (27.0-33.0) pg MCHC 31.6 (31.0-35.0) g/dl RDW 15.1 (11.0-16.0) % Plt Count 399 D (160-400) X10*3/uL MPV 9.1 L (9.4-12.3) fL Immature Gran % (Auto) 0.4 (0.0-0.4) % Neut % (Auto) 71.0 (45-73) % Lymph % (Auto) 17.8 L (20-40) % Zapata % (Auto) 7.8 (2-11) % Eos % (Auto) 2.5 (0-4) % Baso % (Auto) 0.5 (0-2) % Lymph # (Auto) 2.7 (1.2-4.9) X10*3/uL Zapata # (Auto) 1.2 (0.1-1.2) X10*3/uL Eos # (Auto) 0.4 (0.0-0.4) X10*3/uL Baso # (Auto) 0.1 (0.0-0.2) X10*3/uL Abs Immat Gran (auto) 0.06 H (0.00-0.03) X10*3/uL Absolute Neuts (auto) 10.9 H (2.0-8.3) x10*3/uL Absolute Nucleated RBC 0.000 (0.0-0.012) X10*3/uL Nucleated RBC % (auto) 0.0 (0.0-0.2) /100WBC Sodium 137 (135-145) mmol/L Potassium 3.9 (3.3-5.1) mmol/L Chloride 96 (96-108) mmol/L Carbon Dioxide 32 H (22-29) mmol/L Anion Gap 13 (12-20) BUN 24 H (9-16) mg/dL Creatinine 0.64 (0.5-1.4) mg/dL Estim Creat Clear Calc 66.3 Estimated GFR > 60 Random Glucose 98 (60-115) mg/dL Calcium 10.8 H D (8.4-10.2) mg/dL Total Bilirubin 0.2 (0.0-1.0) mg/dL AST 22 (5-31) U/L ALT 12 (0-31) U/L Alkaline Phosphatase 62 (39-117) U/L Total Protein 7.4 (6.5-8.0) g/dL Albumin 3.5 (3.5-5.0) g/dL Chronic Conditions Patient?s care impacted by: Other (end stage MS) Discharge Plan Discharge Clinical Impression: Multiple sclerosis, Decubitus ulcer Prescriptions: No Action sucralfate 1 gram tablet 1 tab PO TID baclofen 20 mg tablet 1 tab PO TID zafirlukast 20 mg tablet 1 tab PO BID aspirin 81 mg Tablet,Chewable 81 mg PO DAILY tiotropium bromide [Spiriva with HandiHaler] 18 mcg capsule, w/inhalation device 1 cap inhalation DAILY cholecalciferol (vitamin D3) 25 mcg (1,000 unit) Tablet 25 mcg PO DAILY sennosides [senna] 8.6 mg tablet 1 tab PO BID lactulose 10 gram/15 mL solution 15 ml PO DAILY PRN (Reason: Constipation) multivitamin Tablet 1 tab PO DAILY oxycodone 10 mg tablet 10 mg PO Q4H PRN (Reason: pain) melatonin 10 mg Tablet 20 mg PO BEDTIME ondansetron HCl 4 mg tablet 4 mg PO DAILY fluoxetine 40 mg capsule 80 mg PO DAILY docusate sodium 100 mg capsule 100 mg PO BID Myrbetriq 25 mg tablet extended release 24 hr 25 mg PO DAILY furosemide 40 mg tablet 80 mg PO DAILY metoclopramide HCl 10 mg tablet 10 mg PO TID riboflavin (vitamin B2) [Vitamin B-2] 100 mg tablet 100 mg PO BID albuterol sulfate 90 mcg/actuation HFA aerosol inhaler 2 puff inhalation Q4H PRN (Reason: wheezing) metformin 500 mg tablet extended release 24 hr 500 mg PO BEDTIME clonazepam 1 mg tablet 1 mg PO TID PRN (Reason: Anxiety) gabapentin 400 mg capsule 400 mg PO TID lisinopril 40 mg tablet 40 mg PO DAILY dicyclomine 10 mg capsule 20 mg PO BID buspirone 10 mg tablet 10 mg PO BID trazodone 50 mg tablet 50 mg PO BEDTIME atenolol 50 mg tablet 50 mg PO DAILY amlodipine 10 mg tablet 10 mg PO DAILY omeprazole 20 mg capsule,delayed release(DR/EC) 20 mg PO BID@0630,1630
[2023-01-05] MEDS: oxyCODONE HCl Immed Release 5 MG TABLET 10 MG PO ×2 (12:45→17:28)
--- NOTE | 2023-01-05 13:38 | MHC.CM.PN ---
Addendum entered by Brittney Lezama 01/05/23 16:06: PT FOUND TO HAVE AN ELEVATED, HOSPITALIST AWARE AWAITING DETERMINATION ON POTENTIAL ADMISSION Addendum entered by Brittney Lezama 01/05/23 15:33: [facility] REACHED OUT TO THIS CM WITH AN UPDATE STATING THE HAS DECIDED TO REVOKE HOSPICE AND WOULD LIKE THE PT ADMITTED FOR MORE AGGRESSIVE TREATMENT OF THE WOUNDS INCLUDING IV ABX. ED PROVIDERS AWARE, WORK UP IN PROGRESS Original Note: CM received consult. Patient is from home with and GAS ENGINE REPAIRER. Active with [facility] for hospice services. Per Ирина at [facility], patient does not have 24hr GAS ENGINE REPAIRER and is unable to care for patient (weak, frequent falls). Hospice is requesting 5 day respite stay while their CM secures placement. ED MD aware. CM will continue to follow.
--- NOTE | 2023-01-05 14:38 | P.HPHOSP_ITS ---
History of Present Illness Date of Service: 01/05/23 Attending physician on admission: Froy Gao Chief Complaint: hospice respite 67 year old female with history of end stage MS on hospice, type 2 diabetes, unspecified mood disorder, GERD, gastroparesis, multifactorial polyneuropathy, neurogenic bladder with chronic bermudez , asthma, htn, and mutiple decubitus ulcers presented to the ED from home. She is currently living at home on hospice, cared for by her who is no longer able to care for his . Hospice is recommended hospice status be revoked due to infected decubitus ulcers that have failed outpatient antibiotics and would likely benefit from IV antibiotics. was agreeable and presented to the ED for further evaluation. She has had the decubitus ulcers for many months, having been admitted to our facility about 10 months ago though at that time the wounds were not felt to be infected. She has followed with [facility] in the past and currently has [facility] in the home, however is no longer able to care for her and requires placement for further hospice care upon discharge. On arrival, VSS. She has a leukocytosis of 15. Renal function and electrolyte levels normal except for slightly elevated CO2 32. Hepatic function normal. Denies any fevers or chills. [facility] nurse is reporting purulent drainage from the left heel which has been has also observed by . The patient is complaining of pain in the left elbow though denies any falls or injury. Her reports she has chronic pain related to her MS. She is also reporting occasional cough with sputum production ongoing for several weeks. Her reports she has a difficult time bringing up the sputum. She is also reporting dysphagia to foods only that has been ongoing for some time as well as anorexia. In the ED, has received IV vancomycin and Zosyn as well as oxycodone and clonazepam. Patient will be admitted for further management of infected decubitus ulcer. Review of Systems 2 Review of Systems: General: No fevers, malaise, unintentional weight loss. +generalized weakness HEENT: No blurred vision, diplopia Cardiovascular: No chest pain, palpitations, or leg edema Respiratory: No shortness of breath, wheezing. +productive cough GI: +dysphagia, +anorexia. No abdominal pain, nausea, vomiting, diarrhea : No dysuria, hematuria, increased urinary frequency, decreased urinary output MSK: No myalgia, back pain. +left elbow pain Neuro: No headaches, focal weakness, paresthesias Skin: +multiple skin ulcers PMFSH Medical History Stage IV decubitus ulcer Bedbound Sacral decubitus ulcer Mood disorder Insomnia Hypertension Diabetes Peripheral neuropathy GERD (gastroesophageal reflux disease) Gastroparesis Multiple sclerosis Decubitus ulcer of buttock, unstageable Anemia Decubitus ulcer Asthma Social History Household Members: Spouse Housing: House Do you presently have visiting nurse or other home services: Yes Unable to assess alcohol history related to: Unable to respond Alcohol intake: current Alcohol intake frequency: holidays/special occasions only Patient Tobacco Use Status: Never used Tobacco Substance Use Type: Marijuana Advance Directives Date on File: 12/11/21 service: No Current occupational status: disabled Meds Allergies Allergy/AdvReac Type Severity Reaction Status Date / Time morphine [Morphine] Allergy Intermediate INCREASED Verified 03/05/22 17:07 HEART RATE/HALLUCINATIONS, hallucinations Active Medications: Current Medications Clonazepam (Clonazepam 1 Mg Tablet) 1 mg PO TID HARIS Oxycodone HCl (Oxycodone Hcl Immed Release 5 Mg Tablet) 10 mg PO Q6H [facility] Last Admin: 01/05/23 12:45 Dose: 10 mg Home Medications Medication Instructions Recorded Confirmed Last Taken Type albuterol sulfate 90 mcg/actuation 2 puff inhalation Q4H PRN wheezing 12/05/21 01/05/23 Unknown History aerosol inhaler amlodipine 10 mg tablet 10 mg PO DAILY 12/05/21 01/05/23 Unknown History atenolol 50 mg tablet 50 mg PO DAILY 12/05/21 01/05/23 Unknown History buspirone 10 mg tablet 10 mg PO BID 12/05/21 01/05/23 Unknown History dicyclomine 10 mg capsule 20 mg PO BID 12/05/21 01/05/23 Unknown History docusate sodium 100 mg capsule 100 mg PO BID constipation 12/05/21 01/05/23 Unknown History fluoxetine 40 mg capsule 80 mg PO DAILY 12/05/21 01/05/23 Unknown History furosemide 40 mg tablet 80 mg PO DAILY 12/05/21 01/05/23 Unknown History gabapentin 400 mg capsule 400 mg PO TID 12/05/21 01/05/23 Unknown History lisinopril 40 mg tablet 40 mg PO DAILY 12/05/21 01/05/23 Unknown History metformin 500 mg tablet,extended 500 mg PO BEDTIME 12/05/21 01/05/23 Unknown History release 24 hr metoclopramide HCl 10 mg tablet 10 mg PO TID 12/05/21 01/05/23 Unknown History mirabegron 25 mg tablet,extended 25 mg PO DAILY 12/05/21 01/05/23 Unknown History release 24 hr (Myrbetriq) omeprazole 20 mg capsule,delayed 20 mg PO BID@0630,1630 12/05/21 01/05/23 Unknown History release ondansetron HCl 4 mg tablet 4 mg PO DAILY 12/05/21 01/05/23 Unknown History riboflavin (vitamin B2) 100 mg 100 mg PO BID 12/05/21 01/05/23 Unknown History tablet (Vitamin B-2) trazodone 50 mg tablet 50 mg PO BEDTIME Insomnia 12/05/21 01/05/23 Unknown History aspirin 81 mg chewable tablet 81 mg PO DAILY 12/10/21 01/05/23 Unknown History baclofen 20 mg tablet 1 tab PO TID 12/10/21 01/05/23 Unknown History cholecalciferol (vitamin D3) 25 25 mcg PO DAILY 12/10/21 01/05/23 Unknown History mcg (1,000 unit) tablet sucralfate 1 gram tablet 1 tab PO TID 12/10/21 01/05/23 Unknown History tiotropium bromide 18 mcg capsule 1 cap inhalation DAILY 12/10/21 01/05/23 Unknown History with inhalation device (Spiriva with HandiHaler) zafirlukast 20 mg tablet 1 tab PO BID 12/10/21 01/05/23 Unknown History lactulose 10 gram/15 mL oral 15 ml PO DAILY PRN Constipation 03/05/22 01/05/23 Unknown History solution multivitamin 1 tab PO DAILY 03/05/22 01/05/23 Unknown History sennosides 8.6 mg tablet (senna) 1 tab PO BID 03/05/22 01/05/23 Unknown History melatonin 10 mg tablet 20 mg PO BEDTIME 01/05/23 01/05/23 Unknown History Physical Exam 2 Vital Signs and Narrative: Vital Signs: Last Vital Signs Temp 98 F 01/05/23 11:54 Pulse 72 01/05/23 12:04 Resp 18 01/05/23 12:04 BP 117/60 01/05/23 12:04 Pulse Ox 95 01/05/23 12:04 O2 Del Method Room Air 01/05/23 12:04 BMI result Body Mass Index 19.6 Constitutional - Awake and Alert, weak apperaing, but no apparent distress Eyes - PERRLA, EOMI Cardiovascular - S1S2, RRR, No edema Respiratory - Normal lung expansion, Normal respiratory effort, No respiratory distress, diminished bilaterally but CTA bilaterally Gastrointestinal - NT / ND; +BS; No rebound or guarding - bermudez catheter in place draining clear yellow urine MSK- left elbow ttp without erythema, warmth, swelling. Full ROM Extremities - no calf tenderness bilaterally, no swelling Skin - Warm/Dry. Stage 3 decubitus ulcer left heel with eschar and purulent drainage of stage 3 satellite ulcer. Stage 3 decubitus ucler sacrum and right hip without purulent drainage Neurological - Alert & oriented x3, 4/5 strength BUE and BLE Psychological - Appropriate affect Results Labs 01/06/23 05:53 01/06/23 05:53 Assessment and Plan (1) Decubitus ulcer: Status: Acute (2) Pressure ulcers of skin of multiple topographic sites: Status: Acute (3) Dysphagia: Status: Acute Plan 67 year old female with history of end stage MS on hospice, type 2 diabetes, unspecified mood disorder, GERD, gastroparesis, multifactorial polyneuropathy, asthma, htn, and stage 4 decubitus ulcer buttock to be admitted for hospice respite. #Infected stage 3 decubitus ulcer L heel -leukocytosis 15.3, no other sirs criteria. No sepsis -failed outpatient therapy with Keflex -IV vanco and Zosyn (initiated 01/05) -general surgery consult for possible debridement -follow CBC, cultures # multiple decubitus ulcers -stage III ulcer right hip, sacrum. Stage III ulcer left heel as above. 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 # left elbow pain -denies falls or trauma -x-ray ordered -continue home pain meds #Multiple sclerosis previously on hospice -hospice revoked for more aggressive management of infected decubitus ulcers - continue oxycodone #HTN -bp reasonlably controlled -continue lisinopril, furosemide #unspecified mood disorder -continue home meds #Multifactorial polyneuropathy -continue gabapentin # [id number] type 2 diabetes -POC glucose, advanced diabetic diet -initiate Humalog on sliding scale once diet order placed pending [employer] evaluation DVT prophylaxis-heparin DNR/DNI-per MOL[facility] form, discussed with who is healthcare proxy Patient requires inpatient stay at least 2 midnights for management of infected decubitus ulcer requiring IV antibiotics having failed outpatient oral antibiotics and will require placement to SNF for hospice once IV abx completed as patient's is no longer able to care for patient Quality Stroke Does the patient have a stroke diagnosis?: No VTE Prior VTE?: No VTE Risk Level:: Medical - moderate - high VTE Device Contraindication: Treatment Not Indicated VTE Drug Contraindication: N/A - Med Ordered
--- NOTE | 2023-01-05 14:49 | PHA.MEDREC ---
Pharmacy Consult ? Medication Reconciliation Pharmacy has completed the medication reconciliation. Patient has list of mediations. Sherita Ray, GilaD
[2023-01-05 15:25] LABS: MANUAL DIFF FLAG NO
[2023-01-05 15:31] LABS: Basophils Absolute Auto 0.1 X10*3/uL (0.0-0.2); Basophils Percent Auto 0.5 % (0-2); Eosinophils Absolute Auto 0.4 X10*3/uL (0.0-0.4); Eosinophils Percent Auto 2.5 % (0-4); Hematocrit 36.4 % (37.0-47.0); Hemoglobin 11.5 g/dl (12.0-16.0); Imm Gran Abs Auto 0.06 X10*3/uL (0.00-0.03); Imm Gran Pct Auto 0.4 % (0.0-0.4); Lymphocytes Absolute Auto 2.7 X10*3/uL (1.2-4.9); Lymphocytes Percent Auto 17.8 % (20-40); Mean Corpuscular HGB Conc 31.6 g/dl (31.0-35.0); Mean Corpuscular Hemoglobin 27.3 pg (27.0-33.0); Mean Corpuscular Volume 86.5 fL (80.0-98.0); Mean Platelet Volume 9.1 fL (9.4-12.3); Monocytes Absolute Auto 1.2 X10*3/uL (0.1-1.2); Monocytes Percent Auto 7.8 % (2-11); Neutrophils Absolute Auto 10.9 x10*3/uL (2.0-8.3); Platelet Count 399 X10*3/uL (160-400); Red Blood Count 4.21 X10*6/uL (4.20-5.50); Red Cell Distribution Width 15.1 % (11.0-16.0); White Blood Count 15.3 X10*3/uL (4.8-10.8)
[2023-01-05 15:40] LABS: Alanine Aminotransferase 12 U/L (0-31); Albumin Level 3.5 g/dL (3.5-5.0); Alkaline Phosphatase 62 U/L (39-117); Anion Gap 13 (12-20); Aspartate Amino Transferase 22 U/L (5-31); Bilirubin Total 0.2 mg/dL (0.0-1.0); Blood Urea Nitrogen 24 mg/dL (9-16); Calcium 10.8 mg/dL (8.4-10.2); Carbon Dioxide 32 mmol/L (22-29); Chloride 96 mmol/L (96-108); Creatinine Clr Calc Pharmacy 66.3; Estimated Glomerular Filt Rate > 60; Glucose Random 98 mg/dL (60-115); Potassium 3.9 mmol/L (3.3-5.1); Sodium 137 mmol/L (135-145); Total Protein 7.4 g/dL (6.5-8.0)
[2023-01-05 16:00] VITALS: BP 133/69; PULSE 76; RESP 16; TEMP 36.7; O2SAT 97
--- NOTE | 2023-01-05 16:08 | HO.SKINPHOTO ---
Location: Category: Stage: Length: Width: Depth: cm Location: Category: Stage: Length: Width: Depth: cm Location: Category: Stage: Length: Width: Depth: cm Location: Category: Stage: Length: Width: Depth: cm Location: Category: Stage: Length: Width: Depth: cm Location: Category: Stage: Length: Width: Depth: cm
--- NOTE | 2023-01-05 16:11 | PC.NURSE ---
photographs uploaded to chart of pts wounds, stage 2 noted to pts coccyx, stage 3 noted to pts R hip, un-stageable noted to pts L heel, small stage 2 noted to pts L medial knee. Alvyn foams applied to pts coccyx and R hip. non-stick applied to pts L foot and knee, wrapped in kirlex made aware of wounds
--- NOTE | 2023-01-05 16:54 | PC.NURSE ---
pt a hard poke, unable to obtain second set of blood cultures at this time. ABX hung late at this time,
--- NOTE | 2023-01-05 16:55 | PC.NURSE ---
pts leg bag changed out to a bermudez bag.
[2023-01-05] MEDS: clonazePAM 1 MG TABLET PO ×2 (17:24→22:21)
[2023-01-05] MEDS: Piperacillin Sodium/Tazobactam 4.5 GM in 0.9 % Sodium Chloride 100 ML IV ×2 (17:43→22:30)
[2023-01-05] MEDS: vancomycin HCL 1,250 MG in 0.9 % Sodium Chloride 250 ML 166.67 MG IV (18:12)
[2023-01-05 18:14] LABS: Influenza A PCR NEGATIVE (Negative); Influenza B PCR NEGATIVE (Negative); Resp Syncy Virus RNA Qual PCR NEGATIVE (Negative); SARS COV2 PCR INHOUSE NEGATIVE (Negative)
[2023-01-05] MEDS: Heparin Sodium,Porcine 5,000 UNIT/ML VIAL 5000 UNIT SUBCUT (19:05)
[2023-01-05 19:23] VITALS: BP 125/68; PULSE 75; RESP 17; TEMP 36.4; O2SAT 96
--- NOTE | 2023-01-05 19:32 | PHA.PROG ---
Admission Date/Time: January 05, 2023 16:46 Indication: Infected stage 3 decubitus ulcer L heel Weight in k.6 kg Adjusted body weight in K.5 kg Success body weight in K.1 kg Obesity Dosing Indication % IBW: n/a Serum Creatinine - Last 168 Hours 01/05/23 15:21 Creatinine 0.64 Estimated CrCl and GFR - Last 168 Hours 01/05/23 15:21 Estim Creat Clear Calc 66.3 Estimated GFR > 60 Vancomycin Loading Dose: 1250 mg Current Vancomycin Dosing Regimen: 750 mg Q12H Date and Time for next Vancomycin Level to be drawn: 01/07 @ 0500 Pharmacist Comments on Vancomycin Plan: Patient received an adeqaute load dose in the ER on 01/05 @ 1812 Maintenance dose vancomycin 750 mg Q12H is scheduled to start 01/06 @ 0700. Predict AUC 532 with a trough of 16.6 Level will be drawn prior to 4th dose Pharmacy will monitor renal function daily. Sherita Ray PharmD Vancomycin dosing will take advantage of I-DIS[employer] as a clinical decision support tool that uses Bayesian modeling to calculate individual patient's pharmacokinetic parameters and forecast the patient's drug concentration time course with the target goal AUC 24 range of 400 - 600 mg/L/hr.
[2023-01-05] MEDS: 0.9 % Sodium Chloride 1,000 ML 100 ML IVCONT (19:45)
[2023-01-05 21:09] VITALS: BP 91/55; PULSE 70; RESP 17; TEMP 36.3; O2SAT 92
[2023-01-05] MEDS: Docusate Sodium 100 MG CAPSULE PO (22:19)
[2023-01-05] MEDS: Dicyclomine HCl 10 MG CAPSULE 20 MG PO (22:20)
[2023-01-05] MEDS: Gabapentin 400 MG CAPSULE PO (22:21)
[2023-01-05] MEDS: Melatonin 3 MG TABLET 18 MG PO (22:22)
[2023-01-05] MEDS: traZODone HCL 50 MG TABLET PO (22:23)
[2023-01-05] MEDS: busPIRone HCl 10 MG TABLET PO (22:24)
[2023-01-05] MEDS: Baclofen 20 MG TABLET PO (22:24)
[2023-01-05] MEDS: Sucralfate 1 GM TABLET PO (22:25)
[2023-01-05] MEDS: Montelukast Sodium 10 MG TABLET PO (22:25)
[2023-01-05] MEDS: Sennosides 8.6 MG TABLET PO (22:25)
[2023-01-05] MEDS: Metoclopramide HCl 10 MG TABLET PO (22:30)
--- NOTE | 2023-01-05 23:43 | PC.NURSE ---
Patient admitted by charge authorizer Roland,patient swallowed all her meds with water without any difficulty,bermudez intact draining yellow urine
[2023-01-05 23:50] VITALS: BP 110/62; PULSE 69; RESP 17; TEMP 36.2; O2SAT 96
[2023-01-06 00:15] LABS: Glucose, Whole Blood 78 mg/dL (60-115)
[2023-01-06] MEDS: guaiFENesin 200 MG/10 ML 10 ML LIQUID PO ×5 (00:17→23:47)
[2023-01-06] MEDS: oxyCODONE HCl Immed Release 5 MG TABLET 10 MG PO ×3 (02:04→14:01)
[2023-01-06 03:36] VITALS: BP 112/66; PULSE 69; RESP 17; TEMP 36.7; O2SAT 93
[2023-01-06] MEDS: Piperacillin Sodium/Tazobactam 4.5 GM in 0.9 % Sodium Chloride 100 ML IV ×4 (04:52→23:47)
[2023-01-06] MEDS: Heparin Sodium,Porcine 5,000 UNIT/ML VIAL 5000 UNIT SUBCUT ×2 (05:47→17:29)
[2023-01-06] MEDS: Omeprazole 20 MG CAPSULE.DR PO ×2 (05:47→17:29)
[2023-01-06] MEDS: 0.9 % Sodium Chloride 1,000 ML 100 ML IVCONT (06:10)
[2023-01-06 06:35] LABS: MANUAL DIFF FLAG NO
[2023-01-06 06:44] LABS: Basophils Percent Auto 0.5 % (0-2); Eosinophils Absolute Auto 0.3 X10*3/uL (0.0-0.4); Eosinophils Percent Auto 3.5 % (0-4); Hematocrit 30.2 % (37.0-47.0); Hemoglobin 9.7 g/dl (12.0-16.0); Imm Gran Abs Auto 0.03 X10*3/uL (0.00-0.03); Imm Gran Pct Auto 0.4 % (0.0-0.4); Lymphocytes Absolute Auto 1.5 X10*3/uL (1.2-4.9); Lymphocytes Percent Auto 19.1 % (20-40); Mean Corpuscular HGB Conc 32.1 g/dl (31.0-35.0); Mean Corpuscular Hemoglobin 27.3 pg (27.0-33.0); Mean Corpuscular Volume 85.1 fL (80.0-98.0); Mean Platelet Volume 9.4 fL (9.4-12.3); Monocytes Absolute Auto 0.6 X10*3/uL (0.1-1.2); Monocytes Percent Auto 7.1 % (2-11); Neutrophils Absolute Auto 5.6 x10*3/uL (2.0-8.3); Neutrophils Percent Auto 69.4 % (45-73); Platelet Count 304 X10*3/uL (160-400); Red Blood Count 3.55 X10*6/uL (4.20-5.50); Red Cell Distribution Width 14.9 % (11.0-16.0)
[2023-01-06] MEDS: vancomycin HCL 750 MG in 0.9 % Sodium Chloride 250 ML 265 MG IV ×2 (07:02→18:23)
[2023-01-06 07:08] LABS: Anion Gap 13 (12-20); Blood Urea Nitrogen 15 mg/dL (9-16); Calcium 9.3 mg/dL (8.4-10.2); Carbon Dioxide 25 mmol/L (22-29); Chloride 101 mmol/L (96-108); Creatinine Clr Calc Pharmacy 84.9; Estimated Glomerular Filt Rate > 60; Glucose Random 74 mg/dL (60-115); Potassium 3.3 mmol/L (3.3-5.1); Sodium 136 mmol/L (135-145)
[2023-01-06 07:14] VITALS: BP 120/63; PULSE 72; RESP 20; TEMP 36.6; O2SAT 93
--- NOTE | 2023-01-06 07:19 | HE.PHANOTE ---
RE: VANCO Patient received proper load. Only one dose of 750 mg given at this time. will continue with 750 mg Q24H. Predicted AUC 441 mg/L/hr. Renal function improved from last night.
--- NOTE | 2023-01-06 08:00 | PM.CNGS ---
History of Present Illness Consult details Consult date: 01/06/23 Requesting physician: Porfirio Saul Narrative: 67-year-old female patient with multiple medical problems including end-stage multiple sclerosis, type 2 diabetes, mood disorder, GERD, gastroparesis, asthma, hypertension, and history of decubiti admitted to the hospital for further management of the decubitus ulcers. Of note the patient was found to have a large heel ulcer involving the left heel, as well as a large right hip decubitus, and sacral decubitus. Patient was previously home being care for by the . He feels that he is unable to continue to care for her at this time. She was previously on home hospice but this has been reversed by the . The patient reports being hungry and thirsty but denies significant pain from the her heel. Surgical consultation was requested for management of the decubiti. Review of Systems Review of Systems: Yes Unobtainable due to mental condition PMFSH Past Medical History Medical History Stage IV decubitus ulcer Bedbound Sacral decubitus ulcer Mood disorder Insomnia Hypertension Diabetes Peripheral neuropathy GERD (gastroesophageal reflux disease) Gastroparesis Multiple sclerosis Decubitus ulcer of buttock, unstageable Anemia Decubitus ulcer Asthma Social History Social History Household Members: Spouse Housing: House Do you presently have visiting nurse or other home services: Yes Unable to assess alcohol history related to: Unable to respond Alcohol intake: current Alcohol intake frequency: holidays/special occasions only Patient Tobacco Use Status: Never used Tobacco Smoked in Last 30 Days: No Use of substances other than those prescribed or required for medical reasons: Unable to respond Substance Use Type: Marijuana Advance Directives: Yes Advance Directives on File: Yes Advance Directives Date on File: 12/11/21 Do you have thoughts of harming others: None Do you have a plan to hurt others: No Plan Nutrition Risks: Dental problems and Difficulty chewing Patient : No Poor oral hygiene: No service: No Current occupational status: disabled Meds Allergies Allergy/AdvReac Type Severity Reaction Status Date / Time morphine [Morphine] Allergy Intermediate INCREASED Verified 03/05/22 17:07 HEART RATE/HALLUCINATIONS, hallucinations Active Medications: Current Medications Acetaminophen (Acetaminophen 325 Mg Tablet) 650 mg PO Q6H PRN PRN Reason: Pain, Mild (Pain Scale 1-3) Albuterol Sulfate (Albuterol Sulfate 90 Mcg 8 Gm Inhaler) 2 puff INHALE Q4H PRN PRN Reason: wheezing Amlodipine Besylate (Amlodipine Besylate 10 Mg Tablet) 10 mg PO DAILY [facility]; Protocol Aspirin (Aspirin 81 Mg Tab.Chew) 81 mg PO DAILY [facility] Atenolol (Atenolol 50 Mg Tablet) 50 mg PO DAILY [facility]; Protocol Baclofen (Baclofen 20 Mg Tablet) 20 mg PO TID [facility] Last Admin: 01/05/23 22:24 Dose: 20 mg Buspirone HCl (Buspirone Hcl 10 Mg Tablet) 10 mg PO BID [facility] Last Admin: 01/05/23 22:24 Dose: 10 mg Clonazepam (Clonazepam 1 Mg Tablet) 1 mg PO TID [facility] Last Admin: 01/05/23 22:21 Dose: 1 mg Clonazepam (Clonazepam 1 Mg Tablet) 1 mg PO TID PRN PRN Reason: Anxiety Dextrose (Dextrose 50 % 25 Gm/50 Ml Syringe) 25 gm IVPUSH Q15M PRN; Protocol PRN Reason: per Hypoglycemia Standing Ord. Dicyclomine HCl (Dicyclomine Hcl 10 Mg Capsule) 20 mg PO BID [facility] Last Admin: 01/05/23 22:20 Dose: 20 mg Docusate Sodium (Docusate Sodium 100 Mg Capsule) 100 mg PO DAILY PRN PRN Reason: Constipation Docusate Sodium (Docusate Sodium 100 Mg Capsule) 100 mg PO BID [facility] Last Admin: 01/05/23 22:19 Dose: 100 mg Fluoxetine HCl (Fluoxetine Hcl 20 Mg Capsule) 80 mg PO DAILY [facility] Furosemide (Furosemide 40 Mg Tablet) 80 mg PO DAILY [facility]; Protocol Gabapentin (Gabapentin 400 Mg Capsule) 400 mg PO TID [facility] Last Admin: 01/05/23 22:21 Dose: 400 mg Glucose (Glucose Gel 15 Gm Gel..Gram.) 15 gm PO Q15M PRN; Protocol PRN Reason: per Hypoglycemia Standing Ord. Guaifenesin (Guaifenesin 200 Mg/10 Ml 10 Ml Liquid) 10 ml PO Q6H [facility] Last Admin: 01/06/23 05:47 Dose: 10 ml Heparin Sodium (Porcine) (Heparin Sodium,Porcine 5,000 Unit/Ml Vial) 5,000 unit SUBCUT Q12H [facility] Last Admin: 01/06/23 05:47 Dose: 5,000 unit Piperacillin Sod/Tazobactam (Sod 4.5 gm/ Sodium Chloride) 100 mls @ 200 mls/hr IV Q6H [facility] Last Infusion: 01/06/23 05:29 Dose: Infused Vancomycin HCl 750 mg/ Sodium (Chloride) 265 mls @ 265 mls/hr IV Q12H [facility] Last Admin: 01/06/23 07:02 Dose: 265 mls/hr Lactulose (Lactulose 20 Gm/30 Ml Solution) 10 gm PO DAILY PRN PRN Reason: Constipation Lisinopril (Lisinopril 40 Mg Tablet) 40 mg PO DAILY [facility]; Protocol Melatonin (Melatonin 3 Mg Tablet) 18 mg PO BEDTIME [facility] Last Admin: 01/05/23 22:22 Dose: 18 mg Metoclopramide HCl (Metoclopramide Hcl 10 Mg Tablet) 10 mg PO TID [facility] Last Admin: 01/05/23 22:30 Dose: 10 mg Mirabegron (Mirabegron 25 Mg Tab.Er.24h) 25 mg PO DAILY [facility] Montelukast Sodium (Montelukast Sodium 10 Mg Tablet) 10 mg PO BEDTIME [facility] Last Admin: 01/05/23 22:25 Dose: 10 mg Multivitamins/Vitamin C (Multivitamin Tablet) 1 tab PO DAILY [facility] Omeprazole (Omeprazole 20 Mg Capsule.Dr) 20 mg PO BID@0630,1630 [facility] Last Admin: 01/06/23 05:47 Dose: 20 mg Ondansetron HCl (Ondansetron Hcl 4 Mg/2 Ml Vial) 4 mg IVPUSH Q8H PRN PRN Reason: Nausea and Vomiting Oxycodone HCl (Oxycodone Hcl Immed Release 5 Mg Tablet) 10 mg PO Q4H PRN PRN Reason: Pain, Severe (Pain Scale 7-10) Last Admin: 01/06/23 02:04 Dose: 10 mg Pharmacy Consult (Consult Rx Vancomycin Dosing) 1 each MISCELLANE DAILY PRN PRN Reason: Consult order Senna (Sennosides 8.6 Mg Tablet) 8.6 mg PO BID [facility] Last Admin: 01/05/23 22:25 Dose: 8.6 mg Sodium Chloride (0.9 % Sodium Chloride Flush 3 Ml Syringe) 3 ml IVFLUSH QSHIFT [facility] Last Admin: 01/06/23 00:17 Dose: Not Given Sucralfate (Sucralfate 1 Gm Tablet) 1 gm PO TID [facility] Last Admin: 01/05/23 22:25 Dose: 1 gm Tiotropium [place] (Tiotropium [place] 2.5 Mcg 1 Puff/2.5 Mcg Mist.Inhal) 1 puff INHALE RDAILY [facility] Trazodone HCl (Trazodone Hcl 50 Mg Tablet) 50 mg PO BEDTIME [facility] Last Admin: 01/05/23 22:23 Dose: 50 mg Vitamin D (Cholecalciferol (Vitamin D3) 25 Mcg Tablet) 25 mcg PO DAILY [facility] Home Medications Medication Instructions Recorded Confirmed Last Taken Type albuterol sulfate 90 mcg/actuation 2 puff inhalation Q4H PRN wheezing 12/05/21 01/05/23 Unknown History aerosol inhaler amlodipine 10 mg tablet 10 mg PO DAILY 12/05/21 01/05/23 Unknown History atenolol 50 mg tablet 50 mg PO DAILY 12/05/21 01/05/23 Unknown History buspirone 10 mg tablet 10 mg PO BID 12/05/21 01/05/23 Unknown History clonazepam 1 mg tablet 1 mg PO TID PRN Anxiety 12/05/21 01/05/23 Unknown History dicyclomine 10 mg capsule 20 mg PO BID 12/05/21 01/05/23 Unknown History docusate sodium 100 mg capsule 100 mg PO BID constipation 12/05/21 01/05/23 Unknown History fluoxetine 40 mg capsule 80 mg PO DAILY 12/05/21 01/05/23 Unknown History furosemide 40 mg tablet 80 mg PO DAILY 12/05/21 01/05/23 Unknown History gabapentin 400 mg capsule 400 mg PO TID 12/05/21 01/05/23 Unknown History lisinopril 40 mg tablet 40 mg PO DAILY 12/05/21 01/05/23 Unknown History metformin 500 mg tablet,extended 500 mg PO BEDTIME 12/05/21 01/05/23 Unknown History release 24 hr metoclopramide HCl 10 mg tablet 10 mg PO TID 12/05/21 01/05/23 Unknown History mirabegron 25 mg tablet,extended 25 mg PO DAILY 12/05/21 01/05/23 Unknown History release 24 hr (Myrbetriq) omeprazole 20 mg capsule,delayed 20 mg PO BID@0630,1630 12/05/21 01/05/23 Unknown History release ondansetron HCl 4 mg tablet 4 mg PO DAILY 12/05/21 01/05/23 Unknown History riboflavin (vitamin B2) 100 mg 100 mg PO BID 12/05/21 01/05/23 Unknown History tablet (Vitamin B-2) trazodone 50 mg tablet 50 mg PO BEDTIME Insomnia 12/05/21 01/05/23 Unknown History aspirin 81 mg chewable tablet 81 mg PO DAILY 12/10/21 01/05/23 Unknown History baclofen 20 mg tablet 1 tab PO TID 12/10/21 01/05/23 Unknown History cholecalciferol (vitamin D3) 25 25 mcg PO DAILY 12/10/21 01/05/23 Unknown History mcg (1,000 unit) tablet sucralfate 1 gram tablet 1 tab PO TID 12/10/21 01/05/23 Unknown History tiotropium bromide 18 mcg capsule 1 cap inhalation DAILY 12/10/21 01/05/23 Unknown History with inhalation device (Spiriva with HandiHaler) zafirlukast 20 mg tablet 1 tab PO BID 12/10/21 01/05/23 Unknown History lactulose 10 gram/15 mL oral 15 ml PO DAILY PRN Constipation 03/05/22 01/05/23 Unknown History solution multivitamin 1 tab PO DAILY 03/05/22 01/05/23 Unknown History sennosides 8.6 mg tablet (senna) 1 tab PO BID 03/05/22 01/05/23 Unknown History melatonin 10 mg tablet 20 mg PO BEDTIME 01/05/23 01/05/23 Unknown History oxycodone 10 mg tablet 10 mg PO Q4H PRN pain 01/05/23 01/05/23 Unknown History Physical Exam Vital Signs: Vital Signs: Last Vital Signs Temp 97.9 F 01/06/23 07:14 Pulse 72 01/06/23 07:14 Resp 20 01/06/23 07:14 BP 120/63 01/06/23 07:14 Pulse Ox 93 01/06/23 07:14 O2 Del Method Room Air 01/06/23 07:14 BMI result Body Mass Index 19.6 Const: General: alert, awake and ill appearing Nutritional Appearance: thin HEENT: Head: Yes atraumatic Teeth and gingiva: edentulous Resp: Effort & Inspection: normal respiratory effort, no audible wheezes, no cough and no respiratory distress GI: Inspection: Yes normal to inspection Extrem: Upper/lower leg/hip images: 1. 6 cm decubitus ulcer over right hip, no necrotic skin or subcutaneous tissue noted. Granulated base. Wounds covered with pink sponge dressing. Ankle/foot/toe images: 1. 4-5 cm ulceration with necrotic skin and subcutaneous tissue noted to be lifting off the underlying granulation tissue. A scissors was used to excise the skin and subcutaneous tissue measuring approximately 3 cm in diameter. Underlying tissue was viable with no active bleeding appreciated. Wound was covered with a pink sponge dressing followed by fluffed gauze and Jeff. Results Labs 01/06/23 05:53 01/06/23 05:53 Labs: Abnormal lab results 01/05/23 01/06/23 Range/Units 15:21 05:53 WBC 15.3 H (4.8-10.8) X10*3/uL RBC 3.55 L (4.20-5.50) X10*6/uL Hgb 11.5 L D 9.7 L (12.0-16.0) g/dl Hct 36.4 L D 30.2 L (37.0-47.0) % MPV 9.1 L (9.4-12.3) fL Lymph % (Auto) 17.8 L 19.1 L (20-40) % Abs Immat Gran (auto) 0.06 H (0.00-0.03) X10*3/uL Absolute Neuts (auto) 10.9 H (2.0-8.3) x10*3/uL Carbon Dioxide 32 H (22-29) mmol/L BUN 24 H (9-16) mg/dL Calcium 10.8 H D (8.4-10.2) mg/dL Short CBC 01/05/23 01/06/23 Range/Units 15:21 05:53 WBC 15.3 H 8.0 (4.8-10.8) X10*3/uL Hgb 11.5 L D 9.7 L (12.0-16.0) g/dl Hct 36.4 L D 30.2 L (37.0-47.0) % Plt Count 399 D 304 (160-400) X10*3/uL BMP 01/05/23 01/06/23 15:21 05:53 Sodium 137 136 Potassium 3.9 3.3 Chloride 96 101 Carbon Dioxide 32 H 25 BUN 24 H 15 Creatinine 0.64 0.50 Calcium 10.8 H D 9.3 D Liver Function 01/05/23 Range/Units 15:21 Total Bilirubin 0.2 (0.0-1.0) mg/dL AST 22 (5-31) U/L ALT 12 (0-31) U/L Alkaline Phosphatase 62 (39-117) U/L Albumin 3.5 (3.5-5.0) g/dL All other labs normal. Assessment and Plan (1) Decubitus ulcer: Qualifiers: Pressure injury location: heel Pressure injury stage: stage 3 Laterality: left Qualified Code(s): L89.623 - Pressure ulcer of left heel, stage 3 Status: Acute (2) Stage IV decubitus ulcer: Qualifiers: Pressure injury location: sacral region Qualified Code(s): L89.154 - Pressure ulcer of sacral region, stage 4 Status: Acute (3) Decubitus ulcer: Qualifiers: Pressure injury location: hip Pressure injury stage: stage 3 Laterality: right Qualified Code(s): L89.213 - Pressure ulcer of right hip, stage 3 Status: Acute Plan 67-year-old female patient with multiple medical problems including end-stage MS presenting with multiple decubitus ulcers involving the sacrum, right hip and left heel. The left heel ulcer was debrided of its necrotic skin and subcutaneous tissue down to viable tissue. A protective dressing was applied to all wounds. Continue with pressure reduction rotation of patient every 2 hours, and nutritional support. Continue vanco and Zosyn. Procedures Date of Service Date of Service: 01/06/23
[2023-01-06 08:10] LABS: Glucose, Whole Blood 72 mg/dL (60-115)
[2023-01-06] MEDS: FLUoxetine HCl 20 MG CAPSULE 80 MG PO (08:47)
[2023-01-06] MEDS: Dicyclomine HCl 10 MG CAPSULE 20 MG PO (08:47)
[2023-01-06] MEDS: Multivitamin TABLET 1 TAB PO (08:47)
[2023-01-06] MEDS: Docusate Sodium 100 MG CAPSULE PO (08:48)
[2023-01-06] MEDS: Furosemide 40 MG TABLET 80 MG PO (08:48)
[2023-01-06] MEDS: Aspirin 81 MG TAB.CHEW PO (08:48)
[2023-01-06] MEDS: clonazePAM 1 MG TABLET PO ×2 (08:48→14:00)
[2023-01-06] MEDS: Gabapentin 400 MG CAPSULE PO ×2 (08:48→14:01)
[2023-01-06] MEDS: busPIRone HCl 10 MG TABLET PO (08:48)
[2023-01-06] MEDS: amLODIPine Besylate 10 MG TABLET PO (08:49)
[2023-01-06] MEDS: Cholecalciferol (Vitamin D3) 25 MCG TABLET PO (08:49)
[2023-01-06] MEDS: Baclofen 20 MG TABLET PO ×2 (08:49→14:01)
[2023-01-06] MEDS: lisinopriL 40 MG TABLET PO (08:49)
[2023-01-06] MEDS: atenoloL 50 MG TABLET PO (08:49)
[2023-01-06] MEDS: Metoclopramide HCl 10 MG TABLET PO ×2 (08:49→14:00)
[2023-01-06] MEDS: Sennosides 8.6 MG TABLET PO (08:49)
[2023-01-06] MEDS: Sucralfate 1 GM TABLET PO ×2 (08:49→14:01)
[2023-01-06] MEDS: 0.9 % Sodium Chloride Flush 3 ML SYRINGE IVFLUSH ×3 (08:57→23:47)
--- NOTE | 2023-01-06 09:42 | MHC.CM.PN ---
spoke with pts pt is active with [facility]/hospice ,she also has [facility] servies ,, is undeceided about dc plan home w/hospice and [facility] vs placement w/hospice pt will need amb transport
--- NOTE | 2023-01-06 10:24 | P.PNIM_ITS ---
Subjective Subjective Date of Service: 01/07/23 Interval History: Pt seen and examined, previously was on hospice from end stage MS and has multiple pressure ulcer, reportedly hopsice service revoked pt's hospice status and sent her to the hospital for IV Abx. Patient wants to go back home, she seems comfortable at this time. Physical Exam 2 Vital Signs: Vital Signs: Last Vital Signs Temp 97.9 F 01/06/23 07:14 Pulse 72 01/06/23 07:14 Resp 20 01/06/23 07:14 BP 120/63 01/06/23 07:14 Pulse Ox 93 01/06/23 07:14 O2 Del Method Room Air 01/06/23 07:14 BMI result Body Mass Index 19.6 Const: Other: General: AO X 3, no acute distress Resp: CTA bilateral CVS: S1,S2,RRR GI: +BS, NT, no distention Skin:See prior picutures of of ulcers in H and P Neuro: flacid in lower extremities Psych: appropriate affect Objective Data Active Medications Acetaminophen (Acetaminophen 325 Mg Tablet) 650 mg PO Q6H PRN PRN Reason: Pain, Mild (Pain Scale 1-3) Albuterol Sulfate (Albuterol Sulfate 90 Mcg 8 Gm Inhaler) 2 puff INHALE Q4H PRN PRN Reason: wheezing Amlodipine Besylate (Amlodipine Besylate 10 Mg Tablet) 10 mg PO DAILY [facility]; Protocol Last Admin: 01/06/23 08:49 Dose: 10 mg Documented By: DONALD Aspirin (Aspirin 81 Mg Tab.Chew) 81 mg PO DAILY [facility] Last Admin: 01/06/23 08:48 Dose: 81 mg Documented By: DONALD Atenolol (Atenolol 50 Mg Tablet) 50 mg PO DAILY [facility]; Protocol Last Admin: 01/06/23 08:49 Dose: 50 mg Documented By: DONALD Baclofen (Baclofen 20 Mg Tablet) 20 mg PO TID [facility] Last Admin: 01/06/23 08:49 Dose: 20 mg Documented By: DONALD Buspirone HCl (Buspirone Hcl 10 Mg Tablet) 10 mg PO BID [facility] Last Admin: 01/06/23 08:48 Dose: 10 mg Documented By: DONALD Clonazepam (Clonazepam 1 Mg Tablet) 1 mg PO TID [facility] Last Admin: 01/06/23 08:48 Dose: 1 mg Documented By: DONALD Clonazepam (Clonazepam 1 Mg Tablet) 1 mg PO TID PRN PRN Reason: Anxiety Dextrose (Dextrose 50 % 25 Gm/50 Ml Syringe) 25 gm IVPUSH Q15M PRN; Protocol PRN Reason: per Hypoglycemia Standing Ord. Dicyclomine HCl (Dicyclomine Hcl 10 Mg Capsule) 20 mg PO BID [facility] Last Admin: 01/06/23 08:47 Dose: 20 mg Documented By: DONALD Docusate Sodium (Docusate Sodium 100 Mg Capsule) 100 mg PO DAILY PRN PRN Reason: Constipation Docusate Sodium (Docusate Sodium 100 Mg Capsule) 100 mg PO BID [facility] Last Admin: 01/06/23 08:48 Dose: 100 mg Documented By: DONALD Fluoxetine HCl (Fluoxetine Hcl 20 Mg Capsule) 80 mg PO DAILY [facility] Last Admin: 01/06/23 08:47 Dose: 80 mg Documented By: DONALD Furosemide (Furosemide 40 Mg Tablet) 80 mg PO DAILY [facility]; Protocol Last Admin: 01/06/23 08:48 Dose: 80 mg Documented By: DONALD Gabapentin (Gabapentin 400 Mg Capsule) 400 mg PO TID [facility] Last Admin: 01/06/23 08:48 Dose: 400 mg Documented By: DONALD Glucose (Glucose Gel 15 Gm Gel..Gram.) 15 gm PO Q15M PRN; Protocol PRN Reason: per Hypoglycemia Standing Ord. Guaifenesin (Guaifenesin 200 Mg/10 Ml 10 Ml Liquid) 10 ml PO Q6H [facility] Last Admin: 01/06/23 05:47 Dose: 10 ml Documented By: KYMBERLY Heparin Sodium (Porcine) (Heparin Sodium,Porcine 5,000 Unit/Ml Vial) 5,000 unit SUBCUT Q12H [facility] Last Admin: 01/06/23 05:47 Dose: 5,000 unit Documented By: KYMBERLY Piperacillin Sod/Tazobactam (Sod 4.5 gm/ Sodium Chloride) 100 mls @ 200 mls/hr IV Q6H [facility] Last Infusion: 01/06/23 05:29 Dose: Infused Documented By: KYMBERLY Vancomycin HCl 750 mg/ Sodium (Chloride) 265 mls @ 265 mls/hr IV Q12H [facility] Last Infusion: 01/06/23 08:33 Dose: Infused Documented By: DONALD Lactulose (Lactulose 20 Gm/30 Ml Solution) 10 gm PO DAILY PRN PRN Reason: Constipation Lisinopril (Lisinopril 40 Mg Tablet) 40 mg PO DAILY [facility]; Protocol Last Admin: 01/06/23 08:49 Dose: 40 mg Documented By: DONALD Melatonin (Melatonin 3 Mg Tablet) 18 mg PO BEDTIME [facility] Last Admin: 01/05/23 22:22 Dose: 18 mg Documented By: TRAMAINE Metoclopramide HCl (Metoclopramide Hcl 10 Mg Tablet) 10 mg PO TID [facility] Last Admin: 01/06/23 08:49 Dose: 10 mg Documented By: DONALD Mirabegron (Mirabegron 25 Mg Tab.Er.24h) 25 mg PO DAILY [facility] Montelukast Sodium (Montelukast Sodium 10 Mg Tablet) 10 mg PO BEDTIME [facility] Last Admin: 01/05/23 22:25 Dose: 10 mg Documented By: TRAMAINE Multivitamins/Vitamin C (Multivitamin Tablet) 1 tab PO DAILY [facility] Last Admin: 01/06/23 08:47 Dose: 1 tab Documented By: DONALD Omeprazole (Omeprazole 20 Mg Capsule.Dr) 20 mg PO BID@0630,1630 [facility] Last Admin: 01/06/23 05:47 Dose: 20 mg Documented By: KYMBERLY Ondansetron HCl (Ondansetron Hcl 4 Mg/2 Ml Vial) 4 mg IVPUSH Q8H PRN PRN Reason: Nausea and Vomiting Oxycodone HCl (Oxycodone Hcl Immed Release 5 Mg Tablet) 10 mg PO Q4H PRN PRN Reason: Pain, Severe (Pain Scale 7-10) Last Admin: 01/06/23 08:48 Dose: 10 mg Documented By: DONALD Pharmacy Consult (Consult Rx Vancomycin Dosing) 1 each MISCELLANE DAILY PRN PRN Reason: Consult order Senna (Sennosides 8.6 Mg Tablet) 8.6 mg PO BID [facility] Last Admin: 01/06/23 08:49 Dose: 8.6 mg Documented By: DONALD Sodium Chloride (0.9 % Sodium Chloride Flush 3 Ml Syringe) 3 ml IVFLUSH QSHIFT [facility] Last Admin: 01/06/23 08:57 Dose: 3 ml Documented By: DONALD Sucralfate (Sucralfate 1 Gm Tablet) 1 gm PO TID [facility] Last Admin: 01/06/23 08:49 Dose: 1 gm Documented By: DONALD Tiotropium [place] (Tiotropium [place] 2.5 Mcg 1 Puff/2.5 Mcg Mist.Inhal) 1 puff INHALE RDAILY [facility] Last Admin: 01/06/23 08:08 Dose: Not Given Documented By: ANNALISA Non-Admin Reason: pharmacy called Trazodone HCl (Trazodone Hcl 50 Mg Tablet) 50 mg PO BEDTIME [facility] Last Admin: 01/05/23 22:23 Dose: 50 mg Documented By: TRAMAINE Vitamin D (Cholecalciferol (Vitamin D3) 25 Mcg Tablet) 25 mcg PO DAILY [facility] Last Admin: 01/06/23 08:49 Dose: 25 mcg Documented By: DONALD Labs 01/06/23 05:53 01/06/23 05:53 Labs: Laboratory Results - last 24 hr 01/05/23 01/05/23 01/06/23 15:21 17:32 00:09 MCV 86.5 MCH 27.3 MCHC 31.6 RDW 15.1 Plt Count 399 D MPV 9.1 L Immature Gran % (Auto) 0.4 Neut % (Auto) 71.0 Lymph % (Auto) 17.8 L [place] % (Auto) 7.8 Eos % (Auto) 2.5 Baso % (Auto) 0.5 Lymph # (Auto) 2.7 [place] # (Auto) 1.2 Eos # (Auto) 0.4 Baso # (Auto) 0.1 Abs Immat Gran (auto) 0.06 H Absolute Neuts (auto) 10.9 H Absolute Nucleated RBC 0.000 Nucleated RBC % (auto) 0.0 Anion Gap 13 Estim Creat Clear Calc 66.3 Estimated GFR > 60 POC Glucose 78 Random Glucose 98 Calcium 10.8 H D Total Bilirubin 0.2 AST 22 ALT 12 Alkaline Phosphatase 62 Total Protein 7.4 Albumin 3.5 Influenza Type A (PCR) NEGATIVE Influenza Type B (PCR) NEGATIVE RSV RNA Qual (PCR) NEGATIVE SARS-CoV-2 RNA (RT-PCR) NEGATIVE 01/06/23 01/06/23 05:53 08:06 MCV 85.1 MCH 27.3 MCHC 32.1 RDW 14.9 Plt Count 304 MPV 9.4 Immature Gran % (Auto) 0.4 Neut % (Auto) 69.4 Lymph % (Auto) 19.1 L [place] % (Auto) 7.1 Eos % (Auto) 3.5 Baso % (Auto) 0.5 Lymph # (Auto) 1.5 [place] # (Auto) 0.6 Eos # (Auto) 0.3 Baso # (Auto) 0.0 Abs Immat Gran (auto) 0.03 Absolute Neuts (auto) 5.6 Absolute Nucleated RBC 0.000 Nucleated RBC % (auto) 0.0 Anion Gap 13 Estim Creat Clear Calc 84.9 Estimated GFR > 60 POC Glucose 72 Random Glucose 74 Calcium 9.3 D Total Bilirubin AST ALT Alkaline Phosphatase Total Protein Albumin Influenza Type A (PCR) Influenza Type B (PCR) RSV RNA Qual (PCR) SARS-CoV-2 RNA (RT-PCR) Assessment and Plan (1) Decubitus ulcer: Status: Acute (2) Dysphagia: Status: Acute (3) Hospice care patient: Status: Acute Plan 67 year old female with history of end stage MS on hospice, type 2 diabetes, unspecified mood disorder, GERD, gastroparesis, multifactorial polyneuropathy, asthma, htn, and stage 4 decubitus ulcer buttock to be admitted for hospice respite. #Infected stage 3 decubitus ulcer L heel #stage III ulcer right hip, sacrum. Stage III ulcer left heel as above. Stage II ulcer -leukocytosis 15.3, no other sirs criteria. 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: No VTE Risk Level:: Medical - moderate - high VTE Device Contraindication: Treatment Not Indicated VTE Drug Contraindication: N/A - Med Ordered
[2023-01-06 11:20] VITALS: BMI 19.6
[2023-01-06 11:21] LABS: Glucose, Whole Blood 123 mg/dL (60-115)
--- NOTE | 2023-01-06 11:26 | MHC.CLN ---
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
[2023-01-06] MEDS: Mirabegron 25 MG TAB.ER.24H PO (12:43)
--- NOTE | 2023-01-06 12:46 | MHC.SL.SWA ---
Speech Pathologist Impression: Risk of Aspiration Due to: Poor PO Intake Reduced Cognition Dysphasia Diet Status: Liquid Consistency and Strategies for Safe Swallow: Liquid Intake Recommendation: Thin Liquid Intake Strategies: Small Sips Solid Food Consistency: Dietary Recommendations: Grnd/Mech Altered (NDD2) Additional Modifications to Solid Foods: Oral Medication Intake: Crushed with Puree Please contact the pharmacy regarding appropriate crushable or liquid drug formulations that are available whenever modified delivery is recommended. Compensatory Strategies and Precautions to be Taken for Safe Swallow: Sitting Upright (90 deg) Liquids from Spoon Alternate Liquids/Solids Rate of Ingestion Change Oral Check Supervision While Eating and Drinking for Safe Swallow: Total Supervision (1:1) Foods to Avoid: Swallowing Recommended Treatments: Compens. Strategy Educat. Recommendation for Speech: Inpatient Speech Therapy Comment: Recommend upgrade to Ground/Mech Altered Solids (NDD2) and maintain Thin Liquids. Medications Crushed or Whole with Puree, as tolerated. Pt will require 1:1 assistance. Encourage completion of ONS with every meal. Timeline to reassess: PRN Licensing Manager Clinican/Clinical Fellow: No Supervisory Statement: I have reviewed and agree with the student/clinical fellow's documentation: N/A Speech Language Pathologist: Jamie Caldwell M.A., CCC-BIO MEDICAL TECHNICIAN
--- NOTE | 2023-01-06 13:30 | MHC.CM.PN ---
has agree d that pt will [facility] when dcd
--- NOTE | 2023-01-06 15:31 | MHC.CM.PN ---
pt being dcd tomorrow 01/07 at 9am to [facility] amb booked notified
[2023-01-06 15:38] VITALS: BP 109/58; PULSE 76; RESP 18; TEMP 36.8; O2SAT 96
--- NOTE | 2023-01-06 15:47 | HO.WOUND ---
Wound Consult: Initial 67yr old female admitted to [facility] on?01/05/23 - See progress notes and H&P for detailed history. Left Lower Lateral Leg Etiology: Unstageable Pressure Injury POA (present on Admission) Measurements: 9cm x 3cm x 0cm Wound Bed: central dark nonblanchable tissue surrounded by red nonblanhable tissue - intact tissue Drainage / Odor: None Edges: ? Irregular and attached Lora wound: ? Intact thin fragile tissue No Induration, No Fluctuance, No Warmth Pain: Mild tenderness reported Goals of Treatment: ? Off Load Pressure protect from friction Sacrum Etiology: Unstageable Pressure Injury POA Measurements: 9cm x 6cm x 0.2cm Wound Bed: adherent moist necrotic slough Drainage / Odor: yellow dorantes malodorous - moderate amount Edges: ? Irregular and unattached Lora wound: ? Red maroon- slow to chad . maceration noted No Induration, No Fluctuance Pain: pain reported Goals of Treatment: ? Off Load Pressure and Dakins for autolytic debridement Left Heel Etiology: Unstageable Pressure Injury POA Measurements: 6cm x 4.6cm x 0.3cm Wound Bed: red moist viable tissue with scattered areas of yellow necrotic slough Drainage / Odor: serosang - no odor noted Edges: ? Irregular and attached Lora wound: ? slow to chad tissue mild warmth noted with scattered open full thickness lesions No Induration, No Fluctuance, Pain: Pain reported Goals of Treatment: ? Off Load Pressure from surface of bed and moisture management with Durafiber AG Right Heel - intact red pink blanchable tissue -? Off Load Pressure from surface of bed Left Greater Trochanter Etiology: Unstageable Pressure Injury POA Measurements: 1cm x 1.5cm x 2cm with max depth of undermining at 6 o'clock 5cm Wound Bed: unable to visualize wound bed suspect penetrates to bone Drainage / Odor: serosang - no odor noted Edges: ? unattached Lora wound: ? Intact No Induration, No Fluctuance Pain: denies pain Goals of Treatment: ? Off Load Pressure from surface of bed and moisture management with packing strip Right Greater Trochanter Etiology: Stage 3 Pressure Injury POA Measurements: 7cm x 7cm x 0.4cm with max depth of undermining from 12-3 o'clock depth of 4cm Wound Bed: pale pink red moist tissue with thin veil of yellos slough easily removed with cleansing Drainage / Odor: serosang - no odor noted Edges: ? unattached Lora wound: ?Intact scar tissue noted - No Induration, No Fluctuance Pain: mild pain reported Goals of Treatment: ? Off Load Pressure from surface of bed and moisture management with Durafiber AG Left Knee medial Etiology: Stage 3 Pressure Injury POA Measurements: 4cm x 2cm x 0.2cm 2 Wound Bed: red moist tissue Drainage / Odor: serosang - no odor noted Edges: ? attached Lora wound: ?Intact - No Induration, No Fluctuance Pain: No pain reported Goals of Treatment: ? Off Load Pressure from surface of bed and moisture management with Durafiber AG Recommendations: 1. Turn and Reposition every 2 hours and as needed for patient comfort consider use of wedges available in the storeroom. 2. Off Load all bony prominences with use of pillows, wedges and heel boots - Order boots from store room. 3. Monitor for incontinence and moisture control. 4. Provide adequate and supplemental nutrition. 5. Continue low air loss mattress. 6. Left Trochanter - Cleanse and irrigate with NS, Pat dry. Lightly pack space with packing strip, be sure to leave wick for easy removal - cover with dry gauze, and foam dressing. Change Daily. 7.Sacrum - Cleanse with saline, apply triad to periwound - cover with Dakin moist gauze, cover with dry gauze, and foam sacral dressing. Change Daily. 8. Left Knee, Left Heel, Right Trochanter - Off Load Pressure - Cleanse with saline - apply triad to periwound, cover with durafiber AG, followed Apply Foam dressing or gauze wrap for heel. Change daily.
[2023-01-06 16:36] LABS: Glucose, Whole Blood 90 mg/dL (60-115)
[2023-01-06 20:00] VITALS: BP 148/80; PULSE 81; RESP 16; TEMP 36.9; O2SAT 92
[2023-01-07 03:26] VITALS: BP 145/84; PULSE 73; RESP 16; TEMP 36.5; O2SAT 93
[2023-01-07] MEDS: Piperacillin Sodium/Tazobactam 4.5 GM in 0.9 % Sodium Chloride 100 ML IV (05:22)
[2023-01-07] MEDS: Omeprazole 20 MG CAPSULE.DR PO (05:24)
[2023-01-07] MEDS: Heparin Sodium,Porcine 5,000 UNIT/ML VIAL 5000 UNIT SUBCUT (05:24)
[2023-01-07] MEDS: guaiFENesin 200 MG/10 ML 10 ML LIQUID PO (05:25)
[2023-01-07] MEDS: vancomycin HCL 750 MG in 0.9 % Sodium Chloride 250 ML 265 MG IV (06:39)
--- NOTE | 2023-01-07 06:59 | PM.DS ---
DS: Providers Provider Date of Service: 01/07/23 Date of admission: 01/05/23 16:46 Primary care physician: Neel Spencer MD Consults: 01/05/23 12:07 Consult to Case Management Stat Comment: 01/05/23 16:46 Consult to General Surgery Routine Consulting Provider: [facility] General Surgeons Reason for consultation: multiple decubitus ulcers, ?debridement R heel 01/06/23 01:10 Consult to Wound Care Routine Reason for consultation: decubitus ulcers Has provider been notified: Yes DS: Diagnosis Discharge Diagnosis (1) Decubitus ulcer: Status: Acute (2) Dysphagia: Status: Acute (3) Hospice care patient: Status: Acute DS: Summary Hospital Course Hospital Course: Chief Complaint: hospice respite 67 year old female with history of end stage MS on hospice, type 2 diabetes, unspecified mood disorder, GERD, gastroparesis, multifactorial polyneuropathy, neurogenic bladder with chronic bermudez , asthma, htn, and mutiple decubitus ulcers presented to the ED from home. She is currently living at home on hospice, cared for by her who is no longer able to care for his . Hospice is recommended hospice status be revoked due to infected decubitus ulcers that have failed outpatient antibiotics and would likely benefit from IV antibiotics. was agreeable and presented to the ED for further evaluation. She has had the decubitus ulcers for many months, having been admitted to our facility about 10 months ago though at that time the wounds were not felt to be infected. She has followed with see wound care in the past and currently has [facility] in the home, however is no longer able to care for her and requires placement for further hospice care upon discharge. On arrival, VSS. She has a leukocytosis of 15. Renal function and electrolyte levels normal except for slightly elevated CO2 32. Hepatic function normal. Denies any fevers or chills. [facility] nurse is reporting purulent drainage from the left heel which has been has also observed by . The patient is complaining of pain in the left elbow though denies any falls or injury. Her reports she has chronic pain related to her MS. She is also reporting occasional cough with sputum production ongoing for several weeks. Her reports she has a difficult time bringing up the sputum. She is also reporting dysphagia to foods only that has been ongoing for some time as well as anorexia. In the ED, has received IV vancomycin and Zosyn as well as oxycodone and clonazepam. Patient will be admitted for further management of infected decubitus ulcer. Hospital course: The patient has a history of multiple sclerosis (MS) complicated by multiple decubitus ulcers. She was receiving hospice care at home, but her is no longer able to care for her. The hospice service sent her to the hospital because they were concerned about infected decubitus ulcers. The hospice team recommended that her hospice status be revoked so that she could be admitted to the hospital for intravenous (IV) antibiotics. She had been prescribed oral Keflex without significant improvement. The patient was admitted to the hospital and started on IV antibiotics. She also saw a surgeon for wound debridement. Over the course of her hospitalization, patient and her expressed their desire to continue hospice care and would have preferred to return home. However, because he is unable to care for her at home, they have opted to go to a correction facility (SNF) and continue hospice care. A surgeon debrided the heel ulcer. Blood cultures are negative so far, and the patient will be switched to oral doxycycline for seven more days. Given the patient's overall complex clinical scenario, these ulcers are unlikely to heal even with prolonged IV antibiotic use. Instead, the focus should be on local wound care and preventative measures as recommended by wound nurse: 1. Turn and Reposition every 2 hours and as needed for patient comfort consider use of wedges available in the storeroom. 2. Off Load all bony prominences with use of pillows, wedges and heel boots - Order boots from store room. 3. Monitor for incontinence and moisture control. 4. Provide adequate and supplemental nutrition. 5. Continue low air loss mattress. 6. Left Trochanter - Cleanse and irrigate with NS, Pat dry. Lightly pack space with packing strip, be sure to leave wick for easy removal - cover with dry gauze, and foam dressing. Change Daily. 7.Sacrum - Cleanse with saline, apply triad to periwound - cover with Dakin moist gauze, cover with dry gauze, and foam sacral dressing. Change Daily. 8. Left Knee, Left Heel, Right Trochanter - Off Load Pressure - Cleanse with saline - apply triad to periwound, cover with durafiber AG, followed Apply Foam dressing or gauze wrap for heel. Change daily. She has chronic dyphagia and was seen by language and speech pathology with recommendation for Liquid Consistency and Strategies for Safe Swallow: Liquid Intake Recommendation: Thin Liquid Intake Strategies: Small Sips Solid Food Consistency: Dietary Recommendations: Grnd/Mech Altered (NDD2) Time Attestation Discharge coordination time: Greater than 30 minutes Quality: Safe Use of Opioids Does Pt have an Active Cancer Diagnosis on the Problem List?: No Quality: Stroke Does the patient have a stroke diagnosis?: No Physical Exam Vital Signs: Vital Signs: Last Vital Signs Temp 97.7 F 01/07/23 03:26 Pulse 73 01/07/23 03:26 Resp 16 01/07/23 03:26 BP 145/84 H 01/07/23 03:26 Pulse Ox 93 01/07/23 03:26 O2 Del Method Room Air 01/07/23 03:26 BMI result Body Mass Index 19.6 Const: Other: General: AO X 3, no acute distress Resp: CTA bilateral CVS: S1,S2,RRR GI: +BS, NT, no distention Skin:See prior picutures of of ulcers in H and P Neuro: flacid in lower extremities Psych: appropriate affect DS: Data Data Completed and Pending Completed studies during hospitalization [Text1]: Procedures Excision of Back Subcutaneous Tissue and Fascia, Open Approach (03/05/22) Excision of Right Upper Leg Subcutaneous Tissue and Fascia, Open Approach (03/05/22) Labs on day of discharge: Laboratory Results - last 24 hr 01/06/23 01/06/23 01/06/23 05:53 08:06 11:12 Sodium 136 Potassium 3.3 Chloride 101 Carbon Dioxide 25 Anion Gap 13 BUN 15 Creatinine 0.50 Estim Creat Clear Calc 84.9 Estimated GFR > 60 POC Glucose 72 123 H Random Glucose 74 Calcium 9.3 D 01/06/23 16:23 Sodium Potassium Chloride Carbon Dioxide Anion Gap BUN Creatinine Estim Creat Clear Calc Estimated GFR POC Glucose 90 Random Glucose Calcium Preliminary micro results at discharge 01/05/23 17:32 Blood Culture - Preliminary Blood - Venous No growth after 24 hours. 01/05/23 15:21 Blood Culture - Preliminary Blood - Venous No growth after 24 hours. Discharge Plan Discharge Anticipated Discharge Date/Time: 01/07/23 07:01 Patient Disposition: Xfer SNF Discharge Diagnosis: infected decub ulcers, hospice care Referrals: [facility] [Other] [facility] [Outside] Neel Spencer MD [Primary Care Provider] - 1 Week Discharge Medications: New doxycycline monohydrate 100 mg capsule 100 mg PO BID Qty: 14 0RF Continued sucralfate 1 gram tablet 1 tab PO TID baclofen 20 mg tablet 1 tab PO TID zafirlukast 20 mg tablet 1 tab PO BID aspirin 81 mg Tablet,Chewable 81 mg PO DAILY tiotropium bromide [Spiriva with HandiHaler] 18 mcg capsule, w/inhalation device 1 cap inhalation DAILY cholecalciferol (vitamin D3) 25 mcg (1,000 unit) Tablet 25 mcg PO DAILY sennosides [senna] 8.6 mg tablet 1 tab PO BID lactulose 10 gram/15 mL solution 15 ml PO DAILY PRN (Reason: Constipation) multivitamin Tablet 1 tab PO DAILY oxycodone 10 mg tablet 10 mg PO Q4H PRN (Reason: pain) melatonin 10 mg Tablet 20 mg PO BEDTIME ondansetron HCl 4 mg tablet 4 mg PO DAILY fluoxetine 40 mg capsule 80 mg PO DAILY docusate sodium 100 mg capsule 100 mg PO BID Myrbetriq 25 mg tablet extended release 24 hr 25 mg PO DAILY furosemide 40 mg tablet 80 mg PO DAILY metoclopramide HCl 10 mg tablet 10 mg PO TID riboflavin (vitamin B2) [Vitamin B-2] 100 mg tablet 100 mg PO BID albuterol sulfate 90 mcg/actuation HFA aerosol inhaler 2 puff inhalation Q4H PRN (Reason: wheezing) metformin 500 mg tablet extended release 24 hr 500 mg PO BEDTIME clonazepam 1 mg tablet 1 mg PO TID PRN (Reason: Anxiety) gabapentin 400 mg capsule 400 mg PO TID lisinopril 40 mg tablet 40 mg PO DAILY dicyclomine 10 mg capsule 20 mg PO BID buspirone 10 mg tablet 10 mg PO BID trazodone 50 mg tablet 50 mg PO BEDTIME atenolol 50 mg tablet 50 mg PO DAILY amlodipine 10 mg tablet 10 mg PO DAILY omeprazole 20 mg capsule,delayed release(DR/EC) 20 mg PO BID@0630,1630 Discharge Orders: Discharge Order (Routine); Ordered 01/07/23 Ordered By: Porfirio Saul Diet: Advance to usual diet Activity on Discharge: As tolerated Stand Alone Forms: Patient Portal Discharge page Activity Restrictions/Additional Instructions: Wound care recommendations: 1. Turn and Reposition every 2 hours and as needed for patient comfort consider use of wedges available in the storeroom. 2. Off Load all bony prominences with use of pillows, wedges and heel boots - Off load with boots. 3. Monitor for incontinence and moisture control. 4. Provide adequate and supplemental nutrition. 5. Continue low air loss mattress. 6. Left Trochanter - Cleanse and irrigate with NS, Pat dry. Lightly pack space with packing strip, be sure to leave wick for easy removal - cover with dry gauze, and foam dressing. Change Daily. 7.Sacrum - Cleanse with saline, apply triad to periwound - cover with Dakin moist gauze, cover with dry gauze, and foam sacral dressing. Change Daily. 8. Left Knee, Left Heel, Right Trochanter - Off Load Pressure - Cleanse with saline - apply triad to periwound, cover with durafiber AG, followed Apply Foam dressing or gauze wrap for heel. Change daily. 9. Left lower Lateral leg - apply skin prep allow to dry, protect from friction and trauma. May use dry ABD pad taped in place or foam dressing. Peel back and assess Q shift and change every 3 days and PRN. Care Plan Goals: Return to hospice care, prevent presure ulcers from getting worse Health Concerns: Decub ulcers hospice patient end stage MS Plan of Treatment: Take Doxycyline 100 mg twice daily for 7 days Wound care as follow 1. Turn and Reposition every 2 hours and as needed for patient comfort consider use of wedges available in the storeroom. 2. Off Load all bony prominences with use of pillows, wedges and heel boots - Order boots from store room. 3. Monitor for incontinence and moisture control. 4. Provide adequate and supplemental nutrition. 5. Continue low air loss mattress. 6. Left Trochanter - Cleanse and irrigate with NS, Pat dry. Lightly pack space with packing strip, be sure to leave wick for easy removal - cover with dry gauze, and foam dressing. Change Daily. 7.Sacrum - Cleanse with saline, apply triad to periwound - cover with Dakin moist gauze, cover with dry gauze, and foam sacral dressing. Change Daily. 8. Left Knee, Left Heel, Right Trochanter - Off Load Pressure - Cleanse with saline - apply triad to periwound, cover with durafiber AG, followed Apply Foam dressing or gauze wrap for heel. Change daily. Dysphagia diet as follow She has chronic dyphagia and was seen by language and speech pathology with recommendation for Liquid Consistency and Strategies for Safe Swallow: Liquid Intake Recommendation: Thin Liquid Intake Strategies: Small Sips Solid Food Consistency: Dietary Recommendations: Grnd/Mech Altered (NDD2) Continue hospice care Assessment: See above
[2023-01-07 07:29] VITALS: BP 149/70; PULSE 75; RESP 18; TEMP 36.2; O2SAT 93
[2023-01-07] MEDS: Tiotropium Bromide 2.5 mcg 1 PUFF/2.5 MCG MIST.INHAL INHALE (07:49)
[2023-01-07 07:57] LABS: Glucose, Whole Blood 114 mg/dL (60-115)
--- NOTE | 2023-01-07 08:40 | MHC.CM.PN ---
Addendum entered by Brittney Lezama 01/07/23 10:31: MDS AND PASRR LEVEL 1 SCREEN COMPLETED Original Note: PT WILL DC TO [facility] TODAY TRANSPORT NOW BOOKED FOR 1030 AM VIA TIFFANIE NOTIFIED
[2023-01-07] MEDS: Mirabegron 25 MG TAB.ER.24H PO (08:46)
[2023-01-07] MEDS: Metoclopramide HCl 10 MG TABLET PO (08:46)
[2023-01-07] MEDS: lisinopriL 40 MG TABLET PO (08:46)
[2023-01-07] MEDS: Cholecalciferol (Vitamin D3) 25 MCG TABLET PO (08:46)
[2023-01-07] MEDS: Aspirin 81 MG TAB.CHEW PO (08:46)
[2023-01-07] MEDS: FLUoxetine HCl 20 MG CAPSULE 80 MG PO (08:46)
[2023-01-07] MEDS: Sennosides 8.6 MG TABLET PO (08:47)
[2023-01-07] MEDS: Gabapentin 400 MG CAPSULE PO (08:47)
[2023-01-07] MEDS: Docusate Sodium 100 MG CAPSULE PO (08:47)
[2023-01-07] MEDS: Dicyclomine HCl 10 MG CAPSULE 20 MG PO (08:47)
[2023-01-07] MEDS: amLODIPine Besylate 10 MG TABLET PO (08:47)
[2023-01-07] MEDS: busPIRone HCl 10 MG TABLET PO (08:47)
[2023-01-07] MEDS: atenoloL 50 MG TABLET PO (08:47)
[2023-01-07] MEDS: Sucralfate 1 GM TABLET PO (08:47)
[2023-01-07] MEDS: Baclofen 20 MG TABLET PO (08:47)
[2023-01-07] MEDS: Furosemide 40 MG TABLET 80 MG PO (08:47)
[2023-01-07] MEDS: Multivitamin TABLET 1 TAB PO (08:47)
[2023-01-07] MEDS: clonazePAM 1 MG TABLET PO (08:47)
[2023-01-07] MEDS: 0.9 % Sodium Chloride Flush 3 ML SYRINGE IVFLUSH (08:49)
--- NOTE | 2023-01-07 09:02 | MHC.CLN ---
F/U PT WITH INCREASED NUTRITION RISK R/T PRESSURE INJURIES. SEEN BY PREKINDERGARTEN TEACHER. DIET RX: GROUND-APPROPRIATE. ENSURE MAX BID TO PROMOTE WOUND HEALING. PROVIDES 300KCALS, 60G PROTEIN. LIMITED PO DOC WITH 1 MEAL X 0 AND 1 MEAL X 50%. MONITOR PO INTAKE CLOSELY.
[2023-01-07] MEDS: oxyCODONE HCl Immed Release 5 MG TABLET 10 MG PO (10:11)
--- NOTE | 2023-01-07 10:26 | MHC.SLORD ---
Speech Language Pathology Order Status: Attempted to see patient for f/u dysphagia tx. Pt in process of being d/c to [facility].
--- NOTE | 2023-01-20 07:46 | P.CDIM_ITS ---
PROVIDER RESPONSE TEXT: To clarify, the appropriate diagnosis supported by the clinical indicators: Excisional debridement: As noted in my examination, a scissors was used to excise the skin and subcut aneous tissue measuring approximately 3 cm in diameter. Depth was 2 mm, wound base was granulated and viable. QUERY TEXT: PHYSICIAN'S DOCUMENTATION REQUEST Date of Query: 01/20/2023 07:19 AM EST Patient Name: Breana Morfin Admit Date: 01/05/2023 Dear Ulysses Pastor, A review of the medical record indicates additional documentation may be needed. Please review below and update the documentation accordingly. Clinical Indicators: Per General Surgery Consultation 01/06/23: The left heel ulcer was debrided of its necrotic skin and subcutaneous tissue down to viable tissue. A protective dressing was applied Could you provide further clarification regarding the type and nature of the debridement? Excisional debridement Please also address the Type of instrument used, What was excised, Depth of debridement, and Size and appearance of the wound as able Non-excisional debridement Please also address the Depth of debridement, and Size and appearance of the wound as able Other (explain) Clinically unable to determine (explain) Thank you, Shilpa Morataya RN Use of terms such as suspected, likely, concern for, or probable (associated with a specific diagnosi s that is being evaluated, monitored, or treated as if it exists) are acceptable and can be coded in the inpatient se tting, when documented at the time of discharge. Please use your independent medical judgment in providing your response. THIS QUERY IS PART OF THE PERMANENT MEDICAL RECORD
== END 2023-01-07 10:44 | disposition skilled nursing facility (03) | DRG 264 ==
LOC: HO.ED 16:12 → HO.EDOVER 16:53 → HO.S3 19:46
PROVIDERS: Internal Medicine; Admitting Provider Physician Assistant; Emergency Provider Emergency Medicine; PCP Internal Medicine; Visit Provider Internal Medicine
DX: I96 Gangrene, not elsewhere classified (principal); L89.43 Pressure ulcer of contiguous site of back, buttock and hip, stage 3; L89.623 Pressure ulcer of left heel, stage 3; L89.892 Pressure ulcer of other site, stage 2; R13.10 Dysphagia, unspecified; G35 Multiple sclerosis; E11.42 Type 2 diabetes mellitus with diabetic polyneuropathy; G63 Polyneuropathy in diseases classified elsewhere; Z74.01 Bed confinement status; Z20.822 Contact with and (suspected) exposure to COVID-19; Z79.82 Long term (current) use of aspirin; Z79.84 Long term (current) use of oral hypoglycemic drugs; Z79.899 Other long term (current) drug therapy
CPT/HCPCS: 0241U; 36415; 71045; 73070; 80048; 80053; 82947; 85025; 87040; 92610; 94640; 99285; C1758; J1644; J2543; J3370; J3371

== ENCOUNTER → 2023-01-05 16:46 | Outpatient (BNV) | payer MEDICARE, MEDICAID, SELFPAY | PROVIDERS: Admitting Provider Physician Assistant; Emergency Provider Emergency Medicine; PCP Internal Medicine; Visit Provider Internal Medicine | DX: L89.623 Pressure ulcer of left heel, stage 3 (principal); R13.10 Dysphagia, unspecified; Z51.5 Encounter for palliative care | CPT/HCPCS: 99223; 99232; 99239 ==

== ENCOUNTER → 2023-01-05 16:46 | Outpatient (BNV) | payer MEDICARE, MEDICAID, SELFPAY | PROVIDERS: Admitting Provider Physician Assistant; Emergency Provider Emergency Medicine; Visit Provider Surgery | DX: L89.623 Pressure ulcer of left heel, stage 3 (principal); L89.154 Pressure ulcer of sacral region, stage 4; L89.213 Pressure ulcer of right hip, stage 3 | CPT/HCPCS: 97597; 99222 ==